=== PATIENT | male | born 1940 | race Caucasian/White ===

== ENCOUNTER → 2017-09-16 09:44 | Outpatient (CLI) | payer MEDICARE, OTHER, SELFPAY ==
[2017-09-16 12:00] LABS: Absolute Lymphocyte Count 1.73 X10^3/ul (0.83-4.51); Absolute Neutrophil Count 5.6 X10^3/uL (2.0-7.7); Basophil# 0.02 X10^3/uL; Basophil% 0.2 % (0-1); Eosinophil# 0.08 X10^3/uL; Hemoglobin 12.8 g/dl (13.0-16.5); Lymphocyte # 1.73 X10^3/ul (4.0); Lymphocyte % 21.1 % (19-41); Mean Corpuscular Hgb 27.1 pg (27.0-32.0); Mean Corpuscular Volume 84.7 fL (80-94); Mean Platelet Vol. 10.1 fl (6.2-12.0); Monocyte# 0.72 X10^3/uL; Monocyte% 8.8 % (0-10); Neutrophil # 5.62 X10^3/uL (2.7-7.7); Neutrophil % 68.7 % (47-70); Platelet Count 338 K/mm3 (150-450); RBC Distribution Width CV 14.8 % (11.6-14.6); RBC Distribution Width SD 44.9 fl (35.1-43.9); Red Blood Count 4.72 M/mm3 (4.6-6.2); White Blood Count 8.2 K/mm3 (4.4-11.0)
[2017-09-16 12:07] LABS: POSITIVE COUNT NO; POSITIVE DIFFERENTIAL NO; POSITIVE MORPHOLOGY NO
[2017-09-16 12:20] LABS: Anion Gap 8 (5-15); BUN 16 mg/dL (7-18); Calcium,Total 8.7 mg/dL (8.5-10.1); Chloride 104 mmol/L (98-107); Creatinine, Serum 1.07 mg/dL (0.70-1.30); EST Glomerular Filtration Rate 71 mL/min (>60); Est Glom Filt Rate - Afr Amer 86 mL/min (>60); Glucose 92 mg/dL (74-106); Potassium 3.7 mmol/L (3.5-5.1); Sodium Level 142 mmol/L (136-145); T4 Free Direct 1.07 ng/dL (0.76-1.46); Thyroid Stim Hormone (TSH) 2.09 uIU/mL (0.358-3.74)
== END ==
PROVIDERS: Family Provider Family Medicine; PCP Family Medicine; Visit Provider Family Medicine
DX: E03.9 Hypothyroidism, unspecified (principal); I10 Essential (primary) hypertension
CPT/HCPCS: 36415; 80048; 84439; 84443; 85025

== ENCOUNTER → 2018-04-02 11:02 | Outpatient (CLI) | payer MEDICARE, OTHER, SELFPAY ==
[2016-05-17 07:23] VITALS: BMI 31.8
[2018-04-02 12:09] LABS: Absolute Lymphocyte Count 1.62 X10^3/ul (0.83-4.51); Absolute Neutrophil Count 3.5 X10^3/uL (2.0-7.7); Basophil# 0.04 X10^3/uL; Basophil% 0.7 % (0-1); Eosinophil# 0.22 X10^3/uL; Eosinophils% 3.7 % (0-5); Hemoglobin 12.5 g/dl (13.0-16.5); Lymphocyte # 1.62 X10^3/ul (4.0); Lymphocyte % 27.6 % (19-41); Mean Corp Hgb Conc 30.6 g/gl (32-36); Mean Corpuscular Hgb 25.8 pg (27.0-32.0); Mean Corpuscular Volume 84.3 fL (80-94); Mean Platelet Vol. 9.8 fl (6.2-12.0); Monocyte# 0.51 X10^3/uL; Monocyte% 8.7 % (0-10); Neutrophil # 3.47 X10^3/uL (2.7-7.7); Neutrophil % 59.1 % (47-70); POSITIVE COUNT NO; POSITIVE DIFFERENTIAL NO; POSITIVE MORPHOLOGY NO; Platelet Count 322 K/mm3 (150-450); RBC Distribution Width CV 14.7 % (11.6-14.6); RBC Distribution Width SD 45.2 fl (35.1-43.9); Red Blood Count 4.85 M/mm3 (4.6-6.2); White Blood Count 5.9 K/mm3 (4.4-11.0)
[2018-04-02 14:59] LABS: Hematocrit 40.9 % (40-54)
[2018-04-02 16:14] LABS: Anion Gap 7 (5-15); BUN 13 mg/dL (7-18); BUN/Creat Ratio 12.7 RATIO (10-20); Calcium,Total 8.4 mg/dL (8.5-10.1); Chloride 106 mmol/L (98-107); Creatinine, Serum 1.02 mg/dL (0.70-1.30); EST Glomerular Filtration Rate 75 mL/min (>60); Est Glom Filt Rate - Afr Amer 90 mL/min (>60); Glucose 96 mg/dL (74-106); Potassium 3.8 mmol/L (3.5-5.1); Sodium Level 139 mmol/L (136-145); T4 Free Direct 1.06 ng/dL (0.76-1.46); Thyroid Stim Hormone (TSH) 1.74 uIU/mL (0.358-3.74)
== END ==
PROVIDERS: Family Provider Family Medicine; PCP Family Medicine; Visit Provider Family Medicine
DX: E03.9 Hypothyroidism, unspecified (principal); I10 Essential (primary) hypertension; I49.9 Cardiac arrhythmia, unspecified
CPT/HCPCS: 36415; 80048; 83735; 84439; 84443; 85025

== ENCOUNTER → 2018-09-30 | Outpatient (CLI) | payer MEDICARE, OTHER, SELFPAY ==
[2016-05-17 07:23] VITALS: BMI 31.8
[2018-09-30 12:29] LABS: Absolute Lymphocyte Count 2.14 X10^3/uL (0.83-4.51); Absolute Neutrophil Count 3.5 X10^3/uL (2.0-7.7); Basophil# 0.05 X10^3/uL; Basophil% 0.8 % (0-1); Eosinophil# 0.18 X10^3/uL; Eosinophils% 2.8 % (0-5); Hematocrit 42.8 % (40-54); Hemoglobin 13.8 g/dL (13.0-16.5); Lymphocyte # 2.14 X10^3/ul (4.0); Lymphocyte % 33.2 % (19-41); Mean Corp Hgb Conc 32.2 g/dL (32-36); Mean Corpuscular Hgb 28.8 pg (27.0-32.0); Mean Corpuscular Volume 89.2 fL (80-94); Mean Platelet Vol. 9.8 fl (6.2-12.0); Monocyte# 0.53 X10^3/uL; Monocyte% 8.2 % (0-10); NRBC Flagged by Analyzer 0 % (0-5); Neutrophil % 54.2 % (47-70); Platelet Count 285 K/mm3 (150-450); RBC Distribution Width CV 13.6 % (11.6-14.6); RBC Distribution Width SD 44.2 fl (35.1-43.9); White Blood Count 6.5 K/mm3 (4.4-11.0)
[2018-09-30 12:54] LABS: ALB/GLOB Ratio 1.1 RATIO (0.9-2.4); AST(SGOT) 19 U/L (15-37); Alanine Aminotransfer ALT/SGPT 32 U/L (16-61); Albumin, Serum 3.9 g/dL (3.2-5.0); Alkaline Phosphatase 59 U/L (45-117); Anion Gap 7 (5-15); BUN 17 mg/dL (7-18); Calcium,Total 8.9 mg/dL (8.5-10.1); Chloride 108 mmol/L (98-107); Creatinine, Serum 1.06 mg/dL (0.70-1.30); EST Glomerular Filtration Rate 71 mL/min (>60); Est Glom Filt Rate - Afr Amer 86 mL/min (>60); Globulin 3.4 g/dL (2.2-4.2); Glucose 99 mg/dL (74-106); Potassium 3.6 mmol/L (3.5-5.1); Protein, Total 7.3 g/dL (6.4-8.2); Sodium Level 142 mmol/L (136-145); T4 Free Direct 1.05 ng/dL (0.76-1.46); Thyroid Stim Hormone (TSH) 1.07 uIU/mL (0.358-3.74)
== END | disposition home or self-care (01) ==
LOC: BFHLAB 10:38
PROVIDERS: Family Provider Family Medicine; PCP Family Medicine; Visit Provider Family Medicine
DX: E03.9 Hypothyroidism, unspecified (principal); I10 Essential (primary) hypertension
CPT/HCPCS: 36415; 80053; 84439; 84443; 85025

== ENCOUNTER → 2019-04-02 08:59 | Outpatient (CLI) | payer MEDICARE, OTHER, SELFPAY ==
[2019-04-02 12:26] LABS: Absolute Lymphocyte Count 1.74 X10^3/uL (0.83-4.51); Absolute Neutrophil Count 3.3 X10^3/uL (2.0-7.7); Basophil# 0.04 X10^3/uL; Basophil% 0.7 % (0-1); Eosinophil# 0.17 X10^3/uL; Eosinophils% 2.9 % (0-5); Hematocrit 45.8 % (40-54); Hemoglobin 14.1 g/dL (13.0-16.5); Lymphocyte # 1.74 X10^3/ul (4.0); Lymphocyte % 30.2 % (19-41); Mean Corp Hgb Conc 30.8 g/dL (32-36); Mean Corpuscular Hgb 26.6 pg (27.0-32.0); Mean Corpuscular Volume 86.4 fL (80-94); Mean Platelet Vol. 9.9 fl (6.2-12.0); Monocyte# 0.47 X10^3/uL; Monocyte% 8.1 % (0-10); NRBC Flagged by Analyzer 0 % (0-5); Neutrophil # 3.33 X10^3/uL (2.7-7.7); Neutrophil % 57.8 % (47-70); Platelet Count 313 K/mm3 (150-450); RBC Distribution Width CV 13.8 % (11.6-14.6); RBC Distribution Width SD 43.7 fl (35.1-43.9); White Blood Count 5.8 K/mm3 (4.4-11.0)
[2019-04-02 12:49] LABS: Anion Gap 6 (5-15); BUN 13 mg/dL (7-18); BUN/Creat Ratio 11.4 RATIO (10-20); Calcium,Total 9.2 mg/dL (8.5-10.1); Chloride 105 mmol/L (98-107); Creatinine, Serum 1.14 mg/dL (0.70-1.30); EST Glomerular Filtration Rate 66 mL/min (>60); Est Glom Filt Rate - Afr Amer 79 mL/min (>60); Glucose 109 mg/dL (74-106); Magnesium 2.1 mg/dL (1.6-2.6); Potassium 3.5 mmol/L (3.5-5.1); Sodium Level 141 mmol/L (136-145); T4 Free Direct 1.01 ng/dL (0.76-1.46); Thyroid Stim Hormone (TSH) 2.59 uIU/mL (0.358-3.74)
== END ==
PROVIDERS: PCP Family Medicine; Visit Provider Family Medicine
DX: I10 Essential (primary) hypertension (principal); E03.9 Hypothyroidism, unspecified; R60.0 Localized edema; E61.2 Magnesium deficiency
CPT/HCPCS: 36415; 80048; 83735; 84439; 84443; 85025

== ENCOUNTER → 2020-04-11 11:21 | Outpatient (CLI) | payer MEDICARE, OTHER, SELFPAY ==
[2020-04-11 15:47] LABS: Anion Gap 5 (5-15); BUN 16 mg/dL (7-18); BUN/Creat Ratio 16.2 RATIO (10-20); Calcium,Total 8.8 mg/dL (8.5-10.1); Chloride 105 mmol/L (98-107); Creatinine, Serum 0.99 mg/dL (0.70-1.30); EST Glomerular Filtration Rate 77 mL/min (>60); Est Glom Filt Rate - Afr Amer 94 mL/min (>60); Glucose 86 mg/dL (74-106); Potassium 3.6 mmol/L (3.5-5.1); Sodium Level 141 mmol/L (136-145); T4 Free Direct 1.07 ng/dL (0.76-1.46); Thyroid Stim Hormone (TSH) 2.34 uIU/mL (0.358-3.74)
== END ==
PROVIDERS: PCP Family Medicine; Visit Provider Family Medicine
DX: E03.9 Hypothyroidism, unspecified (principal); I10 Essential (primary) hypertension; R60.0 Localized edema
CPT/HCPCS: 36415; 80048; 84439; 84443

== ENCOUNTER → 2020-04-29 11:12 | Outpatient (CLI) | payer MEDICARE, OTHER, SELFPAY ==
[2016-05-17 07:23] VITALS: BMI 31.8
--- NOTE | 2020-04-29 11:17 | RAD_ITS ---
STUDY: X-RAY CHEST REASON FOR EXAM: Male, 79 years old. EDEMA, HEART FAILURE TECHNIQUE: PA and lateral views of the chest. COMPARISON: None. FINDINGS: The lungs are clear and expanded. There is no demonstrated pleural abnormality. There is mild cardiac enlargement. Normal mediastinum and [place]. Normal visualized pulmonary arteries. Normal visualized aortic arch and descending thoracic aorta. There are diffuse degenerative changes of the visualized thoracic spine. Normal visualized ribs, clavicles, and shoulders. There is no demonstrated abnormality of the visualized soft tissue structures of the upper abdomen. RAD/Chest PA and Lateral IMPRESSION: No demonstrated acute cardiopulmonary process. Electronically Signed: Obdulia Tavera MD at 9:43 EST Tel , Service support ,
[2020-04-29 14:52] LABS: Absolute Neutrophil Count 3.4 X10^3/uL (2.0-7.7); Basophil# 0.05 X10^3/uL; Basophil% 0.8 % (0-1); Eosinophil# 0.14 X10^3/uL; Eosinophils% 2.4 % (0-5); Hematocrit 40.5 % (40-54); Lymphocyte % 28.7 % (19-41); Mean Corp Hgb Conc 29.6 g/dL (32-36); Mean Corpuscular Hgb 24.4 pg (27.0-32.0); Mean Corpuscular Volume 82.5 fL (80-94); Monocyte# 0.56 X10^3/uL; Monocyte% 9.5 % (0-10); NRBC Flagged by Analyzer 0 % (0-5); Neutrophil # 3.44 X10^3/uL (2.7-7.7); Neutrophil % 58.1 % (47-70); Platelet Count 311 K/mm3 (150-450); RBC Distribution Width CV 14.7 % (11.6-14.6); RBC Distribution Width SD 44.3 fl (35.1-43.9); Red Blood Count 4.91 M/mm3 (4.6-6.2); White Blood Count 5.9 K/mm3 (4.4-11.0)
[2020-04-29 15:33] LABS: ALB/GLOB Ratio 1.1 RATIO (0.9-2.4); AST(SGOT) 20 U/L (15-37); Alanine Aminotransfer ALT/SGPT 30 U/L (16-61); Albumin, Serum 3.8 g/dL (3.2-5.0); Alkaline Phosphatase 61 U/L (45-117); Anion Gap 7 (5-15); BUN 11 mg/dL (7-18); BUN/Creat Ratio 11.9 RATIO (10-20); Chloride 104 mmol/L (98-107); Creatinine, Serum 0.93 mg/dL (0.70-1.30); EST Glomerular Filtration Rate 83 mL/min (>60); Est Glom Filt Rate - Afr Amer 101 mL/min (>60); Globulin 3.6 g/dL (2.2-4.2); Glucose 69 mg/dL (74-106); Potassium 3.6 mmol/L (3.5-5.1); Protein, Total 7.4 g/dL (6.4-8.2); Sodium Level 140 mmol/L (136-145); Thyroid Stim Hormone (TSH) 2.95 uIU/mL (0.358-3.74)
== END ==
PROVIDERS: PCP Family Medicine; Referring Provider Family Medicine; Visit Provider Family Medicine
DX: I11.0 Hypertensive heart disease with heart failure (principal); I50.9 Heart failure, unspecified; E03.9 Hypothyroidism, unspecified
CPT/HCPCS: 36415; 71046; 80053; 83880; 84443; 85025

== ENCOUNTER → 2020-05-02 | Outpatient (CLI) | payer MEDICARE, OTHER, SELFPAY | END | disposition home or self-care (01) | LOC: LABSPEC 11:04 | PROVIDERS: PCP Family Medicine; Visit Provider Family Medicine | DX: Z20.828 Contact with and (suspected) exposure to other viral communicable diseases (principal) | CPT/HCPCS: 87635; U0005; U0003 ==

== ENCOUNTER → 2020-05-13 12:46 | Outpatient (CLI) | payer MEDICARE, OTHER, SELFPAY ==
--- NOTE | 2020-05-13 12:48 | ECHOD_ITS ---
Reason For Study: CHF, NEW ONSET SUSPECT RIGHT SIDED FAILURE Procedure This was a 2D Doppler, Color Flow transthoracic echocardiogram. Exam performed in department. Left Ventricle Normal LV size. Left ventricular systolic function is normal. The estimated ejection fraction is 60 %. Stage 1 diastolic dysfunction. No regional wall motion abnormalities noted. Right Ventricle Normal RV size. Normal systolic function. Atria Normal left atrium. Normal right atrium. Mitral Valve Normal mitral valve. Tricuspid Valve Normal tricuspid valve. Aortic Valve Normal aortic valve. Trisinus/trileaflet aortic valve. Pulmonic Valve Normal pulmonic valve. Great Vessels Normal aortic root. The pulmonary artery is normal size. Normal inferior vena cava. Pericardium/Pleural No pericardial effusion. MMode/2D Measurements & Calculations LVIDd: 3.9 cm IVSd: 0.93 cm Ao root diam: 3.3 cm LVIDs: 2.7 cm LVPWd: 0.89 cm RVDd: 3.7 cm FS: 31.6 % LAV(MOD-bp): 46.4 ml LVAd ap4: 25.1 cm2 SV(MOD-sp4): 42.5 ml LAV(MOD-bp) Indexed: 24.0 ml/m2 EDV(MOD-sp4): 70.4 ml LAV(MOD-sp2): 48.5 ml EDV(sp4-el): 73.0 ml LAV(MOD-sp4): 39.2 ml LVAs ap4: 14.6 cm2 ESV(MOD-sp4): 27.9 ml ESV(sp4-el): 29.2 ml EF(MOD-sp4): 60.4 % EF(sp4-el): 60.0 % SV(sp4-el): 43.8 ml LA A4 area: 17.0 cm2 LA dimension(2D): 3.7 cm RA A4 area: 15.5 cm2 Time Measurements MV dec time: 0.24 sec Doppler Measurements & Calculations MV E max chris: 82.7 cm/sec Lat Peak E' Chris: 9.1 cm/sec Med Peak E' Chris: 8.4 cm/sec MV A max chris: 85.4 cm/sec E/E' lat: 9.1 E/E' med: 9.8 MV E/A: 0.97 Ao V2 max: 159.0 cm/sec LV V1 max: 98.7 cm/sec PA V2 max: 103.1 cm/sec Ao max P.1 mmHg LV V1 max P.9 mmHg Interpretation Summary Normal LV size. Left ventricular systolic function is normal. The estimated ejection fraction is 60 %. Stage 1 diastolic dysfunction. Structurally normal valves. Ordering Physician: Davis Recio Referring Physician: Davis Recio Performed By: Linda Johnston, RDCS
== END ==
PROVIDERS: PCP Family Medicine; Referring Provider Family Medicine; Visit Provider Family Medicine
DX: I50.9 Heart failure, unspecified (principal); R60.0 Localized edema; J44.9 Chronic obstructive pulmonary disease, unspecified
CPT/HCPCS: 93306

== ENCOUNTER → 2020-05-23 12:07 | Outpatient (CLI) | payer MEDICARE, OTHER, SELFPAY ==
[2016-05-17 07:23] VITALS: BMI 31.8
[2020-05-23 15:39] LABS: Anion Gap 8 (5-15); BUN 25 mg/dL (7-18); BUN/Creat Ratio 17.4 RATIO (10-20); Calcium,Total 9.3 mg/dL (8.5-10.1); Chloride 96 mmol/L (98-107); Creatinine, Serum 1.44 mg/dL (0.70-1.30); EST Glomerular Filtration Rate 50 mL/min (>60); Est Glom Filt Rate - Afr Amer 60 mL/min (>60); Glucose 109 mg/dL (74-106); Potassium 2.5 mmol/L (3.5-5.1); Sodium Level 136 mmol/L (136-145)
== END ==
PROVIDERS: PCP Family Medicine; Referring Provider Family Medicine; Visit Provider Family Medicine
DX: R60.0 Localized edema (principal)
CPT/HCPCS: 36415; 80048

== ENCOUNTER → 2020-05-30 14:53 | Outpatient (CLI) | payer MEDICARE, OTHER, SELFPAY ==
[2016-05-17 07:23] VITALS: BMI 31.8
[2020-05-30 18:09] LABS: Anion Gap 4 (5-15); BUN 22 mg/dL (7-18); BUN/Creat Ratio 17.1 RATIO (10-20); Calcium,Total 9.5 mg/dL (8.5-10.1); Chloride 98 mmol/L (98-107); Creatinine, Serum 1.29 mg/dL (0.70-1.30); EST Glomerular Filtration Rate 57 mL/min (>60); Est Glom Filt Rate - Afr Amer 69 mL/min (>60); Glucose 94 mg/dL (74-106); Potassium 2.6 mmol/L (3.5-5.1); Sodium Level 138 mmol/L (136-145)
== END ==
PROVIDERS: PCP Family Medicine; Referring Provider Family Medicine; Visit Provider Family Medicine
DX: I10 Essential (primary) hypertension (principal)
CPT/HCPCS: 36415; 80048

== ENCOUNTER 2020-06-02 12:19 | Emergency (ER) | payer MEDICARE, OTHER, SELFPAY ==
[2020-06-02 12:20] VITALS: BP 141/92; PULSE 105; RESP 18; TEMP 36.1; O2SAT 98; BMI 29.9
--- NOTE | 2020-06-02 12:39 | ED.VIS.GEN ---
History of Present Illness Chief Complaint: Constipation Informant: Patient Onset: Weeks - 1 Timing: Continuous Quality: see below Current Severity: Moderate Maximum Severity: Moderate Worsened by: nothing Relieved by: nothing - tried Dulcolax, miralax, fleet enema Associated Symptoms: LLQ pain once yest, otherwise none Narrative: Patient states that he usually has daily bowel movement, but as of 1 week ago he stopped having them. He did not get the urge to go, nor any abdominal pain, nausea, vomiting. He saw his PCP, he was put on a regimen that included Dulcolax, MiraLAX and he even did fleets enemas at home, he held the fluid in for 10 minutes or so, it came out without any other fluid/stool or affect. He has had some stool-colored fluid come out but very small amounts. He has not felt the need to go. He had one episode of left lower quadrant pain yesterday but otherwise is having no abdominal pain or discomfort/nausea/vomiting. - Past Medical History (1) Hypothyroid Status: Chronic (2) Hypertension Status: Chronic (3) Peripheral vertigo Status: Chronic (4) GERD (gastroesophageal reflux disease) Status: Chronic Past Medical History - Allergies and Home Meds Allergies/Adverse Reactions: Allergies No Known Allergies Allergy (Verified 06/02/20 12:19) Primary Care Physician: Davis Recio MD [Primary Care Provider] - Smoking Status: Former smoker Review of Systems General: Denies: Chills, Fever, Sweats Eyes: Denies: Visual changes - bilaterally, Diplopia ENT: Denies: Rhinorrhea, Sore throat Cardiovascular: Denies: Chest pain, Palpitations Respiratory: Denies: Dyspnea, Cough, Dyspnea on exertion Gastrointestinal: Reports: Constipation. Denies: Abdominal pain, Nausea, Vomiting, Diarrhea, Melena, Hematochezia Genitourinary: Denies: Dysuria, Hematuria, Frequency Musculoskeletal: Denies: Back pain, Extremity Pain Skin: Denies: Rash, Wounds Neurological: Denies: Headache, Weakness, Numbness Physical Exam Vital Signs/Narrative: Vital Signs Temp Pulse Resp BP Pulse Ox 06/02/20 12:20 97.0 F L 105 H 18 141/92 H 98 Inital Vital Signs reviewed: Yes General: Well nourished, Well developed, No Acute Distress Head: Normocephalic, Atraumatic Eyes: Perrl, EOMI ENT: Moist mucous membranes, No rhinorrhea Neck: Supple, Nontender Cardiovascular: Regular rate, Regular rhythm, No murmurs Respiratory: No distress, CTA bilaterally, Chest nontender Abdomen: Soft, Nontender, Nondistended, Normal bowel sounds, No masses. Negative for: Pulsatile mass Back: Nontender, Normal Inspection. Negative for: CVA tenderness Extremities: Nontender, No edema Skin: Normal color, No rash, No Trauma Neurological: Alert, Oriented x3, Cranial nerves II-XII grossly intact, Normal Strength, Normal Sensation, Normal Gait Psychological: Normal affect, Normal Mood Diagnostic/Tx/Re-eval - Medical Decision Making Patient was given soapsuds enema, and as a result had a very large bowel movement and he feels well. Given this, and his benign exam and symptomatology, I do not think further testing is indicated emergently at this time. Patient was advised to discontinue Dulcolax, he was prescribed Colace, and advised also continue MiraLAX a capful once daily along with plenty of fluids. He asked if he could go off of his diet, I advised that I think at this time he can if tolerated. ED Disposition - Plan for ED Patient: Disposition: Home or Assisted Living Diagnosis: Constipation Instructions: ED Constipation (Adult) Prescriptions: Docusate Sodium [Colace] 100 mg PO DAILY #30 capsule Transmission Status: Pending to [facility]/pharmacy #[id number] Referrals: Davis Recio MD [Primary Care Provider] - As Needed Additional Instructions: Discontinue Dulcolax. Continue MiraLAX, 1 capful daily along with plenty of water or other fluid.
== END 2020-06-02 14:22 | disposition home or self-care (01) ==
PROVIDERS: Emergency Provider Emergency Medicine; PCP Family Medicine
DX: K59.00 Constipation, unspecified (principal); I10 Essential (primary) hypertension; E03.9 Hypothyroidism, unspecified; K21.9 Gastro-esophageal reflux disease without esophagitis; Z79.899 Other long term (current) drug therapy; Z87.891 Personal history of nicotine dependence
CPT/HCPCS: 99284

== ENCOUNTER → 2020-10-11 14:43 | Outpatient (CLI) | payer MEDICARE, OTHER, SELFPAY ==
--- NOTE | 2020-10-11 14:44 | CT_ITS ---
INDICATION: PRIMARY OSTEOARTHRITIS EXAMINATION: CT BONE - CT Upper Extremity W/O Contrast Injection TECHNIQUE: Helically acquired images were obtained of the right shoulder. 2-D reformats were performed by the technologist. A radiation dose optimization technique was used for this scan. IV Contrast dosage and agent: None. COMPARISON: None. FINDINGS: SOFT TISSUES: No soft tissue swelling or gas. No radiopaque foreign body. The partially visualized lungs are clear. There is fatty replacement of the supraspinatus and infraspinatus muscles. No large shoulder joint effusion. BONES/JOINTS: No acute fracture or subluxation. Normal alignment. There is glenohumeral joint space narrowing with osteophytes and mild subchondral sclerosis. Acromiohumeral interval narrowing to 6 mm with osteophytes and mild subchondral sclerosis. Acromioclavicular osteophytes and subchondral sclerosis. No destructive changes. Mild degenerative changes in the partially visualized cervical and upper thoracic spine. 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 Acromiohumeral narrowing and fatty replacement of the supraspinatus muscles concerning for rotator cuff tear. There is also fatty degeneration of the infraspinatus muscle. Electronically Signed: Esteban Ferraro MD at 8:57 EDT Tel , Service support ,
== END ==
PROVIDERS: PCP Family Medicine; Referring Provider Specialist; Visit Provider Specialist
DX: M19.011 Primary osteoarthritis, right shoulder (principal)
CPT/HCPCS: 73200

== ENCOUNTER 2021-02-04 14:40 | Emergency (ER) | payer MEDICARE, OTHER, SELFPAY ==
[2021-02-04 14:40] VITALS: BP 144/72; PULSE 110; RESP 16; TEMP 35.8; O2SAT 99; BMI 27.4
--- NOTE | 2021-02-04 15:47 | RAD_ITS ---
STUDY: X-RAY - ACUTE ABDOMINAL SERIES REASON FOR EXAM: Male, 80 years old. Constipation TECHNIQUE: Single view of the chest. Supine, and erect view(s) of the abdomen were obtained. COMPARISON: None. FINDINGS: The lungs are clear and expanded. Normal size heart. Normal mediastinum and [place]. Normal visualized pulmonary arteries. There is atherosclerotic calcification of the aortic arch with tortuosity. There is a non-specific bowel gas pattern. The soft tissue structures of the abdomen and pelvis are unremarkable. There are diffuse degenerative changes of the visualized lumbar spine. RAD/Acute Abdomen Inc Chest IMPRESSION: Nonacute x-ray examination of the chest, abdomen, and pelvis. Electronically Signed: Joey Hdz MD ([place]) at 17:14 EST , Service support ,
--- NOTE | 2021-02-04 16:00 | EDS_ITS ---
HPI HPI - GI History of Present Illness Chief Complaint: Constipation Informant: patient Abdominal Pain/Flank Pain Onset: Weeks (1) Context: Gradual Onset Timing: Continuous Quality: Dull Location: RLQ and LLQ Worsened by: Nothing Relieved by: Nothing Nausea/Vomiting/Emesis GI Symptom: Negative for Nausea and Vomiting Diarrhea/Melena/Hematochezia GI Symptom: Negative for Diarrhea, Melena and Hematochezia Associated Symptoms Associated Symptoms: Negative for Dysuria, Frequency and Hematuria Narrative Narrative: Patient presents with constipation that has been constant for the past week. Patient states he has tried Colace and MiraLAX with no results. Patient states he has some dull pain in his lower abdomen. Patient states nothing makes it worse nothing makes it better. Patient states he has some pain in his low back as well. Patient denies any nausea or vomiting. Patient denies any fevers or chills. Patient denies any urinary complaints. [facility] Medical History Constipation Home Medications levothyroxine 50 mcg PO DAILY 12/11/15 [History Last Taken 05/17/16 06:00] docusate sodium 100 mg PO DAILY #30 capsule 06/02/20 [Rx Last Taken Unknown] furosemide 20 mg PO DAILY 06/02/20 [History Last Taken Unknown] pantoprazole 40 mg PO DAILY 06/02/20 [History Last Taken Unknown] potassium chloride 8 meq PO DAILY 06/02/20 [History Last Taken Unknown] cyanocobalamin-liver extract [Vitamin U30-Phzic] 1 tab PO DAILY 02/04/21 [Hi story Last Taken Unknown] glucos sul [id number] [Glucosamine Chondroitin] 1 cap PO DAILY 02/04/21 [History Last Taken Unknown] hydrochlorothiazide 25 mg PO DAILY 02/04/21 [History Last Taken Unknown] Allergy/AdvReac Type Severity Reaction Status Date / Time No Known Allergies Allergy Verified 06/02/20 12:19 Surgical History no surgical history no surgical history Social History Smoking Status: Never smoker ROS ROS ED Constitutional Constitutional ED: Denies chills or fever(s) Eyes Eyes: Denies blurry vision or change in vision ENT ENT ED: Denies rhinorrhea or sore throat Cardiovascular Cardiovascular: Denies chest pain or palpitations Respiratory/Chest Respiratory/Chest: Denies cough or dyspnea Gastrointestinal Gastrointestinal: Reports abdominal pain and constipation; Denies diarrhea, nausea or vomiting Genitourinary Genitourinary ED: Denies dysuria or hematuria Musculoskeletal Musculoskeletal: Reports back pain; Denies neck pain Integumentary Denies abscess or rash Neurologic Neurologic: Denies headache(s) or weakness Allergic/Immunologic Allergic/Immunologic ED: Denies mouth swelling or urticaria EXAM Physical Exam Const Vital Signs: 02/04/21 14:40 Temperature 96.5 F L Temperature Source Temporal Pulse Rate 110 H Respiratory Rate 16 Blood Pressure 144/72 H Blood Pressure Mean 96 Pulse Ox 99 Oxygen Delivery Method Room Air Positive well nourished and well developed General Appearance ED: well developed HEENT Reports moist mucous membranes Neck supple and no JVD Resp normal respiratory effort and clear to auscultation bilaterally Cardio regular rate, regular rhythm and no murmurs GI normal to inspection, nondistended, normoactive bowel sounds and non-distended Auscultation: normoactive bowel sounds Palpation: soft and tender LLQ, RLQ and suprapubic; Negative for guarding or rebound tenderness present Extremity normal to inspection General Extremety ED: Negative for edema or tenderness General Extremity: Negative for edema Neuro oriented x3, CN's II-XII intact bilaterally and no sensory deficits noted Sensorium / Orientation: alert Motor Exam: strength 5/5 throughout Psych mental status grossly normal Skin no rashes or lesions noted MDM MDM MDM Narrative Medical decision making narrative: Acute abdominal x-rays were obtained. There are 7 views. On my interpretation, there is no evidence of bowel obstruction. There is some mild stool noted in the rectum. There is no free air. There is no other acute process noted. Radiologist also interpreted the x-rays and agrees. CBC shows a mild anemia with a hemoglobin of 11.3 hematocrit 37.3. Comprehensive metabolic profile was essentially within normal limits. Urinalysis shows leukocyte esterase of 100. There were positive nitrites and 3+ bacteria. There were 0-5 white blood cells. Urine culture was ordered. I do not feel patient has any symptoms of urinary tract infection at this time. Patient does not need to be treated for urinary tract infection at this time. Patient was given a soapsuds enema here. Patient had some stool out with his enema. Patient feels better on reevaluation. Patient was instructed to follow- up with his primary care physician in 5 to 7 days. Patient understood and was agreeable with the plan. All questions were answered. Lab Data Attestation: I reviewed the patient's lab results. Labs: Laboratory Results - last 24 hr 02/04/21 02/04/21 02/04/21 16:20 16:20 19:39 WBC 6.9 RBC 4.76 Hgb 11.3 L Hct 37.3 L MCV 78.4 L MCH 23.7 L MCHC 30.3 L RDW Std Deviation 45.2 H RDW Coeff of Elieser 15.9 H Plt Count 390 MPV 8.5 Immature Gran % (Auto) 0.400 Neut % (Auto) 69.5 Lymph % (Auto) 19.3 [place] % (Auto) 8.4 Eos % (Auto) 2.0 Baso % (Auto) 0.4 Absolute Neuts (auto) 4.8 Absolute Lymphs (auto) 1.34 Nucleated RBC % 0 Sodium 140 Potassium 3.0 L Chloride 102 Carbon Dioxide 31.0 Anion Gap 7 BUN 19 H Creatinine 1.21 Estim Creat Clear Calc 42.47 Est GFR (MDRD) Af Amer 74 Est GFR (MDRD) Non-Af 61 BUN/Creatinine Ratio 15.7 Glucose 93 Calcium 9.1 Total Bilirubin 0.50 AST 14 L ALT 21 Alkaline Phosphatase 75 Total Protein 7.6 Albumin 3.4 Globulin 4.2 Albumin/Globulin Ratio 0.8 L Urine Color Yellow Urine Clarity Sl. Cloudy Urine pH 5.0 Ur Specific [place] 1.025 Urine Protein 30 H Urine Glucose (UA) Normal Urine Ketones 5 H Urine Occult Blood 10 H Urine Nitrite Positive H Urine Bilirubin Negative Urine Urobilinogen Normal Ur Leukocyte Esterase 100 H Urine RBC 0 SEEN Urine WBC 0-5 SEEN Ur Squamous Epith Cells 0-5 SEEN Urine Bacteria 3+ Urine Mucus 0 SEEN Radiography Diagnostic Testing: Clinical Impression(s) from Imaging Studies Acute Abdomen Series 02/04/21 15:47 IMPRESSION: Nonacute x-ray examination of the chest, abdomen, and pelvis. Electronically Signed: Joey Hdz MD ([place]) at 17:14 EST , Service support , Discharge Plan Triage Chief Complaint: Constipation ED Provider: Flaco Stout Dx/Rx/DC Orders Clinical Impression: Constipation Instructions: ED Constipation (Adult) Prescriptions: No Action levothyroxine 50 MCG tablet 50 mcg PO DAILY RF: 0 pantoprazole 40 MG tablet 40 mg PO DAILY RF: 0 furosemide 20 MG tablet 20 mg PO DAILY RF: 0 potassium chloride 10 MEQ tablet 8 meq PO DAILY RF: 0 docusate sodium 100 MG capsule 100 mg PO DAILY Qty: 30 RF: 0 hydrochlorothiazide 25 mg Tablet 25 mg PO DAILY RF: 0 Vitamin [id number] Tablet 1 tab PO DAILY RF: 0 Glucosamine Chondroitin 550-30-1 mg Capsule 1 cap PO DAILY RF: 0 Primary Care Provider: Davis Recio Referrals: Davis Recio MD [Primary Care Provider] - 3-5 Days Disposition Disposition: Home, Self Care
[2021-02-04 16:35] LABS: Absolute Lymphocyte Count 1.34 X10^3/uL (0.83-4.51); Absolute Neutrophil Count 4.8 X10^3/uL (2.0-7.7); Basophil# 0.03 X10^3/uL; Basophil% 0.4 % (0-1); Eosinophil# 0.14 X10^3/uL; Hematocrit 37.3 % (40-54); Hemoglobin 11.3 g/dL (13.0-16.5); Lymphocyte # 1.34 X10^3/ul (0.83-4.51); Lymphocyte % 19.3 % (19-41); Mean Corp Hgb Conc 30.3 g/dL (32-36); Mean Corpuscular Hgb 23.7 pg (27.0-32.0); Mean Corpuscular Volume 78.4 fL (80-94); Mean Platelet Vol. 8.5 fl (6.2-12.0); Monocyte# 0.58 X10^3/uL; Monocyte% 8.4 % (0-10); NRBC Flagged by Analyzer 0 % (0-5); Neutrophil # 4.81 X10^3/uL (2.7-7.7); Neutrophil % 69.5 % (47-70); Platelet Count 390 K/mm3 (150-450); RBC Distribution Width CV 15.9 % (11.6-14.6); RBC Distribution Width SD 45.2 fl (35.1-43.9); Red Blood Count 4.76 M/mm3 (4.6-6.2); White Blood Count 6.9 K/mm3 (4.4-11.0)
[2021-02-04 16:58] LABS: ALB/GLOB Ratio 0.8 RATIO (0.9-2.4); AST(SGOT) 14 U/L (15-37); Alanine Aminotransfer ALT/SGPT 21 U/L (16-61); Albumin, Serum 3.4 g/dL (3.2-5.0); Alkaline Phosphatase 75 U/L (45-117); Anion Gap 7 (5-15); BUN 19 mg/dL (7-18); BUN/Creat Ratio 15.7 RATIO (10-20); Calcium,Total 9.1 mg/dL (8.5-10.1); Chloride 102 mmol/L (98-107); Creatinine, Serum 1.21 mg/dL (0.70-1.30); EST Glomerular Filtration Rate 61 mL/min (>60); Est Glom Filt Rate - Afr Amer 74 mL/min (>60); Estimated Creatinine Clearance 42.47 ml/min; Globulin 4.2 g/dL (2.2-4.2); Glucose 93 mg/dL (74-106); Protein, Total 7.6 g/dL (6.4-8.2); Sodium Level 140 mmol/L (136-145)
[2021-02-04] MEDS: Potassium Chloride Oral Tablet 20 MEQ 40 MEQ PO (18:03)
[2021-02-04 19:46] LABS: Mucous, Urine 0 SEEN /hpf (<or=2+); Red Blood Cells-Urine 0 SEEN /hpf (0-5)
[2021-02-04 19:49] LABS: Color, Urine Yellow (Yellow); Glucose, Dipstick Normal (Normal); Ketone-Dipstick 5 mg/dl (Negative); Leukocyte Esterase-Dipstick 100 /ul (Negative); Nitrite-Dipstick Positive (Negative); Occult Blood-Urine 10 /ul (Negative); Protein-Dipstick 30 mg/dl (Negative); Specific Gravity, Urine 1.025 (1.002-1.030); Urine Bilirubin Dipstick Negative (Negative); Urine Clarity Sl. Cloudy (Clear); Urine Urobilinogen Normal (Normal)
[2021-02-04 19:58] LABS: Bacteria 3+ /hpf (None Seen); Squamous Epithelial Cells - UA 0-5 SEEN /hpf (0-5); White Blood Cells 0-5 SEEN /hpf (0-5)
== END 2021-02-04 20:19 | disposition home or self-care (01) ==
PROVIDERS: Emergency Provider Emergency Medicine; PCP Family Medicine
DX: K59.00 Constipation, unspecified (principal); R10.30 Lower abdominal pain, unspecified; M54.50 Low back pain, unspecified
CPT/HCPCS: 36415; 74022; 80053; 81001; 85025; 87077; 87086; 87088; 87186; 99285; A4216

== ENCOUNTER → 2021-06-21 | Outpatient (CLI) | payer MEDICARE, OTHER, SELFPAY ==
[2021-06-21 12:11] LABS: Absolute Lymphocyte Count 1.55 X10^3/uL (0.83-4.51); Basophil# 0.04 X10^3/uL; Basophil% 0.5 % (0-1); Eosinophil# 0.25 X10^3/uL; Eosinophils% 3.3 % (0-5); Hematocrit 38.7 % (40-54); Hemoglobin 11.7 g/dL (13.0-16.5); Lymphocyte # 1.55 X10^3/ul (0.83-4.51); Lymphocyte % 20.5 % (19-41); Mean Corp Hgb Conc 30.2 g/dL (32-36); Mean Corpuscular Hgb 23.6 pg (27.0-32.0); Mean Corpuscular Volume 78.2 fL (80-94); Mean Platelet Vol. 9.3 fl (6.2-12.0); Monocyte# 0.66 X10^3/uL; Monocyte% 8.7 % (0-10); NRBC Flagged by Analyzer 0 % (0-5); Neutrophil # 4.99 X10^3/uL (2.7-7.7); Neutrophil % 66.1 % (47-70); Platelet Count 430 K/mm3 (150-450); RBC Distribution Width CV 16.5 % (11.6-14.6); RBC Distribution Width SD 46.7 fl (35.1-43.9); Red Blood Count 4.95 M/mm3 (4.6-6.2); White Blood Count 7.6 K/mm3 (4.4-11.0)
[2021-06-21 12:42] LABS: Vitamin B12 832 pg/mL (211-911)
[2021-06-21 13:09] LABS: Ferritin 14 ng/mL (26-388); Iron 27 ug/dL (65-175); Thyroid Stim Hormone (TSH) 2.49 uIU/mL (0.358-3.74)
== END | disposition home or self-care (01) ==
LOC: MTLAB 10:31
PROVIDERS: PCP Family Medicine; Referring Provider Family Medicine; Visit Provider Family Medicine
DX: D64.9 Anemia, unspecified (principal); E03.9 Hypothyroidism, unspecified; G62.9 Polyneuropathy, unspecified
CPT/HCPCS: 36415; 82607; 82728; 82746; 83540; 84443; 85025

== ENCOUNTER 2021-09-03 10:03 | Inpatient (IN) | payer MEDICARE, OTHER, SELFPAY ==
[2021-09-03] VITALS (12 sets, daily range): BP systolic 131–189; BP diastolic 54–104; PULSE 59–98; RESP 14–20; TEMP 36.1–36.8; O2SAT 95–98; BMI 29.8; BMI 30.9
--- NOTE | 2021-09-03 10:29 | CT_ITS ---
STUDY: CTA HEAD AND NECK WITH CONTRAST REASON FOR EXAM: Male, 81 years old. Neuro deficit, acute, stroke suspected RADIATION DOSAGE (If Supplied By Facility): CTDIvol = ( 17.55 ) mGy, DLP = ( 684.73 ) mGycm TECHNIQUE: CT angiography was performed with a multi-detector CT scanner. Data acquisition was obtained from the skull base through the vertex following intravenous administration of 100mL Isovue-370. MIP images were reconstructed from the axial data set. Post-processing of the angiographic images was performed, with multiplanar reformation and 3D reconstruction. Individualized dose optimization techniques were used for this CT. COMPARISON: No relevant priors. FINDINGS: Normal bilateral petrous carotid arteries. Normal right cavernous carotid artery with a normal supraclinoid bifurcation. Normal left cavernous carotid artery with a normal supraclinoid bifurcation. Normal right A1 segments of the anterior cerebral artery. There is hypoplastic development of the left A1 segment of the anterior cerebral arteries with an atretic but intact artery. Normal intact anterior communicating artery (ACOM). Normal bilateral A2 segments of the anterior cerebral arteries. Normal right M1 and M2 segments of the middle cerebral arteries, with a normal M1 bifurcation. Normal left M1 and M2 segments of the middle cerebral arteries, with a normal M1 bifurcation. There is non-visualization of the right posterior communicating artery (PCOM). There is non-visualization of the left posterior communicating artery (PCOM). There is a small atretic left vertebral artery with a dominant right vertebral artery. Normal basilar artery with a normal basilar bifurcation. The visualized bilateral superior cerebellar (SCA) arteries are normal. Normal bilateral P1, P2 and visualized P3 segments of the posterior cerebral arteries. There is no demonstrated aneurysm of the [place]. There is no acute abnormality of the visualized brain. AORTIC ARCH: There is atherosclerotic calcific plaque formation of the aortic arch and great vessels arising from the aortic arch, without a hemodynamically significant stenosis. There is a normal origin of the brachiocephalic, left common carotid, and left subclavian arteries. RIGHT CAROTID ARTERIES: Normal right common carotid artery (CCA). Normal right common carotid bulb. Normal origin of the right internal carotid (ICA) artery without a hemodynamically significant stenosis. There is atherosclerotic tortuous elongation of the cervical portion of the right internal carotid artery. Normal origin of the right external carotid artery (ECA). LEFT CAROTID ARTERIES: Normal left common carotid artery (CCA). There is mild atherosclerotic plaque formation with minimal narrowing of the left carotid bulb. Normal origin of the left internal carotid (ICA) artery without a hemodynamically significant stenosis. There is atherosclerotic tortuous elongation of the cervical portion of the left internal carotid artery. Normal origin of the left external carotid artery (ECA). VERTEBRAL ARTERIES: There is enhancement within the bilateral vertebral arteries with a small left vertebral artery, and a dominant right vertebral artery. CT/STROKE CTA Head AND Neck W/Con IMPRESSION: There is plaque with mild, less than 50%, narrowing of the left proximal internal carotid arteries. There is no intracranial aneurysm or large vessel occlusion. N.B. : The above Results were Read Back by Yayo Dumont MD to , AA, and understanding confirmed on 09/03/2021 11:10:59 (ET). Electronically Signed: Yayo Dumont MD at 11:12 EDT ,
--- NOTE | 2021-09-03 10:29 | CT_ITS ---
STUDY: CT HEAD STROKE PROTOCOL W/O CONTRAST INJECTION REASON FOR EXAM: Male, 81 years old. Neuro deficit, acute, stroke suspected RADIATION DOSAGE (If Supplied By Facility): CTDIvol = ( 44 ) mGy, DLP = ( 829 ) mGycm TECHNIQUE: Transaxial CT imaging of the brain was performed without administration of intravenous contrast material. Individualized dose optimization techniques were used for this CT. COMPARISON: No relevant priors. FINDINGS: Normal soft tissue structures. Normal calvarium. There is mild cerebral atrophy with widening of the extra-axial spaces and ventricular dilatation. There are areas of decreased attenuation within the white matter tracts of the supratentorial brain, consistent with microvascular disease changes. Normal basal ganglia and thalami. Normal brainstem. Normal cerebellum. There is no intracranial hemorrhage. There are no findings of an acute ischemic infarction. Normal visualized paranasal sinuses. ASPECT score: 10 CT/STROKE Brain/Head without Cont IMPRESSION: Chronic involutional changes of the brain. N.B. : The above Results were Read Back by Yayo Dumont MD to Elgin Rubio MD, and understanding confirmed on 09/03/2021 10:52:15 (ET). Electronically Signed: Yayo Dumont MD at 10:53 EDT Reading Location ID and State: [facility] / [place] , Service support ,
--- NOTE | 2021-09-03 10:29 | EKG12_ITS ---
Test Reason : Blood Pressure : / mmHG Vent. Rate : 094 BPM Atrial Rate : 094 BPM P-R Int : 274 ms QRS Dur : 096 ms QT Int : 364 ms P-R-T Axes : 063 -03 029 degrees QTc Int : 455 ms Sinus rhythm with 1st degree A-V block Otherwise normal ECG Confirmed by BERNADETTE CUEVAS, HARSHA ([id number]), editorial cartoonist CASSIE SMITH ([id number]) on 09/05/2021 8:49:09 AM Referred By: Confirmed By:HARSHA FLEMING MD
--- NOTE | 2021-09-03 10:29 | RAD_ITS ---
EXAM: XR CHEST, 1 VIEW CLINICAL INDICATION: Neuro deficit, acute, stroke suspected TECHNIQUE: Frontal view of the chest. This report was created using [place] [employer] report generation technology. COMPARISON: 02/04/2021 FINDINGS: LUNGS AND PLEURAL SPACES: Unremarkable. No consolidation or edema. No pneumothorax. No effusion. HEART: Unremarkable. Cardiac silhouette not enlarged. MEDIASTINUM: Central airways and mediastinal contour are unremarkable. BONES/JOINTS: Degenerative changes of the spine and acromioclavicular joints. SOFT TISSUES: Unremarkable. RAD/Chest 1 View IMPRESSION: No acute findings in the chest. Electronically Signed: Bijan Schwartz MD at 12:19 EDT ,
--- NOTE | 2021-09-03 10:30 | NURSING ---
STROKE ALERT CALLED
--- NOTE | 2021-09-03 10:32 | EDS_ITS ---
HPI History of Present Illness Chief Complaint: Dizziness Informant: patient and family Narrative Narrative: Patient states he has vertigo. He has had vertigo before but its been 10 to 15 years ago. He states he was fine last night. He woke up this morning and he feels like he has double vision and he tends to walk to the right. He denies any weakness. He denies any discoordination. He has no headache. No nausea or vomiting. He has had no trauma or injury. He felt fine until this happened. Nothing makes it better or worse. He is not on any blood thinners. He has no history of heart disease or stroke. I note that he is on hydrochlorothiazide La six and potassium. But he does not know why. He does not know if this is for heart congestive heart failure edema blood pressure. [facility] Medical History (Updated 09/03/21 @ 13:[address] Elgin Hoffmann MD) Constipation GERD (gastroesophageal reflux disease) Hypertension Hypothyroid Home Medications levothyroxine 50 mcg tablet 50 mcg PO DAILY 12/11/15 [History Last Taken 05/17/16 06:00] furosemide 20 mg tablet 20 mg PO DAILY 06/02/20 [History Last Taken Unknown] pantoprazole 40 mg tablet,delayed release 40 mg PO DAILY 06/02/20 [History Last Taken Unknown] potassium chloride 10 mEq tablet,extended release(part/cryst) 8 meq PO DAILY 06/02/20 [History Last Taken Unknown] glucosamine sulf dipot chlr,msm,chond 550 mg-C 30 mg-carmela 1 mg capsule (Glucosamine Chondroitin) 1 cap PO DAILY 02/04/21 [History Last Taken Unknown] hydrochlorothiazide 25 mg tablet 25 mg PO DAILY 02/04/21 [History Last Taken Unknown] ferrous gluconate 324 mg (37.5 mg iron) tablet 1 tab PO DAILY 09/03/21 [History Last Taken Unknown] polyethylene glycol 3350 17 gram/dose oral powder (Miralax) 17 g PO DAILY 09/03/21 [History Last Taken Unknown] Allergy/AdvReac Type Severity Reaction Status Date / Time No Known Allergies Allergy Verified 09/03/21 10:05 Social History (Updated 09/03/21 @ 12:[address] Flaco Correia DO) Smoking Status: Former smoker alcohol intake: never ROS ROS ED Constitutional Constitutional ED: Denies chills, fever(s), sweats or weakness Eyes Eyes: Reports change in vision and diplopia ENT ENT ED: Denies rhinorrhea or sore throat Cardiovascular Cardiovascular: Denies chest pain or palpitations Respiratory/Chest Respiratory/Chest: Denies cough Gastrointestinal Gastrointestinal: Denies nausea or vomiting Genitourinary Genitourinary ED: Denies dysuria Musculoskeletal Musculoskeletal: Denies arthralgias or myalgias Integumentary Denies rash Neurologic Neurologic: Reports other Details: See history of present illness. ; Denies headache(s), paresthesias or weakness Endocrine Endocrinology: Denies polydipsia or polyuria Hematologic/Lymphatic Hematologic/Lymphatic: Denies easy bleeding or easy bruising Allergic/Immunologic Allergic/Immunologic ED: Denies urticaria EXAM Physical Exam Const Vital Signs: 09/03/21 10:03 09/03/21 10:29 09/03/21 10:29 Temperature 98 F Temperature Source Temporal Pulse Rate 95 93 Respiratory Rate 18 18 Blood Pressure 189/85 H 187/104 H Blood Pressure Mean 119 131 Pulse Ox 98 95 Oxygen Delivery Method Room Air Room Air Room Air 09/03/21 10:59 09/03/21 11:29 09/03/21 11:41 Temperature 98.2 F Temperature Source Temporal Pulse Rate 93 73 Respiratory Rate 20 H 18 14 Blood Pressure 139/73 H 161/73 H Blood Pressure Mean 95 102 Pulse Ox 95 95 96 Oxygen Delivery Method Room Air Room Air Room Air 09/03/21 10:30 Temperature 98 F Temperature Source Temporal Pulse Rate 93 Respiratory Rate 20 H Blood Pressure 187/104 H Blood Pressure Mean 131 Pulse Ox 95 Oxygen Delivery Method Room Air Positive well nourished and well developed Constitutional Narrative: Patient looks comfortable in bed. He is not holding onto rails. He does not look ill or nauseated. He speaks quite normally to me. General Appearance ED: well developed and NAD HEENT Reports moist mucous membranes Eyes Eyes Narrative: Patient has a clear right sided exophoria. When I cover his left eye I can get his right eye to go through full range of motion including looking past midline medially. His left eye has good range of motion. Yet his left eye does not look as far medially as I would normally expect it to. But it does cross midline. Neck supple General: Negative for tenderness Chest Wall inspection of chest normal Resp normal respiratory effort and clear to auscultation bilaterally Auscultation: Negative for rales, rhonchi or wheezes Cardio no murmurs Rate: regular rate; Negative for bradycardia or tachycardic GI normal to inspection, nondistended, normoactive bowel sounds, soft to palpation and non-tender Back/Spine no CVA tenderness Neuro oriented x3 Neuro Narrative: See above. Motor Exam: strength 5/5 throughout Psych mental status grossly normal Skin no wounds STROKE Vital Signs/Narrative: Vital Signs Temp Pulse Resp BP Pulse Ox O2 Del Method 09/03/21 10:30 98 F 93 20 H 187/104 H 95 Room Air 09/03/21 11:41 98.2 F 73 14 161/73 H 96 Room Air 09/03/21 11:29 18 95 Room Air 09/03/21 10:59 93 20 H 139/73 H 95 Room Air 09/03/21 10:29 93 18 187/104 H 95 Room Air 09/03/21 10:29 Room Air 09/03/21 10:03 98 F 95 18 189/85 H 98 Room Air NIHSS Initial: 1a Level of Consciousness: 0 1b LOC Questions (Score 2 if aphasic/stupor): 0 1c LOC Commands (Only score 1st attempt): 0 2 Best Gaze (If aphasic, use reflexive mvmts.): 1 3 Visual: 0 4 Facial Palsy: 0 5 Motor Arm Right (UN = amputation/fusion): 0 5 Motor Arm Left: 0 6 Motor Leg Right: 0 6 Motor Leg Left: 0 7 Limb ataxia (Only + if out of proportion): 0 8 Sensory (Aphasia/stupor=0 or 1, coma=2): 0 9 Best Language: 0 10 Dysarthria (mute, coma=2, intubated=UN): 0 11 Extinction and Inattention (only scored if +): 0 Total Score: 1 MDM MDM MDM Narrative Medical decision making narrative: Patient's blood work shows minimal anemia which is not the source of his problems. Coags are normal. Electrolytes are overall unremarkable other than a glucose of 151. Troponin is negative. CT of his head and CTA are not showing any acute process. I discussed this with the radiologist. I also discussed the case with Dr. Hernandez neurologist. She stated patient could stay here for further MRI and work-up as long as his CT angiogram did not show a large vessel occlusion. I discussed the case with the hospitalist. Lab Data Attestation: I reviewed the patient's lab results. Labs: Laboratory Results - last 24 hr 09/03/21 09/03/21 09/03/21 10:10 10:10 10:10 WBC 7.4 RBC 4.89 Hgb 12.7 L Hct 40.5 MCV 82.8 MCH 26.0 L MCHC 31.4 L RDW Std Deviation 48.8 H RDW Coeff of Elieser 16.2 H Plt Count 401 MPV 9.1 Immature Gran % (Auto) 0.700 Neut % (Auto) 68.7 Lymph % (Auto) 21.4 [place] % (Auto) 6.4 Eos % (Auto) 2.0 Baso % (Auto) 0.8 Absolute Neuts (auto) 5.1 Absolute Lymphs (auto) 1.58 Nucleated RBC % 0 PT 12.9 INR 1.0 APTT 30.8 Sodium 139 Potassium 3.5 Chloride 102 Carbon Dioxide 30.0 Anion Gap 7 BUN 14 Creatinine 1.12 Estim Creat Clear Calc 45.10 Est GFR (MDRD) Af Amer 81 Est GFR (MDRD) Non-Af 67 BUN/Creatinine Ratio 12.5 Glucose 151 H Calcium 9.1 Troponin I High Sens 5 POC Glucose 09/03/21 10:44 WBC RBC Hgb Hct MCV MCH MCHC RDW Std Deviation RDW Coeff of Elieser Plt Count MPV Immature Gran % (Auto) Neut % (Auto) Lymph % (Auto) [place] % (Auto) Eos % (Auto) Baso % (Auto) Absolute Neuts (auto) Absolute Lymphs (auto) Nucleated RBC % PT INR APTT Sodium Potassium Chloride Carbon Dioxide Anion Gap BUN Creatinine Estim Creat Clear Calc Est GFR (MDRD) Af Amer Est GFR (MDRD) Non-Af BUN/Creatinine Ratio Glucose Calcium Troponin I High Sens POC Glucose 130 H Radiography Diagnostic Testing: Clinical Impression(s) from Imaging Studies Brain CT 09/03/21 10:29 IMPRESSION: Chronic involutional changes of the brain. N.B. : The above Results were Read Back by Yayo Dumont MD to Elgin Rubio MD, and understanding confirmed on 09/03/2021 10:52:15 (ET). Electronically Signed: Yayo Dumont MD at 10:53 EDT , ADDENDUM: 09/03/21 1100 IMPRESSION: Chronic involutional changes of the brain. N.B. : The above Results were Read Back by Yayo Dumont MD to Elgin Rubio MD, and understanding confirmed on 09/03/2021 10:52:15 (ET). Electronically Signed: Yayo Dumont MD at 10:53 EDT Reading Location ID and State: [facility] / [place] , Service support , Chest X-Ray 09/03/21 10:29 IMPRESSION: No acute findings in the chest. Electronically Signed: Bijan Schwartz MD at 12:19 EDT , Head/Neck CTA 09/03/21 10:29 IMPRESSION: There is plaque with mild, less than 50%, narrowing of the left proximal internal carotid arteries. There is no intracranial aneurysm or large vessel occlusion. N.B. : The above Results were Read Back by Yayo Dumont MD to , AA, and understanding confirmed on 09/03/2021 11:10:59 (ET). Electronically Signed: Yayo Dumont MD at 11:12 EDT Reading Location ID and State: [address] [place] [address] , Service support , ADDENDUM: 09/03/21 1119 IMPRESSION: There is plaque with mild, less than 50%, narrowing of the left proximal internal carotid arteries. There is no intracranial aneurysm or large vessel occlusion. N.B. : The above Results were Read Back by Yayo Dumont MD to , AA, and understanding confirmed on 09/03/2021 11:10:59 (ET). Electronically Signed: Yayo Dumont MD at 11:12 EDT Reading Location ID and State: [facility] / [place] , Service support , EKG Initial EKG: Comments: CutisEKG done as part of stroke work-up read by me shows normal sinus rhythm with first-degree AV block. No sign of atrial fibrillation or flutter. Overall rate of 94. Evaluation of depression. He has a long VA interval at 274 ms. QRS and QTc are normal. Discharge Plan Dx/Rx/DC Orders Clinical Impression: Cranial nerve III palsy, Acute CVA (cerebrovascular accident), Dizziness Disposition Disposition: Acute Care Hospital [facility] Discharge Date/Time: 09/03/21 12:14
[2021-09-03 10:36] LABS: Absolute Lymphocyte Count 1.58 X10^3/uL (0.83-4.51); Absolute Neutrophil Count 5.1 X10^3/uL (2.0-7.7); Basophil# 0.06 X10^3/uL; Basophil% 0.8 % (0-1); Eosinophil# 0.15 X10^3/uL; Hematocrit 40.5 % (40-54); Hemoglobin 12.7 g/dL (13.0-16.5); Lymphocyte # 1.58 X10^3/ul (0.83-4.51); Lymphocyte % 21.4 % (19-41); Mean Corp Hgb Conc 31.4 g/dL (32-36); Mean Corpuscular Volume 82.8 fL (80-94); Mean Platelet Vol. 9.1 fl (6.2-12.0); Monocyte# 0.47 X10^3/uL; Monocyte% 6.4 % (0-10); NRBC Flagged by Analyzer 0 % (0-5); Neutrophil # 5.06 X10^3/uL (2.7-7.7); Neutrophil % 68.7 % (47-70); Platelet Count 401 K/mm3 (150-450); RBC Distribution Width CV 16.2 % (11.6-14.6); RBC Distribution Width SD 48.8 fl (35.1-43.9); Red Blood Count 4.89 M/mm3 (4.6-6.2); White Blood Count 7.4 K/mm3 (4.4-11.0)
[2021-09-03 10:44] LABS: Prothrombin Time (Protime)PT. 12.9 SECONDS (11.7-14.9)
[2021-09-03 10:45] LABS: Partial Thromboplast Time 30.8 Seconds (24.1-36.2)
[2021-09-03] MEDS: Ondansetron 4 MG/2 ML Vial IV (10:48)
[2021-09-03 10:54] LABS: Anion Gap 7 (5-15); BUN 14 mg/dL (7-18); BUN/Creat Ratio 12.5 RATIO (10-20); Calcium,Total 9.1 mg/dL (8.5-10.1); Chloride 102 mmol/L (98-107); Creatinine, Serum 1.12 mg/dL (0.70-1.30); EST Glomerular Filtration Rate 67 mL/min (>60); Est Glom Filt Rate - Afr Amer 81 mL/min (>60); Glucose 151 mg/dL (74-106); Potassium 3.5 mmol/L (3.5-5.1); Sodium Level 139 mmol/L (136-145); Troponin-I HS 5 pg/mL (3.0-78.0)
[2021-09-03 11:06] LABS: Bedside Glucose 130 mg/dL (74-106)
--- NOTE | 2021-09-03 11:33 | ED.RN ---
PT PERSISTENT ON AMBULATING TO THE RESTROOM, REFUSED BSC AND URINAL. PT AMBULATED WITH ASSIST X2 TO RESTROOM. PT HAS HARD LEAN TO THE RIGHT SIDE. DR. GONZALEZ MADE AWARE. PT ENCOURAGED TO USE A BSC NEXT TIME.
--- NOTE | 2021-09-03 11:54 | NURSING ---
BOWEN CIFUENTES CVA, DIPLOPIA
--- NOTE | 2021-09-03 11:59 | PCM.HP.STD ---
[facility] - General General Date of Service: 09/03/21 Chief Complaint: diplopia. HPI Narrative FRANCISCA KNOWLES, is a 81 M who presents with diplopia. Patient was leaning towards right side when he got up and walked today. Was fine last night. Patient was found to have disconjugate gaze in the emergency room. Patient underwent a CTA of the head and neck and head CT that showed no acute process. The hospital service was contacted for further admission. Patient has had vertigo in the past but this was different he did not have diplopia at that time. [facility] Medical History (Updated 09/03/21 @ 12:[address] Flaco Correia DO) Constipation GERD (gastroesophageal reflux disease) Hypertension Hypothyroid Home Medications levothyroxine 50 mcg tablet 50 mcg PO DAILY 12/11/15 [History Last Taken 05/17/16 06:00] furosemide 20 mg tablet 20 mg PO DAILY 06/02/20 [History Last Taken Unknown] pantoprazole 40 mg tablet,delayed release 40 mg PO DAILY 06/02/20 [History Last Taken Unknown] potassium chloride 10 mEq tablet,extended release(part/cryst) 8 meq PO DAILY 06/02/20 [History Last Taken Unknown] glucosamine sulf dipot chlr,msm,chond 550 mg-C 30 mg-carmela 1 mg capsule (Glucosamine Chondroitin) 1 cap PO DAILY 02/04/21 [History Last Taken Unknown] hydrochlorothiazide 25 mg tablet 25 mg PO DAILY 02/04/21 [History Last Taken Unknown] ferrous gluconate 324 mg (37.5 mg iron) tablet 1 tab PO DAILY 09/03/21 [History Last Taken Unknown] polyethylene glycol 3350 17 gram/dose oral powder (Miralax) 17 g PO DAILY 09/03/21 [History Last Taken Unknown] Allergy/AdvReac Type Severity Reaction Status Date / Time No Known Allergies Allergy Verified 09/03/21 10:05 Social History (Updated 09/03/21 @ 12:[address] Flaco Correia DO) Smoking Status: Never smoker alcohol intake: never ROS ROS Narrative Denies any paresthesias nor any unilateral weakness. No expressive nor receptive aphasia. States that his left eye is his good eye. All review of systems were negative except as mentioned above in the history of present illness and the other review of systems. Vital Signs Vital Signs Vital Signs: 09/03/21 10:03 09/03/21 10:29 09/03/21 10:29 Temperature 36.6 C Temperature Source Temporal Pulse Rate 95 93 Respiratory Rate 18 18 Blood Pressure 189/85 H 187/104 H Blood Pressure Mean 119 131 Pulse Ox 98 95 Oxygen Delivery Method Room Air Room Air Room Air 09/03/21 10:59 09/03/21 11:29 Temperature Temperature Source Pulse Rate 93 Respiratory Rate 20 H 18 Blood Pressure 139/73 H Blood Pressure Mean 95 Pulse Ox 95 95 Oxygen Delivery Method Room Air Room Air Weight Weight: 83.915 kg Body Mass Index (BMI) 29.8 Physical Exam Const alert and no apparent distress Constitutional Narrative: Hard of hearing HEENT normocephalic, head/scalp atraumatic, hearing grossly normal bilaterally and moist oral mucous membranes Eyes Eyes Narrative: Full range of motion of his right eye. Left eye cannot look medially Neck no lymphadenopathy and no carotid bruits Resp normal respiratory effort, no retractions, no use of accessory muscles and clear to auscultation bilaterally Cardio regular rate, regular rhythm, S1 normal heart sound and S2 normal heart sound GI normal to inspection, nondistended, normoactive bowel sounds, soft to palpation, non-tender and non-distended Extremity Extremity Narrative: Trace lower extremity edema. Neuro oriented x3 Neuro Narrative: Cranial nerve III palsy on the left otherwise cranial nerves are intact Sensorium / Orientation: awake and alert Psych affect normal Results Lab / Micro Data Attestation: I reviewed the patient's lab results. Result Diagrams: 09/03/21 10:10 09/03/21 10:10 Labs: Laboratory Results - last 24 hr 09/03/21 10:10: WBC 7.4, RBC 4.89, Hgb 12.7 L, Hct 40.5, MCV 82.8, MCH 26.0 L, MCHC 31.4 L, RDW Std Deviation 48.8 H, RDW Coeff of Elieser 16.2 H, Plt Count 401, MPV 9.1, Immature Gran % (Auto) 0.700, Neut % (Auto) 68.7, Lymph % (Auto) 21.4, [place] % (Auto) 6.4, Eos % (Auto) 2.0, Baso % (Auto) 0.8, Absolute Neuts (auto) 5.1, Absolute Lymphs (auto) 1.58, Nucleated RBC % 0 09/03/21 10:10: PT 12.9, INR 1.0, APTT 30.8 09/03/21 10:10: Sodium 139, Potassium 3.5, Chloride 102, Carbon Dioxide 30.0, Anion Gap 7, BUN 14, Creatinine 1.12, Estim Creat Clear Calc 45.10, Est GFR (MDRD) Af Amer 81, Est GFR (MDRD) Non-Af 67, BUN/Creatinine Ratio 12.5, Glucose 151 H, Calcium 9.1, Troponin I High Sens 5 09/03/21 10:44: POC Glucose 130 H EKG Initial EKG: Attestation: I personally reviewed and interpreted this EKG as follows: Prior EKG tracings: available for review EKG Rhythm Intrepretation: Sinus Rhythm (Low voltage) Radiology Impression Brain CT 09/03/21 10:29 IMPRESSION: Chronic involutional changes of the brain. N.B. : The above Results were Read Back by Yayo Dumont MD to Elgin Rubio MD, and understanding confirmed on 09/03/2021 10:52:15 (ET). Electronically Signed: Yayo Dumont MD at 10:53 EDT Reading Location ID and State: [facility] / [place] , Service support , ADDENDUM: 09/03/21 1100 IMPRESSION: Chronic involutional changes of the brain. N.B. : The above Results were Read Back by Yayo Dumont MD to Elgin Rubio MD, and understanding confirmed on 09/03/2021 10:52:15 (ET). Electronically Signed: Yayo Dumont MD at 10:53 EDT , Head/Neck CTA 09/03/21 10:29 IMPRESSION: There is plaque with mild, less than 50%, narrowing of the left proximal internal carotid arteries. There is no intracranial aneurysm or large vessel occlusion. N.B. : The above Results were Read Back by Yayo Dumont MD to , AA, and understanding confirmed on 09/03/2021 11:10:59 (ET). Electronically Signed: Yayo Dumont MD at 11:12 EDT Reading Location ID and State: [facility] / [place] , Service support , ADDENDUM: 09/03/21 1119 IMPRESSION: There is plaque with mild, less than 50%, narrowing of the left proximal internal carotid arteries. There is no intracranial aneurysm or large vessel occlusion. N.B. : The above Results were Read Back by Yayo Dumont MD to , AA, and understanding confirmed on 09/03/2021 11:10:59 (ET). Electronically Signed: Yayo Dumont MD at 11:12 EDT Reading Location ID and State: [facility] / [place] , Service support , Assessment & Plan Assessment/Plan (1) Cranial nerve III palsy: QUALIFIERS: Laterality: left Qualified Code(s): H49.02 - Third [oculomotor] nerve palsy, left eye PLAN: Concern is for stroke Plan treat the patient accordingly for stroke with aspirin, statin MRI of the brain 2D echocardiogram Recommend consult SOC teleneurology once the work-up has been completed. Other considerations may be an event monitor upon discharge as there is no clear evidence of atrial fibrillation at this time. (2) Hypertension: QUALIFIERS: Hypertension type: primary hypertension Qualified Code(s): I10 - Essential (primary) hypertension PLAN: Fair control at this time. Can allow for permissive hypertension in light of a possible acute stroke. But given the concern for an acute stroke, will hold off on his HCTZ and furosemide at this time. Patient also takes potassium along with that and I will hold that while he is off his diuretics. Unclear why he is actually on both diuretics rather than just 1. PLAN: Plan Stable chronic problems Hypothyroidism: Continue levothyroxine GERD: Continue with pantoprazole VTE prophylaxis with enoxaparin CODE STATUS: Addressed with the patient. Patient is states he is never been asked this before. Patient will be full code at this time. Patient made aware that he can change his mind at any point during his hospitalization but to inform us if he does. Case discussed with the patient's son at bedside. Charges/Coding Visit Charges Inpatient E&M: 78728 Init Hosp L3
--- NOTE | 2021-09-03 12:29 | ECHOD_ITS ---
Reason For Study: TIA/CVA Procedure This was a 2D Doppler, Color Flow transthoracic echocardiogram. Exam performed portable in patient room. Left Ventricle Normal LV size. Left ventricular systolic function is normal. The estimated ejection fraction is 60 %. Stage 1 diastolic dysfunction. No regional wall motion abnormalities noted. Right Ventricle Normal RV size. Normal systolic function. Atria Normal left atrium. Normal right atrium. Bubble contrast study negative for right to left interatrial shunt. Mitral Valve Normal mitral valve. Tricuspid Valve Normal tricuspid valve. Mild (1+) tricuspid valve insufficiency. Pulmonary artery systolic pressure is 29 mmHg. Aortic Valve Normal aortic valve. Trisinus/trileaflet aortic valve. Pulmonic Valve Normal pulmonic valve. Great Vessels Normal aortic root. The pulmonary artery is normal size. Normal inferior vena cava. Pericardium/Pleural No pericardial effusion. Medication Performed a rapid injection of agitated mix of 9 cc saline and 1cc air to assess for atrial septal defect. MMode/2D Measurements & Calculations LVIDd: 5.2 cm IVSd: 1.1 cm Ao root diam: 2.9 cm LVIDs: 3.4 cm LVPWd: 0.94 cm RVDd: 3.0 cm FS: 35.0 % LAV(MOD-bp): 42.1 ml LVAd ap4: 19.4 cm2 SV(MOD-sp4): 28.1 ml LAV(MOD-bp) Indexed: 21.8 ml/m2 LVLd ap4: 7.1 cm LAV(MOD-sp2): 42.5 ml EDV(MOD-sp4): 42.8 ml LAV(MOD-sp4): 40.1 ml EDV(sp4-el): 45.2 ml LVAs ap4: 10.2 cm2 LVLs ap4: 5.9 cm ESV(MOD-sp4): 14.7 ml ESV(sp4-el): 14.8 ml EF(MOD-sp4): 65.7 % EF(sp4-el): 67.1 % SV(sp4-el): 30.3 ml LA A4 area: 15.3 cm2 LA dimension(2D): 3.7 cm RA A4 area: 9.9 cm2 Doppler Measurements & Calculations MV E max chris: 63.8 cm/sec Lat Peak E' Chris: 8.1 cm/sec Med Peak E' Chris: 7.7 cm/sec MV A max chris: 103.6 cm/sec E/E' lat: 7.8 E/E' med: 8.2 MV E/A: 0.62 Ao V2 max: 141.2 cm/sec LV V1 max: 82.8 cm/sec PA V2 max: 91.3 cm/sec Ao max P.0 mmHg LV V1 max P.7 mmHg Ao V2 mean: 99.1 cm/sec Ao mean P.3 mmHg Ao V2 VTI: 30.3 cm TR max chris: 255.0 cm/sec TR max P.0 mmHg ECHO/Echo Complete Interpretation Summary Normal LV size. Left ventricular systolic function is normal. The estimated ejection fraction is 60 %. Bubble contrast study negative for right to left interatrial shunt. Pulmonary artery systolic pressure is 29 mmHg. Stage 1 diastolic dysfunction. Ordering Physician: Flaco Correia Referring Physician: Davis Recio Performed By: Chika Garcia, JOSE ALBERTO, RVT
[2021-09-03 12:31] LABS: Troponin-I HS 4 pg/mL (3.0-78.0)
[2021-09-03] MEDS: Aspirin 325 MG Tablet PO (13:32)
[2021-09-04] VITALS (9 sets, daily range): BP systolic 113–150; BP diastolic 44–76; PULSE 52–92; RESP 12–18; TEMP 36.4–36.7; O2SAT 96–98; BMI 30.9
[2021-09-04] MEDS: Levothyroxine 50 MCG Tablet PO (06:37)
[2021-09-04 06:44] LABS: Cholesterol 166 mg/dL (200); High Density Lipoprotein 39 mg/dL; Triglycerides 139 mg/dL; Very Low Density Lipoprotein 28 mg/dL (5-40)
--- NOTE | 2021-09-04 09:00 | MRI_ITS ---
EXAM: MR HEAD WITHOUT INTRAVENOUS CONTRAST CLINICAL INDICATION: CVA TECHNIQUE: Multiplanar and multisequence MR images of the brain were obtained without intravenous contrast. This report was created using [employer] report generation technology. COMPARISON: CT head and CTA head 09/03/2021. FINDINGS: BRAIN AND EXTRA-AXIAL SPACES: No diffusion restriction to suspect acute or subacute ischemic infarct. T2 FLAIR hyperintensity foci in the frontal lobes and periventricular white matter are chronic white matter ischemic changes. No intra- or extra-axial hemorrhage. No intracranial mass or mass effect. Posterior fossa structures are unremarkable. No hydrocephalus. Basal cisterns are patent. SELLA: Unremarkable. Normal sella turcica, pituitary gland, infundibular stalk, optic chiasm and hypothalamus. AUDITORY SYSTEM: Unremarkable. The internal auditory canals are patent. BONES/JOINTS: Unremarkable. No discrete lytic or blastic abnormalities. SINUSES: Unremarkable as visualized. Clear. MASTOID AIR CELLS: Unremarkable as visualized. Clear. ORBITS: Unremarkable as visualized. Both globes, extraocular muscles, optic nerves and retrobulbar fat appear unremarkable. VASCULATURE: Unremarkable as visualized. Normal flow voids in the major intracranial circulation. MRI/Brain without Contrast IMPRESSION: 1. No MRI evidence of acute or subacute ischemic infarct or remote cortical based ischemic infarct. 2. Chronic white matter ischemic changes in both cerebral hemispheres. Electronically Signed: Charles Walsh MD at 11:20 EDT ,
--- NOTE | 2021-09-04 09:43 | NURSING ---
NIHSS late due to pt being down in MRI.
[2021-09-04] MEDS: Enoxaparin 40 MG/0.4 ML Syringe SC (10:43)
[2021-09-04] MEDS: Pantoprazole Sodium 40 MG Tablet PO (10:43)
[2021-09-04] MEDS: Aspirin 81 MG TAB.CHEW PO (10:43)
[2021-09-04] MEDS: Ferrous Gluconate 324 MG Tablet PO (10:43)
--- NOTE | 2021-09-04 11:09 | CASEMGMT ---
SW completed a PHQ 9 with patient as he may have had a Stroke. Patient scored a 0 which indicates no depression. Patient denied any need for counseling as he feels fine. Sherron COMBS
--- NOTE | 2021-09-04 11:55 | CASEMGMT ---
MOON GUERRIER assessment: Face to Face with patient for initial transition planning/care coordination assessment. MOON GUERRIER introduced self and role at [facility], pt voices understanding and consents to assessment. Pt is sitting up in chair in no distress on room air. Pt is A/Ox4 and answers all questions appropriately.? Care providers, pharmacy,?and demographics verified. ? Presentation: Pt c/o vertigo this am and stumbling into wall, also double vision Admitting dx: CVA PCP: [facility] Specialists: jose Corrigan Pharmacy: [facility] Insurance: MCR A/B, AARP Prescription Benefit:? [employer] Living Will/HPOA: Pt has LW/HPOA and is aware that they are on file at [facility]. Pt's son, Mike Bragg, is HPOA. LNOK: Mike Bragg, son Living Arrangements: Pt lives alone in 1 story condo with no steps and states no concerns at home. Pt is independent with ADL's. Transportation: Pt drives self and states no transportation concerns. DME/HHC: Pt has a rollator and grab bar in shower. Pt declines need for any further DME. Pt states no hx of HHC or SNF. Pt states no concerns with going home at time of discharge. Pt is retired. Pt states does not smoke cigarettes or drink ETOH. Pt states no further concerns/needs. CM to follow for any further discharge planning/needs. Advised pt to ask for CM if any further questions/concerns/needs arise, vocies understanding. Pt Goal: Home ? Plan[place] MOON GUERRIER
--- NOTE | 2021-09-04 14:50 | CASEMGMT ---
SW reviewed therapy notes and patient was not very steady. SW met with patient and asked if he feels he will be safe going home or if he needs to go somewhere short term for rehab. Patient told SW he is going home. Sherron COMBS
--- NOTE | 2021-09-04 17:09 | DCINST_ITS ---
Discharge Instructions Diet Discharge Diet: No restrictions Activity Discharge Activity: Return to Normal Activity Additional Activity Instructions:: Recommend patching right eye if having double vision Follow Up Care Test Results: Test results from this visit will be discussed in further detail at your follow- up appointment, if applicable. Discharge Plan Admission Admit Date/Time: 09/03/21 11:52 Primary Reason for Your Visit: double vision, dizziness Attending Provider: Jose Alejandro Nj Primary Care Provider: Davis Recio Consulting Providers: Flaco Correia Instructions Additional Instructions / Restrictions: please see your eye doctor this week regarding your double vision resume your home meds except do not take hydrochlorothiazide Discharge Orders/Prescriptions Prescriptions: New lisinopril 10 mg tablet 10 mg PO DAILY Qty: 30 0RF Continued levothyroxine 50 MCG tablet 50 mcg PO DAILY pantoprazole 40 MG tablet 40 mg PO DAILY furosemide 20 MG tablet 20 mg PO DAILY potassium chloride 10 MEQ tablet 8 meq PO DAILY Glucosamine Chondroitin 550-30-1 mg Capsule 1 cap PO DAILY polyethylene glycol 3350 [Miralax] 17 gram/dose Powder 17 g PO DAILY ferrous gluconate 324 mg (37.5 mg iron) tablet 1 tab PO DAILY Label Comments: TAKE 1 TABLET BY MOUTH EVERY DAY Discontinued hydrochlorothiazide 25 mg Tablet 25 mg PO DAILY Referrals / Follow Up: Davis Recio MD [Primary Care Provider] - Within 1 Week Disposition Disposition (needs filled in before D/C Order can be placed): Home, Self Care
[2021-09-04] MEDS: Lisinopril 10 MG Tablet PO (17:26)
--- NOTE | 2021-09-04 21:04 | DS.PCM_ITS ---
Providers Date of Admission: 09/03/21 Date of Discharge: 09/04/21 Primary Care Physician: Dr. 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 #2 essential hypertension #3 hypothyroidism Acute stroke was ruled out Medications at Discharge Home Medications levothyroxine 50 mcg tablet 50 mcg PO DAILY 12/11/15 furosemide 20 mg tablet 20 mg PO DAILY 06/02/20 pantoprazole 40 mg tablet,delayed release 40 mg PO DAILY 06/02/20 potassium chloride 10 mEq tablet,extended release(part/cryst) 8 meq PO DAILY 06/02/20 glucosamine sulf dipot chlr,msm,chond 550 mg-C 30 mg-carmela 1 mg capsule (Glucosamine Chondroitin) 1 cap PO DAILY 02/04/21 ferrous gluconate 324 mg (37.5 mg iron) tablet 1 tab PO DAILY 09/03/21 polyethylene glycol 3350 17 gram/dose oral powder (Miralax) 17 g PO DAILY 09/03/21 lisinopril 10 mg tablet 10 mg PO DAILY #30 tabs 09/04/21 Hospital Course Operations None Procedures 2-D Echocardiogram Summary of Care Provided Minutes Spent on Discharge: 31 Hospital Course: 81-year-old white male was seen in the emergency room at [facility] with a chief complaint of vertigo and double vision. Patient denied any focal weakness. Work-up in the emergency room included a CT of the brain which showed no acute process, on examination, patient's right eye was deviated laterally, patient had double binocular vision, when he covered his right eye, he had normal vision. CTA of the head neck was performed which showed no evidence of occlusive disease. Patient was admitted to PCU, an MRI was performed which showed no evidence of acute stroke, he had an echocardiogram which was unremarkable. It was felt that he had a 3rd nerve palsy of his right eye. On 09/04/2021, patient was seen and examined: On examination he appeared in good health and spirits. Vital signs as documented. Skin warm and dry and without overt rashes. Patient had lateral deviation of the right eye present when gazing forward. Neck without JVD, neck was supple, trachea midline, thyroid was normal. Lungs clear bilaterally, normal air movement was noted. Heart exam notable for regular rhythm, normal sounds and absence of murmurs, rubs or gallops. Abdomen unremarkable and without evidence of organomegaly, masses, or abdominal aortic enlargement. Bowel sounds are present, abdomen is not distended. Extremities nonedematous, no cyanosis was noted, no clubbing was noted. Neuro: Cranial nerves II through XII are grossly intact, no focal motor deficits were noted, sensation to light touch and pinprick intact, motor exam 5/5 throughout. Psych: Patient is alert and oriented x3, he does not appear anxious or depressed, he does not appear agitated. Patient was not felt to have had a stroke, he was discharged in stable condition on 09/04/2021 and instructed to follow-up with his luggage liner. Weight / BMI Weight Weight: 86.8 kg Body Mass Index (BMI) 30.9 ABG / Lab / Microbiology Data Result Diagrams: 09/03/21 10:10 09/03/21 10:10 Laboratory: Laboratory Results - last 24 hr 09/04/21 05:25: Triglycerides 139, Cholesterol 166, LDL Cholesterol 99, VLDL Cholesterol 28, HDL Cholesterol 39 L Radiography Diagnostic Testing: Radiology Impression Echocardiogram 09/03/21 12:29 Interpretation Summary Normal LV size. Left ventricular systolic function is normal. The estimated ejection fraction is 60 %. Bubble contrast study negative for right to left interatrial shunt. Pulmonary artery systolic pressure is 29 mmHg. Stage 1 diastolic dysfunction. Ordering Physician: Flaco Correia Referring Physician: Davis Recio Performed By: Chika Garcia, JOSE ALBERTO, RVT Brain MRI 09/04/21 09:00 IMPRESSION: 1. No MRI evidence of acute or subacute ischemic infarct or remote cortical based ischemic infarct. 2. Chronic white matter ischemic changes in both cerebral hemispheres. Electronically Signed: Charles Walsh MD at 11:20 EDT Reading Location ID and State: [address] [place] [address] , Service support , D/C Instructions Discharge Diet: No restrictions Additional Activity Instructions: Recommend patching right eye if having double vision Meaningful Use Info Meaningful Use Diagnoses (Choose all that apply): None applicable Discharge Plan Admission Admit Date/Time: 09/03/21 11:52 Primary Reason for Your Visit: double vision, dizziness Attending Provider: Jose Alejandro Nj Primary Care Provider: Davis Recio Consulting Providers: Flaco Correia Instructions Additional Instructions / Restrictions: please see your eye doctor this week regarding your double vision resume your home meds except do not take hydrochlorothiazide Discharge Orders/Prescriptions Prescriptions: New lisinopril 10 mg tablet 10 mg PO DAILY Qty: 30 0RF Continued levothyroxine 50 MCG tablet 50 mcg PO DAILY pantoprazole 40 MG tablet 40 mg PO DAILY furosemide 20 MG tablet 20 mg PO DAILY potassium chloride 10 MEQ tablet 8 meq PO DAILY Glucosamine Chondroitin 550-30-1 mg Capsule 1 cap PO DAILY polyethylene glycol 3350 [Miralax] 17 gram/dose Powder 17 g PO DAILY ferrous gluconate 324 mg (37.5 mg iron) tablet 1 tab PO DAILY Label Comments: TAKE 1 TABLET BY MOUTH EVERY DAY Discontinued hydrochlorothiazide 25 mg Tablet 25 mg PO DAILY Referrals / Follow Up: Davis Recio MD [Primary Care Provider] - Within 1 Week Disposition Disposition (needs filled in before D/C Order can be placed): Home, Self Care Charges/Coding Visit Charges Inpatient E&M: 94572 Disch Hosp
== END 2021-09-04 17:46 | disposition home or self-care (01) | DRG 123 ==
LOC: ED 11:57 → PCU 12:14
PROVIDERS: Emergency Provider Emergency Medicine; PCP Family Medicine; Visit Provider Internal Medicine
DX: H49.02 Third [oculomotor] nerve palsy, left eye (principal); D64.9 Anemia, unspecified; K21.9 Gastro-esophageal reflux disease without esophagitis; E03.9 Hypothyroidism, unspecified; I10 Essential (primary) hypertension; I44.0 Atrioventricular block, first degree; Z87.891 Personal history of nicotine dependence; Z79.899 Other long term (current) drug therapy
CPT/HCPCS: 36415; 70450; 70496; 70498; 70551; 71045; 80048; 80061; 82962; 84484; 85025; 85610; 85730; 92523; 93005; 93306; 97162; 97166; 99285; Q9967; A4216; J2405

== ENCOUNTER 2021-12-11 12:56 | Emergency (ER) | payer MEDICARE, OTHER, SELFPAY ==
[2021-12-11 12:57] VITALS: BP 171/130; PULSE 99; RESP 16; TEMP 36.2; O2SAT 99; BMI 30.7
--- NOTE | 2021-12-11 13:45 | RAD_ITS ---
STUDY: X-RAY - ABDOMEN/PELVIS REASON FOR EXAM: Male, 81 years old. Constipation TECHNIQUE: AP supine and upright views of the abdomen and pelvis. COMPARISON: None. FINDINGS: Normal visualized lung bases. There is a moderate amount of colonic fecal material. There is no demonstrated free abdominal air. The visualized liver, spleen and kidneys are grossly normal in size and morphology. Normal soft tissue structures. There are diffuse degenerative changes of the visualized lumbar spine. RAD/Abd Inc Decub and/or Erect IMPRESSION: Nonspecific bowel gas pattern. Electronically Signed: Kp Weber MD at 14:23 EDT ,
--- NOTE | 2021-12-11 15:24 | EX.ED.DYSGE1 ---
HPI History of Present Illness Chief Complaint: Constipation Informant: patient Onset/Context/Timing Onset: Weeks (1) Context: Gradual Onset Timing: Continuous Quality: constipated Current Severity: Moderate Maximum Severity: Moderate Worsened by: nothing in particular Relieved by: nothing; tried miralax, docusate Narrative Narrative: Patient states he presenting for constipation, has not had a bowel movement in the last week, but repeatedly feels like he needs to and is unable to push anything out. He feels some lower abdominal discomfort when he really feels like he needs to go but he denies any severe pains. No nausea or vomiting. No fevers or chills or other symptoms. He states he has had this happen before and enemas have helped. He has had no bleeding or melena. Otherwise feeling well. [facility] Medical History Constipation GERD (gastroesophageal reflux disease) Hypertension Hypothyroid Home Medications levothyroxine 50 mcg tablet 50 mcg PO DAILY 12/11/15 [History Last Taken 05/17/16 06:00] furosemide 20 mg tablet 20 mg PO DAILY 06/02/20 [History Last Taken Unknown] pantoprazole 40 mg tablet,delayed release 40 mg PO DAILY 06/02/20 [History Last Taken Unknown] potassium chloride 10 mEq tablet,extended release(part/cryst) 8 meq PO DAILY 06/02/20 [History Last Taken Unknown] glucosamine sulf dipot chlr,msm,chond 550 mg-C 30 mg-carmela 1 mg capsule (Glucosamine Chondroitin) 1 cap PO DAILY 02/04/21 [History Last Taken Unknown] ferrous gluconate 324 mg (37.5 mg iron) tablet 1 tab PO DAILY 09/03/21 [History Last Taken Unknown] polyethylene glycol 3350 17 gram/dose oral powder (Miralax) 17 g PO DAILY 09/03/21 [History Last Taken Unknown] lisinopril 10 mg tablet 10 mg PO DAILY #30 tabs 09/04/21 [Rx Last Taken Unknown] Allergy/AdvReac Type Severity Reaction Status Date / Time No Known Allergies Allergy Verified 12/11/21 12:56 Social History Smoking Status: Former smoker alcohol intake: never ROS ROS ED Constitutional Constitutional ED: Denies chills or fever(s) Eyes Eyes: Denies change in vision or diplopia ENT ENT ED: Denies rhinorrhea or sore throat Cardiovascular Cardiovascular: Denies chest pain or palpitations Respiratory/Chest Respiratory/Chest: Denies cough or dyspnea Gastrointestinal Gastrointestinal: Reports abdominal pain and constipation; Denies diarrhea, nausea or vomiting Genitourinary Genitourinary ED: Denies dysuria or hematuria Musculoskeletal Musculoskeletal: Denies back pain or neck pain Integumentary Denies abscess or rash Neurologic Neurologic: Denies headache(s), paresthesias or weakness Psychiatric Psychiatric: Denies anxiety or suicidal thoughts EXAM Physical Exam Const Vital Signs: 12/11/21 12:57 12/11/21 15:34 Temperature 97.2 F L Temperature Source Temporal Pulse Rate 99 63 Respiratory Rate 16 16 Blood Pressure 171/130 H 137/67 H Blood Pressure Mean 143 90 Pulse Ox 99 99 Oxygen Delivery Method Room Air Positive well nourished and well developed General Appearance ED: well developed and NAD HEENT Reports moist mucous membranes normocephalic and atraumatic Eyes PERRL and EOMs intact bilaterally Neck full ROM and supple Resp normal respiratory effort and clear to auscultation bilaterally Cardio regular rate, regular rhythm and no murmurs GI non-tender and non-distended Auscultation: normoactive bowel sounds Palpation: soft Rectal Exam: other Other Details: Nontender, no blood. No palpable stool. Back/Spine no CVA tenderness General Back: other FROM Extremity normal to inspection General Extremety ED: Negative for edema, pulses abnormal or tenderness General Extremity: Negative for edema or pulses abnormal Neuro oriented x3, CN's II-XII intact bilaterally and no sensory deficits noted Sensorium / Orientation: awake and alert Motor Exam: strength 5/5 throughout Skin no rashes or lesions noted and no wounds MDM MDM MDM Narrative Medical decision making narrative: Nursing triage protocols included an acute abdominal series. 5 views of my interpretation is negative for anything acute, consistent with his complaints and his exam of constipation. He was given a soapsuds enema. Afterwards he had a moderate bowel movement and felt much better, stable for discharge given appropriate discharge instructions follow-up as needed. Radiography Diagnostic Testing: Clinical Impression(s) from Imaging Studies Abdomen X-Ray 12/11/21 13:45 IMPRESSION: Nonspecific bowel gas pattern. Electronically Signed: Kp Weber MD at 14:23 EDT , Discharge Plan Triage Chief Complaint: Constipation ED Provider: Yayo Hodges Dx/Rx/DC Orders Clinical Impression: Acute constipation Instructions: ED Constipation (Adult) Prescriptions: No Action levothyroxine 50 MCG tablet 50 mcg PO DAILY pantoprazole 40 MG tablet 40 mg PO DAILY furosemide 20 MG tablet 20 mg PO DAILY potassium chloride 10 MEQ tablet 8 meq PO DAILY Glucosamine Chondroitin 550-30-1 mg Capsule 1 cap PO DAILY polyethylene glycol 3350 [Miralax] 17 gram/dose Powder 17 g PO DAILY ferrous gluconate 324 mg (37.5 mg iron) tablet 1 tab PO DAILY Label Comments: TAKE 1 TABLET BY MOUTH EVERY DAY lisinopril 10 mg tablet 10 mg PO DAILY Qty: 30 0RF Primary Care Provider: Davis Recio Referrals: Davis Recio MD [Primary Care Provider] - As Needed Disposition Disposition: Home, Self Care
[2021-12-11 15:34] VITALS: BP 137/67; PULSE 63; RESP 16; O2SAT 99
== END 2021-12-11 16:47 | disposition home or self-care (01) ==
PROVIDERS: Emergency Provider Emergency Medicine; PCP Family Medicine; Visit Provider Emergency Medicine
DX: K59.00 Constipation, unspecified (principal); I10 Essential (primary) hypertension; Z87.891 Personal history of nicotine dependence
CPT/HCPCS: 74019; 99284

== ENCOUNTER → 2022-05-31 | Outpatient (CLI) | payer MEDICARE, OTHER, SELFPAY ==
[2022-05-31 12:28] LABS: Absolute Lymphocyte Count 1.64 X10^3/uL (0.83-4.51); Absolute Neutrophil Count 8.9 X10^3/uL (2.0-7.7); Basophil# 0.02 X10^3/uL; Basophil% 0.2 % (0-1); Hemoglobin 13.8 g/dL (13.0-16.5); Lymphocyte # 1.64 X10^3/ul (0.83-4.51); Lymphocyte % 14.5 % (19-41); Mean Corp Hgb Conc 32.1 g/dL (32-36); Mean Corpuscular Hgb 29.4 pg (27.0-32.0); Mean Corpuscular Volume 91.7 fL (80-94); Mean Platelet Vol. 10.1 fl (6.2-12.0); Monocyte# 0.66 X10^3/uL; Monocyte% 5.8 % (0-10); NRBC Flagged by Analyzer 0 % (0-5); Neutrophil % 78.7 % (47-70); Platelet Count 410 K/mm3 (150-450); RBC Distribution Width CV 14.2 % (11.6-14.6); RBC Distribution Width SD 47.3 fl (35.1-43.9); Red Blood Count 4.69 M/mm3 (4.6-6.2); White Blood Count 11.3 K/mm3 (4.4-11.0)
[2022-05-31 12:41] LABS: Vitamin B12 609 pg/mL (211-911)
[2022-05-31 13:01] LABS: ALB/GLOB Ratio 1.1 RATIO (0.9-2.4); AST(SGOT) 14 U/L (15-37); Alanine Aminotransfer ALT/SGPT 22 U/L (16-61); Alkaline Phosphatase 59 U/L (45-117); Anion Gap 5 (5-15); BUN 34 mg/dL (7-18); BUN/Creat Ratio 25.4 RATIO (10-20); Calcium,Total 8.9 mg/dL (8.5-10.1); Chloride 107 mmol/L (98-107); Cholesterol 209 mg/dL (200); Creatinine, Serum 1.34 mg/dL (0.70-1.30); EST Glomerular Filtration Rate 54 mL/min (>60); Est Glom Filt Rate - Afr Amer 65 mL/min (>60); Ferritin 41 ng/mL (26-388); Globulin 3.6 g/dL (2.2-4.2); Glucose 107 mg/dL (74-106); High Density Lipoprotein 57 mg/dL; Iron 87 ug/dL (65-175); Potassium 3.7 mmol/L (3.5-5.1); Protein, Total 7.6 g/dL (6.4-8.2); Sodium Level 141 mmol/L (136-145); Thyroid Stim Hormone (TSH) 1.26 uIU/mL (0.358-3.74); Triglycerides 71 mg/dL; Very Low Density Lipoprotein 14 mg/dL (5-40)
== END | disposition home or self-care (01) ==
LOC: BFHLAB 08:49
DX: I10 Essential (primary) hypertension (principal); E03.9 Hypothyroidism, unspecified; D50.9 Iron deficiency anemia, unspecified; E53.8 Deficiency of other specified B group vitamins
CPT/HCPCS: 36415; 80053; 80061; 82607; 82728; 82746; 83540; 84443; 85025

== ENCOUNTER → 2022-07-19 | Outpatient (CLI) | payer MEDICARE, OTHER, SELFPAY ==
[2022-07-19 18:17] LABS: Anion Gap 5 (5-15); BUN 24 mg/dL (7-18); BUN/Creat Ratio 16.6 RATIO (10-20); Calcium,Total 9.2 mg/dL (8.5-10.1); Chloride 103 mmol/L (98-107); Creatinine, Serum 1.45 mg/dL (0.70-1.30); EST Glomerular Filtration Rate 49 mL/min (>60); Est Glom Filt Rate - Afr Amer 60 mL/min (>60); Glucose 90 mg/dL (74-106); Potassium 3.7 mmol/L (3.5-5.1); Sodium Level 139 mmol/L (136-145)
== END | disposition home or self-care (01) ==
LOC: BFHLAB 13:55
PROVIDERS: PCP Family Medicine; Referring Provider Family Medicine; Visit Provider Family Medicine
DX: R60.0 Localized edema (principal); I10 Essential (primary) hypertension; E53.8 Deficiency of other specified B group vitamins
CPT/HCPCS: 36415; 80048

== ENCOUNTER → 2022-07-27 | Outpatient (CLI) | payer MEDICARE, OTHER, SELFPAY ==
[2022-07-27 15:51] LABS: Anion Gap 7 (5-15); BUN 34 mg/dL (7-18); Calcium,Total 9.1 mg/dL (8.5-10.1); Chloride 105 mmol/L (98-107); Creatinine, Serum 1.48 mg/dL (0.70-1.30); EST Glomerular Filtration Rate 48 mL/min (>60); Est Glom Filt Rate - Afr Amer 58 mL/min (>60); Glucose 101 mg/dL (74-106); Potassium 4.1 mmol/L (3.5-5.1); Sodium Level 141 mmol/L (136-145)
[2022-08-01 16:09] LABS: Lyme IgG P18 Ab Absent (.); Lyme IgG P23 Ab Absent (.); Lyme IgG P28 Ab Absent (.); Lyme IgG P30 Ab Absent (.); Lyme IgG P39 Ab Absent (.); Lyme IgG P41 Ab Present (.); Lyme IgG P45 Ab Absent (.); Lyme IgG P58 Ab Absent (.); Lyme IgG P66 Ab Absent (.); Lyme IgG P93 Ab Absent (.); Lyme IgG WB Interpretation Negative (.); Lyme IgM P23 Ab Absent (.); Lyme IgM P39 Ab Absent (.); Lyme IgM P41 Ab Present (.); Lyme IgM WB Interpretation Negative (.)
== END | disposition home or self-care (01) ==
LOC: BFHLAB 11:19
PROVIDERS: PCP Family Medicine; Referring Provider Family Medicine; Visit Provider Family Medicine
DX: L98.9 Disorder of the skin and subcutaneous tissue, unspecified (principal); R60.0 Localized edema
CPT/HCPCS: 36415; 80048; 86617

== ENCOUNTER → 2022-08-16 | Outpatient (CLI) | payer MEDICARE, OTHER, SELFPAY ==
--- NOTE | 2022-08-16 13:04 | VDLE_ITS ---
Reason For Study: swelling RIGHT LEFT CFV is compressible, spontaneous, phasic, CFV is compressible, spontaneous, phasic, competent and demonstrates normal competent, and demonstrates normal augmentation. augmentation. FV is compressible, spontaneous, phasic, FV is compressible, spontaneous, phasic, competent and demonstrates normal competent and demonstrates normal augmentation. augmentation. POP V is compressible, spontaneous, phasic, POP V is compressible, spontaneous, phasic, competent and demonstrates normal competent and demonstrates normal augmentation. augmentation. T/P Trunk is compressible. T/P Trunk is compressible. PTV is compressible. PTV is compressible. RT PerV is compressible. LT PerV is compressible. SFJ is competent and measures .72 cm. SFJ is competent and measures .56 cm. GSV proximal thigh measures .28 x .3 cm. GSV proximal thigh measures .22 x .23 cm. GSV at knee measures .2 x .21 cm. GSV at knee measures .18 x .16 cm. GSV INCOMPETENT throughout for greater than GSV INCOMPETENT throughout for greater than 0.5 seconds. 0.5 seconds. SSV proximal calf is competent and SSV proximal calf is INCOMPETENT for greater measures .15 x .18 cm. than 0.5 seconds and measures .16 x .2 cm. Procedure This is a venous duplex using B-mode, color flow and spectral Doppler. Exam performed in department. The exam was diagnostic. VL/Venous Duplex US - Willam Extrem Interpretation Summary Deep veins of the bilateral lower extremities are patent and compressible segme ntally. There is no evidence of bilateral lower extremity deep vein thrombosis. The bilateral great saphenous veins appear patent and compressible segmentally. Positive for reflux in the right great saphenous vein Positive for reflux in the left great saphenous vein, accessory saphenous vein Ordering Physician: Sabine Guerra Performed By: Gonsalo De Luna RVT
--- NOTE | 2022-08-16 13:04 | ART_ITS ---
Reason For Study: decreased pedal pulses Procedure A bilateral lower extremity continuous wave Doppler with analog waveform analysis,segmental pressures,and ankle brachial indexes without exercise. Raynauds protocol performed. Left Segmental Pressures Left brachial= 105mmHg. Left thigh = 94mmHg. Left calf = 85mmHg. Left posterior tibial artery = 84mmHg. Left dorsalis pedis artery = 97mmHg. Left digit = 72 mmHg. The left dorsalis pedis waveforms are biphasic. The left posterior tibial artery waveforms are biphasic. Right Segmental Pressures Right brachial= 116mmHg. Right thigh = 124mmHg. Right calf = 107mmHg. Right posterior tibial artery = 95mmHg. Right dorsalis pedis artery = 81mmHg. Right digit = 59 mmHg. The right dorsalis pedis waveforms are biphasic. The right posterior tibial artery waveforms are triphasic. Indices The right ankle brachial index by the dorsalis pedis is .7. The right ankle brachial index by the posterior tibial artery is .82. The right digital-brachial index is .51. The left ankle brachial index by the posterior tibial artery is .72. The left ankle brachial index by the dorsalis pedis is .84. The left digital-brachial index is .62. VL/Lower Ext Art Exam w/ Exercise Interpretation Summary Right CHASE 0.82, moderate arterial insufficieny. Doppler/PVR waveforms and segme ntal pressures reveal no focal disease. Right lower extremity digits with abnormal response to cold immersion Left CHASE 0.84, moderately diminished. Doppler/PVR waveforms and segmental press ures reveal aorto- iliac-proximal femoral disease. Left lower extremity digits with abnormal response to cold immersion Ordering Physician: Sabine Guerra Performed By: Gonsalo De Luna RVT
== END | disposition home or self-care (01) ==
LOC: CVS 13:02
PROVIDERS: PCP Family Medicine; Referring Provider Physician Assistant; Visit Provider Physician Assistant
DX: I73.9 Peripheral vascular disease, unspecified (principal); R60.0 Localized edema
CPT/HCPCS: 93924; 93970

== ENCOUNTER 2022-09-11 11:34 | Emergency (ER) | payer MEDICARE, OTHER, SELFPAY ==
[2022-09-11 11:35] VITALS: BP 128/66; PULSE 97; RESP 14; TEMP 36.6; O2SAT 98; BMI 29.9
--- NOTE | 2022-09-11 11:53 | EDS_ITS ---
HPI History of Present Illness Chief Complaint: Rash Narrative Narrative: 79-year-old male past medical history of hypertension, presents with worsening rash on the back of his left calf. He states has been there for a month. It started out as a small area with clearing in the middle. He states he went to his primary care provider, and wanted to be tested for Lyme disease. They tested him and it was negative. He was given 2 small tubes of cream to put on the area but does not recall what they were. He presents because of worsening rash on the back of his calf. He states it is grown much larger in size and is sometimes itchy. It is rarely flaky. He denies any fevers or chills. No other symptoms. No drainage from the rash. [facility] Medical History Constipation GERD (gastroesophageal reflux disease) Hypertension Hypothyroid Home Medications levothyroxine 50 mcg tablet 50 mcg PO DAILY 12/11/15 [History Last Taken 05/17/16 06:00] furosemide 20 mg tablet 20 mg PO DAILY 06/02/20 [History Last Taken Unknown] pantoprazole 40 mg tablet,delayed release 40 mg PO DAILY 06/02/20 [History Last Taken Unknown] potassium chloride 10 mEq tablet,extended release(part/cryst) 8 meq PO DAILY 06/02/20 [History Last Taken Unknown] ferrous gluconate 324 mg (37.5 mg iron) tablet 1 tab PO DAILY 09/03/21 [History Last Taken Unknown] polyethylene glycol 3350 17 gram/dose oral powder (Miralax) 17 g PO DAILY 09/03/21 [History Last Taken Unknown] lisinopril 10 mg tablet 10 mg PO DAILY #30 tabs 09/04/21 [Rx Last Taken Unknown] cyanocobalamin (vitamin B-12) 500 mcg tablet (B-12 DOTS) 1,000 mcg PO DAILY 08/14/22 [History Last Taken Unknown] glucosamine sulf dipot chlr,msm,chond 550 mg-C 30 mg-carmela 1 mg capsule (Glucosamine Chondroitin) See Rx Instructions PO BID 08/14/22 [History Last Taken Unknown] atorvastatin 80 mg tablet 80 mg PO QHS #30 tabs 08/30/22 [Rx Last Taken Unknown] ketoconazole 2 % topical cream 1 applic topical BID #60 grams 09/11/22 [Rx Last Taken Unknown] Allergy/AdvReac Type Severity Reaction Status Date / Time No Known Allergies Allergy Verified 08/30/22 11:04 Social History Smoking Status: Former smoker alcohol intake: never ROS ROS ED ROS Narrative Constitutional: No fever, no chills. HEENT: No sore throat. No neck pain. No loss of vision. No rhinorrhea. Cardiovascular: No chest pain. No palpitations. No pedal edema. Respiratory: No cough, no shortness of breath. Abdominal: No abdominal pain. No nausea. No vomiting. Genitourinary: No dysuria. No hematuria. Musculoskeletal: No myalgias. No arthralgias. Neurologic: No headaches. No dizziness. No lightheadedness. Skin: Worsening posterior left calf rash. Occasionally itchy. No change in color. Psychiatric: No depression. No anxiety. EXAM Physical Exam Narrative Exam Narrative: Afebrile. Vital signs noted. Nontoxic-appearing. HEENT: Normocephalic. Atraumatic. PERRL, EOMI. Neck soft and supple. No point tenderness or step off. Cardiovascular: Regular rate and rhythm. No murmurs, rubs, or gallops appreciated. Respiratory: No tachypnea. Lungs clear to auscultation bilaterally. Gastrointestinal: Abdomen soft, nontender, with normoactive bowel sounds. No rebound or guarding. Neurological: Awake. Alert. Nonfocal, nonlateralizing. Skin: Positive area on back of left calf consistent with large patch of tinea corporis. Positive mild central clearing. Normal color. No pallor. Musculoskeletal: No pedal edema. Full range of motion extremities. Const Vital Signs: 09/11/22 11:35 Temperature 97.8 F Temperature Source Temporal Pulse Rate 97 Respiratory Rate 14 Blood Pressure 128/66 H Blood Pressure Mean 86 Pulse Ox 98 Oxygen Delivery Method Room Air MDM MDM MDM Narrative Medical decision making narrative: Patient could have more of an eczema versus tinea corporis. Regardless, he was told that he should apply the antifungal cream that I will write for him twice a day and that it can take weeks for this to improve if not longer. Board of oral antifungal given his age and possible side effects/comorbidities that he has. Hence, he was referred to a adult care provider. I do not feel that any laboratory work or imaging is indicated. I have low suspicion for DVT based on his clinical examination. I feel he can be discharged safely home with follow-up. He can also follow-up with his primary care provider. Return instructions to the emergency department were reviewed. Disposition is discharged home in stable condition. History & Record Review Discussion w/independent historian: Patient Additional record(s) reviewed:: Prior ED visit Discharge Plan Triage Chief Complaint: Rash ED Provider: Charles Thomas Dx/Rx/DC Orders Clinical Impression: Tinea corporis, Hypertension Instructions: ED Fungal Skin Infection (Tinea), ED Ringworm, Skin Prescriptions: New ketoconazole 2 % cream 1 applic topical BID Qty: 60 0RF No Action cyanocobalamin (vitamin B-12) [B-12 DOTS] 500 mcg tablet 1,000 mcg PO DAILY atorvastatin 80 mg tablet 80 mg PO QHS Qty: 30 11RF levothyroxine 50 MCG tablet 50 mcg PO DAILY pantoprazole 40 MG tablet 40 mg PO DAILY furosemide 20 MG tablet 20 mg PO DAILY potassium chloride 10 MEQ tablet 8 meq PO DAILY Glucosamine Chondroitin 550-30-1 mg capsule See Rx Instructions PO BID Rx Instructions: orally twice a day; polyethylene glycol 3350 [Miralax] 17 gram/dose Powder 17 g PO DAILY ferrous gluconate 324 mg (37.5 mg iron) tablet 1 tab PO DAILY Patient Comments: TAKE 1 TABLET BY MOUTH EVERY DAY lisinopril 10 mg tablet 10 mg PO DAILY Qty: 30 0RF Primary Care Provider: Ailyn Hernandez Referrals: Ailyn Hernandez MD [Primary Care Provider] - 1 Week if not improving Vero Jaramillo MD [Non-Staff] - As soon as possible Disposition Disposition: Home, Self Care
== END 2022-09-11 12:03 | disposition home or self-care (01) ==
PROVIDERS: Emergency Provider Emergency Medicine; PCP Family Medicine; Visit Provider Emergency Medicine
DX: B35.4 Tinea corporis (principal); I10 Essential (primary) hypertension; Z87.891 Personal history of nicotine dependence; E03.9 Hypothyroidism, unspecified; K21.9 Gastro-esophageal reflux disease without esophagitis; Z79.899 Other long term (current) drug therapy
CPT/HCPCS: 99282

== ENCOUNTER → 2023-06-25 | Outpatient (CLI) | payer MEDICARE, OTHER, SELFPAY ==
--- NOTE | 2023-06-25 14:53 | CT_ITS ---
CT LEFT LOWER EXTREMITY WITH 3-D IMAGING CLINICAL INDICATION: OA - preop David protocol left knee. TECHNIQUE: Axial CT images of the left lower extremity (including left hip, left knee, and left ankle) was performed without IV contrast material. Coronal and sagittal reformats were provided. RADIATION DOSAGE (If Supplied By Facility): CTDIvol = ( 18.52 ) mGy, DLP = ( 1416.16 ) mGycm COMPARISON: Left knee radiographs dated 04/02/2011. FINDINGS: Bones: There is mild degenerative arthrosis of the left hip joint with mild joint space narrowing and small marginal osteophyte formation. There is severe degenerative arthrosis of the medial femorotibial compartment of the left knee with severe joint space narrowing, marginal osteophyte formation, and subchondral edema/cyst formation. There is mild degenerative arthrosis of the patellofemoral and lateral femorotibial compartments of the left knee. Unremarkable left ankle. Osseous structures are intact without evidence of fracture or dislocation. No lytic or blastic osseous masses. Soft Tissues: There is a small left knee joint effusion. There is a small popliteal cyst in the left knee, containing a 5 mm calcified loose body (axial series 2 images [id number]). The deep soft tissue structures are unremarkable. The superficial soft tissues are unremarkable without evidence of edema, hematoma, or foreign body. CT/Extremity Lower without Contra IMPRESSION: Tricompartment degenerative arthrosis of the left knee, most severe in the medial femorotibial compartment. Small left knee joint effusion. Small popliteal cyst in the left knee, containing a 5 mm calcified loose body. Electronically Signed: Rashid Hernandez MD at 15:43 EDT ,
== END | disposition home or self-care (01) ==
LOC: CT 14:52
PROVIDERS: PCP Family Medicine; Referring Provider Orthopaedic Surgery; Visit Provider Orthopaedic Surgery
DX: M17.32 Unilateral post-traumatic osteoarthritis, left knee (principal)
CPT/HCPCS: 73700

== ENCOUNTER → 2023-07-23 | Outpatient (CLI) | payer MEDICARE, OTHER, SELFPAY ==
[2023-07-23 17:52] LABS: Absolute Lymphocyte Count 1.92 X10^3/uL (0.83-4.51); Absolute Neutrophil Count 4.8 X10^3/uL (2.0-7.7); Basophil# 0.05 X10^3/uL; Basophil% 0.7 % (0-1); Eosinophil# 0.19 X10^3/uL; Eosinophils% 2.5 % (0-5); Hematocrit 44.2 % (40-54); Hemoglobin 13.8 g/dL (13.0-16.5); Lymphocyte # 1.92 X10^3/ul (0.83-4.51); Lymphocyte % 25.4 % (19-41); Mean Corp Hgb Conc 31.2 g/dL (32-36); Mean Corpuscular Hgb 29.3 pg (27.0-32.0); Mean Corpuscular Volume 93.8 fL (80-94); Mean Platelet Vol. 9.9 fl (6.2-12.0); Monocyte# 0.54 X10^3/uL; Monocyte% 7.1 % (0-10); NRBC Flagged by Analyzer 0 % (0-5); Neutrophil # 4.81 X10^3/uL (2.7-7.7); Neutrophil % 63.6 % (47-70); Platelet Count 353 K/mm3 (150-450); RBC Distribution Width CV 13.3 % (11.6-14.6); RBC Distribution Width SD 45.8 fl (35.1-43.9); Red Blood Count 4.71 M/mm3 (4.6-6.2); White Blood Count 7.6 K/mm3 (4.4-11.0)
[2023-07-23 18:47] LABS: ALB/GLOB Ratio 1.1 RATIO (0.9-2.4); AST(SGOT) 20 U/L (15-37); Alanine Aminotransfer ALT/SGPT 26 U/L (16-61); Alkaline Phosphatase 57 U/L (45-117); Anion Gap 11 (5-15); BUN 27 mg/dL (7-18); BUN/Creat Ratio 16.8 RATIO (10-20); Calcium,Total 9.1 mg/dL (8.5-10.1); Chloride 102 mmol/L (98-107); Creatinine, Serum 1.61 mg/dL (0.70-1.30); EST Glomerular Filtration Rate 44 mL/min (>60); Est Glom Filt Rate - Afr Amer 53 mL/min (>60); Globulin 3.6 g/dL (2.2-4.2); Glucose 85 mg/dL (74-106); Potassium 3.4 mmol/L (3.5-5.1); Protein, Total 7.6 g/dL (6.4-8.2); Sodium Level 139 mmol/L (136-145); Thyroid Stim Hormone (TSH) 2.06 uIU/mL (0.358-3.74)
== END | disposition home or self-care (01) ==
LOC: BFHLAB 14:40
PROVIDERS: PCP Family Medicine; Referring Provider Family Medicine; Visit Provider Family Medicine
DX: Z01.818 Encounter for other preprocedural examination (principal); E03.9 Hypothyroidism, unspecified
CPT/HCPCS: 36415; 80053; 84443; 85025

== ENCOUNTER 2023-08-19 08:59 | Observation (INO) | payer MEDICARE, OTHER, SELFPAY ==
--- NOTE | 2023-08-13 10:55 | RAD_ITS ---
STUDY: X-RAY CHEST REASON FOR EXAM: Male, 83 years old. PREOP TECHNIQUE: Single AP portable view of the chest. COMPARISON: None. FINDINGS: The lungs are clear and expanded. There is no demonstrated pleural abnormality. Normal size heart. Normal mediastinum and [place]. Normal visualized pulmonary arteries. There is atherosclerotic calcification of the aortic arch with tortuosity. There are diffuse degenerative changes of the visualized thoracic spine. There is degenerative osteoarthritis of the bilateral shoulders. There is no demonstrated abnormality of the visualized soft tissue structures of the upper abdomen. RAD/Chest PA and Lateral IMPRESSION: Degenerative changes, as described above. No demonstrated acute cardiopulmonary process. Electronically Signed: Matthew Mondragon MD at 13:05 EDT ,
[2023-08-13 11:58] LABS: Magnesium 2.5 mg/dL (1.6-2.6)
--- NOTE | 2023-08-14 16:24 | CASEMGMT ---
MOON GUERRIER Discharge Planning: Pt presented to this MOON GUERRIER's office on August 12 at to discuss post-op discharge care following his left total knee replacement on August 18. Pt alert, oriented x4, and answering questions appropriately. Living situation: Pt states he lives alone in a single story condo without steps to enter. Pt is independent with ADLS and ambulates using a cane. Family: pt states he has two children, one lives in [place] and is handicapped and the other is currently out of town and will not return until next August 20. Transportation: Pt drives himself but will not have transportation available when he is unable to drive. Pt states he is concerned with returning home alone postoperatively. Pt states he has [place] [facility] insurance. Reviewed options for care including: return home with outpt therapy services (pt states he would prefer [facility] [employer] and use the [facility] van transportation if this were his DC plan); return home with hired private home health aide services and home health skilled PT/OT services; SNF if qualifies under his insurance plan; or acute rehab if qualifies under his insurance plan. Explained process of pt being evaluated after surgery by PT/OT to determine the LOC need post discharge and coordination with care management staff for setting up this LOC. Pt expressed understanding. Pt unclear if the plan was for him to stay the night after his surgery or if he is to discharge same day. Pt agreeable to this tech writer contacting Dr. Carson's office to determine this plan. After pt departed this MOON GUERRIER's office, upon reviewi of pt's insurance in [employer], noted pt with M[employer] A/B and [place] as a secondary. Attempted to call pt to discuss these implications and voicemail received. Voicemail left requesting a return call. On this date, call placed to Dr. Carson's office and confirmed with Radha that plan is for pt to be admitted postoperatively and discharge plan to be facilitated at that time. Return call placed to pt. Reviewed [facility] requirements for SNF and acute rehab levels of care with explanation that pt may not meet 3 midnight rule for SNF LOC. Pt states he would prefer acute rehab. Pt declines a list of acute rehab facilities including resource and quality data stating he would prefer [facility] acute rehab as that is just a mile from my house. Call placed to Angela, clinical education academic coordinator for [facility] acute rehab with referral. Angela reviewed with Dr. Wallace who has accepted pt pending postoperative course. Pt notified of this acceptance and pleased with plan. DC Plan pending postoperative course: [facility] acute rehab. Stew Sanchez RN ACM
[2023-08-19] VITALS (16 sets, daily range): BP systolic 103–138; BP diastolic 47–98; PULSE 61–94; RESP 16–20; TEMP 35.9–37.3; O2SAT 96–100; BMI 31.3
[2023-08-19] MEDS: Acetaminophen 500 MG Tablet 1000 MG PO ×3 (06:20→21:20)
[2023-08-19] MEDS: Lactated Ringers 1,000 ML 999 ML IV ×2 (06:20→09:25)
[2023-08-19] MEDS: Gabapentin 600 MG Tablet PO (06:21)
[2023-08-19] MEDS: Magnesium 1 GM over 15 mins IV (06:21)
[2023-08-19 06:25] LABS: Bedside Glucose 111 mg/dL (74-106)
--- NOTE | 2023-08-19 06:54 | PRE.ANES_ITS ---
ASA Classification* ASA Classification ASA Classification: 2 Assessment & Plan Anesthesia* Anesthesia Assessment Anesthesia Assessment: Discussed sedation and/or anesthesia options, risks, benefits, and alternatives with patient/parents/legal guardian/POA. Questions invited. The patient/parents/legal guardian/POA seems to understand and agrees to proceed with anesthesia plan. Reviewed the physical assessment, medical history, allergy history and patient home medications list prior to surgery/procedure/anesthetic and documented any changes. Performed airway and anesthesia risk assessments. Anesthesia Type Anesthesia Type: Spinal (GA bkup) Pre-Assessment Diagnosis/Proposed Procedure Planned Operative Procedure(s): LEFT TOTAL KNEE ARTHROPLASTY Anesthesia History Anesthesia History - marketing coordinator: Anesthesia History - marketing coordinator Hx Hospitalization No 07/29/23 10:30 Any Problems With Anesthesia Yes: 1994 WITH KNEE SCOPE 07/29/23 10:30 HEART STOPPED Cholinesterase deficiency No 07/29/23 10:30 You/Your Family Experience No 07/29/23 10:30 fever (hyperthermia) with Relationship Recent Exposure to Contagious No 08/19/23 06:01 Disease Does patient have nerve No 07/29/23 10:30 stimulator Patient instructed to have device shut off --Does patient have Pacemaker or ICD? When Was Last Pacemaker Check QUESTION #4 FULL TEXT: You/Your Family Experience fever (hyperthermia) with Anesthesia Last Oral Intake Last Oral intake: Last Oral Intake NPO since Meds taken in AM with sips of Yes 08/19/23 06:01 water? Meds patient instructed to LISINOPRIL 08/19/23 06:01 take am of surgery PONV PONV - marketing coordinator: PONV - marketing coordinator Female No 07/29/23 10:30 HX of Motion Sickness No 07/29/23 10:30 HX of N/V After Surgery No 07/29/23 10:30 Non-Smoker Yes 07/29/23 10:30 Duration of Surgery greater Yes 07/29/23 10:30 than 60 minutes Number of Risk Factors 2 07/29/23 10:30 PONV Score Moderate Risk 07/29/23 10:30 Height & Weight Height & Weight: Anesthesia: Height & Weight Height 5 ft 6 in 08/19/23 06:01 Weight: 88.1 kg 08/19/23 06:01 Body Mass Index (BMI) 31.3 08/19/23 06:01 Respiratory Assessment Respiratory Assessment - marketing coordinator: Respiratory Tract Infection Hx - marketing coordinator Hx Respiratory Tract Infection No 07/29/23 10:30 STOP Sleep Apnea STOP Sleep Apnea - marketing coordinator: STOP Sleep Apnea - marketing coordinator Hx Hypertension Yes: CONTROLLED WITH MED 07/29/23 10:30 Hx Sleep Apnea No 07/29/23 10:30 CPAP No 05/17/16 08:59 BIPAP Do you snore loudly (louder No 07/29/23 10:30 than talking or can be heard Do you often feel tired/ No 07/29/23 10:30 fatigued/ sleepy during daytime? Has anyone observed you stop No 07/29/23 10:30 breathing during sleep? STOP Results Negative 07/29/23 10:30 QUESTION #5 FULL TEXT : Do you snore loudly (louder than talking or can be heard through closed doors)? 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 Specify any problems Hx of Preganancy in last 3 N/A 07/29/23 10:30 Months Nurse Filling Out Transfusion DSCHRIBER 07/29/23 10:30 & Questions: Date: 07/29/23 07/29/23 10:30 Time: 10:32 07/29/23 10:30 Patient unable to answer at this time (ie. confused, unrespo /Reproduction History /Reproductive History - marketing coordinator: /Reproductive Hx- marketing coordinator Hx Now No 07/29/23 10:30 Gestational Age (in weeks): EDC: Hx Hx Para Hx Section SAB No 07/29/23 10:30 Active Medications Active Medications: Current Medications Generic Name Dose Route Start Last Admin Trade Name Freq PRN Reason Stop Dose Admin Acetaminophen 1,000 mg 08/19/23 07:30 08/19/23 06:20 Acetaminophen 500 Mg Tablet PO 08/19/23 07:31 1,000 mg X1 ONE Administration Sodium Chloride 77.9 ml/ 0 ml 08/19/23 07:30 Ropivacaine 200 mg/ OPERA.SITE 08/19/23 07:31 Epinephrine HCl 0.6 mg/ X1 ONE Ketorolac Tromethamine 30 mg/ Morphine Sulfate 5 mg Gabapentin 600 mg 08/19/23 07:30 08/19/23 06:21 Gabapentin 600 Mg Tablet PO 08/19/23 07:31 600 mg X1 ONE Administration Cefazolin Sodium 2 gm/ Sodium 110 mls @ 150 mls/hr 08/19/23 07:30 Chloride IV 08/19/23 08:13 PREOP ONE Tranexamic Acid 1,000 mg/ 110 mls @ 660 mls/hr 08/19/23 07:30 Sodium Chloride IV 08/19/23 07:39 X1 ONE Tranexamic Acid 1,000 mg/ 110 mls @ 660 mls/hr 08/19/23 07:30 Sodium Chloride IV 08/19/23 07:39 X1 ONE Lactated Ringer's 1,000 mls @ 999 mls/hr 08/19/23 07:30 IV 08/19/23 08:30 .Q1H1M DAQUAN Lactated Ringer's 1,000 mls @ 125 mls/hr 08/19/23 07:30 IV 08/19/23 15:29 .Q8H DAQUAN Lactated Ringer's 1,000 mls @ 75 mls/hr 08/19/23 07:30 IV 08/19/23 20:49 .[id number] DAQUAN Magnesium Sulfate 1 gm/ 102 mls @ 408 mls/hr 08/19/23 07:30 08/19/23 06:21 Dextrose IV 08/19/23 07:44 408 mls/hr X1 ONE Administration Insulin Human Lispro 1 - 6 unit 08/19/23 07:30 Insulin Lispro 100 Unit/Ml Insuln.Pen SC 08/19/23 18:00 Q4H PRN PRN BG>/= 180, SEE PROTOCOL Protocol Sodium Chloride 5 - 15 ml 08/19/23 07:30 0.9% Nacl Peripheral Flush Adult/Peds IV UD PRN SALINE FLUSH Anesthesia Focused Assessment* Temperature: 98.7 F Pulse Rate: 90 Blood Pressure: 114/58 Respiratory Rate: 18 Pulse Ox: 96 Airway Assessment Mouth opens: >3 cm Mallampati Score: II Focused Labs Anesthesia Preop lab: CBC WBC 7.6 K/mm3 (4.4-11.0) 07/23/23 14:41 RBC 4.71 M/mm3 (4.6-6.2) 07/23/23 14:41 Hgb 13.8 g/dL (13.0-16.5) 07/23/23 14:41 Hct 44.2 % (40-54) 07/23/23 14:41 Plt Count 353 K/mm3 (150-450) 07/23/23 14:41 CHEMISTRY Potassium 3.4 mmol/L (3.5-5.1) L 07/23/23 14:41 Sodium 139 mmol/L (136-145) 07/23/23 14:41 Magnesium 2.5 mg/dL (1.6-2.6) 08/13/23 10:43 BUN 27 mg/dL (7-18) H 07/23/23 14:41 Creatinine 1.61 mg/dL (0.70-1.30) H 07/23/23 14:41 Glucose 85 mg/dL (74-106) 07/23/23 14:41 POC Glucose 111 mg/dL (74-106) H 08/19/23 06:05 TSH 2.06 uIU/mL (0.358-3.74) 07/23/23 14:41 COAG PT 12.9 SECONDS (11.7-14.9) 09/03/21 10:10 Review of Systems (Anesthesia) ROS Narrative System reviewed and no additional complaints, except as documented. [facility] Medical History (Updated 07/29/23 @ 10:57 by Ofelia Ambrocio) History of echocardiogram Wears hearing aid Wears glasses Wears dentures Rash Ambulates with cane Arthritis Low iron History of ulceration Former smoker Leg cramps History of pain when walking History of edema Constipation GERD (gastroesophageal reflux disease) Hypertension Hypothyroid Home Medications ?Medication ?Instructions ?Recorded ?Last Taken ?Type levothyroxine 50 mcg tablet 50 mcg PO QHS 12/11/15 08/18/23 History furosemide 20 mg tablet 40 mg PO DAILY 06/02/20 08/18/23 History pantoprazole 40 mg tablet,delayed 40 mg PO QHS 06/02/20 08/18/23 History release potassium chloride 10 mEq 8 meq PO BID 06/02/20 08/18/23 History tablet,extended release(part/cryst) ferrous gluconate 324 mg (37.5 mg 1 tab PO DAILY 09/03/21 08/12/23 History iron) tablet polyethylene glycol 3350 17 17 g PO DAILY 09/03/21 08/17/23 History gram/dose oral powder (Miralax) cyanocobalamin (vitamin B-12) 500 1,000 mcg PO QHS 08/14/22 08/12/23 History mcg tablet (B-12 DOTS) glucosamine sulf dipot 1 cap PO DAILY 08/14/22 08/12/23 History chlr,msm,chond 550 mg-C 30 mg-carmela 1 mg capsule (Glucosamine Chondroitin) compress.stocking,knee,reg,med #2 ea 09/18/22 Unknown Rx ferrous sulfate 325 mg (65 mg 325 mg PO DAILY 07/29/23 08/12/23 History iron) tablet (iron) furosemide 40 mg tablet 20 mg PO QHS 07/29/23 08/18/23 History lisinopril 40 mg tablet 40 mg PO DAILY 07/29/23 08/19/23 History psyllium husk 3.4 gram/5.4 gram 1 tbsp PO DAILY 07/29/23 08/18/23 History oral powder (Metamucil) Allergy/AdvReac Type Severity Reaction Status Date / Time No Known Allergies Allergy Verified 07/29/23 10:09 Surgical History (Updated 07/29/23 @ 10:42 by Ofelia Ambrocio) History of esophagogastroduodenoscopy (EGD) Hx of left cataract extraction Hx of right cataract extraction Hx of colonoscopy Hx of left knee surgery Social History Smoking Status: Former smoker alcohol intake: never
[2023-08-19] MEDS: Cefazolin 2 GM in 0.9% Normal Saline (100mL Bag) 100 ML IV (07:27)
--- NOTE | 2023-08-19 07:30 | KNEE_PTH ---
PATIENT: FRANCISCA KNOWLES LOC: [facility]3 U#:[id number] AGE/SX: 83/M [place] [facility] [place]: Dr. Lloyd Carson MD : 1940 BED: 1 DIS: 08/20/2023 SPEC #: [id number] RECD: 08/19/23 10:50 STATUS: JAVIER REChloé #: [id number] SCOUT: 08/19/23 07:[address]: Lloyd Carson DEPT: SURGICAL PATHOLOGY RECD BY: Gabrielle Hurley ENTERED: 08/19/23 11:15 SP TYPE: TOTAL KNEE OTHR DR: Dr. Jose Alejandro Villalpando, DO Tissues: Knee, NOS Procedures: Decalcification bone/plaque Surgery Specimen Level IV HEADER OPERATION: ERAS, total knee replacement PRE-OP DIAGNOSIS: Post-traumatic arthritis of left knee TISSUE SUBMITTED: Bone and soft tissue- left knee MICROSCOPIC DIAGNOSIS Bone and soft tissue, left knee, total knee replacement/resection: Pieces of bone with degenerative osteoarthritic changes. Fibroadipose tissue, fibroconnective tissue and reactive synovial tissue. Focal changes consistent with pseudogout. MARLENE: 08/22/2023 MICROSCOPIC DESCRIPTION Slides are reviewed. GROSS DESCRIPTION Received is one container designated bone and soft tissue left knee. The specimen consists of multiple fragments of garcia-yellow bone measuring in aggregate 11.0 x 10.0 x 4.0 cm. Also in the specimen container are multiple fragments of yellow-white soft tissue measuring in aggregate 4.0 x 4.5 x 1.0 cm. A number of bony fragments contain articular surfaces consistent with tibial plateau and femoral condyle and displaying prominent osteophyte formation, eburnation and bone erosion. Network Liaison sections are submitted in two cassettes as follows: 1 - soft tissue, 2 - bone after decalcification. / MARLENE/ 08/19/2023 TC:5 CPT: 60918, 00084
[2023-08-19] MEDS: TXA 1000mg in NS100 100ml (IVPB at Incision) 660 MG IV (07:33)
[2023-08-19] MEDS: TXA 1000mg in NS100 100ml (IVPB at Closure) 660 MG IV (08:35)
[2023-08-19] MEDS: JPS (Morphine 10mg/ml) OPERA.SITE (08:46)
--- NOTE | 2023-08-19 09:03 | OP.PCM_ITS ---
Problems Associated Problem List Diagnoses (1) Arthritis of left knee: Operative Report Preoperative diagnosis: Left knee severe post traumatic arthritis Post op diagnosis: Same Title of procedure : Left total knee replacement, press fit Surgeon: Lloyd Carson MD Department Clinician: Erika Car PA-C Anesthesia: Spinal, adductor canal nerve block Anesthesiologist:Dr. Díaz / MARIO EBL: 50 Fluid in: 1100 Special medications: Ancef 2 g IV, tranexamic acid 1 g IV x 2, joint pain injection cocktail, ropivacaine, epinephrine, Duramorph, Toradol Indications for surgery: Patient is a [83]-year-old [male] with a history of knee posttraumatic arthritis appropriately treated and failed conservative measures and wished to proceed with total knee replacement. Patient was cleared for surgery by the medical doctor and has been evaluated by the anesthesia staff Findings: Intraoperative findings showed severe arthritis of the knee. Patient underwent knee replacement using Tinychat triathlon press-fit total knee components. 1 custom cutting guide system utilized. Size [4] femur, size [5] tibia, [29 x 9] asymmetric X3 patella, size [5-10 mm CS] X3 tibial polyethylene insert, knee was nicely balanced. Patella tracked well. Patient underwent standard wound closure in layers. Vicryl and strata fix sutures utilized, followed by karen. diet assistant, physician assistant manager/embalmer, was utilized throughout the entire procedure. They were vital in helping with patient positioning, holding of retractors, exposing the tissues adequately for safe completion of the procedure including cutting of the bone, helping furniture maker appropriate alignment and sizing of the components, implantation of the components, as well as wound closure, bandage application, and safe patient transfer. Without surgical product sales consultant, physician assistant manager/embalmer, surgical time would have been significantly increased, and surgical outcome could have been less optimal. Description of procedure: The patient was taken to the OR, transferred to the OR table. They were given a spinal anesthetic. Ancef was given IV preoperatively. Tranexamic acid was given IV preoperatively. Well-padded tourniquet was applied to the upper thigh of the operative leg. Nonoperative leg had a HAZEL hose and SCD on throughout. Operative limb was prepped padded and draped in usual orthopedic sterile fashion for the procedure. We began by injecting the pain relieving solution in the anterior superior aspect of the knee region. The limb was exsanguinated, and the tourniquet was applied to 250 mmHg. Made a midline incision through skin, subcutaneous tissue, bringing down us on the extensor mechanism. Medial parapatellar arthrotomy was carried out. Straw-colored joint fluid was evacuated. We raised a sleeve of tissue off the upper medial tibia. Resected some of the infrapatellar fat pad. We remove degenerative medial and lateral meniscus. Removed bone spurs from about the joint. We removed tissue off the anterior aspect of the distal femur. Patella was translated laterally and/or everted as needed throughout the procedure. ACL was resected. PCL was preserved. Collateral ligaments were preserved. Physician placed the retractors and assistant manager/embalmer held retractors protecting above ligaments throughout the procedure. Cartilage removed from the distal femur and upper tibia at appropriate location for system. Custom cutting guide placed on distal femur for distal resection. Cut carried out. Next cutting block was applied to the front of the femur. 3? of external rotation . We sized off that block and decided on the appropriate size femur. 4-in-1 cutting block was applied to the distal femur and held in place with 2 pins. Department Clinician again held retractors to protect the soft tissues while surgeon performed anterior, posterior, and chamfer cuts. Bony fragments were removed. PCL retractor was placed and collateral ligament protectors placed by the surgeon, held by the assistance. Tibial premade custom alignment guide was utilized under standard technique going down the shaft of the tibia, to the base of the second metatarsal. Appropriate posterior slope was built in. Department Clinician help furniture maker alignment. Cutting block was held in place with 3 pins. Again checked the external alignment. Tibial cut carried out with a saw while the assistant manager/embalmer held retractors protecting the soft tissues about the anterior, medial, lateral, and posterior knee. Bone fragment removed. We then sized off the upper tibia with the help of the assistant manager/embalmer. We then checked flexion extension gaps finding them to be adequate and equal. Next the distal femoral trial was applied. Tibial tray was allowed to freefloat with a 10 mm insert. Knee was flexed and extended an external alignment guide is utilized. Tibial trial was pinned in place. Drill holes were placed into the distal femoral trial and it was removed. Punch was used on the upper tibial component and that was removed. The sclerotic bone was softened with a sharp pin. Bone spurs removed from the posterior medial and posterior lateral aspect of the femur while the assistant manager/embalmer lifted up on the distal femur and exposed each compartment. Patella was everted and measured and appropriate resection was carried out while the assistant manager/embalmer held the guide and patella in good position. Patellar remnant measured to be at or just greater than 14 mm. Patella was sized. Clamp was utilized. 3 drill holes were placed through the clamp held by the assistant manager/embalmer. Trial patella was placed and removed. Bleeding was controlled at the back of the knee with the bovey. Posterior knee soft tissues were carefully injected with pain relieving solution . Tourniquet deflated at 49 minutes. Components were checked and open. Knee was thoroughly irrigated. The bony surfaces cleaned and dried. Tibia, femur, patella press-fit into position. Department Clinician held retractors exposing the bony surfaces of the tibia and femur which were hammered in position. Patella clamped into position. A trial insert applied to the tibia. The final insert was placed on the tibial tray seated down fully. We thoroughly irrigated and debrided the knee. Bleeding controlled with the Bovie. Knee was again thoroughly irrigated. Patella noted to track nicely. We repaired the arthrotomy with a combination of #1 Vicryl and #2 strata fix. We did a mid layer of 1 Vicryl and #1 strata fix running. We then did inverted 2-0 vicryl . We then karen. Mepilex dressing applied. HAZEL hose and SCDs applied. Patient was awoken from their anesthetic, transferred back to their own bed and recovery room in satisfactory condition. Second dose of IV Tranexamic acid was given while closing wound. Patient was admitted, appropriate IV antibiotic to be utilized as well as medication for DVT prevention. Hopeful discharge to rehab tomorrow . Hospitalist service and Physical therapy will be consulted. This note was generated with [employer] dictation software. It may contain incorrect words, spelling, and punctuation that were not noted in checking the note before signing. Postoperative diagnosis:
--- NOTE | 2023-08-19 09:45 | RAD_ITS ---
STUDY: X-RAY - LEFT KNEE REASON FOR EXAM: Male, 83 years old. Post op -- AP and Lateral xray of operative knee in PACU TECHNIQUE: 2 view(s) of the knee. COMPARISON: None. FINDINGS: Normal visualized distal femur. Normal visualized proximal tibia and fibula. Normal proximal tibiofibular articulation. The patient is status post total knee replacement. There is good alignment. Postoperative soft tissue changes. RAD/Knee 1 or 2 Views IMPRESSION: Status post total knee replacement. There is good alignment. Postoperative soft tissue changes. Electronically Signed: Kp Weber MD at 10:15 EDT ,
--- NOTE | 2023-08-19 09:48 | PCM.POST.ANE ---
Anesthesia: Postop Eval I Current Vital Signs Temperature: 97.7 F Pulse Rate: 90 Blood Pressure: 122/76 Respiratory Rate: 18 Pulse Ox: 99 Oxygen Delivery Method: Nasal Cannula (with ETCO2) Oxygen Flow Rate (L/min): 4 CO2 Monitorin Assessment Airway patent: Yes Spontaneous unlabored respirations: Yes Mental status: Awake and Calm nausea: No Vomiting: No Anesthesia Complication: No Fluid Hydration Crystalloid volume administer (ml): 1,100 Total IV fluid infused: 1,100 Progress Note Anesthesia document: Postop Eval 1 completed: Yes
[2023-08-19] MEDS: Furosemide 40 MG Tablet PO (11:26)
[2023-08-19] MEDS: Potassium Chloride Oral Tablet 10 MEQ PO ×2 (11:26→21:20)
[2023-08-19] MEDS: Ferrous Gluconate 324 MG Tablet PO (11:26)
[2023-08-19] MEDS: Aspirin 81 MG TAB.CHEW PO ×2 (11:27→17:04)
[2023-08-19] MEDS: Senna/Docusate Sodium 1 Tablet 2 TABLET PO (11:27)
[2023-08-19] MEDS: Lactated Ringers 1,000 ML 125 ML IV ×2 (11:27→17:04)
--- NOTE | 2023-08-19 12:38 | CON.PCM.HO_ITS ---
Assessment & Plan Assessment/Plan (1) Arthritis of left knee: (2) Status post total left knee replacement: PLAN: Plan Patient is an 83-year-old male who presented to [facility] on 08/19/2023 for planned left knee replacement procedure. Medicine consulted postoperatively for medical management. 1. Left knee arthritis, acute on chronic debility ? Orthopedic surgery primary. S/p left total knee replacement with Dr. Carson on 08/18. Patient tolerated procedure well, no intraoperative complications. Left knee brace with ice pack in place postoperatively and patient with very minimal pain. PT/OT/case management consulted. Likely plan is for patient to go to either IPR or TCU on discharge. Pain control with scheduled Tylenol, Mobic twice daily, and oxycodone as needed. Senna and MiraLAX ordered for bowel regimen. Aspirin twice daily for DVT prophylaxis. Further management per orthopedics. 2. Hypertension ? Home regimen of lisinopril 40 mg daily and Lasix 40 mg in the morning and 20 mg at night. Mildly hypotensive to normotensive postoperatively. Okay to restart home Lasix but will hold home lisinopril for now, will restart when able. 3. Mild acute postoperative anemia in setting of history of iron deficiency anemia ? Hemoglobin 11.4 postoperatively, baseline hemoglobin appears to be around 13. Follow-up a.m. CBC. Continue home iron supplement. 4. Suspected CKD stage III ? Creatinine 1.26 postoperatively, appears to be at baseline. Follow-up a.m. BMP. Chronic medical conditions: ? Obesity: BMI 31 on admit. Complicates hospital course, care and prognosis. ? Hypothyroidism: Last TSH normal on 07/22. Continue home Synthroid. ? GERD: Continue home PPI. Total clinical time spent by myself addressing the patient's medical issues, reviewing all the data, and collaborating with patient's care team: 35 minutes. HPI Consult Data Date of Consult: 08/19/23 HPI Narrative Reason for Consultation: Medical management HPI Narrative: FRANCISCA KNOWLES, is a 83 M who presented to [facility] on 08/19/2023 for planned left knee replacement. Medicine was consulted postoperatively for medical management. I saw patient at the bedside on the floor a few hours after he arrived back from his procedure. Per orthopedics, had left total knee replacement and there were no intraoperative complications. Patient was sitting up comfortably in bed, conversing normally, in no acute distress. He was on supplemental oxygen for short time after the procedure but had been weaned off by the time I saw him. Patient's son was also sitting at bedside. Patient had left knee brace in place with ice pack over the knee. He reported very minimal left knee pain at that time. He otherwise felt well, denied any other acute concerns. Patient lives at home alone, and patient's son noted that there plan is to have the patient do either inpatient rehab or the TCU in our hospital on discharge prior to going home. Patient had not worked with physical therapy yet when I saw him. No other concerns at this time. [facility] Medical History (Updated 08/19/23 @ 09:[address] Lloyd Carson MD) History of echocardiogram Wears hearing aid Wears glasses Wears dentures Rash Ambulates with cane Arthritis Low iron History of ulceration Former smoker Leg cramps History of pain when walking History of edema Constipation GERD (gastroesophageal reflux disease) Hypertension Hypothyroid Home Medications ?Medication ?Instructions ?Recorded ?Last Taken ?Type levothyroxine 50 mcg tablet 50 mcg PO QHS 12/11/15 08/18/23 History furosemide 20 mg tablet 40 mg PO DAILY 06/02/20 08/18/23 History pantoprazole 40 mg tablet,delayed 40 mg PO QHS 06/02/20 08/18/23 History release potassium chloride 10 mEq 8 meq PO BID 06/02/20 08/18/23 History tablet,extended release(part/cryst) ferrous gluconate 324 mg (37.5 mg 1 tab PO DAILY 09/03/21 08/12/23 History iron) tablet polyethylene glycol 3350 17 17 g PO DAILY 09/03/21 08/17/23 History gram/dose oral powder (Miralax) cyanocobalamin (vitamin B-12) 500 1,000 mcg PO QHS 08/14/22 08/12/23 History mcg tablet (B-12 DOTS) glucosamine sulf dipot 1 cap PO DAILY 08/14/22 08/12/23 History chlr,msm,chond 550 mg-C 30 mg-carmela 1 mg capsule (Glucosamine Chondroitin) compress.stocking,knee,reg,med #2 ea 09/18/22 Unknown Rx ferrous sulfate 325 mg (65 mg 325 mg PO DAILY 07/29/23 08/12/23 History iron) tablet (iron) furosemide 40 mg tablet 20 mg PO QHS 07/29/23 08/18/23 History lisinopril 40 mg tablet 40 mg PO DAILY 07/29/23 08/19/23 History psyllium husk 3.4 gram/5.4 gram 1 tbsp PO DAILY 07/29/23 08/18/23 History oral powder (Metamucil) Allergy/AdvReac Type Severity Reaction Status Date / Time No Known Allergies Allergy Verified 07/29/23 10:09 Surgical History (Updated 08/19/23 @ 23:[address] Giancarlo Tavarez, DO) History of esophagogastroduodenoscopy (EGD) Hx of left cataract extraction Hx of right cataract extraction Hx of colonoscopy Hx of left knee surgery Social History Smoking Status: Former smoker alcohol intake: never ROS Constitutional Constitutional: Denies chills, fatigue or fever(s) Eyes Eyes: Denies change in vision Cardiovascular Cardiovascular: Denies chest pain Respiratory/Chest Respiratory/Chest: Denies shortness of breath at rest Gastrointestinal Gastrointestinal: Denies abdominal pain Musculoskeletal Musculoskeletal: Reports joint swelling; Denies arthralgias, joint pain, joint stiffness or myalgias Neurologic Neurologic: Denies dizziness or headache(s) Physical Exam Const alert, oriented x3 and no apparent distress Constitutional Narrative: Pleasant elderly male, obese, sitting up comfortably in bed, conversing normally, in no acute distress. General Appearance: cooperative and comfortable HEENT normocephalic, head/scalp atraumatic, hearing grossly normal bilaterally, nasal mucous membranes and turbinates normal and moist oral mucous membranes Eyes PERRL, EOMs intact bilaterally and conjunctivae normal Neck full ROM Chest inspection of chest normal Resp normal respiratory effort, normal air movement, no use of accessory muscles and clear to auscultation bilaterally Cardio regular rate, regular rhythm, no murmurs and peripheral pulses 2+ throughout GI normal to inspection, nondistended, normoactive bowel sounds, soft to palpation, non-tender and non-distended Back/Spine normal ROM Extremity Extremity Narrative: Left knee with brace and ice pack in place. Stable. Skin no rashes or lesions noted Neuro no focal motor deficits and no sensory deficits noted Speech: speech normal Psych mental status grossly normal Lab / Micro Data 08/19/23 14:03 08/19/23 14:03 Labs: Laboratory Results - last 24 hr 08/19/23 06:05: POC Glucose 111 H Imaging Radiology Impression Knee X-Ray 08/19/23 09:45 IMPRESSION: Status post total knee replacement. There is good alignment. Postoperative soft tissue changes. Electronically Signed: Kp Weber MD at 10:15 EDT , Charges/Coding Visit Charges Inpatient E&M: 51232 Subs Hosp L2
--- NOTE | 2023-08-19 13:19 | POSTOPAN2_ITS ---
Anesthesia Postop Eval I Sum Postop Eval Completion status Anesthesia document: Postop Eval 1 completed: Yes Anesthesia Postop Eval I Summary Anesthesia Postop Eval I Summary: Anesthesia Postop Eval I: Assessment Summary Airway patent Yes 08/19/23 09:50 [email or web address].CSIR Spontaneous unlabored Yes 08/19/23 09:50 [employer].CSIR respirations Mental status Awake,Calm 08/19/23 09:50 [employer].CSIR nausea No 08/19/23 09:50 [employer].CSIR Vomiting No 08/19/23 09:50 [email or web address].CSIR Anesthesia Postop Eval I: Fluid Summary Crystalloid volume administer 1,100 08/19/23 09:50 [employer].CSIR (ml) Colloids volume administered ( ml) Blood Product volume administered (ml) Total IV fluid infused 1,100 08/19/23 09:50 [email or web address].CSIR Anesthesia Postop Eval I: Summary Notes Anesthesia Complication No 08/19/23 09:50 [employer].CSIR Anesthesia Complication Comment: Post-operative progress note Anesthesia: Postop Eval II Evaluation Mental status: Awake and Calm Pain Level: 1 nausea: No Vomiting: No
--- NOTE | 2023-08-19 13:19 | PCM.POSTANE2 ---
Anesthesia Postop Eval I Sum Postop Eval Completion status Anesthesia document: Postop Eval 1 completed: Yes Anesthesia Postop Eval I Summary Anesthesia Postop Eval I Summary: Anesthesia Postop Eval I: Assessment Summary Airway patent Yes 08/19/23 09:50 [email or web address] Spontaneous unlabored Yes 08/19/23 09:50 SKI [email or web address] respirations Mental status Awake,Calm 08/19/23 09:50 [email or web address] [email or web address] nausea No 08/19/23 09:50 SKI [email or web address] Vomiting No 08/19/23 09:50 SKI [email or web address] Anesthesia Postop Eval I: Fluid Summary Crystalloid volume administer 1,100 08/19/23 09:50 SKI [email or web address] (ml) Colloids volume administered ( ml) Blood Product volume administered (ml) Total IV fluid infused 1,100 08/19/23 09:50 SKI [email or web address] Anesthesia Postop Eval I: Summary Notes Anesthesia Complication No 08/19/23 09:50 [email or web address] [email or web address] Anesthesia Complication Comment: Post-operative progress note Anesthesia: Postop Eval II Evaluation Mental status: Awake and Calm Pain Level: 1 nausea: No Vomiting: No
[2023-08-19 14:12] LABS: Hematocrit 35.6 % (40-54); Hemoglobin 11.4 g/dL (13.0-16.5); Mean Corpuscular Hgb 30.2 pg (27.0-32.0); Mean Corpuscular Volume 94.4 fL (80-94); Mean Platelet Vol. 9.3 fl (6.2-12.0); Platelet Count 249 K/mm3 (150-450); RBC Distribution Width CV 13.5 % (11.6-14.6); RBC Distribution Width SD 46.2 fl (35.1-43.9); Red Blood Count 3.77 M/mm3 (4.6-6.2); White Blood Count 9.7 K/mm3 (4.4-11.0)
[2023-08-19 14:33] LABS: Anion Gap 6 (5-15); BUN 15 mg/dL (7-18); BUN/Creat Ratio 11.9 RATIO (10-20); Calcium,Total 8.3 mg/dL (8.5-10.1); Chloride 106 mmol/L (98-107); Creatinine, Serum 1.26 mg/dL (0.70-1.30); EST Glomerular Filtration Rate 58 mL/min (>60); Est Glom Filt Rate - Afr Amer 70 mL/min (>60); Estimated Creatinine Clearance 44.57 ml/min; Glucose 150 mg/dL (74-106); Potassium 4.1 mmol/L (3.5-5.1); Sodium Level 139 mmol/L (136-145)
[2023-08-19] MEDS: Cefazolin 1 GM/50 ML BAG IV ×2 (15:15→23:36)
[2023-08-19] MEDS: Pantoprazole Sodium 40 MG Tablet PO (21:21)
[2023-08-19] MEDS: Cyanocobalamin 500 MCG Tablet 1000 MCG PO (21:21)
[2023-08-19] MEDS: Furosemide 20 MG Tablet PO (21:21)
[2023-08-20 03:15] VITALS: BP 131/50; PULSE 114; RESP 18; TEMP 37.1; O2SAT 94
[2023-08-20] MEDS: Acetaminophen 500 MG Tablet 1000 MG PO (05:00)
--- NOTE | 2023-08-20 07:17 | DCINST_ITS ---
Discharge Instructions Diet Discharge Diet: 1800 Calorie Control Diet Activity Discharge Activity: May Not Drive (while taking narcotic pain medications.) and Use Walker May shower in (days): 2 (only if incision is dry and without drainage. Do NOT soak/submerge in tub/pool/gill/stream/hot tub.) Ice area for (Minutes): 20 (Every hour as needed for pain and swelling) Weight Bearing Status: Weight bearing as tolerated Keep extremity elevated above heart level: Operative Extremity Additional Activity Instructions:: Wear elastic stockings for 2 weeks after your surgery. Dressing / Incision Call your doctor if your incision/area has: Continuous Slow Oozing, Sudden Increased Bleeding, Increased Pain/ Swelling, Increased Redness and Foul Smelling Discharge Call your doctor if you observe: Fever of 101 or Higher, Shortness of breath, Chest pain and Calf discomfort Remove Dressing in: 5 days Cleanse incision/area with: Soap & Water Additional Dressing/Incision Instructions:: See postoperative orthopedic pink sheet Follow Up Care Please Follow Up With: Erika Car PA When: July 13, 2020 2:15 PM [facility] ([place]) Test Results: Test results from this visit will be discussed in further detail at your follow- up appointment, if applicable. Discharge Plan Admission Admit Date/Time: 08/19/23 08:59 Attending Provider: Lloyd Carson Primary Care Provider: Jose Alejandro Villalpando Consulting Providers: Giancarlo Tavarez Discharge Orders/Prescriptions Prescriptions: New acetaminophen 500 mg Tablet 1,000 mg PO Q8 Qty: 0 0RF meloxicam 7.5 mg Tablet 7.5 mg PO BID Qty: 0 0RF aspirin 81 mg Tablet,Chewable 81 mg PO BIDCM Qty: 0 0RF oxycodone 5 mg Tablet 5 - 10 mg PO Q4H PRN PRN (Reason: Pain Score 4-10) Qty: 0 0RF Continued cyanocobalamin (vitamin B-12) [B-12 DOTS] 500 mcg tablet 1,000 mcg PO QHS levothyroxine 50 MCG tablet 50 mcg PO QHS pantoprazole 40 MG tablet 40 mg PO QHS furosemide 20 MG tablet 40 mg PO DAILY potassium chloride 10 MEQ tablet 8 meq PO BID polyethylene glycol 3350 [Miralax] 17 gram/dose Powder 17 g PO DAILY ferrous gluconate 324 mg (37.5 mg iron) tablet 1 tab PO DAILY Patient Comments: TAKE 1 TABLET BY MOUTH EVERY DAY lisinopril 40 mg tablet 40 mg PO DAILY Patient Comments: TAKE 1 TABLET BY MOUTH EVERY DAY furosemide 40 mg tablet 20 mg PO QHS ferrous sulfate [iron] 325 mg (65 mg iron) tablet 325 mg PO DAILY Metamucil 3.4 gram/5.4 gram powder 1 tbsp PO DAILY Rx Instructions: mix into at least 8 oz of water or juice before administering (DME) compress.stocking,knee,reg,med Misc See Rx Instructions .Route Qty: 2 0RF Rx Instructions: As directed Held Glucosamine Chondroitin 550-30-1 mg capsule 1 cap PO DAILY Hold Instructions: Resume on 09/17/23. Hold for 1month post-op Rx Instructions: orally twice a day; Referrals / Follow Up: Jose Alejandro Villalpando DO [Primary Care Provider] - Disposition Disposition (needs filled in before D/C Order can be placed): Inpatient Rehab Unit/Facility
[2023-08-20 08:04] LABS: Anion Gap 5 (5-15); BUN 19 mg/dL (7-18); BUN/Creat Ratio 12.8 RATIO (10-20); Calcium,Total 8.3 mg/dL (8.5-10.1); Chloride 104 mmol/L (98-107); Creatinine, Serum 1.49 mg/dL (0.70-1.30); EST Glomerular Filtration Rate 48 mL/min (>60); Est Glom Filt Rate - Afr Amer 58 mL/min (>60); Estimated Creatinine Clearance 37.69 ml/min; Glucose 98 mg/dL (74-106); Potassium 4.5 mmol/L (3.5-5.1); Sodium Level 136 mmol/L (136-145)
[2023-08-20 08:47] VITALS: BP 109/44; PULSE 94; RESP 18; TEMP 36.8; O2SAT 96
[2023-08-20] MEDS: Potassium Chloride Oral Tablet 10 MEQ PO (08:58)
[2023-08-20] MEDS: Aspirin 81 MG TAB.CHEW PO (08:58)
[2023-08-20] MEDS: Furosemide 40 MG Tablet PO (08:58)
[2023-08-20] MEDS: Ferrous Gluconate 324 MG Tablet PO (08:58)
[2023-08-20] MEDS: Senna/Docusate Sodium 1 Tablet 2 TABLET PO (08:58)
[2023-08-20] MEDS: Polyethylene Glycol 3350 17 GM PACKET PO (08:59)
[2023-08-20] MEDS: oxyCODONE 5 MG Tablet PO (09:00)
--- NOTE | 2023-08-20 09:25 | CASEMGMT ---
Social Work SW met w/pt, reviewed prior level of function and anticipated discharge plan. PCP: Dr. Villalpando Specialists: Dr. Carson, orthopedics Insurance: Medicare/AARP Prescription coverage: yes, does not remember which company however Preferred Pharmacy: [facility] in [place] Living arrangements/Prior level of function: Pt lives in a one story apartment, no steps to enter. Pt is normally independent with ADLS LNOK: CADEN Taylor([phone]) LW/POA: Pt states has completed, rustam Mckeon is POA, both LW and POA on file in [email or web address] DME: Pt has a walker and cane, uses a cane at baseline SNF/HHC: Pt has no history of either, he did have outpt therapy in 1993 after a knee scope Plan: Pt plans to go to [facility] inpt rehab, list not needed as pt has already been accepted to rehab today. SW did speak w/Angela in rehab to confirm pt is accepted and can come today. No further needs are anticipated, pt to inpt rehab today. SW inquired if pt would like SW to call son, he states to call his daughter in law Colleen to let her know as his son at doctor appts this morning. SW did call CADEN Macias to let her know that pt will be going to inpt rehab sometime today. No further needs, pt to rehab later today. KACIE Molina
--- NOTE | 2023-08-20 09:28 | PHA.DC.MR.R ---
Pharmacy [place] Med Reconciliation Pharmacy Service has performed discharge medication reconciliation for this patient. The patient's discharge medication list was reviewed for discrepancies and discrepancies were resolved. Medications at Discharge Home Medications levothyroxine 50 mcg tablet 50 mcg PO QHS 12/11/15 furosemide 20 mg tablet 40 mg PO DAILY 06/02/20 pantoprazole 40 mg tablet,delayed release 40 mg PO QHS 06/02/20 potassium chloride 10 mEq tablet,extended release(part/cryst) 8 meq PO BID 06/02/20 ferrous gluconate 324 mg (37.5 mg iron) tablet 1 tab PO DAILY 09/03/21 polyethylene glycol 3350 17 gram/dose oral powder (Miralax) 17 g PO DAILY 09/03/21 cyanocobalamin (vitamin B-12) 500 mcg tablet (B-12 DOTS) 1,000 mcg PO QHS 08/14/22 glucosamine sulf dipot chlr,msm,chond 550 mg-C 30 mg-carmela 1 mg capsule (Glucosamine Chondroitin) 1 cap PO DAILY 08/14/22 compress.stocking,knee,reg,med #2 ea 09/18/22 ferrous sulfate 325 mg (65 mg iron) tablet (iron) 325 mg PO DAILY 07/29/23 furosemide 40 mg tablet 20 mg PO QHS 07/29/23 lisinopril 40 mg tablet 40 mg PO DAILY 07/29/23 psyllium husk 3.4 gram/5.4 gram oral powder (Metamucil) 1 tbsp PO DAILY 07/29/23 acetaminophen 500 mg tablet 1,000 mg (2 x 500 mg) PO Q8 #0 tabs 08/20/23 aspirin 81 mg chewable tablet 81 mg PO BIDCM #0 tabs 08/20/23 meloxicam 7.5 mg tablet 7.5 mg PO BID #0 tabs 08/20/23 oxycodone 5 mg tablet 5 - 10 mg (1 - 2 x 5 mg) PO Q4H PRN PRN Pain Score 4-10 #0 tabs 08/20/23
[2023-08-20 09:55] LABS: Hematocrit 33.1 % (40-54); Hemoglobin 10.7 g/dL (13.0-16.5); Mean Corp Hgb Conc 32.3 g/dL (32-36); Mean Corpuscular Hgb 30.4 pg (27.0-32.0); Mean Platelet Vol. 9.9 fl (6.2-12.0); Platelet Count 249 K/mm3 (150-450); RBC Distribution Width CV 13.7 % (11.6-14.6); RBC Distribution Width SD 46.8 fl (35.1-43.9); Red Blood Count 3.52 M/mm3 (4.6-6.2); White Blood Count 7.5 K/mm3 (4.4-11.0)
--- NOTE | 2023-08-20 10:41 | NURSING ---
Report called to Maura in IRU. Pt will be in room 406.
== END 2023-08-20 10:50 ==
LOC: SDC 10:00 → MS3 10:00
PROVIDERS: Anesthesiology; Hospitalist; Admitting Provider Orthopaedic Surgery; PCP Family Medicine; Referring Provider Orthopaedic Surgery; Visit Provider Orthopaedic Surgery
PROC: (CPT 27447; principal; 2023-08-19 07:05)
DX: M17.12 Unilateral primary osteoarthritis, left knee (principal); J44.9 Chronic obstructive pulmonary disease, unspecified; N18.30 Chronic kidney disease, stage 3 unspecified; Z87.891 Personal history of nicotine dependence; I12.9 Hypertensive chronic kidney disease with stage 1 through stage 4 chronic kidney disease, or unspecified chronic kidney disease; E03.9 Hypothyroidism, unspecified; Z79.899 Other long term (current) drug therapy; Z79.890 Hormone replacement therapy; I73.00 Raynaud's syndrome without gangrene; I73.9 Peripheral vascular disease, unspecified; D50.9 Iron deficiency anemia, unspecified; E66.9 Obesity, unspecified; Z68.31 Body mass index [BMI] 31.0-31.9, adult; K21.9 Gastro-esophageal reflux disease without esophagitis
CPT/HCPCS: 27447; 01402; 64447; 36415; 71046; 73560; 80048; 82962; 83735; 85027; 87081; 88305; 88311; 94668; 97162; 97166; 97530; C1776; J7120; J2405; J3475

== ENCOUNTER 2023-08-20 11:00 | Inpatient (IN) | payer MEDICARE, OTHER, SELFPAY ==
[2023-08-20 11:33] VITALS: BP 113/50; PULSE 96; RESP 18; TEMP 37.2; O2SAT 91
--- NOTE | 2023-08-20 12:08 | PCM.HP.STD ---
HPI - General General Date of Admission: 08/20/23 Date of Service: 08/20/23 Chief Complaint: Debility due to R TKA HPI Narrative FRANCISCA KNOWLES, is a 83 M with a PMH of diastolic dysfunction stage I, hypertension, hypothyroidism, GERD, chronic constipation, peripheral vascular disease, tobacco dependence in remission, mild COPD (has been told this is the past and was on inhalers for a while but, he no longer is on inhalers and he denies ever having PFT's), chronic renal failure, obesity, umbilical hernia and osteoarthritis who presented to [facility] on 08/19/2023 for a planned left knee replacement by Dr. Lloyd Carson. Postoperatively he had hypoxemia but this resolved. He lives alone. He was seen by PT/OT post op and they recommended acute rehab at [place]. Francisca was transferred to the acute inpt rehab unit at [facility] on 08/20/23 for 3 hours of therapy daily to restore function/independence at or near his level prior to the surgery. Francisca had a very hoarse voice at presentation to rehab and he tells me this is new. He is c/o a productive cough and has been wheezing. He denies CP. He has some CARTER which is new. He started using tobacco at less than 8 years of age and smoked up until 2001. He denies any hx of CAD or CHF. He also denies any hx of VTE. All lab drawn this morning was personally reviewed. The white blood cell count is normal at 7.5. Hemoglobin is 10.7 with normochromic normocytic indices. This is down from 13.8 on 07/23/2019. Platelets are within normal limits. Sodium is normal at 136 and the potassium is 4.5. The BUN is 19 and the creatinine is 1.49 with a GFR of 48 which is consistent with stage IIIa chronic renal failure. TSH in June 2023 was normal. Echocardiogram in August 2021 showed a normal EF with stage I diastolic dysfunction and no wall motion abnormalities. There is no significant valvular heart disease. Bubble contrast study was negative for right to left interatrial shunt. The PA systolic was estimated at 29. [facility] Medical History (Updated 08/20/23 @ 13:[address] Carol Wallace, ) Arthritis of left knee Cranial nerve III palsy Peripheral vertigo Diastolic dysfunction Chronic renal failure, stage 3a Peripheral vascular disease History of echocardiogram Wears hearing aid Wears glasses Wears dentures Rash Ambulates with cane Arthritis Low iron History of ulceration Former smoker Leg cramps History of pain when walking History of edema Constipation GERD (gastroesophageal reflux disease) Hypertension Hypothyroid Home Medications ?Medication ?Instructions ?Recorded ?Last Taken ?Type levothyroxine 50 mcg tablet 50 mcg PO QHS thyroid 12/11/15 08/18/23 History furosemide 20 mg tablet 40 mg PO DAILY diuretic 06/02/20 08/20/23 History pantoprazole 40 mg tablet,delayed 40 mg PO QHS reflux 06/02/20 08/19/23 History release potassium chloride 10 mEq 8 meq PO BID supplement 06/02/20 08/20/23 History tablet,extended release(part/cryst) polyethylene glycol 3350 17 17 g PO DAILY bowel mobility 09/03/21 08/20/23 History gram/dose oral powder (Miralax) cyanocobalamin (vitamin B-12) 500 1,000 mcg PO QHS supplement 08/14/22 08/19/23 History mcg tablet (B-12 DOTS) glucosamine sulf dipot 1 cap PO DAILY ? 08/14/22 08/12/23 History chlr,msm,chond 550 mg-C 30 mg-carmela 1 mg capsule (Glucosamine Chondroitin) ferrous sulfate 325 mg (65 mg 325 mg PO DAILY supplement 07/29/23 08/12/23 History iron) tablet (iron) furosemide 40 mg tablet 20 mg PO QHS diuretic 07/29/23 08/19/23 History lisinopril 40 mg tablet 40 mg PO DAILY BP 07/29/23 08/19/23 History acetaminophen 500 mg tablet 1,000 mg (2 x 500 mg) PO Q8 pain 08/20/23 08/20/23 Rx #0 tabs aspirin 81 mg chewable tablet 81 mg PO BIDCM heart health #0 tabs 08/20/23 08/20/23 Rx meloxicam 7.5 mg tablet 7.5 mg PO BID anti-inflammatory 08/20/23 Unknown Rx #0 tabs oxycodone 5 mg tablet 5 - 10 mg (1 - 2 x 5 mg) PO Q4H 08/20/23 08/20/23 Rx PRN PRN Pain Score 4-10 #0 tabs Allergy/AdvReac Type Severity Reaction Status Date / Time No Known Allergies Allergy Verified 07/29/23 10:09 Family History unable to obtain Surgical History (Updated 08/20/23 @ 13:[address] Carol Wallace DO) History of total left knee replacement History of esophagogastroduodenoscopy (EGD) Hx of left cataract extraction Hx of right cataract extraction Hx of colonoscopy Hx of left knee surgery Social History (Updated 08/20/23 @ 13:[address] Carol Wallace DO) household members: none housing: house number of children: 22 Smoking Status: Former smoker Tobacco: How many years used: 55 how long ago did patient quit smokin alcohol intake: never substance use type: does not use ROS Constitutional Constitutional: Denies anorexia, change in weight, chills, fatigue, fever(s), headache(s), night sweats, poor appetite or weakness Eyes Eyes: Denies blurry vision, change in vision, eye pain or loss of vision ENT HEENT: Reports abnormal hearing and change in voice; Denies dysphagia, headache(s), hearing loss, nasal congestion, nasal discharge or sore throat Cardiovascular Cardiovascular: Reports dyspnea on exertion and edema; Denies chest pain, lightheadedness, orthopnea, palpitations, paroxysmal nocturnal dyspnea or syncope Respiratory/Chest Respiratory/Chest: Reports cough, dyspnea, shortness of breath with exertion and wheezing; Denies shortness of breath at rest Gastrointestinal Gastrointestinal: Reports constipation; Denies abdominal pain, diarrhea, dyspepsia, hematemesis, hematochezia, nausea or vomiting Genitourinary Genitourinary: Reports urinary incontinence, urinary urgency and other Details: Urge urinary incontinence. Normally he does not have nocturia but, for the week prior to the surgery he was getting up 3-4 times a night to urinate. He tells me that he has been having a hard time sleeping for the past week. ; Denies dysuria, hematuria, nocturia, urinary frequency or urinary hesitancy Musculoskeletal Musculoskeletal: Reports difficulty walking and joint pain; Denies back pain, joint swelling, neck pain or tremors Integumentary Integumentary: Reports rash; Denies jaundice or non-healing lesions Neurologic Neurologic: Denies confusion, disequilibrium, dizziness, focal weakness, headache(s), paresthesias, radicular pain, seizures or tremor(s) Psychiatric Psychiatric: Denies anxiety, depression, homicidal ideation or suicidal ideation Endocrine Endocrinology: Denies change in body appearance, polydipsia or polyuria Hematologic/Lymphatic Hematologic/Lymphatic: Denies easy bleeding, easy bruising or lymphadenopathy Allergic/Immunologic Allergic/Immunologic: Reports wheezing; Denies rhinitis, eczemia or asthma Vital Signs Vital Signs Vital Signs: 08/20/23 11:33 Temperature 99 F Temperature Source Temporal Pulse Rate 96 Respiratory Rate 18 Blood Pressure 113/50 L Blood Pressure Mean 71 Blood Pressure Source Monitor Blood Pressure Position Semi-Fowlers Blood Pressure Location Left Arm Pulse Ox 91 Oxygen Delivery Method Room Air Physical Exam Const alert, oriented x3 and no apparent distress Constitutional Narrative: Sitting in the recliner at the bedside. General Appearance: cooperative, well kempt and well developed HEENT head/scalp atraumatic HEENT Narrative: Has hearing aids. Dry mucous membranes. No evidence of thrush. NO pharyngeal injection and no exudate in the posterior pharynx. Eyes PERRL, EOMs intact bilaterally, conjunctivae normal and no scleral icterus Eyes Narrative: No discharge from the eyes or mattering of the eyelashes. Neck no lymphadenopathy, supple and no carotid bruits Chest Chest: symmetrical chest wall rise Resp Resp Narrative: Diffuse expiratory wheezing. Using abd muscles to breath. Mild conversational dyspnea. No crackles. Not tachypneic at rest. His abd is distended and firm. I suspect this is limiting the respiratory excursion of the diaphragm. Cardio regular rate and regular rhythm Cardio Narrative: Distant heart sounds. No MM appreciated and no gallops. No ectopy. GI GI Narrative: The abd is firm, distended and tympanic. He denies pain with palpation. BS's are not hyperactive. He has an umbilical hernia. Back/Spine Back/Spine Narrative: No pain with percussion over the vertebrae. General Back: Negative for CVA tenderness Extremity Extremity Narrative: Diminished pedal pulses. Thigh high TEDS in place. He has pitting edema of both ankles. Radial pulses are good. Skin no jaundice Skin Narrative: He tells me that he has a rash on both legs - will examine in the AM prior to him donning the thigh high TEDS. Will also examine the incision when he has the TEDS off next. Neuro oriented x3, CN's II-XII intact bilaterally and moves all extremities Psych mental status grossly normal, thought process normal, cooperative, affect normal and speech normal Appearance: grossly normal, appropriate and well kempt Attitude: calm Assessment & Plan Assessment/Plan (1) Debility: (2) History of total left knee replacement: (3) Cough in adult patient: (4) COPD exacerbation: (5) Acute blood loss anemia: (6) Peripheral vascular disease: (7) Abdominal distention: PLAN: Plan PLAN PT for gait stability OT for ADL's Analgesics as needed Bowel protocol Fall precautions Assess for Anxiety/Depression GI prophylaxis -Protonix DVT prophylaxis with aspirin 81 mg p.o. twice daily per orthopedics. Pt is also taking Meloxicam 7.5 mg BID.......will check a hemoccult stool. Follow up with Dr. Villalpando and Dr. Carson following DC from [facility] AM lab including CMP, CBC, Mag and Phos Rapid COVID test, respiratory panel, sputum for Gram stain BLUE LEATHER SORTER, PA and lateral chest x-ray Check a EKG and a BNP. KUB Albuterol aerosols every 4 hours while awake and every 2 hours as needed severe shortness of breath/wheezing. Consider steroids unless he has a great result with Albuterol. Charges/Coding Visit Charges Inpatient E&M: 57391 Init Hosp L3
--- NOTE | 2023-08-20 12:34 | EKG12_ITS ---
Test Reason : sob Blood Pressure : / mmHG Vent. Rate : 103 BPM Atrial Rate : 103 BPM P-R Int : 312 ms QRS Dur : 082 ms QT Int : 302 ms P-R-T Axes : 000 -02 025 degrees QTc Int : 395 ms Sinus tachycardia with 1st degree A-V block Otherwise normal ECG No previous ECGs available Confirmed by Jay Jay Zimmerman ([id number]), web content editor CASSIE SMITH ([id number]) on 08/22/2023 11:20:48 AM Referred By: Confirmed By:Jay Jay Zimmerman
[2023-08-20 13:11] LABS: BNP,B-Type NATRIURETIC PEPTIDE 252.6 pg/mL (0-100)
--- NOTE | 2023-08-20 13:25 | RAD_ITS ---
STUDY: X-RAY - ABDOMEN/PELVIS REASON FOR EXAM: Male, 83 years old. Abdominal distention. TECHNIQUE: Single AP view of the abdomen / pelvis on 3 images. COMPARISON: None. FINDINGS: Atelectasis at both bases. Normal bowel gas pattern with air seen to the rectum. Moderate to marked amount of feces in the colon. The visualized liver, spleen and kidneys are grossly normal in size and morphology. Normal soft tissue structures. Normal visualized osseous structures. RAD/Abdomen Single View IMPRESSION: No acute abnormality. Electronically Signed: Dakota Licea MD at 14:31 EDT ,
--- NOTE | 2023-08-20 13:25 | RAD_ITS ---
STUDY: X-RAY CHEST REASON FOR EXAM: Male, 83 years old. Productive cough. Wheezing. TECHNIQUE: Frontal and lateral views of the chest on 4 images. COMPARISON: August 13, 2023 FINDINGS: Low volume inspiration with bibasilar atelectasis. There is no demonstrated pleural abnormality. Cardiomegaly unchanged. Normal mediastinum and [place]. Normal visualized pulmonary arteries. Stable aortic tortuosity. Diffuse moderate thoracic spondylosis unchanged. Normal visualized ribs, clavicles, and shoulders. No abnormality of the visualized soft tissue structures of the upper abdomen. RAD/Chest PA and Lateral IMPRESSION: Stable chest with no acute or active cardiopulmonary disease. Electronically Signed: Dakota Licea MD at 14:33 EDT ,
[2023-08-20 14:11] VITALS: PULSE 104; RESP 20; O2SAT 94
[2023-08-20] MEDS: Albuterol 2.5 MG/3 ML VIAL.NEB. INHALATION ×2 (14:11→19:31)
[2023-08-20] MEDS: Acetaminophen 500 MG Tablet 1000 MG PO ×2 (14:29→21:02)
[2023-08-20] MEDS: oxyCODONE 5 MG Tablet PO ×2 (14:30→20:36)
[2023-08-20] MEDS: Potassium Chloride Oral Tablet 10 MEQ PO (16:52)
[2023-08-20] MEDS: Aspirin 81 MG TAB.CHEW PO (16:53)
[2023-08-20] MEDS: Furosemide 40 MG Tablet PO (16:53)
[2023-08-20] MEDS: SimETHICONE 80 MG Chewable Tablet PO ×2 (16:54→20:36)
[2023-08-20 19:31] VITALS: PULSE 96; RESP 18
[2023-08-20 20:00] VITALS: BP 132/56; PULSE 94; RESP 19; TEMP 36.5; O2SAT 96
[2023-08-20 20:32] VITALS: BMI 31.0
[2023-08-20] MEDS: Meloxicam 7.5 MG Tablet PO (20:37)
[2023-08-20] MEDS: Pantoprazole Sodium 40 MG Tablet PO (20:37)
[2023-08-20] MEDS: Senna/Docusate Sodium 1 Tablet 2 TABLET PO (20:38)
[2023-08-20] MEDS: Levothyroxine 50 MCG Tablet PO (20:39)
[2023-08-20] MEDS: Cyanocobalamin 500 MCG Tablet 1000 MCG PO (20:39)
[2023-08-21] VITALS (7 sets, daily range): BP systolic 128–133; BP diastolic 50–56; PULSE 88–95; RESP 17–22; TEMP 36.4–36.6; O2SAT 93–96; BMI 30.9
[2023-08-21] MEDS: Acetaminophen 500 MG Tablet 1000 MG PO ×3 (05:05→21:43)
[2023-08-21 05:18] LABS: Absolute Lymphocyte Count 0.87 X10^3/uL (0.83-4.51); Absolute Neutrophil Count 6.3 X10^3/uL (2.0-7.7); Basophil# 0.02 X10^3/uL; Basophil% 0.3 % (0-1); Eosinophil# 0.07 X10^3/uL; Eosinophils% 0.9 % (0-5); Hematocrit 31.4 % (40-54); Hemoglobin 10.2 g/dL (13.0-16.5); Lymphocyte # 0.87 X10^3/ul (0.83-4.51); Lymphocyte % 10.9 % (19-41); Mean Corp Hgb Conc 32.5 g/dL (32-36); Mean Corpuscular Hgb 30.2 pg (27.0-32.0); Mean Corpuscular Volume 92.9 fL (80-94); Mean Platelet Vol. 9.1 fl (6.2-12.0); Monocyte# 0.69 X10^3/uL; Monocyte% 8.6 % (0-10); NRBC Flagged by Analyzer 0 % (0-5); Neutrophil # 6.31 X10^3/uL (2.7-7.7); Neutrophil % 78.8 % (47-70); Platelet Count 225 K/mm3 (150-450); RBC Distribution Width CV 13.8 % (11.6-14.6); Red Blood Count 3.38 M/mm3 (4.6-6.2)
[2023-08-21 05:36] LABS: ALB/GLOB Ratio 0.8 RATIO (0.9-2.4); AST(SGOT) 24 U/L (15-37); Alanine Aminotransfer ALT/SGPT 11 U/L (16-61); Albumin, Serum 2.8 g/dL (3.2-5.0); Alkaline Phosphatase 43 U/L (45-117); Anion Gap 5 (5-15); BUN 24 mg/dL (7-18); BUN/Creat Ratio 16.7 RATIO (10-20); Calcium,Total 8.4 mg/dL (8.5-10.1); Chloride 101 mmol/L (98-107); Creatinine, Serum 1.44 mg/dL (0.70-1.30); EST Glomerular Filtration Rate 50 mL/min (>60); Est Glom Filt Rate - Afr Amer 60 mL/min (>60); Estimated Creatinine Clearance 38.83 ml/min; Globulin 3.4 g/dL (2.2-4.2); Glucose 102 mg/dL (74-106); Magnesium 2.2 mg/dL (1.6-2.6); Phosphorus 2.6 mg/dL (2.5-4.9); Potassium 4.2 mmol/L (3.5-5.1); Protein, Total 6.2 g/dL (6.4-8.2); Sodium Level 135 mmol/L (136-145)
[2023-08-21] MEDS: oxyCODONE 5 MG Tablet PO ×3 (06:17→20:32)
[2023-08-21] MEDS: 0.9% Saline Lock 10 ML Syringe IV ×2 (06:19→20:34)
[2023-08-21] MEDS: Albuterol 2.5 MG/3 ML VIAL.NEB. INHALATION ×3 (06:35→19:03)
[2023-08-21] MEDS: Furosemide 40 MG Tablet PO ×2 (08:09→17:13)
[2023-08-21] MEDS: Meloxicam 7.5 MG Tablet PO ×2 (08:09→20:32)
[2023-08-21] MEDS: SimETHICONE 80 MG Chewable Tablet PO ×4 (08:09→20:32)
[2023-08-21] MEDS: Aspirin 81 MG TAB.CHEW PO ×2 (08:09→17:13)
[2023-08-21] MEDS: Polyethylene Glycol 3350 17 GM PACKET PO (08:09)
[2023-08-21] MEDS: Senna/Docusate Sodium 1 Tablet 2 TABLET PO ×2 (08:09→20:32)
[2023-08-21] MEDS: Lisinopril 40 MG Tablet PO (08:09)
[2023-08-21] MEDS: Potassium Chloride Oral Tablet 10 MEQ PO ×2 (08:09→17:13)
[2023-08-21] MEDS: predniSONE 20 MG Tablet 40 MG PO (12:18)
[2023-08-21] MEDS: Ferrous Sulfate 325 MG Tablet PO (12:18)
--- NOTE | 2023-08-21 14:55 | CASEMGMT ---
Social Work- RU Admit SW met with patient at bedside to complete initial intake assessment. SW introduced self and role. Patient confirmed demographics and contact information. Prior to admission, patient was residing in home alone. Patient informed SW that he was able to complete ADLS independently. Patient has a cleaning lady come to home every 3 weeks to assist with cleaning. Patient confirmed code status as Full Code stating he only want CPR; no intubation. Patient informed SW that his son, Mike Bragg is his POA; Advanced Directive is located in medical records. SW educated patient on Medicare coverage. Patient approval dates are currently pending, SW to follow up with patient. Patient's goal is to return home with outpatient therapy via [facility] with [employer] services for transportation to/from home. Patient informed SW that he only eats prepared meals. Patient informed SW that he will be arranging meals on wheels post discharge. SW inquired about medical alert device; patient is agreeable to information. SW provided information for medical alert device. SW will continue to follow to support discharge planning. GARRET Etienne
[2023-08-21] MEDS: Levothyroxine 50 MCG Tablet PO (20:31)
[2023-08-21] MEDS: Cyanocobalamin 500 MCG Tablet 1000 MCG PO (20:32)
[2023-08-21] MEDS: Pantoprazole Sodium 40 MG Tablet PO (20:32)
[2023-08-22] MEDS: Acetaminophen 500 MG Tablet 1000 MG PO ×3 (05:40→20:50)
[2023-08-22 06:00] VITALS: BMI 31.3
[2023-08-22 07:11] VITALS: PULSE 91; RESP 20; O2SAT 97
[2023-08-22 07:40] VITALS: BP 118/56; PULSE 83; RESP 16; TEMP 36.2; O2SAT 92
[2023-08-22] MEDS: Lisinopril 40 MG Tablet PO (07:55)
[2023-08-22] MEDS: predniSONE 20 MG Tablet 40 MG PO (07:55)
[2023-08-22] MEDS: SimETHICONE 80 MG Chewable Tablet PO ×4 (07:55→20:51)
[2023-08-22] MEDS: oxyCODONE 5 MG Tablet PO ×2 (07:55→20:49)
[2023-08-22] MEDS: Polyethylene Glycol 3350 17 GM PACKET PO (07:55)
[2023-08-22] MEDS: Aspirin 81 MG TAB.CHEW PO ×2 (07:56→17:25)
[2023-08-22] MEDS: Meloxicam 7.5 MG Tablet PO ×2 (07:56→20:51)
[2023-08-22] MEDS: Furosemide 40 MG Tablet PO (07:56)
[2023-08-22] MEDS: Senna/Docusate Sodium 1 Tablet 2 TABLET PO (07:56)
[2023-08-22] MEDS: Potassium Chloride Oral Tablet 10 MEQ PO ×2 (07:56→17:26)
--- NOTE | 2023-08-22 09:56 | PCM.PROGNOTE ---
Subjective Subjective Afebrile VSS - Maintaining appropriate oxygen saturation on RA-92 to 97%. Oral intake - FOOD good FLUIDS fair. He is currently getting Lasix 40 mg BID and the fluid balance for the past 2 days has been mildly negative, -195 on 08/19 and -180 yesterday. Has not had any bowel movements since being admitted to rehab. He had 1 postvoid residual of 246 but the most recent postvoid residual was 0. Discussed with nursing - no problems that need addressed Reviewed the THERAPY notes Medication list reviewed. All recent lab was personally reviewed. Hemoglobin is 10.2, down from 11.4 on 08/19/2023. The white blood cell count is normal. Platelets are within normal limits. Sodium is 135, down from 139 on 08/19/2023. BUN is 24 with a creatinine of 1.44 which is within his baseline. BUN/creatinine ratio is 16.7. Phosphorus is normal and the magnesium is 2.2. LFTs are unremarkable. The respiratory panel was positive for human metapneumovirus. Sputum culture appears to be normal cassy. Hemoccult stool has not been done because he has not had a bowel movement. He is currently taking MiraLAX daily and senna/docusate to twice daily. Has not received a laxative. Radiology reports he has moderate to marked stool retention on the KUB. [place] tells me that he is terrible but, he tells me he always says this when someone asks. The cough is less and is non-productive. He denies CP. He denies SOB today and also denies nausea/vomiting/abdominal pain, dysuria and calf tenderness. He commented that his legs are much more swollen than normal. He has knee-high HAZEL hose in place. Objective Data Objective Data Vital Signs: Vital Signs Temp Pulse Resp BP Pulse Ox O2 Del Method 97.2 F L 83 16 118/56 L 92 Room Air 08/22/23 07:40 08/22/23 07:40 08/22/23 07:40 08/22/23 07:40 08/22/23 07:40 08/22/23 07:40 Oxygen Delivery Method Room Air Weight: 194 lb 0.108 oz Body Mass Index (BMI) 31.3 Intake & Output: Intake and Output for Last 24 Hours 08/20/23 08/21/23 08/22/23 23:59 23:59 23:59 Intake Total 910 / 910 1380 / 1380 220 / 220 Output Total 800 / 800 1575 / 1575 400 / 400 Balance 110 / 110 -195 / -195 -180 / -180 Lab / Micro Data 08/21/23 05:03 08/21/23 05:03 Micro: Microbiology 08/21/23 06:21 Sputum, Expectorated/Coughed Gram Stain - Final 08/21/23 06:21 Sputum, Expectorated/Coughed Respiratory Culture - Preliminary Appears to be normal respiratory cassy. Further studies to follow. 08/20/23 14:11 Mucosa - Nasopharyngeal Respiratory Panel (PCR) - Final Human [place] 08/20/23 16:55 Mucosa - Throat Streptococcus pyogenes (PCR) - Final 08/20/23 12:35 Nasal Secretion SARS-CoV-2 Antigen (Rapid) - Final Physical Exam Const alert, oriented x3 and no apparent distress Constitutional Narrative: He was sitting in a chair doing OT when I saw him. General Appearance: cooperative HEENT head/scalp atraumatic Eyes PERRL, EOMs intact bilaterally, conjunctivae normal and no scleral icterus Eyes Narrative: No discharge from the eyes or mattering of the eyelashes. Neck no lymphadenopathy, supple and no carotid bruits Chest Chest: symmetrical chest wall rise Resp Resp Narrative: Diffuse coarse wheezing. No conversational dyspnea. Not tachypneic. No crackles. No cough with deep breathing. Cardio regular rate and regular rhythm Cardio Narrative: distant heart sounds. No MM appreciated. No ectopy GI GI Narrative: Distended and firm. NT to palpation. BS's present. The abd distention is limiting diaphragmatic excursion. NO BM since admission to rehab. Back/Spine Back/Spine Narrative: No pain with percussion over the vertebrae. General Back: Negative for CVA tenderness Extremity Extremity Narrative: 3-4+ pitting edema of both LE's. No pitting edema in the R posterior thigh but, has pitting edema of the Left posterior thigh. there is a small fluid filled blister in the L distal medial thigh just above the knee. The dressing is dry. No erythema extending beyond the dressing. General Extremity: edema; Negative for cyanosis Skin no jaundice Skin Narrative: The skin over the distal LE's is very shiny and there are patchy areas of dry skin that appear to be due to stasis dermatitis. Small amount of seepage os serous fluid from the distal LLE. Neuro oriented x3, CN's II-XII intact bilaterally and moves all extremities Psych cooperative and affect normal Appearance: grossly normal, appropriate and well kempt Attitude: calm Assessment & Plan Assessment/Plan (1) Debility: (2) History of total left knee replacement: (3) COPD exacerbation: (4) Acute blood loss anemia: (5) Peripheral vascular disease: (6) Abdominal distention: (7) Bronchitis due to human metapneumovirus (hMPV): (8) Diastolic dysfunction: (9) Chronic renal failure, stage 3a: (10) Chronic constipation: PLAN: Plan 1. Continue therapy 2. Continue prednisone 40 mg daily for a total of 3 days then taper 3. Lasix 40 mg IV twice daily 4. Elevate the legs anytime he is sitting in the recliner 5. Recheck a BMP in the a.m. 6. Magnesium citrate 300 cc now 7. Marked edema of both lower extremities with no significant change in weight -only on aspirin 81 mg twice daily for DVT prophylaxis. Will check bilateral venous ultrasounds of the lower extremities. Charges/Coding Visit Charges Inpatient E&M: 86139 Subs Hosp L2
--- NOTE | 2023-08-22 10:05 | PCM.RU.PYE ---
Admission Information Primary Diagnosis:: Debility secondary to left total knee replacement Status Changes from Prescreening?: Medical (On the day he came to us he was having an exacerbation of COPD secondary to human metapneumovirus taht was not recognized at the time of Dc from the acute hospital stay) Actual Problem List:: Skin Intergrity, Pain, ALteration in Cmfrt, Bladder Incontinence, Bowel, Constipation, Alteration in Sleep, Mobility Impaired, Self Care Deficit, Fluid Overload r/t CHF and Alteration-Leisure Activ. Potential Problem List:: DVT, Bleeding, Infection, UTI, Aspiration, Falls, Skin Integrity and Depression Risk of Complications DVT: HAZEL [place] and - (ASA 81 mg p.o. twice daily) Bleeding: Monitor Lab Values, Nursing to Teach Precautions for anti-coagulation therapy., Wound, if applicable, to be assessed every shift. and Stroke patients assessed for lethargy or change in status. Infection: Clinical Staff to Monitor for S/S of infection: and S/S of infection include fever, redness, warmth, etc. Urinary Tract Infection: Monitor for frequency, burning, discomfort, or incontinence. and Nursing will obtain urine sample for urinalysis and C&S when ordered. Aspiration: Clinical staff will monitor for coughing, drooling, congestion., Speech will evaluate swallowing and dsyphasia. and Nursing will monitor patient swallowing during meals. Falls: Patient will be evaluated for Fall Precautions and Patient will be placed on Fall Precautions as indicated per protocol. Skin Breakdown: Nursing will assess skin daily using assessment tool. and Nursing will place on Skin Breakdown Precautions as indicated. Pain: Clinical staff will assess patient's pain level per protocol., Medications will be given, if needed, and the pain level reassessed. and Other methods: Massage, distraction, decrease stimulus, etc. used PRN. Plan of Care Patient requires physician specializing in physical medicine and rehab oversight to provide close medical supervision of rehab issues including: Pain Management, Sleep Problems, Bowel and Bladder, Medical and co-morbidity Management, DVT prophylaxis, Rehabilitation Leadership and Coordination of treatment team Patient needs Physical Therapy: For a minimum of 1 hour and At least 5 out of 7 days Patient needs Physical Therapy to improve:: Mobility, Strengthening, Transfers, Stretching, ROM, Endurance, Stairs, Gait and Balance Patient needs Occupational Therapy: For a minimum of 1 hour and At least 5 out of 7 days Patient needs Occupational Therapy to improve ADL's incl.: Eating, Grooming, Bathing, Dressing, Toileting, Toilet transfers, Community Reintegration, Higher functioning activities, Household tasks, Adaptive Equipment, Splinting and Other activities as determined Patient requires 24/7 Rehabilitation Nursing for: Pain Issues, Identifying and preventing risk factors, Monitoring and reporting current medical conditions, Assisting with ambulation, transfer, and all ADL's, Teaching patients about disease process and medications, Family teaching, Providing safe environment, Bowel and Bladder Issues, Skin integrity and Medication Management Patient needs Radiologic Electronic Specialist/ Case Management for: Discharge Planning, Arranging Home Equipment or Services and Family Interventions Patient needs Dietary and Nutrition Services for: Adequate Nutrition, Nutritional Supplements and Nutritional Education Goals Goals Patient will remain: free from falls Patient will perform eating at: MOD I level of assist. Patient will perform bed mobility at: MOD I level of assist. Patient will complete transfers from bed to chair at: MOD I level of assist. Patient will ambulate: - (250 feet with the least restrictive device at moderate) Patient will complete upper body dressing at: MOD I level of assist. Patient will complete lower body dressing at: MOD I level of assist. Patient will complete toilet transfer at: MOD I level of assist. Patient will complete toileting at: MOD I level of assist. Patient will perform bathing at: MOD I level of assist. (Will complete upper body bathing independently and lower body bathing at mod I with adaptive equipment as needed.) Patient will perform Tub/Shower transfer at: - (Supervision) Patient will complete grooming at: MOD I level of assist. Patient will complete home management skills at: MOD I level of assist. Patient will achieve: - (2 steps with 1 handrail and the least restrictive device to allow access to his son's home at standby assist.) Patient will have pain level of: of 3 or less Patient's skin will: remain intact Patient will receive: adequate nutrition. Discharge Planning Pt Prognosis for Sig. Practical Improv. w/in Reasonable Time: Good Estimated Length of stay (days): 21 Anticipated D/C Destination: Home w/ family or friends Was Preadmission Assessment Accurate?: No
--- NOTE | 2023-08-22 11:54 | VDLE_ITS ---
Reason For Study: swelling RIGHT LEFT GSV is normal. GSV is normal. CFV is compressible, spontaneous, phasic, CFV is compressible, spontaneous, phasic, competent and demonstrates normal competent, and demonstrates normal augmentation. augmentation. FV is compressible, spontaneous, phasic, FV is compressible, spontaneous, phasic, competent and demonstrates normal competent and demonstrates normal augmentation. augmentation. POP V is compressible, spontaneous, phasic, POP V is compressible, spontaneous, phasic, competent and demonstrates normal competent and demonstrates normal augmentation. augmentation. T/P Trunk is compressible. T/P Trunk is compressible. PTV is compressible. PTV is compressible. RT PerV is compressible. LT PerV is compressible. Procedure This is a venous duplex using B-mode, color flow and spectral Doppler. Exam performed portable in patient room. The exam was diagnostic. A preliminary report was called and/or faxed to the pt's RN. VL/Venous Duplex US - Willam Extrem Interpretation Summary Deep veins of the lower extremities are bilaterally patent and compressible seg mentally. There is no evidence of deep vein thrombosis on either side. Valvular competence appears in tact within the proximal deep venous systems bilaterally. The great saphenous veins appear bila terally patent and compressible segmentally. Ordering Physician: Carol Wallace Performed By: Gonsalo De Luna RVT
[2023-08-22] MEDS: Furosemide 40 MG/4 ML Vial IV ×2 (13:09→17:25)
[2023-08-22] MEDS: Magnesium Citrate 300 ML PO (13:09)
[2023-08-22] MEDS: Ferrous Sulfate 325 MG Tablet PO (13:09)
[2023-08-22] MEDS: Cefadroxil 500 MG CAPSULE PO ×2 (15:27→20:51)
--- NOTE | 2023-08-22 15:45 | CHAPLAIN ---
Type of Pastoral Visit _x__ Initial Visit ___ Follow-up Visit ___ On-call Visit ___ General Patient Visit ___ Spiritual Assessment ___ Family Conference ___ Bereavement ___ Rapid Response ___ Code Blue ___ Other (describe below) Pastoral Care Referral From _x__ Patient ___ Family ___ Nurse ___ Physician ___ Rental Agent ___ Sales Executive Insurance ___ Other (describe below) Sacrament/Intervention _x__ Active listening ___ Anointing ___ Sikh ___ Bereavement ___ Communion ___ Keren exploration ___ _x__ Life review _x__ Prayer ___ Reconciliation ___ Sacrament of Sick ___ Supportive presence ___ Wedding ___ Other (describe below) Pastoral Comments patient is able to articulate his health decisions and progress on therapy after surgery; pt gives some life review and family involvement; pt has two grandchildren of whom he is highly invested; pt is not connected to a local roman catholic at this time but welcomes a prayer and visits as desired in the future; pt has no other needs at this time
[2023-08-22 19:30] VITALS: PULSE 98; RESP 18; O2SAT 97
[2023-08-22] MEDS: Albuterol 2.5 MG/3 ML VIAL.NEB. INHALATION (19:30)
[2023-08-22 20:47] VITALS: BP 111/50; PULSE 84; RESP 16; TEMP 36.8; O2SAT 94
[2023-08-22] MEDS: Pantoprazole Sodium 40 MG Tablet PO (20:50)
[2023-08-22] MEDS: Levothyroxine 50 MCG Tablet PO (20:51)
[2023-08-22] MEDS: Cyanocobalamin 500 MCG Tablet 1000 MCG PO (20:52)
[2023-08-23 06:00] VITALS: BMI 30.9
[2023-08-23 06:28] LABS: Anion Gap 8 (5-15); BUN 46 mg/dL (7-18); BUN/Creat Ratio 29.1 RATIO (10-20); Calcium,Total 8.6 mg/dL (8.5-10.1); Chloride 103 mmol/L (98-107); Creatinine, Serum 1.58 mg/dL (0.70-1.30); EST Glomerular Filtration Rate 45 mL/min (>60); Est Glom Filt Rate - Afr Amer 54 mL/min (>60); Estimated Creatinine Clearance 35.53 ml/min; Glucose 90 mg/dL (74-106); Potassium 3.9 mmol/L (3.5-5.1); Sodium Level 139 mmol/L (136-145)
[2023-08-23] MEDS: Acetaminophen 500 MG Tablet 1000 MG PO ×3 (06:28→22:02)
[2023-08-23] MEDS: oxyCODONE 5 MG Tablet PO ×3 (06:28→21:54)
[2023-08-23 07:07] VITALS: PULSE 61; RESP 16; O2SAT 99
[2023-08-23] MEDS: Albuterol 2.5 MG/3 ML VIAL.NEB. INHALATION ×3 (07:07→15:56)
[2023-08-23] MEDS: SimETHICONE 80 MG Chewable Tablet PO ×4 (07:42→22:02)
[2023-08-23] MEDS: Cefadroxil 500 MG CAPSULE PO ×2 (07:42→22:01)
[2023-08-23] MEDS: Aspirin 81 MG TAB.CHEW PO ×2 (07:42→16:58)
[2023-08-23] MEDS: Potassium Chloride Oral Tablet 10 MEQ PO ×2 (07:42→16:58)
[2023-08-23] MEDS: predniSONE 20 MG Tablet 40 MG PO (07:42)
[2023-08-23] MEDS: Meloxicam 7.5 MG Tablet PO ×2 (07:42→22:01)
[2023-08-23] MEDS: Lisinopril 40 MG Tablet PO (07:42)
[2023-08-23] MEDS: Furosemide 40 MG/4 ML Vial IV ×2 (07:48→16:58)
[2023-08-23 08:00] VITALS: BP 139/61; PULSE 79; RESP 16; TEMP 36.6; O2SAT 96
[2023-08-23 11:47] VITALS: PULSE 59; RESP 16
[2023-08-23] MEDS: Ferrous Sulfate 325 MG Tablet PO (13:13)
--- NOTE | 2023-08-23 14:06 | PCM.PROGNOTE ---
Subjective Subjective Cefadroxil 3/14 doses given Afebrile VSS - Maintaining appropriate oxygen saturation on RA Oral intake - FOOD good FLUIDS poor yesterday. fluid balance yesterday was -540 and overnight he was -200 Discussed with nursing - no problems that need addressed Reviewed the THERAPY notes Medication list reviewed. [place] denies lightheadedness, cephalgia, palpitations, chest pain, shortness of breath at rest, nausea/vomiting/epigastric pain/abdominal pain, dysuria and calf tenderness. Objective Data Objective Data Vital Signs: Vital Signs Temp Pulse Resp BP Pulse Ox O2 Del Method 97.9 F 59 L 16 139/61 H 96 Room Air 08/23/23 08:00 08/23/23 11:47 08/23/23 11:47 08/23/23 08:00 08/23/23 08:00 08/23/23 09:46 Oxygen Delivery Method Room Air Weight: 192 lb Body Mass Index (BMI) 30.9 Intake & Output: Intake and Output for Last 24 Hours 08/21/23 08/22/23 08/23/23 23:59 23:59 23:59 Intake Total 1380 / 1380 860 / 860 600 / 600 Output Total 1575 / 1575 1400 / 1800 800 / 800 Balance -195 / -195 -540 / -940 -200 / -200 Lab / Micro Data 08/21/23 05:03 08/23/23 05:38 Labs: Laboratory Results - last 24 hr 08/23/23 05:38: Sodium 139, Potassium 3.9, Chloride 103, Carbon Dioxide 28.0, Anion Gap 8, BUN 46 H, Creatinine 1.58 H, Estim Creat Clear Calc 35.53, Est GFR (MDRD) Af Amer 54 L, Est GFR (MDRD) Non-Af 45 L, BUN/Creatinine Ratio 29.1 H, Glucose 90, Calcium 8.6 Micro: Microbiology 08/21/23 06:21 Sputum, Expectorated/Coughed Gram Stain - Final 08/21/23 06:21 Sputum, Expectorated/Coughed Respiratory Culture - Final 08/22/23 14:05 Stool Stool Occult Blood (MICHAEL) - Final Occult Blood Positive 08/20/23 14:11 Mucosa - Nasopharyngeal Respiratory Panel (PCR) - Final Human [place] 08/20/23 16:55 Mucosa - Throat Streptococcus pyogenes (PCR) - Final 08/20/23 12:35 Nasal Secretion SARS-CoV-2 Antigen (Rapid) - Final Radiography Diagnostic Testing: Radiology Impression Venous Doppler Study 08/22/23 11:54 Interpretation Summary Deep veins of the lower extremities are bilaterally patent and compressible segmentally. There is no evidence of deep vein thrombosis on either side. Valvular competence appears intact within the proximal deep venous systems bilaterally. The great saphenous veins appear bilaterally patent and compressible segmentally. Ordering Physician: Carol Wallace Performed By: Gonsalo De Luna, RVT Physical Exam Const alert and no apparent distress General Appearance: cooperative Resp Resp Narrative: Scattered coarse rhonchi, much improved over admission. No conversational dyspnea. Not tachypneic. No coughing with deep breaths. No crackles. Cardio regular rate, regular rhythm and no gallops Cardio Narrative: Heart sounds are distant. GI GI Narrative: Softer today and less distended. Bowel sounds present. No guarding with palpation. Extremity no calf tenderness Extremity Narrative: Edema in the lower extremities is improving. Skin Wound Narrative: Erythema of the left lower extremity is fading and there is less increased warmth to touch today. There is a small opening in the skin over the tibia approximately midshaft. No purulent discharge. The skin is not as shiny today. Psych cooperative and affect normal Assessment & Plan Assessment/Plan (1) Debility: (2) History of total left knee replacement: (3) COPD exacerbation: (4) Acute blood loss anemia: (5) Peripheral vascular disease: (6) Abdominal distention: (7) Bronchitis due to human metapneumovirus (hMPV): (8) Diastolic dysfunction: (9) Chronic renal failure, stage 3a: (10) Chronic constipation: (11) Heme positive stool: (12) Cellulitis: QUALIFIERS: Site of cellulitis: extremity Site of cellulitis of extremity: lower extremity Laterality: left Qualified Code(s): L03.116 - Cellulitis of left lower limb PLAN: Plan 1. Continue therapy 2. BMP and HH in a.m. 3. Hold meloxicam. Continue ASA 81 mg twice daily for DVT prophylaxis and continue pantoprazole 40 mg daily. 4. Continue prednisone 40 mg daily-last dose will be tomorrow and then start prednisone 20 mg daily for 3 days. 5. Continue 4 times daily aerosols 6. Continue Duricef Charges/Coding Visit Charges Inpatient E&M: 53766 [facility] Hosp L1
[2023-08-23 15:56] VITALS: PULSE 61; RESP 16; O2SAT 97
[2023-08-23] MEDS: 0.9% Saline Lock 10 ML Syringe IV ×2 (16:58→22:06)
[2023-08-23 22:00] VITALS: BP 156/46; PULSE 78; RESP 18; TEMP 36.3; O2SAT 97
[2023-08-23] MEDS: Cyanocobalamin 500 MCG Tablet 1000 MCG PO (22:01)
[2023-08-23] MEDS: Levothyroxine 50 MCG Tablet PO (22:02)
[2023-08-23] MEDS: Pantoprazole Sodium 40 MG Tablet PO (22:02)
[2023-08-24] MEDS: oxyCODONE 5 MG Tablet PO ×3 (04:23→21:53)
[2023-08-24 06:00] VITALS: BMI 31.4
[2023-08-24] MEDS: Acetaminophen 500 MG Tablet 1000 MG PO ×3 (06:45→21:52)
[2023-08-24] MEDS: Lisinopril 40 MG Tablet PO (08:08)
[2023-08-24] MEDS: Potassium Chloride Oral Tablet 10 MEQ PO ×2 (08:08→17:08)
[2023-08-24] MEDS: Cefadroxil 500 MG CAPSULE PO ×2 (08:08→21:52)
[2023-08-24] MEDS: predniSONE 20 MG Tablet 40 MG PO (08:08)
[2023-08-24] MEDS: SimETHICONE 80 MG Chewable Tablet PO ×4 (08:08→21:53)
[2023-08-24] MEDS: Meloxicam 7.5 MG Tablet PO ×2 (08:08→21:52)
[2023-08-24] MEDS: Aspirin 81 MG TAB.CHEW PO ×2 (08:08→17:08)
[2023-08-24] MEDS: Furosemide 40 MG/4 ML Vial IV ×2 (08:11→17:08)
[2023-08-24] MEDS: 0.9% Saline Lock 10 ML Syringe IV ×2 (08:15→21:57)
[2023-08-24 09:15] LABS: Hematocrit 32.5 % (40-54); Hemoglobin 10.3 g/dL (13.0-16.5)
[2023-08-24 10:00] VITALS: BP 166/62; PULSE 89; RESP 16; TEMP 36.8; O2SAT 98
[2023-08-24 10:24] LABS: Anion Gap 10 (5-15); BUN 53 mg/dL (7-18); BUN/Creat Ratio 31.9 RATIO (10-20); Calcium,Total 8.5 mg/dL (8.5-10.1); Chloride 103 mmol/L (98-107); Creatinine, Serum 1.66 mg/dL (0.70-1.30); EST Glomerular Filtration Rate 42 mL/min (>60); Est Glom Filt Rate - Afr Amer 51 mL/min (>60); Estimated Creatinine Clearance 33.91 ml/min; Glucose 100 mg/dL (74-106); Potassium 3.9 mmol/L (3.5-5.1); Sodium Level 138 mmol/L (136-145)
[2023-08-24 10:57] VITALS: PULSE 55; RESP 16
[2023-08-24] MEDS: Albuterol 2.5 MG/3 ML VIAL.NEB. INHALATION ×3 (10:57→20:05)
[2023-08-24] MEDS: Ferrous Sulfate 325 MG Tablet PO (12:44)
[2023-08-24 15:38] VITALS: PULSE 71; RESP 18
[2023-08-24 17:16] VITALS: BP 169/58; PULSE 87
[2023-08-24 20:05] VITALS: PULSE 63; RESP 18; O2SAT 98
[2023-08-24] MEDS: Cyanocobalamin 500 MCG Tablet 1000 MCG PO (21:52)
[2023-08-24] MEDS: Guaifenesin/Codeine 5 ML WCH UDC 10 ML PO (21:53)
[2023-08-24] MEDS: Pantoprazole Sodium 40 MG Tablet PO (21:53)
[2023-08-24] MEDS: Levothyroxine 50 MCG Tablet PO (21:53)
[2023-08-24 22:00] VITALS: BP 120/68; PULSE 82; RESP 18; TEMP 36.8; O2SAT 98
[2023-08-25] VITALS (7 sets, daily range): BP systolic 127–155; BP diastolic 45–68; PULSE 55–95; RESP 16–18; TEMP 36.4–36.7; O2SAT 94–96; BMI 31.4
[2023-08-25] MEDS: oxyCODONE 5 MG Tablet PO ×3 (06:40→21:47)
[2023-08-25] MEDS: Acetaminophen 500 MG Tablet 1000 MG PO ×3 (06:41→21:48)
--- NOTE | 2023-08-25 06:58 | NURSING ---
Pt complained of itching this am of his back. Red raised rash noted. Pt had codeine with his cough syrup last pm. Claudia MUSTAFA and this nurse assessed back. No other symptoms noted.
[2023-08-25] MEDS: Albuterol 2.5 MG/3 ML VIAL.NEB. INHALATION ×4 (07:26→20:10)
[2023-08-25] MEDS: Potassium Chloride Oral Tablet 10 MEQ PO ×2 (07:56→17:12)
[2023-08-25] MEDS: Aspirin 81 MG TAB.CHEW PO ×2 (07:56→17:12)
[2023-08-25] MEDS: Cefadroxil 500 MG CAPSULE PO ×2 (07:56→21:48)
[2023-08-25] MEDS: Lisinopril 40 MG Tablet PO (07:56)
[2023-08-25] MEDS: predniSONE 20 MG Tablet PO (07:56)
[2023-08-25] MEDS: Meloxicam 7.5 MG Tablet PO ×2 (07:56→21:48)
[2023-08-25] MEDS: SimETHICONE 80 MG Chewable Tablet PO ×4 (07:57→21:48)
[2023-08-25] MEDS: Senna/Docusate Sodium 1 Tablet 2 TABLET PO ×2 (07:58→21:48)
[2023-08-25] MEDS: Polyethylene Glycol 3350 17 GM PACKET PO (07:58)
[2023-08-25] MEDS: Furosemide 40 MG/4 ML Vial IV ×2 (07:58→17:12)
[2023-08-25] MEDS: 0.9% Saline Lock 10 ML Syringe IV ×2 (07:59→21:53)
[2023-08-25] MEDS: Ferrous Sulfate 325 MG Tablet PO (12:34)
[2023-08-25] MEDS: Guaifenesin/Codeine 5 ML WCH UDC 10 ML PO (21:47)
[2023-08-25] MEDS: Levothyroxine 50 MCG Tablet PO (21:48)
[2023-08-25] MEDS: Pantoprazole Sodium 40 MG Tablet PO (21:48)
[2023-08-25] MEDS: Cyanocobalamin 500 MCG Tablet 1000 MCG PO (21:48)
[2023-08-26 06:02] VITALS: BP 145/69; PULSE 59; RESP 18; TEMP 36.5; O2SAT 94; BMI 31.0
[2023-08-26] MEDS: oxyCODONE 5 MG Tablet PO ×2 (06:16→21:40)
[2023-08-26] MEDS: Acetaminophen 500 MG Tablet 1000 MG PO ×3 (06:16→21:39)
[2023-08-26 07:15] VITALS: PULSE 58; RESP 16
[2023-08-26] MEDS: Albuterol 2.5 MG/3 ML VIAL.NEB. INHALATION ×3 (07:15→19:51)
[2023-08-26] MEDS: Polyethylene Glycol 3350 17 GM PACKET PO (09:05)
[2023-08-26] MEDS: SimETHICONE 80 MG Chewable Tablet PO ×4 (09:07→21:40)
[2023-08-26] MEDS: Furosemide 40 MG/4 ML Vial IV ×2 (09:07→17:00)
[2023-08-26] MEDS: Cefadroxil 500 MG CAPSULE PO ×2 (09:07→21:40)
[2023-08-26] MEDS: Potassium Chloride Oral Tablet 10 MEQ PO ×2 (09:07→16:58)
[2023-08-26] MEDS: Meloxicam 7.5 MG Tablet PO (09:07)
[2023-08-26] MEDS: Lisinopril 40 MG Tablet PO (09:07)
[2023-08-26] MEDS: predniSONE 20 MG Tablet PO (09:07)
[2023-08-26] MEDS: Senna/Docusate Sodium 1 Tablet 2 TABLET PO (09:07)
[2023-08-26] MEDS: Aspirin 81 MG TAB.CHEW PO ×2 (09:07→16:58)
[2023-08-26] MEDS: 0.9% Saline Lock 10 ML Syringe IV ×3 (09:08→21:40)
--- NOTE | 2023-08-26 10:02 | PN_ITS ---
Subjective Subjective Angelica was seen on team rounds today. Cefadroxil 500 mg twice daily, 9 of 14 doses given for cellulitis of the left lower extremity. Afebrile VSS -heart rate has ranged from 55-71 over the weekend. The blood pressure has ranged from 120/68 to 169/58. More often than not the systolic is above goal. Diastolics have all been within goal. Maintaining appropriate oxygen saturation on RA Oral intake - FOOD good FLUIDS good fluid balance yesterday was -1440. On 08/24/2023 the fluid balance was -180. Weight is stable. Discussed with nursing - Nursing reports a rash on his back. Was started on Codeine cough syrup at HS over the weekend for cough that was keeping him awake at night. Reviewed the THERAPY notes Medication list reviewed. Today is day 2/3 of Prednisone 20 mg. Hemoglobin on Saturday was stable at 10.3. Sodium was up to 138 and the potassium is stable at 3.9. BUN was 53 with a creatinine of 1.66. Angelica is c/o a pruritic rash on his back for the past 2 days. It has not spread to involve any other areas of the body. He tells me that the cough is getting better and he is breathing easier. The Codeine at HS is helping and is able to sleep somewhat better at night although he chronically has a hard time sleeping. He denies napping during the day. He denies chest pain. He denies nausea/vomiting/abdominal pain/dysuria/calf tenderness. Objective Data Objective Data Vital Signs: Vital Signs Temp Pulse Resp BP Pulse Ox O2 Del Method 97.7 F L 58 L 16 145/69 H 94 Room Air 08/26/23 06:02 08/26/23 07:15 08/26/23 07:15 08/26/23 06:02 08/26/23 06:02 08/26/23 06:02 Oxygen Delivery Method Room Air Weight: 192 lb 3.889 oz Body Mass Index (BMI) 31.0 Intake & Output: Intake and Output for Last 24 Hours 08/24/23 08/25/23 08/26/23 23:59 23:59 23:59 Intake Total 1720 / 1720 1410 / 1410 350 / 350 Output Total 1900 / 1900 2850 / 2850 650 / 650 Balance -180 / -180 -1440 / -1440 -300 / -300 Lab / Micro Data 08/24/23 08:53 08/24/23 08:53 Micro: Microbiology 08/21/23 06:21 Sputum, Expectorated/Coughed Gram Stain - Final 08/21/23 06:21 Sputum, Expectorated/Coughed Respiratory Culture - Final 08/22/23 14:05 Stool Stool Occult Blood (MICHAEL) - Final Occult Blood Positive 08/20/23 14:11 Mucosa - Nasopharyngeal Respiratory Panel (PCR) - Final Human [place] 08/20/23 16:55 Mucosa - Throat Streptococcus pyogenes (PCR) - Final 08/20/23 12:35 Nasal Secretion SARS-CoV-2 Antigen (Rapid) - Final Physical Exam Const alert and no apparent distress Constitutional Narrative: Always pleasant and willing to do anything the therapists ask of him. General Appearance: cooperative Orientation / Consciousness: Negative for confused HEENT HEENT Narrative: MM are only a little dry. Resp Resp Narrative: No conversational dyspnea. Scattered mild expiratory wheezing and occasional opening squeak but, much improved air exchange. No crackles. Effort and Inspection: Negative for tachypneic or respiratory distress Cardio regular rate, regular rhythm, no murmurs, no rub and no gallops Cardio Narrative: No ectopy. Hear sounds are somewhat distant. GI normal to inspection, nondistended, normoactive bowel sounds, soft to palpation and non-tender GI Narrative: No guarding with palpation. No BM since 08/22. Extremity no calf tenderness Extremity Narrative: Still with pitting edema of the LLE and the skin is still very shiny. The opening in the skin at the mid anterior vicente is now scabbed over. Edema of the RLE is much improved and the skin is no [id number] shiny. There is some pink discoloration of the skin over the tibia anteriorly and some dry skin. The ecchymosis of the LLE is fading. Cellulitis is much imnproved and there is no erythema of the LLE distal to the knee and no increased warmth to touch when compared to the R leg. Skin General Skin Exam: no breakdown Rashes: rashes noted He has a pink macular rash limited to his back. It is pruritic. Wound Narrative: The incision is intact with no dehiscence, no purulent discharge and no bre- incisional erythema. Swelling has decreased somewhat and the ecchymosis is fading. Psych cooperative and affect normal Appearance: appropriate Attitude: No agitated Assessment & Plan Assessment/Plan (1) Debility: (2) History of total left knee replacement: (3) COPD exacerbation: (4) Acute blood loss anemia: (5) Peripheral vascular disease: (6) Abdominal distention: (7) Bronchitis due to human metapneumovirus (hMPV): (8) Diastolic dysfunction: (9) Chronic renal failure, stage 3a: (10) Chronic constipation: (11) Heme positive stool: (12) Cellulitis: QUALIFIERS: Laterality: left Site of cellulitis: extremity Site of cellulitis of extremity: lower extremity Qualified Code(s): L03.116 - Cellulitis of left lower limb (13) Allergic dermatitis: PLAN: could be due to codeine or to cephalosporin. PLAN: Plan 1. Continue therapy 2. Recheck a BMP, magnesium and H&H in the a.m. 3. Stop the Meloxicam because of the heme + stool and also because of the renal failure. 4. change the Levothyroxine to AM rather than at HS to see if this helps with the insomnia. 5. DC codeine and start guaifenesin with DM 6. Check 3 more post void residuals - he is still retaining at times. 7. Give laxative today. No BM since Saturday. 8. Start Prednisone 10 mg daily on Saturday X 3 doses. 9. Continue 4 times daily aerosols for another 24 to 48 hours since he is still wheezing and then transition to inhalers 10. if he is not retaining urine will add Trazodone at HS for insomnia Charges/Coding Visit Charges Inpatient E&M: 84740 [facility] Hosp L1
[2023-08-26] MEDS: Ferrous Sulfate 325 MG Tablet PO (11:59)
[2023-08-26 12:35] VITALS: PULSE 65; RESP 16
--- NOTE | 2023-08-26 13:02 | CASEMGMT ---
Social Work IDT met with patient for Team meeting. Son is out of the country and cannot receive calls. Pt denied to contact another support person. Discussed patient's progress in PT/OT/SN. Educated to Medicare approval of 15 days with [facility]C 09/03. IDT agreeable to DC plan of home alone. Will make further recommendations closer to DC. Will ReTeam next week. SW will continue to follow for DC planning. Ana Sims, [employer] STAFF ELECTRONIC W[employer]FARE OFFICER
--- NOTE | 2023-08-26 14:26 | NURSING ---
left message at Dr Dunn office for karen removal date.
--- NOTE | 2023-08-26 15:57 | NURSING ---
[facility] returned call. Hugo can be removed on 09.02.2023, 14 days post-op.
[2023-08-26 17:11] VITALS: BP 123/47; PULSE 60; RESP 16; TEMP 36.4; O2SAT 97
[2023-08-26 19:51] VITALS: PULSE 64; RESP 18
[2023-08-26] MEDS: guaiFENesin Dm 10 ML UDC PO (21:39)
[2023-08-26] MEDS: Pantoprazole Sodium 40 MG Tablet PO (21:40)
[2023-08-26] MEDS: Cyanocobalamin 500 MCG Tablet 1000 MCG PO (21:40)
[2023-08-27 05:14] LABS: Hematocrit 32.2 % (40-54); Hemoglobin 10.2 g/dL (13.0-16.5)
[2023-08-27 05:39] VITALS: BMI 30.4
[2023-08-27 06:00] VITALS: BP 123/48; PULSE 53; RESP 15; TEMP 36.3; O2SAT 95
[2023-08-27 06:14] LABS: Anion Gap 7 (5-15); BUN 43 mg/dL (7-18); BUN/Creat Ratio 30.5 RATIO (10-20); Calcium,Total 8.8 mg/dL (8.5-10.1); Chloride 103 mmol/L (98-107); Creatinine, Serum 1.41 mg/dL (0.70-1.30); EST Glomerular Filtration Rate 51 mL/min (>60); Est Glom Filt Rate - Afr Amer 61 mL/min (>60); Estimated Creatinine Clearance 40.55 ml/min; Glucose 89 mg/dL (74-106); Magnesium 2.6 mg/dL (1.6-2.6); Potassium 4.1 mmol/L (3.5-5.1); Sodium Level 138 mmol/L (136-145)
[2023-08-27] MEDS: Levothyroxine 50 MCG Tablet PO (06:34)
[2023-08-27] MEDS: oxyCODONE 5 MG Tablet PO ×2 (06:34→20:52)
[2023-08-27] MEDS: Acetaminophen 500 MG Tablet 1000 MG PO ×3 (06:35→22:36)
[2023-08-27 07:07] VITALS: PULSE 52; RESP 18; O2SAT 97
[2023-08-27] MEDS: Albuterol 2.5 MG/3 ML VIAL.NEB. INHALATION ×4 (07:07→19:25)
[2023-08-27] MEDS: Furosemide 40 MG/4 ML Vial IV (08:02)
[2023-08-27] MEDS: Cefadroxil 500 MG CAPSULE PO ×2 (08:02→20:52)
[2023-08-27] MEDS: SimETHICONE 80 MG Chewable Tablet PO ×4 (08:02→20:52)
[2023-08-27] MEDS: Lisinopril 40 MG Tablet PO (08:03)
[2023-08-27] MEDS: Potassium Chloride Oral Tablet 10 MEQ PO ×2 (08:03→15:44)
[2023-08-27] MEDS: predniSONE 20 MG Tablet PO (08:03)
[2023-08-27] MEDS: Aspirin 81 MG TAB.CHEW PO ×2 (08:03→15:44)
--- NOTE | 2023-08-27 09:19 | PCM.PROGNOTE ---
Subjective Subjective Duricef-11 of 14 doses given Afebrile VSS - Maintaining appropriate oxygen saturation on RA Oral intake - FOOD good FLUIDS good The last 2 PVR's have been > 200. Weight today is 188 pounds and 15 ounces which is down from 195 pounds and 2 ounces on 08/24/2023. Discussed with nursing - Nursing reports that the rash on the back is worse. Codeine was discontinued yesterday. Reviewed the THERAPY notes Medication list reviewed. All AM labs were personally reviewed. Hemoglobin is stable at 10.2. Sodium is stable at 138 and the potassium is 4.1 today. BUN is stable at 43 and his creatinine is 1.41 today. Mag is normal at 2.6. [place] tells me that he does not feel the rash on his back is worse. He slept about 5 and 1/2 hours last night......he thinks this is adequate for him. He does tell me that he gets up at night to urinate. He denies lightheadedness, shortness of breath, chest pain, nausea/vomiting/abdominal pain, dysuria and calf pain. The pain in his left knee is adequately controlled. He has pruritus on his back. Has been scratching. No diarrhea, no difficulty swallowing. Objective Data Objective Data Vital Signs: Vital Signs Temp Pulse Resp BP Pulse Ox O2 Del Method 97.4 F L 52 L 18 123/48 H 97 Room Air 08/27/23 06:00 08/27/23 07:07 08/27/23 07:07 08/27/23 06:00 08/27/23 07:07 08/27/23 07:07 Oxygen Delivery Method Room Air Weight: 188 lb 14.978 oz Body Mass Index (BMI) 30.4 Intake & Output: Intake and Output for Last 24 Hours 08/25/23 08/26/23 08/27/23 23:59 23:59 23:59 Intake Total 1410 / 1410 1570 / 1570 590 / 590 Output Total 2850 / 2850 2300 / 2300 Balance -1440 / -1440 -730 / -730 590 / 590 Lab / Micro Data 08/27/23 05:08 08/27/23 05:08 Labs: Laboratory Results - last 24 hr 08/27/23 05:08: Hgb 10.2 L, Hct 32.2 L, Sodium 138, Potassium 4.1, Chloride 103, Carbon Dioxide 28.0, Anion Gap 7, BUN 43 H, Creatinine 1.41 H, Estim Creat Clear Calc 40.55, Est GFR (MDRD) Af Amer 61, Est GFR (MDRD) Non-Af 51 L, BUN/Creatinine Ratio 30.5 H, Glucose 89, Calcium 8.8, Magnesium 2.6 Micro: Microbiology 08/21/23 06:21 Sputum, Expectorated/Coughed Gram Stain - Final 08/21/23 06:21 Sputum, Expectorated/Coughed Respiratory Culture - Final 08/22/23 14:05 Stool Stool Occult Blood (MICHAEL) - Final Occult Blood Positive 08/20/23 14:11 Mucosa - Nasopharyngeal Respiratory Panel (PCR) - Final Human [place] 08/20/23 16:55 Mucosa - Throat Streptococcus pyogenes (PCR) - Final 08/20/23 12:35 Nasal Secretion SARS-CoV-2 Antigen (Rapid) - Final Physical Exam Const alert, oriented x3 and no apparent distress General Appearance: cooperative Orientation / Consciousness: Negative for confused Resp clear to auscultation bilaterally Resp Narrative: No wheezing today. Not tachypneic and no conversational dyspnea. Cardio regular rate, regular rhythm and no gallops GI normal to inspection, nondistended, normoactive bowel sounds, soft to palpation and non-tender GI Narrative: no guarding with palaption Extremity no calf tenderness Extremity Narrative: Still with 4+ pitting edema of both distal LE's, L>R. No edema in the flanks. He has some edema in the posterior thigh on the left. Skin General Skin Exam: no breakdown Rashes: rashes noted rash on the back is macular mostly. He has some excoriation due to scratching. Wound Narrative: the knee incision is intact with no dehiscence. There is no DC form the incision and there is no bre-incisional erythema. The erythema of the distal LLE has resolved and the leg is no longer hot to touch. Neuro CN's II-XII intact bilaterally and no focal motor deficits Psych thought process normal, cooperative and affect normal Appearance: appropriate Assessment & Plan Assessment/Plan (1) Debility: (2) History of total left knee replacement: (3) COPD exacerbation: (4) Acute blood loss anemia: (5) Peripheral vascular disease: (6) Abdominal distention: (7) Bronchitis due to human metapneumovirus (hMPV): (8) Diastolic dysfunction: (9) Chronic renal failure, stage 3a: (10) Chronic constipation: (11) Heme positive stool: (12) Cellulitis: QUALIFIERS: Site of cellulitis: extremity Site of cellulitis of extremity: lower extremity Laterality: left Qualified Code(s): L03.116 - Cellulitis of left lower limb (13) Allergic dermatitis: (14) Urine retention: (15) BPH (benign prostatic hyperplasia): QUALIFIERS: Lower urinary tract symptom presence: symptoms present Lower urinary tract symptom detail: incomplete bladder emptying Qualified Code(s): N40.1 - Benign prostatic hyperplasia with lower urinary tract symptoms; R39.14 - Feeling of incomplete bladder emptying PLAN: Plan 1. Continue therapy 2. Start Flomax 0.4 mg daily 3. Continue to taper steroids. 4. Continue QID aerosols today and transition to inhalers in the AM. 5. We discussed the CRF. He was unaware he had any problem with his kidneys. 6. Increase the Lasix to 60 mg BID at 0600 and 1500 daily - Continue to monitor daily weights. 7. Continue compression stockings and elevation of the legs when he is seated in the recliner. 8. I suspect it is the duricef that is causing the allergic dermatitis.......he only has 3 doses to go to complete the course. Will start Claritin 5 mg daily to help with the pruritus. 9. Recheck postvoid residuals after he has been on Flomax for 4 to 5 days. Charges/Coding Visit Charges Inpatient E&M: 09841 [facility] Hosp L1
[2023-08-27 11:09] VITALS: PULSE 68; RESP 18
[2023-08-27] MEDS: Ferrous Sulfate 325 MG Tablet PO (11:29)
[2023-08-27 14:57] VITALS: PULSE 66; RESP 18
[2023-08-27] MEDS: Loratadine 10 MG Tablet 5 MG PO (15:35)
[2023-08-27] MEDS: Furosemide 40 MG/4 ML Vial 60 MG IV (15:36)
[2023-08-27] MEDS: Tamsulosin HCl 0.4 MG Capsule PO (15:44)
[2023-08-27 18:00] VITALS: BP 135/71; PULSE 101; RESP 18; TEMP 36.5; O2SAT 97
[2023-08-27 19:23] VITALS: PULSE 68; RESP 18
[2023-08-27] MEDS: Senna/Docusate Sodium 1 Tablet 2 TABLET PO (20:51)
[2023-08-27] MEDS: Cyanocobalamin 500 MCG Tablet 1000 MCG PO (20:52)
[2023-08-27] MEDS: Pantoprazole Sodium 40 MG Tablet PO (20:52)
[2023-08-27] MEDS: 0.9% Saline Lock 10 ML Syringe IV (20:54)
[2023-08-28 06:00] VITALS: BP 119/60; PULSE 77; RESP 16; TEMP 36.5; O2SAT 99; BMI 29.9
[2023-08-28] MEDS: Acetaminophen 500 MG Tablet 1000 MG PO ×3 (06:20→21:32)
[2023-08-28] MEDS: Levothyroxine 50 MCG Tablet PO (06:20)
[2023-08-28] MEDS: 0.9% Saline Lock 10 ML Syringe IV ×2 (06:20→13:57)
[2023-08-28] MEDS: Furosemide 40 MG/4 ML Vial 60 MG IV ×2 (06:20→13:57)
[2023-08-28 07:07] VITALS: PULSE 55; RESP 18; O2SAT 95
[2023-08-28] MEDS: Albuterol 2.5 MG/3 ML VIAL.NEB. INHALATION ×3 (07:07→20:12)
[2023-08-28] MEDS: oxyCODONE 5 MG Tablet PO ×2 (07:51→20:46)
[2023-08-28] MEDS: Cefadroxil 500 MG CAPSULE PO ×2 (08:19→20:46)
[2023-08-28] MEDS: SimETHICONE 80 MG Chewable Tablet PO ×4 (08:20→20:47)
[2023-08-28] MEDS: Loratadine 10 MG Tablet 5 MG PO (08:20)
[2023-08-28] MEDS: Lisinopril 40 MG Tablet PO (08:20)
[2023-08-28] MEDS: Potassium Chloride Oral Tablet 10 MEQ PO ×2 (08:20→17:20)
[2023-08-28] MEDS: Aspirin 81 MG TAB.CHEW PO ×2 (08:20→17:20)
[2023-08-28] MEDS: predniSONE 10 MG Tablet PO (08:20)
[2023-08-28 10:57] VITALS: PULSE 79; RESP 18
[2023-08-28] MEDS: Ferrous Sulfate 325 MG Tablet PO (11:41)
[2023-08-28] MEDS: Tamsulosin HCl 0.4 MG Capsule PO (17:20)
[2023-08-28 17:42] VITALS: BP 114/50; PULSE 86; RESP 16; TEMP 36.6; O2SAT 96
[2023-08-28 20:12] VITALS: PULSE 74; RESP 18
[2023-08-28] MEDS: Cyanocobalamin 500 MCG Tablet 1000 MCG PO (20:46)
[2023-08-28] MEDS: Pantoprazole Sodium 40 MG Tablet PO (20:47)
[2023-08-29 06:00] VITALS: BP 113/54; PULSE 82; RESP 17; TEMP 36.7; O2SAT 96; BMI 29.4
[2023-08-29] MEDS: Furosemide 40 MG/4 ML Vial 60 MG IV ×2 (06:09→13:50)
[2023-08-29] MEDS: oxyCODONE 5 MG Tablet PO ×2 (06:09→20:23)
[2023-08-29] MEDS: Levothyroxine 50 MCG Tablet PO (06:09)
[2023-08-29] MEDS: Acetaminophen 500 MG Tablet 1000 MG PO ×3 (06:09→21:41)
[2023-08-29] MEDS: 0.9% Saline Lock 10 ML Syringe IV ×2 (06:10→13:50)
[2023-08-29] MEDS: Albuterol 2.5 MG/3 ML VIAL.NEB. INHALATION ×4 (06:52→19:31)
[2023-08-29 06:53] VITALS: RESP 16
[2023-08-29] MEDS: Aspirin 81 MG TAB.CHEW PO ×2 (08:06→17:01)
[2023-08-29] MEDS: SimETHICONE 80 MG Chewable Tablet PO ×4 (08:06→21:41)
[2023-08-29] MEDS: Lisinopril 40 MG Tablet PO (08:06)
[2023-08-29] MEDS: predniSONE 10 MG Tablet PO (08:06)
[2023-08-29] MEDS: Potassium Chloride Oral Tablet 10 MEQ PO ×2 (08:06→17:02)
[2023-08-29] MEDS: Loratadine 10 MG Tablet 5 MG PO (08:06)
[2023-08-29 11:42] VITALS: PULSE 86; RESP 16
[2023-08-29] MEDS: Ferrous Sulfate 325 MG Tablet PO (12:09)
[2023-08-29 15:29] VITALS: PULSE 81; RESP 16
[2023-08-29 16:48] VITALS: BP 111/45; PULSE 82; RESP 17; TEMP 36.5; O2SAT 99
[2023-08-29] MEDS: Tamsulosin HCl 0.4 MG Capsule PO (17:02)
[2023-08-29 19:31] VITALS: PULSE 77; RESP 18
[2023-08-29] MEDS: Pantoprazole Sodium 40 MG Tablet PO (21:41)
[2023-08-29] MEDS: Cyanocobalamin 500 MCG Tablet 1000 MCG PO (21:42)
[2023-08-30] MEDS: Furosemide 40 MG/4 ML Vial 60 MG IV (05:57)
[2023-08-30] MEDS: Acetaminophen 500 MG Tablet 1000 MG PO ×3 (05:57→22:05)
[2023-08-30] MEDS: Levothyroxine 50 MCG Tablet PO (05:57)
[2023-08-30 06:00] VITALS: BP 117/42; PULSE 77; RESP 16; TEMP 36.4; O2SAT 98; BMI 29.6
[2023-08-30] MEDS: oxyCODONE 5 MG Tablet PO ×2 (06:08→20:10)
[2023-08-30] MEDS: Lisinopril 40 MG Tablet PO (08:11)
[2023-08-30] MEDS: Loratadine 10 MG Tablet 5 MG PO (08:11)
[2023-08-30] MEDS: Aspirin 81 MG TAB.CHEW PO ×2 (08:13→17:15)
[2023-08-30] MEDS: Potassium Chloride Oral Tablet 10 MEQ PO ×2 (08:13→17:15)
[2023-08-30] MEDS: SimETHICONE 80 MG Chewable Tablet PO (08:13)
[2023-08-30] MEDS: predniSONE 10 MG Tablet PO (08:13)
[2023-08-30] MEDS: Senna/Docusate Sodium 1 Tablet 2 TABLET PO (08:14)
--- NOTE | 2023-08-30 11:08 | PCM.PROGNOTE ---
Subjective Subjective Afebrile VSS -blood pressure is well-controlled and the heart rate is within normal limits. Maintaining appropriate oxygen saturation on RA-96 to 99% on room air Oral intake - FOOD good FLUIDS good fluid intake. Fluid balance yesterday was -1365 and he has been negative every day for the past 5 days. Fluid has been mobilized and the edema in the lower extremities is much improved. His weight today is 183 pounds and 10 ounces which is down from 195 pounds and 2 ounces on 08/24/2023. Has not taken any as needed oxycodone since 08/25/2023. Pain is well-controlled with 5 mg twice daily at breakfast and bedtime. Discussed with nursing - no problems that need addressed Reviewed the THERAPY notes Medication list reviewed. Denies lightheadedness. He tells me the cough is much better and it is no longer keeping him up at night. He denies chest pain and shortness of breath. He tells me he is still not sleeping more than 5 to 5-1/2 hours at night. He generally wakes up about 3 or 330. He denies calf tenderness, dysuria, nausea/vomiting and constipation. Objective Data Objective Data Vital Signs: Vital Signs Temp Pulse Resp BP Pulse Ox O2 Del Method 97.5 F L 77 16 117/42 L 98 Room Air 08/30/23 06:00 08/30/23 06:00 08/30/23 06:00 08/30/23 06:00 08/30/23 06:00 08/30/23 06:00 Oxygen Delivery Method Room Air Weight: 183 lb 10.321 oz Body Mass Index (BMI) 29.6 Intake & Output: Intake and Output for Last 24 Hours 08/28/23 08/29/23 08/30/23 23:59 23:59 23:59 Intake Total 1999 / 1999 1260 / 1260 200 / 200 Output Total 2850 / 2850 2625 / 2625 500 / 500 Balance -850 / -850 -1365 / -1365 -300 / -300 Lab / Micro Data 08/31/23 05:53 08/31/23 05:53 Micro: Microbiology 08/21/23 06:21 Sputum, Expectorated/Coughed Gram Stain - Final 08/21/23 06:21 Sputum, Expectorated/Coughed Respiratory Culture - Final 08/22/23 14:05 Stool Stool Occult Blood (MICHAEL) - Final Occult Blood Positive 08/20/23 14:11 Mucosa - Nasopharyngeal Respiratory Panel (PCR) - Final Human [place] 08/20/23 16:55 Mucosa - Throat Streptococcus pyogenes (PCR) - Final 08/20/23 12:35 Nasal Secretion SARS-CoV-2 Antigen (Rapid) - Final Physical Exam Const alert, oriented x3 and no apparent distress Constitutional Narrative: Sitting in the recliner at the bedside and looks comfortable. General Appearance: cooperative Orientation / Consciousness: Negative for confused HEENT HEENT Narrative: Mucous membranes are little dry. Resp normal respiratory effort, normal air movement and clear to auscultation bilaterally Resp Narrative: No conversational dyspnea. Effort and Inspection: Negative for tachypneic Cardio regular rate, regular rhythm and no gallops Cardio Narrative: No ectopy GI normal to inspection, nondistended, normoactive bowel sounds, soft to palpation and non-tender GI Narrative: No guarding with palpation Extremity no calf tenderness Extremity Narrative: He has 1+ pitting edema of the R ankle today. the edema around the L knee is much better. Still with pitting edema of the distal LLE/ankle. Overall much improved from admission. Skin Wound Narrative: The incision is intact. Sutures are in place. There is no bre-incisional erythema and no purulent discharge. The redness of the distal left lower extremity has completely resolved and there is no increased warmth to touch. Assessment & Plan Assessment/Plan (1) Debility: (2) History of total left knee replacement: (3) COPD exacerbation: PLAN: Much improved. Prednisone will conclude tomorrow. Will DC the scheduled aerosols and start fluticasone/salmeterol 1 puff every 12 hours in the AM. (4) Acute blood loss anemia: (5) Chronic renal failure, stage 3a: (6) Heme positive stool: (7) Cellulitis: QUALIFIERS: Laterality: left Site of cellulitis: extremity Site of cellulitis of extremity: lower extremity Qualified Code(s): L03.116 - Cellulitis of left lower limb PLAN: Resolved (8) Urine retention: (9) BPH (benign prostatic hyperplasia): QUALIFIERS: Lower urinary tract symptom detail: incomplete bladder emptying Lower urinary tract symptom presence: symptoms present Qualified Code(s): N40.1 - Benign prostatic hyperplasia with lower urinary tract symptoms; R39.14 - Feeling of incomplete bladder emptying PLAN: Started on Flomax. (10) Insomnia: QUALIFIERS: Insomnia type: unspecified Qualified Code(s): G47.00 - Insomnia, unspecified PLAN: Plan 1. Continue therapy 2. DC scheduled aerosol treatments. Start fluticasone/salmeterol 1 puff every 12 hours starting at at bedtime tonight. Continue as needed albuterol aerosols for wheezing or shortness of breath. Prednisone taper will conclude tomorrow. 3. Cellulitis of the left lower extremity has resolved and he has completed a course of Duricef. 4. Transition from 60 mg of Lasix IV twice daily to 60 mg p.o. twice daily. 5. CBC without differential, magnesium and BMP in the a.m. 6. Check 3 postvoid residuals to see if he is still retaining after being started on Flomax 7. Orthostatic vital signs today 8. Start trazodone 50 mg p.o. nightly for insomnia. Charges/Coding Visit Charges Inpatient E&M: [id number] [facility] Hosp L1
[2023-08-30 12:00] VITALS: BP 106/51; BP 108/49; BP 109/50; PULSE 100; PULSE 94; PULSE 98
[2023-08-30] MEDS: Ferrous Sulfate 325 MG Tablet PO (13:03)
[2023-08-30] MEDS: Polyethylene Glycol 3350 17 GM PACKET PO (13:06)
[2023-08-30] MEDS: Furosemide 20 MG Tablet 60 MG PO (17:15)
[2023-08-30] MEDS: Tamsulosin HCl 0.4 MG Capsule PO (17:15)
[2023-08-30 17:31] VITALS: BP 110/62; PULSE 78; RESP 16; TEMP 37.1; O2SAT 97
[2023-08-30] MEDS: 0.9% Saline Lock 10 ML Syringe IV (20:10)
[2023-08-30 20:50] VITALS: RESP 15; O2SAT 95
[2023-08-30] MEDS: Fluticasone/Salmeterol 232-14 Inhaler 1 PUFF INHALATION (21:54)
[2023-08-30] MEDS: Cyanocobalamin 500 MCG Tablet 1000 MCG PO (22:05)
[2023-08-30] MEDS: Pantoprazole Sodium 40 MG Tablet PO (22:06)
[2023-08-30] MEDS: traZODone 50 MG Tablet PO (22:52)
[2023-08-31 06:00] VITALS: BP 124/46; PULSE 57; RESP 16; TEMP 36.3; O2SAT 96; BMI 29.8
[2023-08-31 06:04] LABS: Hematocrit 35.1 % (40-54); Mean Corp Hgb Conc 31.3 g/dL (32-36); Mean Corpuscular Volume 95.6 fL (80-94); Mean Platelet Vol. 8.8 fl (6.2-12.0); Platelet Count 460 K/mm3 (150-450); RBC Distribution Width CV 13.9 % (11.6-14.6); RBC Distribution Width SD 49.1 fl (35.1-43.9); Red Blood Count 3.67 M/mm3 (4.6-6.2); White Blood Count 8.3 K/mm3 (4.4-11.0)
[2023-08-31] MEDS: Acetaminophen 500 MG Tablet 1000 MG PO ×3 (06:15→21:29)
[2023-08-31] MEDS: Levothyroxine 50 MCG Tablet PO (06:16)
[2023-08-31] MEDS: oxyCODONE 5 MG Tablet PO ×2 (06:16→21:28)
[2023-08-31 06:18] LABS: Anion Gap 6 (5-15); BUN 41 mg/dL (7-18); Calcium,Total 8.7 mg/dL (8.5-10.1); Chloride 106 mmol/L (98-107); Creatinine, Serum 1.52 mg/dL (0.70-1.30); EST Glomerular Filtration Rate 47 mL/min (>60); Est Glom Filt Rate - Afr Amer 56 mL/min (>60); Estimated Creatinine Clearance 35.98 ml/min; Glucose 96 mg/dL (74-106); Magnesium 2.7 mg/dL (1.6-2.6); Potassium 4.2 mmol/L (3.5-5.1); Sodium Level 140 mmol/L (136-145)
[2023-08-31] MEDS: Potassium Chloride Oral Tablet 10 MEQ PO ×2 (07:58→17:09)
[2023-08-31] MEDS: Aspirin 81 MG TAB.CHEW PO ×2 (07:58→17:09)
[2023-08-31] MEDS: predniSONE 10 MG Tablet PO (07:58)
[2023-08-31] MEDS: Lisinopril 40 MG Tablet PO (07:58)
[2023-08-31 08:00] VITALS: BP 120/60
[2023-08-31] MEDS: Loratadine 10 MG Tablet 5 MG PO (08:02)
[2023-08-31] MEDS: Furosemide 20 MG Tablet 60 MG PO ×2 (09:03→17:09)
[2023-08-31] MEDS: Fluticasone/Salmeterol 232-14 Inhaler 1 PUFF INHALATION ×2 (09:03→21:28)
[2023-08-31] MEDS: Ferrous Sulfate 325 MG Tablet PO (13:07)
[2023-08-31] MEDS: Tamsulosin HCl 0.4 MG Capsule PO (17:09)
[2023-08-31 17:12] VITALS: BP 142/90; PULSE 85; RESP 17; TEMP 36.6; O2SAT 96
[2023-08-31] MEDS: Pantoprazole Sodium 40 MG Tablet PO (21:28)
[2023-08-31] MEDS: traZODone 50 MG Tablet PO (21:28)
[2023-08-31] MEDS: Cyanocobalamin 500 MCG Tablet 1000 MCG PO (21:29)
[2023-08-31] MEDS: 0.9% Saline Lock 10 ML Syringe IV (21:30)
[2023-09-01 06:00] VITALS: BP 105/51; PULSE 100; RESP 18; TEMP 36.5; O2SAT 98
[2023-09-01] MEDS: Acetaminophen 500 MG Tablet 1000 MG PO ×3 (06:25→21:12)
[2023-09-01] MEDS: Levothyroxine 50 MCG Tablet PO (06:26)
[2023-09-01] MEDS: oxyCODONE 5 MG Tablet PO ×2 (06:30→21:12)
[2023-09-01 06:51] VITALS: BMI 29.3
[2023-09-01] MEDS: Furosemide 20 MG Tablet 60 MG PO (09:06)
[2023-09-01] MEDS: Loratadine 10 MG Tablet 5 MG PO (09:06)
[2023-09-01] MEDS: Potassium Chloride Oral Tablet 10 MEQ PO ×2 (09:06→17:53)
[2023-09-01] MEDS: Lisinopril 40 MG Tablet PO (09:06)
[2023-09-01] MEDS: Aspirin 81 MG TAB.CHEW PO ×2 (09:07→17:53)
[2023-09-01] MEDS: Fluticasone/Salmeterol 232-14 Inhaler 1 PUFF INHALATION ×2 (09:08→21:12)
[2023-09-01] MEDS: Polyethylene Glycol 3350 17 GM PACKET PO (09:10)
[2023-09-01] MEDS: Saliva Substitute 237 ML BOTTLE 15 ML MUCOUS MEM (09:13)
[2023-09-01 09:17] VITALS: BP 106/68
[2023-09-01] MEDS: Ferrous Sulfate 325 MG Tablet PO (13:04)
[2023-09-01 17:42] VITALS: BP 99/56; PULSE 94; RESP 16; TEMP 36.7; O2SAT 97
[2023-09-01] MEDS: Tamsulosin HCl 0.4 MG Capsule PO (17:53)
--- NOTE | 2023-09-01 18:33 | NURSING ---
Updated Dr. Wallace of patient's decreased BP this evening. Per Dr. Wallace, hold 1800 dose of Lasix 60mg BID.
[2023-09-01 21:09] VITALS: BP 101/54; PULSE 63
[2023-09-01] MEDS: Pantoprazole Sodium 40 MG Tablet PO (21:12)
[2023-09-01] MEDS: traZODone 50 MG Tablet PO (21:12)
[2023-09-01] MEDS: Cyanocobalamin 500 MCG Tablet 1000 MCG PO (21:13)
[2023-09-01] MEDS: 0.9% Saline Lock 10 ML Syringe IV (21:13)
[2023-09-02 05:21] VITALS: BMI 29.7
[2023-09-02 05:23] VITALS: BP 89/46; PULSE 104; RESP 18; TEMP 36.6; O2SAT 96
[2023-09-02 05:33] VITALS: BP 93/50; PULSE 105
[2023-09-02] MEDS: Levothyroxine 50 MCG Tablet PO (05:34)
[2023-09-02] MEDS: Acetaminophen 500 MG Tablet 1000 MG PO ×3 (05:34→21:55)
[2023-09-02] MEDS: oxyCODONE 5 MG Tablet PO ×2 (06:40→20:35)
[2023-09-02] MEDS: Fluticasone/Salmeterol 232-14 Inhaler 1 PUFF INHALATION ×2 (08:17→21:56)
[2023-09-02] MEDS: Potassium Chloride Oral Tablet 10 MEQ PO ×2 (08:18→17:17)
[2023-09-02] MEDS: Aspirin 81 MG TAB.CHEW PO ×2 (08:18→17:17)
[2023-09-02] MEDS: Loratadine 10 MG Tablet 5 MG PO (08:18)
[2023-09-02] MEDS: Polyethylene Glycol 3350 17 GM PACKET PO (08:18)
[2023-09-02 08:28] VITALS: BP 99/55; PULSE 93
--- NOTE | 2023-09-02 11:54 | PN_ITS ---
Subjective Subjective Hematoma was seen on team rounds today. We attempted to reach his son by phone for participation but he was not available. Afebrile VSS -blood pressure over the past 24 hours has ranged from 89/46 to 105/51. Blood pressure this a.m. is 99/55. Heart rate has been mildly elevated and has ranged from 63-105 over the past 24 hours. I suspect this is due to intravascular volume depletion. Maintaining appropriate oxygen saturation on RA Oral intake - FOOD good FLUIDS good fluid intake but has persistently had negative fluid balance secondary to diuretics. Last night's dose of furosemide was held. Discussed with nursing - BP has been on the low side Reviewed the THERAPY notes Medication list reviewed. Denies lightheadedness, cephalgia, shortness of breath, chest pain, palpitations, nausea/vomiting/abdominal pain, dysuria and calf tenderness. He tells me he is sleeping well with trazodone 50 mg at bedtime and would like to continue this at discharge. Objective Data Objective Data Vital Signs: Vital Signs Temp Pulse Resp BP Pulse Ox O2 Del Method 97.9 F 93 18 99/55 L 96 Room Air 09/02/23 05:23 09/02/23 08:28 09/02/23 05:23 09/02/23 08:28 09/02/23 05:23 09/02/23 05:23 Oxygen Delivery Method Room Air Weight: 184 lb 1.376 oz Body Mass Index (BMI) 29.7 Intake & Output: Intake and Output for Last 24 Hours 08/31/23 09/01/23 09/02/23 23:59 23:59 23:59 Intake Total 1830 / 1830 1240 / 1240 340 / 340 Output Total 3460 / 3460 2200 / 2200 575 / 575 Balance -1630 / -1630 -960 / -960 -235 / -235 Lab / Micro Data 08/31/23 05:53 08/31/23 05:53 Micro: Microbiology 08/21/23 06:21 Sputum, Expectorated/Coughed Gram Stain - Final 08/21/23 06:21 Sputum, Expectorated/Coughed Respiratory Culture - Final 08/22/23 14:05 Stool Stool Occult Blood (MICHAEL) - Final Occult Blood Positive 08/20/23 14:11 Mucosa - Nasopharyngeal Respiratory Panel (PCR) - Final Human [place] 08/20/23 16:55 Mucosa - Throat Streptococcus pyogenes (PCR) - Final 08/20/23 12:35 Nasal Secretion SARS-CoV-2 Antigen (Rapid) - Final Physical Exam Const alert, oriented x3 and no apparent distress General Appearance: cooperative Resp normal respiratory effort, normal air movement and clear to auscultation bilaterally Resp Narrative: No conversational dyspnea. Effort and Inspection: Negative for tachypneic Cardio regular rate, regular rhythm and no gallops Cardio Narrative: No ectopy GI normal to inspection, nondistended, normoactive bowel sounds, soft to palpation and non-tender GI Narrative: No guarding with palpation Extremity no calf tenderness Extremity Narrative: there is mild swelling/pitting of the L ankle but, he has no swelling of the R ankle today. General Extremity: edema Skin Skin Narrative: The rash on the back has resolved. I suspect the rash was due to Duricef and not to codeine bu, can not be certain. General Skin Exam: no breakdown Wound Narrative: The incision is intact. Sutures are in place. There is no bre-incisional erythema and no purulent discharge. The redness of the distal left lower extremity has completely resolved and there is no increased warmth to touch. Assessment & Plan Assessment/Plan (1) Debility: (2) History of total left knee replacement: (3) COPD exacerbation: (4) Acute blood loss anemia: (5) Chronic renal failure, stage 3a: (6) Heme positive stool: (7) Cellulitis: QUALIFIERS: Site of cellulitis: extremity Site of cellulitis of extremity: lower extremity Laterality: left Qualified Code(s): L03.116 - Cellulitis of left lower limb (8) Urine retention: (9) BPH (benign prostatic hyperplasia): QUALIFIERS: Lower urinary tract symptom presence: symptoms present Lower urinary tract symptom detail: incomplete bladder emptying Qualified Code(s): N40.1 - Benign prostatic hyperplasia with lower urinary tract symptoms; R39.14 - Feeling of incomplete bladder emptying (10) Insomnia: QUALIFIERS: Insomnia type: unspecified Qualified Code(s): G47.00 - Insomnia, unspecified PLAN: Plan 1. Continue therapy 2. Hold Lasix today and restart tomorrow at 60 mg once daily. 3. Hold lisinopril for systolic less than 110. Change the dosing to 20 mg twice daily 4. BMP in the a.m. We discussed following up with pulmonary to have PFT's. I suspect he has COPD and he has been told in the past he has COPD but, has never had PFT's. He is agreeable to continuing the fluticasone/salmeterol inhaler at discharge. He is happy with trazodone and is sleeping well at night now. He asked for prescription at discharge which I will provide. Plan DC home on Saturday. The SW left a message for his son to purchase a hip kit at [facility]. He is not able to reach his feet and needs a long handled sponge and a dressing stick and sock aid to help him be independent with bathing, LB dressing and donning his socks and shoes. Charges/Coding Visit Charges Inpatient E&M: 03883 Subs Hosp L2
[2023-09-02] MEDS: Ferrous Sulfate 325 MG Tablet PO (12:02)
--- NOTE | 2023-09-02 12:59 | CASEMGMT ---
Social Work IDT met with patient for Team meeting. Left VM for son to update on DC date and recommendations to purchase hip kit for pt at [place]. Confirmed Medicare DC date is 09/03 home alone. Pt requested [facility] and to use the [facility] Van. No other DME needs. Son to transport at [place]. SW faxed referral to [facility] for PT. Plan: [place] home alone 09/03, [facility] RAÚL ChauhanW
[2023-09-02] MEDS: 0.9% Saline Lock 10 ML Syringe IV (14:18)
[2023-09-02] MEDS: Tamsulosin HCl 0.4 MG Capsule PO (17:17)
[2023-09-02 17:37] VITALS: BP 114/42; PULSE 99; RESP 18; TEMP 37.1; O2SAT 98
[2023-09-02] MEDS: Cyanocobalamin 500 MCG Tablet 1000 MCG PO (21:55)
[2023-09-02] MEDS: Pantoprazole Sodium 40 MG Tablet PO (21:55)
[2023-09-02] MEDS: Lisinopril 20 MG Tablet PO (21:55)
[2023-09-02] MEDS: traZODone 50 MG Tablet PO (21:56)
[2023-09-02 22:00] VITALS: PULSE 99; RESP 15; O2SAT 98
--- NOTE | 2023-09-02 22:15 | NURSING ---
23 EVANS REMOVED FROM LEFT KNEE. SITE CLEANSED WITH SOAP AND WATER, PATTED DRY AND LEFT ANSHU. NO ISSUES AND PT TOLERATED WELL.
[2023-09-03 06:00] VITALS: BP 130/53; PULSE 749; RESP 16; TEMP 36.4; O2SAT 94; BMI 28.7
[2023-09-03 06:26] LABS: Anion Gap 5 (5-15); BUN 35 mg/dL (7-18); BUN/Creat Ratio 29.9 RATIO (10-20); Calcium,Total 8.8 mg/dL (8.5-10.1); Chloride 109 mmol/L (98-107); Creatinine, Serum 1.17 mg/dL (0.70-1.30); EST Glomerular Filtration Rate 63 mL/min (>60); Est Glom Filt Rate - Afr Amer 76 mL/min (>60); Glucose 105 mg/dL (74-106); Potassium 4.2 mmol/L (3.5-5.1); Sodium Level 139 mmol/L (136-145)
[2023-09-03] MEDS: Levothyroxine 50 MCG Tablet PO (06:50)
[2023-09-03] MEDS: Acetaminophen 500 MG Tablet 1000 MG PO ×3 (06:50→21:23)
[2023-09-03] MEDS: oxyCODONE 5 MG Tablet PO ×2 (06:50→21:40)
[2023-09-03] MEDS: 0.9% Saline Lock 10 ML Syringe IV (06:51)
[2023-09-03] MEDS: Fluticasone/Salmeterol 232-14 Inhaler 1 PUFF INHALATION ×2 (09:08→21:23)
[2023-09-03] MEDS: Potassium Chloride Oral Tablet 10 MEQ PO ×2 (09:09→17:18)
[2023-09-03] MEDS: Aspirin 81 MG TAB.CHEW PO ×2 (09:09→17:18)
[2023-09-03] MEDS: Furosemide 20 MG Tablet 60 MG PO (09:09)
[2023-09-03] MEDS: Polyethylene Glycol 3350 17 GM PACKET PO (09:09)
[2023-09-03] MEDS: Loratadine 10 MG Tablet 5 MG PO (09:09)
[2023-09-03] MEDS: Lisinopril 20 MG Tablet PO (09:09)
--- NOTE | 2023-09-03 10:33 | PCM.PROGNOTE ---
Subjective Subjective Afebrile VSS -blood pressure is better today at 130/53 and the heart rate is down to 74. Lasix was held yesterday and he will restart Lasix 60 mg once daily today. Maintaining appropriate oxygen saturation on RA Oral intake - FOOD good FLUIDS good Discussed with nursing - no problems that need addressed. Fabio have been removed. Reviewed the THERAPY notes Medication list reviewed. All lab drawn this morning was personally reviewed. Sodium is stable at 139 and the potassium is stable at 4.2. It is 35 and the creatinine is 1.17 which is down from 1.66 on 08/24/2023. The GFR is 63 which is better than his baseline. At baseline he has stage 3a CRF. Calcium is normal. Denies SOB at rest and with exertion. Denies lightheadedness. No CP and the cough is minimal now. Eating well with no N/V/abd pain. Good bowel function. Objective Data Objective Data Vital Signs: Vital Signs Temp Pulse Resp BP Pulse Ox O2 Del Method 97.5 F L 749 H 16 130/53 H 94 Room Air 09/03/23 06:00 09/03/23 06:00 09/03/23 06:00 09/03/23 06:00 09/03/23 06:00 09/03/23 06:00 Oxygen Delivery Method Room Air Weight: 186 lb 6.4 oz Body Mass Index (BMI) 30.0 Intake & Output: Intake and Output for Last 24 Hours 09/01/23 09/02/23 09/03/23 23:59 23:59 23:59 Intake Total 1240 / 1240 2500 / 2500 610 / 610 Output Total 2200 / 2200 2705 / 2705 400 / 400 Balance -960 / -960 -205 / -205 210 / 210 Lab / Micro Data 08/31/23 05:53 09/03/23 05:05 Labs: Laboratory Results - last 24 hr 09/03/23 05:05: Sodium 139, Potassium 4.2, Chloride 109 H, Carbon Dioxide 25.0, Anion Gap 5, BUN 35 H, Creatinine 1.17, Estim Creat Clear Calc 46.80, Est GFR (MDRD) Af Amer 76, Est GFR (MDRD) Non-Af 63, BUN/Creatinine Ratio 29.9 H, Glucose 105, Calcium 8.8 Micro: Microbiology 08/21/23 06:21 Sputum, Expectorated/Coughed Gram Stain - Final 08/21/23 06:21 Sputum, Expectorated/Coughed Respiratory Culture - Final 08/22/23 14:05 Stool Stool Occult Blood (MICHAEL) - Final Occult Blood Positive 08/20/23 14:11 Mucosa - Nasopharyngeal Respiratory Panel (PCR) - Final Human [place] 08/20/23 16:55 Mucosa - Throat Streptococcus pyogenes (PCR) - Final 08/20/23 12:35 Nasal Secretion SARS-CoV-2 Antigen (Rapid) - Final Physical Exam Const alert and no apparent distress General Appearance: cooperative Resp normal respiratory effort, normal air movement and clear to auscultation bilaterally Cardio regular rate, regular rhythm and no gallops GI normal to inspection, nondistended, normoactive bowel sounds, soft to palpation and non-tender Extremity Extremity Narrative: pitting edema of both ankles L>R. General Extremity: Negative for cyanosis Skin Wound Narrative: Fabio have been removed. The incision is intact with no dehiscence, no DC and no bre-incisional erythema. the L knee is warmer to touch than the left but, this is due to inflammation and no infection. HAZEL hose are in place. Assessment & Plan Assessment/Plan (1) Debility: (2) History of total left knee replacement: (3) Acute blood loss anemia: (4) Chronic renal failure, stage 3a: (5) Heme positive stool: (6) Urine retention: (7) BPH (benign prostatic hyperplasia): QUALIFIERS: Lower urinary tract symptom detail: incomplete bladder emptying Lower urinary tract symptom presence: symptoms present Qualified Code(s): N40.1 - Benign prostatic hyperplasia with lower urinary tract symptoms; R39.14 - Feeling of incomplete bladder emptying PLAN: Plan 1. DC tomorrow 2. OP PT at [facility] 3. Follow up with Pulmonary medicine to be evaluated for COPD and have PFT's 4. Follow up with Dr. Lloyd Carson 5. Follow up with Dr. Jose Alejandro Villalpando. 6. Will DC on Lasix 60 mg daily. 7. Advised him to transition to decaf coffee. He drinks coffee all day long and then complains he doesn't sleep well at night. Has been getting Trazodone 50 mg at HS and sleeping well for the past few nights. He is also drinking decaf coffee and can't tell the difference. Charges/Coding Visit Charges Inpatient E&M: 17016 Subs Hosp L1
[2023-09-03 11:39] VITALS: BP 100/51; BP 111/41; BP 113/50; PULSE 58; PULSE 60; PULSE 83
[2023-09-03] MEDS: Ferrous Sulfate 325 MG Tablet PO (12:04)
--- NOTE | 2023-09-03 13:29 | DCINST_ITS ---
Discharge Instructions Diet Discharge Diet: - (Low salt, caffeine free. ) Activity Discharge Activity: May Not Drive, May Shower and Use Walker Weight Bearing Status: Full weight bearing Keep extremity elevated above heart level: Legs Dressing / Incision Call your doctor if your incision/area has: Continuous Slow Oozing, Sudden Increased Bleeding, Increased Pain/ Swelling, Increased Redness, Foul Smelling Discharge and Swelling at the incision site Call your doctor if you observe: Fever of 101 or Higher, Inability to urinate, Shortness of breath, Dizziness, Fainting spells, Swelling in the ankles, Chest pain, Calf discomfort and Uncontrolled pain Suture Line Care: Avoid Pulling/Pushing and Avoid Pinching/Bending Cleanse incision/area with: Soap & Water and - (No tub baths. Do not soak the incision. May shower. ) Follow Up Care Please Follow Up With: Lloyd Carson MD When: you will also need to follow up with Dr. Villalpando and with the pulmonary doctor. Appts listed later in this document. Test Results: Test results from this visit will be discussed in further detail at your follow- up appointment, if applicable. Pending Tests Upon Discharge: none Discharge Plan Admission Admit Date/Time: 08/20/23 11:00 Primary Reason for Your Visit: Debility due to L TKA Attending Provider: Carol Wallace Primary Care Provider: Jose Alejandro Villalpando Instructions Patient Instructions: Caring for Your Incision Additional Instructions / Restrictions: 1. When you came to rehab you had a viral upper respiratory infection called human metapneumovirus. With this virus you developed cough, shortness of breath and diffuse wheezing in your lungs. I think you have COPD. I am referring you to a lung doctor to be evaluated to see if you have COPD. I am sending you home with an inhaler that you will use twice a day to optimize lung function. 2. You retain fluid and you have some chronic kidney disease. We have increased the Lasix form 40 mg to 60 mg daily. The amount of swelling in your legs will vary from day to day depending on how much fluid you take in, how much slat you eat (salt makes your body retain water), how much Lasix you take, how hot it is outside, how much you elevate your legs etc. The best way to keep the swelling under good control is to weigh yourself every morning AFTER you have urinated. When you go home weigh yourself morning and this will be your baseline. This is roughly the weight we want you to stay at. I know that you want to lose weight but, with good luck this will be about a lb a week. If your weight goes up by 1-2 lbs a couple days in a row this means you are probably retaining fluid and you will need to cut back opn salt, elevate your legs and take a second Lasix pill in the afternoon until your weight is back down to baseline. If your weight does not come down or it continues to increase you need to call Dr. Villalpando for advice. If your weight goes down by more than 3 lbs in a few days you may be dehydrated and you would need to drink more OR skip the Lasix for a day or 2. This is the easiest weight to keep swelling under control. A digital scale works best. 3. Do not soak your incision in a tub. You may shower. Soaking the incision may lead to the incision breaking open. Look at the incision every day. If there is increasing redness around the incision or there is any separation of the incision or drainage you will need to call Dr. Lloyd Carson's office and ask them what to do. The Left knee will be warmer to touch than the right......this is due to inflammation related to the surgery and is normal. If the warmth to touch gets worse you should also call Dr. Carson's office for advice on what to do. 4. Your bladder was not completely emptying when you urinated and you had urine retention. The most common reason for urine retention in men your age if an enlarged prostate. We started you on a medication for the prostate called Flomax. You are no longer retaining significant amounts of urine after urinating AND your kidney function has improved. I am sending you home on this medication. 5. I think you should switch to decaffeinated coffee.......even decaffeinated coffee has some caffeine in it. Caffeine can race your heart, increase your BP and keep you awake at night. 6. You have done very well on Rehab and I think you will continue to do well at home. No driving until Dr. Carson tells you that it is OK for you to start driving again. If you or your family have any questions after you leave rehab please do not hesitate to call me. OFFICE: [phone] CELL: [phone] Discharge Orders/Prescriptions Prescriptions: New lisinopril 20 mg Tablet 20 mg PO BID Qty: 60 0RF Rx Instructions: Take this in the AM and at bedtime levothyroxine 50 mcg Tablet 50 mcg PO DAILY@0600 Qty: 30 0RF Rx Instructions: Take this medication in the MORNING on an empty stomach and wait 30 minutes to eat. furosemide 20 mg Tablet 60 mg PO DAILY Qty: 90 0RF Rx Instructions: take 3 tabs once a day in the morning to prevent swelling fluticasone propion-salmeterol 232-14 mcg/actuation Aerosol Powdr Breath Activated 1 inh inhalation Q12 Qty: 1 0RF Rx Instructions: Take 1 puff every 12 hours to keep your lungs functioning well tamsulosin 0.4 mg Capsule 0.4 mg PO DAILY@1730 Qty: 30 0RF oxycodone 5 mg Tablet 5 mg PO Q6H PRN PRN (Reason: Pain Score 4-10) 7 Days Qty: 28 0RF Rx Instructions: Take 1 tab every 6 hours as needed for pain not controlled with Tylenol Continued cyanocobalamin (vitamin B-12) [B-12 DOTS] 500 mcg tablet 1,000 mcg PO QHS pantoprazole 40 MG tablet 40 mg PO QHS potassium chloride 10 MEQ tablet 8 meq PO BID polyethylene glycol 3350 [Miralax] 17 gram/dose Powder 17 g PO DAILY ferrous sulfate [iron] 325 mg (65 mg iron) tablet 325 mg PO DAILY acetaminophen 500 mg Tablet 1,000 mg PO Q8 Qty: 0 0RF aspirin 81 mg Tablet,Chewable 81 mg PO BIDCM Qty: 0 0RF Held Glucosamine Chondroitin 550-30-1 mg capsule 1 cap PO DAILY Hold Instructions: Resume on 09/17/23. May resume on 09/17/23 Rx Instructions: orally twice a day; meloxicam 7.5 mg Tablet 7.5 mg PO BID Qty: 0 0RF Hold Instructions: Do NOT take this medication until you see Dr. Villalpando. this medication causes ulcers in the stomach and you have blood in your stool which can be a sign of bleeding in the gastrointestinal tract. Discontinued levothyroxine 50 MCG tablet 50 mcg PO QHS furosemide 20 MG tablet 40 mg PO DAILY lisinopril 40 mg tablet 40 mg PO DAILY Patient Comments: TAKE 1 TABLET BY MOUTH EVERY DAY furosemide 40 mg tablet 20 mg PO QHS oxycodone 5 mg Tablet 5 - 10 mg PO Q4H PRN PRN (Reason: Pain Score 4-10) Qty: 0 0RF Referrals / Follow Up: Chest, Xray [Other] - 11/11/23 11:00 am (have done prior to appointment with bacteriologist medical Dr. Emily Case ) Emily Case MD [Non-Staff] - 11/26/23 8:00 am (you will have breathing test done prior to seeing the doctor) Jose Alejandro Villalpando DO [Primary Care Provider] - 09/11/23 9:00 am Lloyd Carson MD [Med Staff - Active Staff] - 09/05/23 2:45 pm Disposition Disposition (needs filled in before D/C Order can be placed): Home, Self Care
--- NOTE | 2023-09-03 14:35 | DS.PCM_ITS ---
Providers Date of Admission: 08/20/23 Date of Discharge: 09/04/23 Primary Care Physician: Dr. Jose Alejandro Villalpando, DO Reason For Visit: LEFT TOTAL KNEE REPLACEMENT Diagnosis Discharge Diagnosis (1) Debility: Status: Acute Code(s): R53.81 - Other malaise (2) History of total left knee replacement: Status: Acute Code(s): Z96.652 - Presence of left artificial knee joint Plan: Dr. Lloyd Carson for follow up. [facility] OP PT. Will use the hospital van for transportation. (3) Acute blood loss anemia: Status: Acute Code(s): D62 - Acute posthemorrhagic anemia Plan: Hemoglobin is 11 at discharge and he is going home with an iron supplement to take once daily. (4) Chronic renal failure, stage 3a: Status: Chronic Code(s): N18.31 - Chronic kidney disease, stage 3a Plan: Creatinine was 1.66 on 08/24/2023. With treating urinary retention/BPH with Flomax and adjustment in the diuretic regimen to achieve better diuresis his creatinine at discharge is 1.17. Will continue Flomax 0.4 mg daily at discharge and also continue Lasix 60 mg once daily. (5) Heme positive stool: Status: Acute Code(s): R19.5 - Other fecal abnormalities Plan: Meloxicam was placed on hold for heme positive stool. He will follow-up with Dr. Jose Alejandro Villalpando for additional W/U if needed. (6) Urine retention: Status: Resolved Code(s): R33.9 - Retention of urine, unspecified Plan: Continue Flomax 0.4 mg daily with supper. (7) BPH (benign prostatic hyperplasia): Status: Suspected Code(s): N40.0 - Benign prostatic hyperplasia without lower urinary tract symptoms Qualifiers: Lower urinary tract symptom detail: incomplete bladder emptying Lower urinary tract symptom presence: symptoms present Qualified Code(s): N40.1 - Benign prostatic hyperplasia with lower urinary tract symptoms; R39.14 - Feeling of incomplete bladder emptying (8) Allergic dermatitis: Status: Resolved Code(s): L23.9 - Allergic contact dermatitis, unspecified cause Plan: Suspect due to either Codeine or Duricef.......both meds were new at the time the rash started. (9) Cellulitis: Status: Resolved Code(s): L03.90 - Cellulitis, unspecified Qualifiers: Laterality: left Site of cellulitis: extremity Site of cellulitis of extremity: lower extremity Qualified Code(s): L03.116 - Cellulitis of left lower limb Plan: Cellulitis of the left leg - resolved with Duricef. Was present at admission to rehab. (10) Bronchitis due to human metapneumovirus (hMPV): Status: Resolved Code(s): J40 - Bronchitis, not specified as acute or chronic; B97.81 - Human metapneumovirus as the cause of diseases classified elsewhere Plan: Present at admission to rehab. He came to us with cough and diffuse wheezing. Diagnosed and treated on rehab. (11) COPD exacerbation: Status: Resolved Code(s): J44.1 - Chronic obstructive pulmonary disease with (acute) exacerbation Plan: Insurance does not cover Serevent, Beclomethasone, Advair or fluticasone/salmeterol inhalers. Lungs are CTA at [facility]. Was a smoker in the past and has been told he has COPD but, he has never seen a small products i assembler or had PFT's. He was prescribed a ALB MDI at [facility] to be used PRN for wheezing/SOB. (12) COPD (chronic obstructive pulmonary disease): Status: Chronic Code(s): J44.9 - Chronic obstructive pulmonary disease, unspecified Plan: Has never had PFT's and although he has used an inhaler in the past he was not on an inhaler at admission. He will follow up with Dr. Emily Case, small products i assembler, post DC Plan 1. DC 09/04/23 2. OP PT at [facility] 3. Follow up with Pulmonary medicine to be evaluated for COPD and have PFT's 4. Follow up with Dr. Lloyd Carson 5. Follow up with Dr. Jose Alejandro Villalpando. 6. Will DC on Lasix 60 mg daily. 7. Advised him to transition to decaf coffee. He drinks coffee all day long and then complains he doesn't sleep well at night. Has been getting Trazodone 50 mg at HS and sleeping well for the past few nights. He is also drinking decaf coffee and can't tell the difference. 8. BP is controlled on Lisinopril 20 mg daily (down from 40 mg at admission to rehab). Medications at Discharge Home Medications pantoprazole 40 mg tablet,delayed release 40 mg PO QHS reflux 06/02/20 potassium chloride 10 mEq tablet,extended release(part/cryst) 8 meq PO BID supplement 06/02/20 polyethylene glycol 3350 17 gram/dose oral powder (Miralax) 17 g PO DAILY bowel mobility 09/03/21 cyanocobalamin (vitamin B-12) 500 mcg tablet (B-12 DOTS) 1,000 mcg PO QHS supplement 08/14/22 glucosamine sulf dipot chlr,msm,chond 550 mg-C 30 mg-carmela 1 mg capsule (Glucosamine Chondroitin) 1 cap PO DAILY ? 08/14/22 ferrous sulfate 325 mg (65 mg iron) tablet (iron) 325 mg PO DAILY supplement 07/29/23 acetaminophen 500 mg tablet 1,000 mg (2 x 500 mg) PO Q8 pain #0 tabs 08/20/23 aspirin 81 mg chewable tablet 81 mg PO BID heart health #0 tabs 08/20/23 meloxicam 7.5 mg tablet 7.5 mg PO BID anti-inflammatory #0 tabs 08/20/23 furosemide 20 mg tablet 60 mg (3 x 20 mg) PO DAILY #90 tabs 09/03/23 levothyroxine 50 mcg tablet 50 mcg PO DAILY@0600 #30 tabs 09/03/23 oxycodone 5 mg tablet 5 mg PO Q6H PRN PRN Pain Score 4-10 7 days #28 tabs 09/03/23 salmeterol 50 mcg/dose blister powder for inhalation (Serevent Diskus) 1 inh inhalation Q12H #60 ea 09/03/23 tamsulosin 0.4 mg capsule 0.4 mg PO DAILY@1730 #30 caps 09/03/23 albuterol sulfate 90 mcg/actuation aerosol inhaler 2 puff inhalation Q6H PRN shortness of breath or wheezing #8.5 grams 09/04/23 lisinopril 20 mg tablet 20 mg PO DAILY #30 tabs 09/04/23 Hospital Course Operations - (Left total knee replacement by Dr. Lloyd Carson on 08/19/2023.) Procedures None Summary of Care Provided Minutes Spent on Discharge: 40 Hospital Course: FRANCISCA KNOWLES, is a 83 M with a PMH of diastolic dysfunction stage I, hypertension, hypothyroidism, GERD, chronic constipation, peripheral vascular disease, tobacco dependence in remission, mild COPD (has been told this is the past and was on inhalers for a while but, he no longer is on inhalers and he denies ever having PFT's), chronic renal failure, obesity, umbilical hernia and osteoarthritis who presented to [facility] on 08/19/2023 for a planned left knee replacement by Dr. Lloyd Carson. Postoperatively he had hypoxemia but this resolved. He lives alone. He was seen by PT/OT post op and they recommended acute rehab at [facility]. Francisca was transferred to the acute inpt rehab unit at [facility] on 08/20/23 for 3 hours of therapy daily to restore function/independence at or near his level prior to the surgery. At presentation to rehab he was complaining of a productive cough, wheezing and hoarse voice. Auscultation of the lungs revealed diffuse expiratory wheezing and he was using his abdominal muscles to breathe. He had mild conversational dyspnea. Viral panel was positive for human metapneumovirus. COVID testing was negative. Sputum culture had normal respiratory cassy. He was started on aerosolized bronchodilators and prednisone (had a 10 day taper). He responded well to treatment and at the time of AL his lungs are CTA and he has no SOB, even with exertion. His insurance does not cover any combination inhalers and he was sent home with an Albuterol rescue inhaler. An appt was made for him to follow up with Dr. Emily Case, small products i assembler. Also at the time of admission he had 4+ edema of both LE's and cellulitis of the LLE distal to the knee. He was treated with Duricef and the cellulitis resolved. He was started on IV Lasix BID and diuresed well over several days. His weight decreased from 194 pounds and 4 ounces at the time of admission to rehab to 185 pounds and 11 ounces at discharge. Creatinine peaked at 1.66 during his admission to rehab and at the time of discharge with diuresis the creatinine was down to 1.17 with a BUN of 35. Potassium has been stable at 4.2. He was transition to Lasix 60 mg p.o. daily. He has mild pitting edema of the ankles only at [place]. He has been wearing HAZEL hose for compression. He was instructed to weigh himself daily in the AM post discharge and was given instruction on what he should do if the weight increases or decreases. At the time of DC his WBC is 8.3 and the HGB is up to 11 from 10.2 at admission to rehab. With diuresis and a caffeine free diet the BP decreased. Lisinopril was decreased to 20 mg daily and at DC the BP ranged from 105/56 to 127/51. HR ranged from 60-76. Pulse ox is 94-98% on RA. Francisca did well in therapy. At the time of DC he was supervision/set up for eating, grooming, bathing and upper body dressing. He is standby assist for lower body dressing, toileting and toilet transfer. He is supervision/set up for tub/shower transfer. He is able to do 6 sit to stands using his upper extremities to push off in 30 seconds. He has ambulated 220 feet on various surfaces at supervision with a front wheel walker and he has ambulated 165 feet with a front wheeled walker at mod I. He is able to ascend/descend 2 curb steps of various heights at contact-guard assist/standby assist with a wheeled walker. He was referred to [facility] for OP therapy and will utilize the hospital van for transportation to the gym until he is released to drive by Dr. Carson. Appts were made for [place] to follow up with Dr. Villalpando, Dr. Lloyd Carson and Dr. Emily Case from pulmonary medicine. He will have a chest x-ray done on 11/11/2023 at 11 AM in preparation for his appointment with pulmonary medicine. Physical Exam Const alert and no apparent distress General Appearance: cooperative Resp normal respiratory effort, normal air movement and clear to auscultation bilaterally Cardio regular rate, regular rhythm and no gallops GI normal to inspection, nondistended, normoactive bowel sounds, soft to palpation and non-tender Extremity Extremity Narrative: Mild pitting edema of both ankles L>R. General Extremity: Negative for cyanosis Skin Wound Narrative: [place]ang[place] have been removed. The incision is intact with no dehiscence, no DC and no bre-incisional erythema. the L knee is warmer to touch than the left but, this is due to inflammation and no infection. HAZEL hose are in place. Neuro CN's II-XII intact bilaterally and no focal motor deficits Psych affect normal Appearance: appropriate Weight / BMI Weight Weight: 186 lb 6.4 oz Body Mass Index (BMI) 30.0 ABG / Lab / Microbiology Data 08/31/23 05:53 09/03/23 05:05 Laboratory: Laboratory Results - last 24 hr 09/03/23 05:05: Sodium 139, Potassium 4.2, Chloride 109 H, Carbon Dioxide 25.0, Anion Gap 5, BUN 35 H, Creatinine 1.17, Estim Creat Clear Calc 46.80, Est GFR (MDRD) Af Amer 76, Est GFR (MDRD) Non-Af 63, BUN/Creatinine Ratio 29.9 H, Glucose 105, Calcium 8.8 Microbiology: Microbiology 08/21/23 06:21 Sputum, Expectorated/Coughed Gram Stain - Final 08/21/23 06:21 Sputum, Expectorated/Coughed Respiratory Culture - Final 08/22/23 14:05 Stool Stool Occult Blood (MICHAEL) - Final Occult Blood Positive 08/20/23 14:11 Mucosa - Nasopharyngeal Respiratory Panel (PCR) - Final [place] 08/20/23 16:55 Mucosa - Throat Streptococcus pyogenes (PCR) - Final 08/20/23 12:35 Nasal Secretion SARS-CoV-2 Antigen (Rapid) - Final D/C Instructions Discharge Diet: - (Low salt, caffeine free. ) Weight Bearing Status: Full weight bearing Keep extremity elevated above heart level: Legs Call your doctor if your incision/area has: Continuous Slow Oozing, Sudden Increased Bleeding, Increased Pain/ Swelling, Increased Redness, Foul Smelling Discharge and Swelling at the incision site Call your doctor if you observe: Fever of 101 or Higher, Inability to urinate, Shortness of breath, Dizziness, Fainting spells, Swelling in the ankles, Chest pain, Calf discomfort and Uncontrolled pain Suture Line Care: Avoid Pulling/Pushing and Avoid Pinching/Bending Cleanse incision/area with: Soap & Water and - (No tub baths. Do not soak the incision. May shower. ) Pending Tests Upon Discharge: none Please Follow Up With: Lloyd Carson MD When: you will also need to follow up with Dr. Villalpando and with the pulmonary doctor. Appts listed later in this document. Meaningful Use Info Meaningful Use Meaningful Use Diagnoses (Choose all that apply): None applicable Ischemic Stroke Statin Dosing Therapy Reference: STATIN DOSE THERAPY REFERENCE: * Patients > 75 years receive moderate or high dose statin therapy. * Patients 75 years or YOUNGER should receive HIGH intensity statin dose unless contraindicated. You will be required to document reason for non-treatment if statin daily dose does not meet guidelines. HIGH DOSE STATIN THERAPY DAILY Atorvastatin > than or = to 40 mg Rosuvastatin > than or = to 20 mg Amlodipine + Atorvastatin > than or = to 2.5/40 mg Ezetimibe + Simvastatin 10/80 mg Simvastatin 80mg Discharge Plan Admission Admit Date/Time: 08/20/23 11:00 Primary Reason for Your Visit: Debility due to L TKA Attending Provider: Carol Wallace Primary Care Provider: Jose Alejandro Villalpando Instructions Patient Instructions: Caring for Your Incision Additional Instructions / Restrictions: 1. When you came to rehab you had a viral upper respiratory infection called human metapneumovirus. With this virus you developed cough, shortness of breath and diffuse wheezing in your lungs. I think you have COPD. I am referring you to a lung doctor to be evaluated to see if you have COPD. I am sending you home with an inhaler that you will use twice a day to optimize lung function. 2. You retain fluid and you have some chronic kidney disease. We have increased the Lasix form 40 mg to 60 mg daily. The amount of swelling in your legs will vary from day to day depending on how much fluid you take in, how much slat you eat (salt makes your body retain water), how much Lasix you take, how hot it is outside, how much you elevate your legs etc. The best way to keep the swelling under good control is to weigh yourself every morning AFTER you have urinated. When you go home weigh yourself morning and this will be your baseline. This is roughly the weight we want you to stay at. I know that you want to lose weight but, with good luck this will be about a lb a week. If your weight goes up by 1-2 lbs a couple days in a row this means you are probably retaining fluid and you will need to cut back opn salt, elevate your legs and take a second Lasix pill in the afternoon until your weight is back down to baseline. If your weight does not come down or it continues to increase you need to call Dr. Villalpando for advice. If your weight goes down by more than 3 lbs in a few days you may be dehydrated and you would need to drink more OR skip the Lasix for a day or 2. This is the easiest weight to keep swelling under control. A digital scale works best. 3. Do not soak your incision in a tub. You may shower. Soaking the incision may lead to the incision breaking open. Look at the incision every day. If there is increasing redness around the incision or there is any separation of the incision or drainage you will need to call Dr. Lloyd Carson's office and ask them what to do. The Left knee will be warmer to touch than the right......this is due to inflammation related to the surgery and is normal. If the warmth to touch gets worse you should also call Dr. Carson's office for advice on what to do. 4. Your bladder was not completely emptying when you urinated and you had urine retention. The most common reason for urine retention in men your age if an enlarged prostate. We started you on a medication for the prostate called Flomax. You are no longer retaining significant amounts of urine after urinating AND your kidney function has improved. I am sending you home on this medication. 5. I think you should switch to decaffeinated coffee.......even decaffeinated coffee has some caffeine in it. Caffeine can race your heart, increase your BP and keep you awake at night. 6. You have done very well on Rehab and I think you will continue to do well at home. No driving until Dr. Carson tells you that it is OK for you to start driving again. If you or your family have any questions after you leave rehab please do not hesitate to call me. OFFICE: [phone] CELL: [phone] PS: Since we got rid of a lot of excess fluid causing the swelling in your legs your BP has improved and you will only need to take the Lisinopril 20 mg once a day. Discharge Orders/Prescriptions Prescriptions: New levothyroxine 50 mcg Tablet 50 mcg PO DAILY@0600 Qty: 30 0RF Rx Instructions: Take this medication in the MORNING on an empty stomach and wait 30 minutes to eat. furosemide 20 mg Tablet 60 mg PO DAILY Qty: 90 0RF Rx Instructions: take 3 tabs once a day in the morning to prevent swelling tamsulosin 0.4 mg Capsule 0.4 mg PO DAILY@1730 Qty: 30 0RF oxycodone 5 mg Tablet 5 mg PO Q6H PRN PRN (Reason: Pain Score 4-10) 7 Days Qty: 28 0RF Rx Instructions: Take 1 tab every 6 hours as needed for pain not controlled with Tylenol Serevent Diskus 50 mcg/dose blister with device 1 inh inhalation Q12H Qty: 60 0RF Rx Instructions: 1 inhalation every 12 hours. lisinopril 20 mg tablet 20 mg PO DAILY Qty: 30 0RF albuterol sulfate 90 mcg/actuation HFA aerosol inhaler 2 puff inhalation Q6H PRN (Reason: shortness of breath or wheezing) Qty: 8.5 0RF Rx Instructions: Take this if you are wheezing or short of breath Continued cyanocobalamin (vitamin B-12) [B-12 DOTS] 500 mcg tablet 1,000 mcg PO QHS pantoprazole 40 MG tablet 40 mg PO QHS potassium chloride 10 MEQ tablet 8 meq PO BID polyethylene glycol 3350 [Miralax] 17 gram/dose Powder 17 g PO DAILY ferrous sulfate [iron] 325 mg (65 mg iron) tablet 325 mg PO DAILY acetaminophen 500 mg Tablet 1,000 mg PO Q8 Qty: 0 0RF aspirin 81 mg Tablet,Chewable 81 mg PO BIDCM Qty: 0 0RF Held Glucosamine Chondroitin 550-30-1 mg capsule 1 cap PO DAILY Hold Instructions: Resume on 09/17/23. May resume on 09/17/23 Rx Instructions: orally twice a day; meloxicam 7.5 mg Tablet 7.5 mg PO BID Qty: 0 0RF Hold Instructions: Do NOT take this medication until you see Dr. Villalpando. this medication causes ulcers in the stomach and you have blood in your stool which can be a sign of bleeding in the gastrointestinal tract. Discontinued levothyroxine 50 MCG tablet 50 mcg PO QHS furosemide 20 MG tablet 40 mg PO DAILY lisinopril 40 mg tablet 40 mg PO DAILY Patient Comments: TAKE 1 TABLET BY MOUTH EVERY DAY furosemide 40 mg tablet 20 mg PO QHS oxycodone 5 mg Tablet 5 - 10 mg PO Q4H PRN PRN (Reason: Pain Score 4-10) Qty: 0 0RF Referrals / Follow Up: Chest, Xray [Other] - 11/11/23 11:00 am (have done prior to appointment with small products i assembler Dr. Emily Case ) Emily Case MD [Non-Staff] - 11/26/23 8:00 am (you will have breathing test done prior to seeing the doctor) Jose Alejandro Villalpando DO [Primary Care Provider] - 09/11/23 9:00 am Lloyd Carson MD [Med Staff - Active Staff] - 09/05/23 2:45 pm Disposition Disposition (needs filled in before D/C Order can be placed): Home, Self Care Charges/Coding Visit Charges Inpatient E&M: 86558 Disch Hosp >30min
[2023-09-03 16:01] VITALS: BP 106/56; PULSE 75; RESP 16; TEMP 36.2; O2SAT 96
[2023-09-03] MEDS: Tamsulosin HCl 0.4 MG Capsule PO (17:18)
[2023-09-03 21:22] VITALS: BP 102/53; PULSE 73
[2023-09-03] MEDS: Cyanocobalamin 500 MCG Tablet 1000 MCG PO (21:23)
[2023-09-03] MEDS: traZODone 50 MG Tablet PO (21:23)
[2023-09-03] MEDS: Pantoprazole Sodium 40 MG Tablet PO (21:23)
[2023-09-03 22:00] VITALS: PULSE 73; RESP 16; O2SAT 96
[2023-09-04 06:00] VITALS: BP 127/51; PULSE 76; RESP 15; TEMP 36.3; O2SAT 96; BMI 29.9
[2023-09-04] MEDS: oxyCODONE 5 MG Tablet PO (06:25)
[2023-09-04] MEDS: Acetaminophen 500 MG Tablet 1000 MG PO (06:25)
[2023-09-04] MEDS: Levothyroxine 50 MCG Tablet PO (06:27)
[2023-09-04] MEDS: 0.9% Saline Lock 10 ML Syringe IV (06:27)
[2023-09-04] MEDS: Fluticasone/Salmeterol 232-14 Inhaler 1 PUFF INHALATION (08:09)
[2023-09-04] MEDS: Potassium Chloride Oral Tablet 10 MEQ PO (08:10)
[2023-09-04] MEDS: Loratadine 10 MG Tablet 5 MG PO (08:10)
[2023-09-04] MEDS: Aspirin 81 MG TAB.CHEW PO (08:11)
[2023-09-04] MEDS: Lisinopril 20 MG Tablet PO (08:11)
[2023-09-04] MEDS: Furosemide 20 MG Tablet 60 MG PO (08:11)
[2023-09-04] MEDS: Ferrous Sulfate 325 MG Tablet PO (11:28)
--- NOTE | 2023-09-04 13:33 | NURSING ---
Faxed discharge information to Dr Villalpando.
== END 2023-09-04 13:25 | disposition home or self-care (01) | DRG 470 ==
PROVIDERS: Admitting Provider Internal Medicine; PCP Family Medicine; Visit Provider Internal Medicine
DX: Z47.1 Aftercare following joint replacement surgery (principal); D62 Acute posthemorrhagic anemia; J44.1 Chronic obstructive pulmonary disease with (acute) exacerbation; J44.0 Chronic obstructive pulmonary disease with (acute) lower respiratory infection; L03.116 Cellulitis of left lower limb; N18.31 Chronic kidney disease, stage 3a; I73.9 Peripheral vascular disease, unspecified; I12.9 Hypertensive chronic kidney disease with stage 1 through stage 4 chronic kidney disease, or unspecified chronic kidney disease; E03.9 Hypothyroidism, unspecified; K59.09 Other constipation; L27.0 Generalized skin eruption due to drugs and medicaments taken internally; K21.9 Gastro-esophageal reflux disease without esophagitis; I73.00 Raynaud's syndrome without gangrene; J20.8 Acute bronchitis due to other specified organisms; R19.5 Other fecal abnormalities; E66.9 Obesity, unspecified; Z87.891 Personal history of nicotine dependence; N40.1 Benign prostatic hyperplasia with lower urinary tract symptoms; Z96.652 Presence of left artificial knee joint; Z79.890 Hormone replacement therapy; Z11.52 Encounter for screening for COVID-19; I49.3 Ventricular premature depolarization; R33.8 Other retention of urine; G47.00 Insomnia, unspecified; Z79.82 Long term (current) use of aspirin; Z79.899 Other long term (current) drug therapy; Z68.31 Body mass index [BMI] 31.0-31.9, adult; R39.14 Feeling of incomplete bladder emptying; T40.2X5A Adverse effect of other opioids, initial encounter; T50.995A Adverse effect of other drugs, medicaments and biological substances, initial encounter
CPT/HCPCS: 36415; 71046; 73560; 74018; 80048; 80053; 82274; 82962; 83735; 83880; 84100; 85014; 85018; 85025; 85027; 87070; 87081; 87205; 87633; 87651; 87811; 88305; 88311; 93005; 93970; 94640; 94668; 96361; 96365; 96366; 97110; 97116; 97161; 97162; 97166; 97530; 97535; 97802; 99221; C1776; J7120; A4216; G0378; J1940; J2405; J3475

== ENCOUNTER → 2023-10-14 | Outpatient (CLI) | payer MEDICARE, OTHER, SELFPAY ==
[2023-10-14 12:59] LABS: Absolute Lymphocyte Count 1.96 X10^3/uL (0.83-4.51); Basophil# 0.06 X10^3/uL; Basophil% 0.8 % (0-1); Eosinophils% 2.5 % (0-5); Hematocrit 36.5 % (40-54); Hemoglobin 11.5 g/dL (13.0-16.5); Lymphocyte # 1.96 X10^3/ul (0.83-4.51); Lymphocyte % 24.6 % (19-41); Mean Corp Hgb Conc 31.5 g/dL (32-36); Mean Corpuscular Hgb 29.6 pg (27.0-32.0); Mean Corpuscular Volume 94.1 fL (80-94); Mean Platelet Vol. 9.4 fl (6.2-12.0); Monocyte# 0.64 X10^3/uL; NRBC Flagged by Analyzer 0 % (0-5); Neutrophil # 5.03 X10^3/uL (2.7-7.7); Platelet Count 302 K/mm3 (150-450); RBC Distribution Width CV 13.6 % (11.6-14.6); RBC Distribution Width SD 46.3 fl (35.1-43.9); Red Blood Count 3.88 M/mm3 (4.6-6.2)
[2023-10-14 13:55] LABS: Ferritin 175 ng/mL (26-388); Iron 48 ug/dL (65-175)
== END | disposition home or self-care (01) ==
LOC: LAB 12:08
PROVIDERS: PCP Family Medicine; Referring Provider Family Medicine; Visit Provider Family Medicine
DX: D64.9 Anemia, unspecified (principal)
CPT/HCPCS: 36415; 82728; 83540; 85025

== ENCOUNTER 2023-11-22 09:30 | Outpatient (RCR) | payer MEDICARE, OTHER, SELFPAY ==
--- NOTE | 2023-09-16 09:48 | HP.PTEVAL ---
Patient's Visit Information Visit Information Visit Information: IOWA Sidney KNOWLES is a 83 year old M referred to Physical Therapy by Dr. Carol Wallace DO with a diagnosis of L TKA, DOS: 08/19/23. Date of Evaluation: 09/16/23 Physical Therapist: Alexander Farias DPT Visit Plan Frequency: 3x /Week Duration: 6 Weeks Plan: Start with restoring knee extension and progressing knee flexion. Keep an eye on his incision, looks ok, but still more red than I would like. Add in LE functional strengthening and progress HEP. May use Ice and vaso for pain/edema control. Subjective Subjective: Pt is here today for his initial evaluation with diagnosis of L TKA. DOS: 08/19/23. Pt. was in inpatient rehab for 2 weeks following surgery. Pt. does live by him self. He is not driving yet. Pt. arrives using a FWW. He reports still having some pain ~3/10 this morning. he reports the pain doesn't really go away. With ice he can get the pain down to ~1/10. Pt. reports still having some difficulty sleeping. Pt. reports moving a little this morning with his legs and had an intense pain in his knee. It has improved, but still more sore today than it had been. Pt. reports being HEP compliant with ROM exercises at home x2 daily. Pt. is hopeful to reduce symptoms and get back to walking without AD. Pt. does go out in community and would like to get back to driving. Pain L knee: Pain Intensity (Out of 10): 3 Pain Intensity Range: 1 and 6 Objective Objective: POSTURE: Pt. has general flexed posture. He uses FWW for balance and uses in home. PALPATION: Pt. has a healing incision. He still has some scabbing along incision. Redness around the incision. Physician marked around the redness and the redness has not expanded. Overall minimal edema at this point in time. NEURO: normal sensation throughout BLEs. Pt. is able to rise on heels and toes without issues. ROM: L knee: 0-5-94 deg. Pt. reports having more soreness today after moving MMT: LLE: ext 12.2#, flexion 14.3#; hip: flexion 6.2# RLE: knee ext 30.4#, flexion 23.3#, hip flexion 12.9# GAIT: Pt. ambulates with FWW, but has fwrd flexion. He has good knee flexion during swing phase and good reciprocal pattern. Pt. still applies more wt. through his AD. Pt. was able to ambulate 300' with FWW FREDY STAIRS: Pt. is able to complete with step to pattern with use of 2 HR. Fearful to attempt reciprocal pattern yet. Balance/Special Test Scores TUG Test Time Seconds: 24.1 30 Second Chair Rise Test Seconds: 11 WOMAC Total Score: 62 WOMAC Percentatge: 35.4200 Goals Goal 1:: LTG: Pt. to be I with HEP. Goal Time Frame: 4-6 Weeks Goal 2:: LTG: PT. to have increased L knee ROM to 0-0-120deg without increase in symptoms allowing from improved functional mobility. Goal Time Frame: 4-6 Weeks Goal 3:: LTG: Pt. to have symmetrical strength between BLEs allowing for increased stability and functional mobilty. Goal Time Frame: 4-6 Weeks Goal 4:: LTG: Pt. to complete TUG without AD less than 10sec indicating safe functional mobility. Goal Time Frame: 4-6 Weeks Goal 5:: LTG: pt. to negotiate stairs with reciprocal pattern with use of 1 HR. Goal Time Frame: 4-6 Weeks Goal 6:: LTG: Pt. to complete 30sec sit to stand rep test with 12 or greater reps. Goal Time Frame: 4-6 Weeks Rehabilitation Potential Physical Therapy Diagnosis: Pt. has signs and symptoms consistent with L TKA DOS 08/19/23. Pt. has marked hypomobility, weakness and difficulty with functional mobility. He would benefit from outpatient PT to restore the above limitations progressing back to all household and community acitivites. Rehabilitation Potential: Excellent Anticipated Interventions Patient/Client Instruction: Educate patient on: Condition, Plan of Care, Risk Factors and Benefits of Fitness Program For the Purpose of:: To improve decision making, To facilitate caregiver knowledge, To improve self management, To prevent re-injury and To improve ability to perform tasks related to life management Therapeutic Exercise to Include: Strength training, Power training, Endurance training, Balance training, Coordination, Postural training, Flexibilty training, Gait and locomotor training, Passive ROM and Active ROM For the Purpose of:: To decrease pain, To increase ROM, To improve nutrient delivery to tissue, To increase oxygenation perfusion, To improve muscle performance and motor function, To improve ability to perform ADL's, To increase tolerance to activity/condition/position, To improve performance and independence with ADL's, To improve ability of physical actions for home/community/work/leisure, To improve gait and locomotor functions, To improve health of tissue, To decrease soft tissue restriction and To increase flexibility/ROM Cryotherapy (ice pack, ice massage): Yes Vasopneumatic device: Yes For the Purpose of:: To decrease pain, To decrease swelling/inflammation and To increase ROM Text: Thank you for the opportunity to evaluate your patient. For Medicare and Medicare HMO plans, please review the plan of care and approve it. It will need to be FAXED BACK to us at [phone] for Medicare purposes. For Medicare only, by signing this I certify the plan of care. Please let me know if there are questions or concerns regarding this plan of care. Physician Signature: Date:
--- NOTE | 2023-10-21 10:26 | HP.PTREVAL ---
Re-Evaluation Intro: Dr. Carol Wallace, DO, It has been my pleasure to treat FRANCISCA KNOWLES over the last 10 visits for L TKA, DOS: 08/19/23. Please see the progress note below for an update on the physical therapy plan of care! Subjective Subjective: Pt. reports being 60% better overall. He is sleeping okay, but still prefers the reclining chair. Pt. reports having 2/10 pain pre treatment today. He is walking with SPC without issues. Objective Objective/Function: AROM: 0-2-105deg. PROM 0-0-110deg. Pain as limiting factor. leathery end feel felt in both directions. MMT: RLE: knee: ext 40.8#, flexion 30.2# LLE: knee: ext 29.1#, flexion 26.4# GAIT: Pt. ambulates with and without SPC. He does better with cane TU.9sec without AD. 30sec sit to stand: 11 reps without use of UEs. stairs: with 2 HR with reciprocal pattern with issues with ascending, mild increase in L knee pain during loaded phase of descending. Plan Plan Plan: I am extending his POC x2 per week for 3 weeks. He does not have access to silver sneakers, so focus on home exercises for his HEP. Progress end range of motion and quad strengthening. Progress gait cane vs no AD. Balance/Gait/Functional tests Balance/Special Test Scores Lower Extremity Functional Score: 46 TUG Test Time Seconds: 15.9 Tug Test: <20 sec.=mostly independent 30 Second Chair Rise Test Seconds: 12 WOMAC Total Score: 62 WOMAC Percentage: 35.4200 Goals Goals Goal 1:: LTG: Pt. to be I with HEP. Goal Time Frame: 4-6 Weeks Goal Progress: Goal Met Goal 2:: LTG: PT. to have increased L knee ROM to 0-0-120deg without increase in symptoms allowing from improved functional mobility. Goal Time Frame: 4-6 Weeks Goal Progress: Progressing Goal 3:: LTG: Pt. to have symmetrical strength between BLEs allowing for increased stability and functional mobilty. Goal Time Frame: 4-6 Weeks Goal Progress: Progressing Goal 4:: LTG: Pt. to complete TUG without AD less than 10sec indicating safe functional mobility. Goal Time Frame: 4-6 Weeks Goal Progress: Progressing Goal 5:: LTG: pt. to negotiate stairs with reciprocal pattern with use of 1 HR. Goal Time Frame: 4-6 Weeks Goal 6:: LTG: Pt. to complete 30sec sit to stand rep test with 12 or greater reps. Goal Time Frame: 4-6 Weeks Goal Progress: Progressing Anticipated Interventions Anticipated Interventions Patient/Client Instruction: Educate patient on: Condition, Plan of Care, Risk Factors and Benefits of Fitness Program For the Purpose of:: To improve decision making, To facilitate caregiver knowledge, To improve self management, To prevent re-injury and To improve ability to perform tasks related to life management Therapeutic Exercise to Include: Strength training, Power training, Endurance training, Balance training, Coordination, Postural training, Flexibilty training, Gait and locomotor training, Passive ROM and Active ROM For the Purpose of:: To decrease pain, To increase ROM, To improve nutrient delivery to tissue, To increase oxygenation perfusion, To improve muscle performance and motor function, To improve ability to perform ADL's, To increase tolerance to activity/condition/position, To improve performance and independence with ADL's, To improve ability of physical actions for home/community/work/leisure, To improve gait and locomotor functions, To improve health of tissue, To decrease soft tissue restriction and To increase flexibility/ROM Cryotherapy (ice pack, ice massage): Yes Vasopneumatic device: Yes For the Purpose of:: To decrease pain, To decrease swelling/inflammation and To increase ROM Re-Evaluation Ending Re-evaluation ending: Please do not hesitate to contact me at [phone] by phone or if you have questions or concerns regarding this new plan of care! Sincerely, Alexander Farias DPT
--- NOTE | 2023-11-22 10:13 | HP.PTDCSUM ---
Discharge Summary D/C summary: It has been my pleasure to treat FRANCISCA KNOWLES referred by Dr. Carol Wallace DO, with the diagnosis of L TKA, DOS: 08/19/23 for a total of 16 visit(s). Discharge Date: Please see the following information for a summary of their discharge status. Subjective Subjective: Pt. reports being a little bit more sore today, but not too bad. Pt. reports no major issues. He has been walking a little bit more outside at home. Pt. reports being 50% better overall. HEP compliant. Pain L knee: Pain Intensity (Out of 10): 1 Overall Improvement % Improvement: 50 Objective Objective/Function: PROM: 0-0-111deg. AROM: 0-1-108deg. 30sec sit to stand rep test: 14 TU.1sec with cane STAIRS: Pt. is able to complete with 1 HR without LOB and with reciprocal pattern. GAIT: has steady and decent gait. MMT: Pt. has symmetrical strength between BLEs. Pt. reports that he is ready to be done with PT. I urged him to continue to be active. Pt. is a little tight with flexion, but does not seem to bother his functional mobility. He does have B distal LE edema at calves. Pt. reports this is being monitored by his physicians. pt. is overall doing well he will be DC from PT at this point in time. Goals Goal 1:: LTG: Pt. to be I with HEP. Goal Progress: Goal Met Goal 2:: LTG: PT. to have increased L knee ROM to 0-0-120deg without increase in symptoms allowing from improved functional mobility. Goal Progress: Progressing Goal 3:: LTG: Pt. to have symmetrical strength between BLEs allowing for increased stability and functional mobilty. Goal Progress: Goal Met Goal 4:: LTG: Pt. to complete TUG without AD less than 10sec indicating safe functional mobility. Goal Progress: Progressing Goal 5:: LTG: pt. to negotiate stairs with reciprocal pattern with use of 1 HR. Goal Progress: Goal Met Goal 6:: LTG: Pt. to complete 30sec sit to stand rep test with 12 or greater reps. Goal Progress: Goal Met Plan Plan: Pt. to be DC from PT at this point in time. D/C Information d/c sentence: If there are questions or concerns regarding this patient's physical therapy, please feel free to call me at [phone]. Thank you for the referral of this patient. Sincerely, Alexander Farias, DPT Balance/Gait/Functional tests Balance/Special Test Scores Lower Extremity Functional Score: 53 TUG Test Time Seconds: 13.1 Tug Test: <20 sec.=mostly independent 30 Second Chair Rise Test Seconds: 14 WOMAC Total Score: 62 WOMAC Percentage: 35.4200 Improvement % Improvement: 50
== END 2023-11-22 13:21 | disposition home or self-care (01) ==
LOC: PT 09:30
PROVIDERS: PCP Family Medicine; Referring Provider Internal Medicine; Visit Provider Internal Medicine
DX: Z96.652 Presence of left artificial knee joint (principal)
CPT/HCPCS: 97016; 97110; 97161; 97530

== ENCOUNTER 2023-12-23 11:40 | Emergency (ER) | payer MEDICARE, OTHER, SELFPAY ==
[2023-12-23 11:42] VITALS: BP 150/58; PULSE 88; RESP 18; TEMP 37.1; O2SAT 99; BMI 29.0
--- NOTE | 2023-12-23 12:55 | RAD_ITS ---
HISTORY: constipation, pain. TECHNIQUE: XR Abdomen 1 View. COMPARISON: 08/20/2023. FINDINGS: BOWEL GAS PATTERN: No dilated bowel loops identified. Scattered stool in the colon. FREE AIR: Not assessed on supine view. CALCIFICATIONS: Possible punctate left renal calculus. BONES: Degenerative change. RAD/Abdomen Single View IMPRESSION: Non-obstructive bowel gas pattern. Electronically Signed: Ava Valderrama MD at 13:24 EDT ,
--- NOTE | 2023-12-23 17:54 | ED.RN ---
pt states i'm leaving, stephanie been here for 7 hours. this rn asks if there is anything that I can do to help. pt states not unless you're a doctor. i was put back in room 9 and still haven't been seen. this rn apologizes and pt goes to talk to charge nurse. Pt then returns to his room after charge nurse explains he is next in line to be seen by a doctor.
--- NOTE | 2023-12-23 19:40 | EX.ED.DYSGE1 ---
HPI History of Present Illness Chief Complaint: Constipation Informant: patient Narrative Narrative: Patient is an 83-year-old male presenting with constipation. Patient states he has had worsening constipation for the past month but is been significantly worse over the past few days. Over the past month he has been having small caliber stools. He states has been for about 3 weeks. He has been taking a mixture of MiraLAX and Metamucil. Over the past few days he started taking Dulcolax initially that was helping but then nothing today. He has not been passing gas today. Denies any associate nausea or vomiting. Notes he did not have a bowel movement yesterday either. Denies a history of any abdominal surgeries. Today did develop with her abdominal pain but this seems to be improving. Denies any rectal pain or pressure. Had a knee replacement 4 months ago and only had oxycodone the first 2 weeks. Otherwise he just been taking Tylenol for pain. Denies any fever or chills. No report of black or blood in the stool. No other complaints or concerns at this time. 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 Peripheral vertigo Diastolic dysfunction Chronic renal failure, stage 3a Peripheral vascular disease History of echocardiogram Wears hearing aid Wears glasses Wears dentures Rash Ambulates with cane Arthritis Low iron History of ulceration Former smoker Leg cramps History of pain when walking History of edema Constipation GERD (gastroesophageal reflux disease) Hypertension Hypothyroid Home Medications ?Medication ?Instructions ?Recorded ?Last Taken ?Type pantoprazole 40 mg tablet,delayed 40 mg PO QHS reflux 06/02/20 08/19/23 History release potassium chloride 10 mEq 8 meq PO BID supplement 06/02/20 08/20/23 History tablet,extended release(part/cryst) polyethylene glycol 3350 17 17 g PO DAILY bowel mobility 09/03/21 08/20/23 History gram/dose oral powder (Miralax) cyanocobalamin (vitamin B-12) 500 1,000 mcg PO QHS supplement 08/14/22 08/19/23 History mcg tablet (B-12 DOTS) glucosamine sulf dipot 1 cap PO DAILY ? 08/14/22 08/12/23 History chlr,msm,chond 550 mg-C 30 mg-carmela 1 mg capsule (Glucosamine Chondroitin) ferrous sulfate 325 mg (65 mg 325 mg PO DAILY supplement 07/29/23 08/12/23 History iron) tablet (iron) acetaminophen 500 mg tablet 1,000 mg (2 x 500 mg) PO Q8 pain 08/20/23 08/20/23 Rx #0 tabs aspirin 81 mg chewable tablet 81 mg PO BIDCM heart health #0 tabs 08/20/23 08/20/23 Rx meloxicam 7.5 mg tablet 7.5 mg PO BID anti-inflammatory 08/20/23 Unknown Rx #0 tabs furosemide 20 mg tablet 60 mg (3 x 20 mg) PO DAILY #90 tabs 09/03/23 Unknown Rx levothyroxine 50 mcg tablet 50 mcg PO DAILY@0600 #30 tabs 09/03/23 Unknown Rx oxycodone 5 mg tablet 5 mg PO Q6H PRN PRN Pain Score 09/03/23 Unknown Rx 4-10 7 days #28 tabs salmeterol 50 mcg/dose blister 1 inh inhalation Q12H #60 ea 09/03/23 Unknown Rx powder for inhalation (Serevent Diskus) tamsulosin 0.4 mg capsule 0.4 mg PO DAILY@1730 #30 caps 09/03/23 Unknown Rx albuterol sulfate 90 mcg/actuation 2 puff inhalation Q6H PRN 09/04/23 Unknown Rx aerosol inhaler shortness of breath or wheezing #8.5 grams lisinopril 20 mg tablet 20 mg PO DAILY #30 tabs 09/04/23 Unknown Rx lactulose 10 gram/15 mL oral 15 ml PO QHS PRN constipation #237 12/23/23 Unknown Rx solution mL Allergy/AdvReac Type Severity Reaction Status Date / Time No Known Allergies Allergy Verified 12/23/23 11:44 Surgical History History of total left knee replacement History of esophagogastroduodenoscopy (EGD) Hx of left cataract extraction Hx of right cataract extraction Hx of colonoscopy Hx of left knee surgery Social History household members: none housing: house number of children: 22 Smoking Status: Former smoker Tobacco: How many years used: 55 how long ago did patient quit smokin alcohol intake: never substance use type: does not use ROS ROS ED Constitutional Constitutional ED: Denies chills or fever(s) Cardiovascular Cardiovascular: Denies chest pain Respiratory/Chest Respiratory/Chest: Denies cough Gastrointestinal Gastrointestinal: Reports abdominal pain and constipation; Denies nausea or vomiting Genitourinary Genitourinary ED: Denies dysuria or hematuria Musculoskeletal Musculoskeletal: Denies myalgias Integumentary Denies rash Hematologic/Lymphatic Hematologic/Lymphatic: Denies easy bleeding or easy bruising EXAM Physical Exam Const Vital Signs: 12/23/23 11:42 12/23/23 20:48 12/23/23 21:58 Temperature 98.7 F 98.1 F Temperature Source Temporal Pulse Rate 88 112 H 94 Respiratory Rate 18 18 16 Blood Pressure 150/58 H 134/55 H 126/77 H Blood Pressure Mean 88 81 93 Pulse Ox 99 98 99 Oxygen Delivery Method Room Air Room Air Positive well nourished and well developed General Appearance ED: well developed Eyes PERRL and EOMs intact bilaterally Neck supple Chest Wall inspection of chest normal Resp normal respiratory effort and clear to auscultation bilaterally Cardio regular rate and regular rhythm GI GI Narrative: No stool in the rectal vault appreciated. External hemorrhoids present. No active bleeding or thrombosed hemorrhoids. Inspection: abdominal distention Auscultation: hypoactive bowel sounds Palpation: soft; Negative for tender or guarding Rectal Exam: normal sphincter tone Extremity normal to inspection Neuro oriented x3 Sensorium / Orientation: alert Motor Exam: Negative for general weakness Psych mental status grossly normal MDM MDM MDM Narrative Medical decision making narrative: Patient is evaluated for constipation is worsened over the past month. He is does not have any associated nausea vomiting or abdominal pain on my exam. Protocol x-ray obtained shows a nonobstructive bowel gas pattern which is reviewed by myself as well as radiology. Rectal exam does not show any fecal impaction. Patient given a soapsuds enema with some results. Patient be discharged home with a prescription for lactulose. Encouraged to increase his fluid intake especially to take 8 ounces with MiraLAX or Metamucil and not 4 ounces. Given return precautions. At this time patient is quite well-appearing and I do not think requires CT imaging or lab work. Discharged home in stable condition. Radiography Diagnostic Testing: Clinical Impression(s) from Imaging Studies [facility] X-Ray 12/23/23 12:55 IMPRESSION: Non-obstructive bowel gas pattern. Electronically Signed: Ava Valderrama MD at 13:24 EDT , Discharge Plan Triage Chief Complaint: Constipation ED Provider: Laura Friedman Dx/Rx/DC Orders Clinical Impression: Constipation Instructions: ED Constipation (Adult) Prescriptions: New lactulose 10 gram/15 mL solution 15 ml PO QHS PRN (Reason: constipation) Qty: 237 0RF No Action cyanocobalamin (vitamin B-12) [B-12 DOTS] 500 mcg tablet 1,000 mcg PO QHS pantoprazole 40 MG tablet 40 mg PO QHS potassium chloride 10 MEQ tablet 8 meq PO BID Glucosamine Chondroitin 550-30-1 mg capsule 1 cap PO DAILY Rx Instructions: orally twice a day; polyethylene glycol 3350 [Miralax] 17 gram/dose Powder 17 g PO DAILY ferrous sulfate [iron] 325 mg (65 mg iron) tablet 325 mg PO DAILY acetaminophen 500 mg Tablet 1,000 mg PO Q8 Qty: 0 0RF meloxicam 7.5 mg Tablet 7.5 mg PO BID Qty: 0 0RF aspirin 81 mg Tablet,Chewable 81 mg PO BIDCM Qty: 0 0RF levothyroxine 50 mcg Tablet 50 mcg PO DAILY@0600 Qty: 30 0RF Rx Instructions: Take this medication in the MORNING on an empty stomach and wait 30 minutes to eat. furosemide 20 mg Tablet 60 mg PO DAILY Qty: 90 0RF Rx Instructions: take 3 tabs once a day in the morning to prevent swelling tamsulosin 0.4 mg Capsule 0.4 mg PO DAILY@1730 Qty: 30 0RF oxycodone 5 mg Tablet 5 mg PO Q6H PRN PRN (Reason: Pain Score 4-10) 7 Days Qty: 28 0RF Rx Instructions: Take 1 tab every 6 hours as needed for pain not controlled with Tylenol Serevent Diskus 50 mcg/dose blister with device 1 inh inhalation Q12H Qty: 60 0RF Rx Instructions: 1 inhalation every 12 hours. lisinopril 20 mg tablet 20 mg PO DAILY Qty: 30 0RF albuterol sulfate 90 mcg/actuation HFA aerosol inhaler 2 puff inhalation Q6H PRN (Reason: shortness of breath or wheezing) Qty: 8.5 0RF Rx Instructions: Take this if you are wheezing or short of breath Primary Care Provider: Jose Alejandro Villalpando Referrals: Jose Alejandro Villalpando, DO [Primary Care Provider] - Activity Restrictions/Additional Instructions: Increase your fluid intake. Take least 8 ounces of water with MiraLAX or Metamucil. You may increase the lactulose up to twice a day if needed. Follow-up with your primary care doctor. Return to the ER if you develop severe abdominal pain, did not pass any gas or start vomiting Print Language: Luxembourger Disposition Disposition: Home, Self Care Discharge Date/Time: 12/23/23 21:59
[2023-12-23 20:48] VITALS: BP 134/55; PULSE 112; RESP 18; O2SAT 98
[2023-12-23 21:58] VITALS: BP 126/77; PULSE 94; RESP 16; TEMP 36.7; O2SAT 99
== END 2023-12-23 21:59 | disposition home or self-care (01) ==
PROVIDERS: Emergency Provider Emergency Medicine; PCP Family Medicine; Visit Provider Emergency Medicine
DX: K59.00 Constipation, unspecified (principal); J44.9 Chronic obstructive pulmonary disease, unspecified; N18.31 Chronic kidney disease, stage 3a; Z87.891 Personal history of nicotine dependence; I12.9 Hypertensive chronic kidney disease with stage 1 through stage 4 chronic kidney disease, or unspecified chronic kidney disease; Z96.652 Presence of left artificial knee joint; Z98.41 Cataract extraction status, right eye; Z98.42 Cataract extraction status, left eye; K21.9 Gastro-esophageal reflux disease without esophagitis; Z79.899 Other long term (current) drug therapy; Z79.82 Long term (current) use of aspirin; E03.9 Hypothyroidism, unspecified; Z79.890 Hormone replacement therapy
CPT/HCPCS: 74018; 99284

== ENCOUNTER → 2024-01-09 | Outpatient (CLI) | payer MEDICARE, OTHER, SELFPAY ==
[2024-01-09 15:36] LABS: Absolute Lymphocyte Count 1.95 X10^3/uL (0.83-4.51); Basophil# 0.04 X10^3/uL; Basophil% 0.6 % (0-1); Eosinophil# 0.16 X10^3/uL; Eosinophils% 2.4 % (0-5); Hematocrit 39.9 % (40-54); Hemoglobin 12.6 g/dL (13.0-16.5); Lymphocyte # 1.95 X10^3/ul (0.83-4.51); Lymphocyte % 29.2 % (19-41); Mean Corp Hgb Conc 31.6 g/dL (32-36); Mean Corpuscular Hgb 28.7 pg (27.0-32.0); Mean Corpuscular Volume 90.9 fL (80-94); Mean Platelet Vol. 9.7 fl (6.2-12.0); Monocyte# 0.49 X10^3/uL; Monocyte% 7.3 % (0-10); NRBC Flagged by Analyzer 0 % (0-5); Neutrophil % 59.9 % (47-70); Platelet Count 336 K/mm3 (150-450); RBC Distribution Width CV 13.4 % (11.6-14.6); RBC Distribution Width SD 44.8 fl (35.1-43.9); Red Blood Count 4.39 M/mm3 (4.6-6.2); White Blood Count 6.7 K/mm3 (4.4-11.0)
[2024-01-09 16:02] LABS: Ferritin 110 ng/mL (26-388); Iron 60 ug/dL (65-175)
== END | disposition home or self-care (01) ==
LOC: BFHLAB 13:39
PROVIDERS: PCP Family Medicine; Referring Provider Family Medicine; Visit Provider Family Medicine
DX: D50.9 Iron deficiency anemia, unspecified (principal); E03.9 Hypothyroidism, unspecified
CPT/HCPCS: 36415; 82728; 83540; 84443; 85025

== ENCOUNTER → 2024-07-09 | Outpatient (CLI) | payer MEDICARE, OTHER, SELFPAY ==
[2024-07-09 15:13] LABS: Absolute Lymphocyte Count 1.75 X10^3/uL (0.83-4.51); Absolute Neutrophil Count 4.5 X10^3/uL (2.0-7.7); Basophil# 0.04 X10^3/uL; Basophil% 0.6 % (0-1); Eosinophil# 0.14 X10^3/uL; Hematocrit 43.5 % (40-54); Hemoglobin 14.3 g/dL (13.0-16.5); Lymphocyte # 1.75 X10^3/ul (0.83-4.51); Lymphocyte % 25.1 % (19-41); Mean Corp Hgb Conc 32.9 g/dL (32-36); Mean Corpuscular Hgb 30.1 pg (27.0-32.0); Mean Corpuscular Volume 91.6 fL (80-94); Mean Platelet Vol. 9.6 fl (6.2-12.0); Monocyte# 0.52 X10^3/uL; Monocyte% 7.5 % (0-10); NRBC Flagged by Analyzer 0 % (0-5); Neutrophil # 4.49 X10^3/uL (2.7-7.7); Neutrophil % 64.4 % (47-70); Platelet Count 322 K/mm3 (150-450); RBC Distribution Width CV 13.2 % (11.6-14.6); RBC Distribution Width SD 44.5 fl (35.1-43.9); Red Blood Count 4.75 M/mm3 (4.6-6.2)
[2024-07-09 18:11] LABS: ALB/GLOB Ratio 1.6 RATIO (0.9-2.4); AST(SGOT) 17 U/L (<=37); Alanine Aminotransfer ALT/SGPT 11 U/L (<=46); Albumin, Serum 4.3 g/dL (3.4-4.8); Alkaline Phosphatase 62 U/L (40-129); Anion Gap 11 (5-15); BUN 17 mg/dL (4-19); BUN/Creat Ratio 16.2 RATIO (10-20); Calcium,Total 9.1 mg/dL (7.6-11.0); Carbon Dioxide 24.7 mmol/L (21.0-32.0); Chloride 103 mmol/L (98-108); Creatinine, Serum 1.07 mg/dL (0.70-1.20); EST Glomerular Filtration Rate 68 (>60); Ferritin 177 ng/mL (37-417); Globulin 2.8 g/dL (2.2-4.2); Glucose 91 mg/dL (70-99); Iron 52 ug/dL (65-175); Potassium 4.3 mmol/L (3.3-5.1); Protein, Total 7.1 g/dL (5.9-8.4); Sodium Level 139 mmol/L (133-145); Total Bilirubin 0.27 mg/dL (0.00-1.30)
== END | disposition home or self-care (01) ==
LOC: MTLAB 13:48
PROVIDERS: PCP Family Medicine; Referring Provider Family Medicine; Visit Provider Family Medicine
DX: D50.9 Iron deficiency anemia, unspecified (principal); I10 Essential (primary) hypertension; E03.9 Hypothyroidism, unspecified
CPT/HCPCS: 36415; 80053; 82728; 83540; 84443; 85025

== ENCOUNTER 2024-09-25 11:55 | Emergency (ER) | payer MEDICARE, OTHER, SELFPAY ==
[2024-09-25] VITALS (8 sets, daily range): BP systolic 143–165; BP diastolic 76–80; PULSE 54–96; RESP 16–20; TEMP 35.8–36.9; O2SAT 96–100
--- NOTE | 2024-09-25 12:56 | RAD_ITS ---
PROCEDURE: CHEST PA AND LATERAL 09/25/2024 REASON FOR EXAM: CHEST PAIN TECHNIQUE: CHEST PA AND LATERAL COMPARISON: Prior study dated August 20, 2023. FINDINGS: Hardware: EKG electrodes are seen. Heart: Heart size upper limits of normal. Mediastinum: Unremarkable Lungs: Stable elevation of the right hemidiaphragm. No focal infiltrate is seen. Bones: Degenerative changes are identified within the thoracic spine. RAD/Chest PA and Lateral IMPRESSION: Stable elevation of the right hemidiaphragm. The lungs are clear. Reading Location: [id number]
--- NOTE | 2024-09-25 12:56 | EKG12_ITS ---
Test Reason : petty Blood Pressure : */* mmHG Vent. Rate : 53 BPM Atrial Rate : 53 BPM P-R Int : 270 ms QRS Dur : 92 ms QT Int : 430 ms P-R-T Axes : 66 -4 17 degrees QTcB Int : 403 ms Sinus bradycardia with 1st degree A-V block Otherwise normal ECG Confirmed by BERNADETTE CUEVAS, HARSHA ([id number]), video news editor CHINO BARRAZA ([id number]) on 09/28/2024 6:56:23 AM Referred By: Emile Paz Confirmed By: HARSHA FLEMING MD
--- NOTE | 2024-09-25 13:08 | EX.ED.DYSGE1 ---
HPI History of Present Illness Chief Complaint: General Illness Narrative Narrative: Patient is a 84-year-old male with past medical history of COPD, chronic kidney disease, heart failure, hypertension, hypothyroidism who presented to the emergency department with a chief complaint of cough and concern for pneumonia. Patient states that he woke up this morning and noted that he had some wheezing and started coughing up more sputum than normal. Patient states that he is leaving town and he wanted to be sure that nothing else was going on before he left. 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 Peripheral vertigo Diastolic dysfunction Chronic renal failure, stage 3a Peripheral vascular disease History of echocardiogram Wears hearing aid Wears glasses Wears dentures Rash Ambulates with cane Arthritis Low iron History of ulceration Former smoker Leg cramps History of pain when walking History of edema Constipation GERD (gastroesophageal reflux disease) Hypertension Hypothyroid Home Medications ?Medication ?Instructions ?Recorded ?Last Taken ?Type pantoprazole 40 mg tablet,delayed 40 mg PO QHS reflux 06/02/20 08/19/23 History release potassium chloride 10 mEq 8 meq PO BID supplement 06/02/20 08/20/23 History tablet,extended release(part/cryst) polyethylene glycol 3350 17 17 g PO DAILY bowel mobility 09/03/21 08/20/23 History gram/dose oral powder (Miralax) cyanocobalamin (vitamin B-12) 500 1,000 mcg PO QHS supplement 08/14/22 09/24/24 History mcg tablet (B-12 DOTS) glucosamine sulf dipot 1 cap PO DAILY ? 08/14/22 08/12/23 History chlr,msm,chond 550 mg-C 30 mg-carmela 1 mg capsule (Glucosamine Chondroitin) Held on 09/03/23. Instructions: Resume on 09/17/23. May resume on 09/17/23 ferrous sulfate 325 mg (65 mg 325 mg PO DAILY supplement 07/29/23 09/24/24 History iron) tablet (iron) acetaminophen 500 mg tablet 1,000 mg (2 x 500 mg) PO Q8 pain 08/20/23 08/20/23 Rx #0 tabs meloxicam 7.5 mg tablet 7.5 mg PO BID anti-inflammatory 08/20/23 Unknown Rx Held on 09/03/23. #0 tabs Instructions: Do NOT take this medication until you see Dr. Villalpando. this medication causes ulcers in the stomach and you have blood in your stool which can be a sign of bleeding in the gastrointestinal tract. furosemide 20 mg tablet 60 mg (3 x 20 mg) PO DAILY #90 tabs 09/03/23 09/25/24 Rx levothyroxine 50 mcg tablet 50 mcg PO DAILY@0600 #30 tabs 09/03/23 Unknown Rx salmeterol 50 mcg/dose blister 1 inh inhalation Q12H #60 ea 09/03/23 Unknown Rx powder for inhalation (Serevent Diskus) tamsulosin 0.4 mg capsule 0.4 mg PO DAILY@1730 #30 caps 09/03/23 Unknown Rx lisinopril 20 mg tablet 20 mg PO DAILY #30 tabs 09/04/23 Unknown Rx albuterol sulfate 90 mcg/actuation 2 puff inhalation Q6H PRN 09/25/24 Unknown Rx aerosol inhaler (Ventolin HFA) shortness of breath or wheezing #8.5 grams doxycycline hyclate 100 mg capsule 100 mg PO BID #10 caps 09/25/24 Unknown Rx furosemide 40 mg tablet 40 mg PO BID 09/25/24 Unknown History meclizine 25 mg tablet 12.5 - 25 mg PO TID PRN PRN 09/25/24 Unknown History dizziness prednisone 50 mg tablet 50 mg PO DAILY 4 days #4 tabs 09/25/24 Unknown Rx Allergy/AdvReac Type Severity Reaction Status Date / Time No Known Allergies Allergy Verified 09/25/24 11:55 Surgical History History of total left knee replacement History of esophagogastroduodenoscopy (EGD) Hx of left cataract extraction Hx of right cataract extraction Hx of colonoscopy Hx of left knee surgery Social History household members: none housing: house number of children: 22 Smoking Status: Former smoker Tobacco: How many years used: 55 how long ago did patient quit smokin alcohol intake: never substance use type: does not use ROS ROS ED ROS Narrative Constitutional: Denies fevers, chills, headache Cardiovascular: Denies chest pain or palpitations Respiratory: Claims coughing as noted above denies shortness of breath Abdomen: Denies abdominal pain nausea vomit diarrhea : Denies urinary symptoms Neurological: Denies any numbness, weakness, tingling Musculoskeletal: Denies any back pain Skin: Denies any rashes or lesions EXAM Physical Exam Narrative Exam Narrative: General: Patient is lying in bed rest comfortably did not appear to be acute distress Head: Atraumatic, normocephalic Eyes: PERRL bilateral, EOMI biotic no conjunctival injection noted Neck: Soft, supple, trachea midline Cardiovascular: Regular rate and rhythm no murmurs gallops rubs noted Respiratory: Patient has diffuse end expiratory wheezing noted on exam Abdomen: Soft, nondistended, nontender to palpation Extremities: +5/5 strength noted in the bilateral upper and lower extremities, radial pulses +2/4 in the bladder extremities Neurological: Patient following commands knew that he was at [facility] years 2024 Skin: Warm, dry, intact no rashes or lesions noted Const Vital Signs: 09/25/24 11:56 09/25/24 12:51 09/25/24 12:56 Temperature 98.4 F Temperature Source Oral Pulse Rate 91 Respiratory Rate 16 Respiratory Effort Normal Non-Labored Respiratory Pattern Normal Blood Pressure 165/80 H Blood Pressure Mean 108 Pulse Ox 100 100 Oxygen Delivery Method Room Air Room Air 09/25/24 13:21 09/25/24 13:55 Temperature 98.2 F Temperature Source Oral Pulse Rate 54 L 96 Respiratory Rate 16 17 Respiratory Effort Respiratory Pattern Normal Blood Pressure 152/78 H Blood Pressure Mean 102 Pulse Ox 96 Oxygen Delivery Method MDM MDM MDM Narrative Medical decision making narrative: Patient is a 84-year-old male who presented to the emergency department with chief complaint of cough and concern for pneumonia. On the differential diagnosis includes but not limited to pneumonia, CHF, upper respiratory infection secondary viral etiology, COPD exacerbation. Once the workup is obtained reviewed he will be reevaluated. Patient given IV fluids. Patient CBC was reviewed showed no evidence leukocytosis white blood count normal at 6.4, he was 13.9, platelet count 297. Patient sodium was 140, potassium normal at 4.4, creatinine was noted to be normal at 1.06. Patient's proBNP normal at 176, troponin normal at 9. EKG showed sinus bradycardia with evidence of first-degree AV block with a NM interval of 270. Patient chest x-ray reviewed by myself by radiology showed stable elevation of the right hemidiaphragm lungs are clear. Patient did ambulate here in the emergency department and he went from 97% to 91%. On reevaluation the patient he states that he needs to go home as he has a trip planned and needs to leave by 5 PM. He states that he is not staying in the hospital. He will be given prescriptions for prednisone, albuterol inhaler, doxycycline. He was advised to return with worsening symptoms or other concerns. He is agreeable this plan all question concerns answered he is discharged home in stable condition. Lab Data Labs: Laboratory Results - last 24 hr 09/25/24 13:05 WBC 6.4 RBC 4.69 Hgb 13.9 Hct 42.5 MCV 90.6 MCH 29.6 MCHC 32.7 RDW Std Deviation 43.0 RDW Coeff of Elieser 13.2 Plt Count 297 MPV 9.6 Immature Gran % (Auto) 0.800 Neut % (Auto) 67.1 Lymph % (Auto) 21.5 Dade % (Auto) 6.7 Eos % (Auto) 3.3 Baso % (Auto) 0.6 Absolute Neuts (auto) 4.3 Absolute Lymphs (auto) 1.37 Nucleated RBC % 0 Sodium 140 Potassium 4.4 Chloride 104 Carbon Dioxide 25.2 Anion Gap 11 BUN 18 Creatinine 1.06 Estim Creat Clear Calc 50.99 Est GFR (MDRD) Non-Af 68 BUN/Creatinine Ratio 17.2 Glucose 96 Calcium 9.0 Troponin T High Sens 9 NT pro BNP II 176 Radiography Diagnostic Testing: Clinical Impression(s) from Imaging Studies Chest X-Ray 09/25/24 12:56 IMPRESSION: Stable elevation of the right hemidiaphragm. The lungs are clear. Reading Location: [id number] Discharge Plan Triage Chief Complaint: General Illness ED Provider: Emile Paz Dx/Rx/DC Orders Clinical Impression: COPD exacerbation, Cough, Generalized weakness, History of CHF (congestive heart failure) Prescriptions: New prednisone 50 mg tablet 50 mg PO DAILY 4 Days Qty: 4 0RF doxycycline hyclate 100 mg capsule 100 mg PO BID Qty: 10 0RF albuterol sulfate [Ventolin HFA] 90 mcg/actuation HFA aerosol inhaler 2 puff inhalation Q6H PRN (Reason: shortness of breath or wheezing) Qty: 8.5 0RF No Action cyanocobalamin (vitamin B-12) [B-12 DOTS] 500 mcg tablet 1,000 mcg PO QHS pantoprazole 40 MG tablet 40 mg PO QHS potassium chloride 10 MEQ tablet 8 meq PO BID Glucosamine Chondroitin 550-30-1 mg capsule 1 cap PO DAILY Rx Instructions: orally twice a day; polyethylene glycol 3350 [Miralax] 17 gram/dose Powder 17 g PO DAILY ferrous sulfate [iron] 325 mg (65 mg iron) tablet 325 mg PO DAILY acetaminophen 500 mg Tablet 1,000 mg PO Q8 Qty: 0 0RF meloxicam 7.5 mg Tablet 7.5 mg PO BID Qty: 0 0RF levothyroxine 50 mcg Tablet 50 mcg PO DAILY@0600 Qty: 30 0RF Rx Instructions: Take this medication in the MORNING on an empty stomach and wait 30 minutes to eat. furosemide 20 mg Tablet 60 mg PO DAILY Qty: 90 0RF Rx Instructions: take 3 tabs once a day in the morning to prevent swelling tamsulosin 0.4 mg Capsule 0.4 mg PO DAILY@1730 Qty: 30 0RF Serevent Diskus 50 mcg/dose blister with device 1 inh inhalation Q12H Qty: 60 0RF Rx Instructions: 1 inhalation every 12 hours. lisinopril 20 mg tablet 20 mg PO DAILY Qty: 30 0RF furosemide 40 mg tablet 40 mg PO BID meclizine 25 mg tablet 12.5 - 25 mg PO TID PRN PRN (Reason: dizziness) Primary Care Provider: Jose Alejandro Villalpando Referrals: Jose Alejandro Villalpando, DO [Primary Care Provider] - Activity Restrictions/Additional Instructions: Follow-up your doctor in the outpatient setting. Take steroids and antibiotics as prescribed. Use inhaler as prescribed. Return with worsening symptoms or any other concerns your blood work did not show any acute findings today and your chest x-ray did not show any evidence of pneumonia. Print Language: Libyan Disposition Disposition: Home, Self Care
[2024-09-25 13:21] LABS: Hematocrit 42.5 % (40-54); Hemoglobin 13.9 g/dL (13.0-16.5); Immature Granulocytes Count 0.050 X10^3/uL (0.0-0.0); Mean Corp Hgb Conc 32.7 g/dL (32-36); Mean Corpuscular Volume 90.6 fL (80-94); Mean Platelet Vol. 9.6 fl (6.2-12.0); NRBC Flagged by Analyzer 0 % (0-5); Platelet Count 297 K/mm3 (150-450); RBC Distribution Width CV 13.2 % (11.6-14.6); RBC Distribution Width SD 43.0 fl (35.1-43.9); Red Blood Count 4.69 M/mm3 (4.6-6.2); White Blood Count 6.4 K/mm3 (4.4-11.0)
[2024-09-25] MEDS: 0.9% Normal Saline (1000mL) 1,000 ML 999 ML IV (13:26)
[2024-09-25 14:00] LABS: Troponin T High Sensitivity 9 ng/L (<=22)
[2024-09-25 14:01] LABS: Anion Gap 11 (5-15); BUN 18 mg/dL (4-19); BUN/Creat Ratio 17.2 RATIO (10-20); Calcium,Total 9.0 mg/dL (7.6-11.0); Carbon Dioxide 25.2 mmol/L (21.0-32.0); Chloride 104 mmol/L (98-108); Estimated Creatinine Clearance 50.99 ml/min (50-250); Glucose 96 mg/dL (70-99); Potassium 4.4 mmol/L (3.3-5.1); Pro- Brain NATRIURETIC PEPTIDE 176 pg/mL (<=1800)
== END 2024-09-25 15:13 | disposition home or self-care (01) ==
PROVIDERS: Emergency Provider Emergency Medicine; PCP Family Medicine; Referring Provider Emergency Medicine; Visit Provider Emergency Medicine
DX: J44.1 Chronic obstructive pulmonary disease with (acute) exacerbation (principal); I13.0 Hypertensive heart and chronic kidney disease with heart failure and stage 1 through stage 4 chronic kidney disease, or unspecified chronic kidney disease; I50.9 Heart failure, unspecified; N18.31 Chronic kidney disease, stage 3a; Z87.891 Personal history of nicotine dependence; R53.1 Weakness; R05.9 Cough, unspecified; K21.9 Gastro-esophageal reflux disease without esophagitis; Z79.899 Other long term (current) drug therapy; E03.9 Hypothyroidism, unspecified; Z79.890 Hormone replacement therapy; Z96.652 Presence of left artificial knee joint; Z98.41 Cataract extraction status, right eye; Z98.42 Cataract extraction status, left eye
CPT/HCPCS: 71046; 80048; 83880; 84484; 85025; 93005; 94640; 96360; 99284; A4216

== ENCOUNTER 2025-01-22 14:11 | Emergency (ER) | payer MEDICARE, OTHER, SELFPAY ==
[2025-01-22 14:11] VITALS: BP 123/82; PULSE 97; RESP 16; TEMP 36.6; O2SAT 100; BMI 26.1
--- NOTE | 2025-01-22 14:41 | EX.ED.GENINJ ---
HPI History of Present Illness Chief Complaint: Laceration Informant: patient Onset/Context/Timing Onset: Today Mechanism/Context: Trip Location of pain/injuries: Right hand and Right Knee Quality of Pain: Dull Location: Right eyebrow, right hand, and right knee Worsened by: Nothing Relieved by: Nothing Associated Symptoms Associated Symptoms: Negative for Parasthesias, Weakness, Loss of function, Inability to ambulate, Loss of consciousness or Amnesia Narrative Narrative: Patient presents with head injury that occurred today after a fall. Patient states he tripped over a curb and fell. Patient states he had the right side of his head, right hand, and right knee. Patient denies any loss of consciousness. Patient not taking any anticoagulants. Patient denies any paresthesias or weakness. Patient states his immunizations are up-to-date. Patient states he was able to ambulate after the fall. Patient states he went to urgent care and was referred to the emergency department. 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 Peripheral vertigo Diastolic dysfunction Chronic renal failure, stage 3a Peripheral vascular disease History of echocardiogram Wears hearing aid Wears glasses Wears dentures Rash Ambulates with cane Arthritis Low iron History of ulceration Former smoker Leg cramps History of pain when walking History of edema Constipation GERD (gastroesophageal reflux disease) Hypertension Hypothyroid Home Medications Medication Instructions Recorded Last Taken Type pantoprazole 40 mg tablet,delayed 40 mg PO QHS reflux 06/02/20 08/19/23 History release potassium chloride 10 mEq 8 meq PO BID supplement 06/02/20 08/20/23 History tablet,extended release(part/cryst) polyethylene glycol 3350 17 17 g PO DAILY bowel mobility 09/03/21 08/20/23 History gram/dose oral powder (Miralax) cyanocobalamin (vitamin B-12) 500 1,000 mcg PO QHS supplement 08/14/22 09/24/24 History mcg tablet (B-12 DOTS) glucosamine sulf dipot 1 cap PO DAILY ? 08/14/22 08/12/23 History chlr,msm,chond 550 mg-C 30 mg-carmela 1 mg capsule (Glucosamine Chondroitin) Held on 09/03/23. Instructions: Resume on 09/17/23. May resume on 09/17/23 ferrous sulfate 325 mg (65 mg 325 mg PO DAILY supplement 07/29/23 09/24/24 History iron) tablet (iron) acetaminophen 500 mg tablet 1,000 mg (2 x 500 mg) PO Q8 pain 08/20/23 08/20/23 Rx #0 tabs meloxicam 7.5 mg tablet 7.5 mg PO BID anti-inflammatory 08/20/23 Unknown Rx Held on 09/03/23. #0 tabs Instructions: Do NOT take this medication until you see Dr. Villalpando. this medication causes ulcers in the stomach and you have blood in your stool which can be a sign of bleeding in the gastrointestinal tract. furosemide 20 mg tablet 60 mg (3 x 20 mg) PO DAILY #90 tabs 09/03/23 09/25/24 Rx levothyroxine 50 mcg tablet 50 mcg PO DAILY@0600 #30 tabs 09/03/23 Unknown Rx salmeterol 50 mcg/dose blister 1 inh inhalation Q12H #60 ea 09/03/23 Unknown Rx powder for inhalation (Serevent Diskus) tamsulosin 0.4 mg capsule 0.4 mg PO DAILY@1730 #30 caps 09/03/23 Unknown Rx lisinopril 20 mg tablet 20 mg PO DAILY #30 tabs 09/04/23 Unknown Rx albuterol sulfate 90 mcg/actuation 2 puff inhalation Q6H PRN 09/25/24 Unknown Rx aerosol inhaler (Ventolin HFA) shortness of breath or wheezing #8.5 grams doxycycline hyclate 100 mg capsule 100 mg PO BID #10 caps 09/25/24 Unknown Rx furosemide 40 mg tablet 40 mg PO BID 09/25/24 Unknown History meclizine 25 mg tablet 12.5 - 25 mg PO TID PRN PRN 09/25/24 Unknown History dizziness prednisone 50 mg tablet 50 mg PO DAILY 4 days #4 tabs 09/25/24 Unknown Rx Allergy/AdvReac Type Severity Reaction Status Date / Time No Known Allergies Allergy Verified 01/22/25 14:13 Surgical History History of total left knee replacement History of esophagogastroduodenoscopy (EGD) Hx of left cataract extraction Hx of right cataract extraction Hx of colonoscopy Hx of left knee surgery Social History household members: none housing: house number of children: 22 Smoking Status: Former smoker Tobacco: How many years used: 55 how long ago did patient quit smokin alcohol intake: never substance use type: does not use ROS ROS ED Constitutional Constitutional ED: Denies chills or fever(s) Eyes Eyes: Denies blurry vision or change in vision ENT ENT ED: Denies rhinorrhea or sore throat Cardiovascular Cardiovascular: Denies chest pain or palpitations Respiratory/Chest Respiratory/Chest: Denies cough or dyspnea Gastrointestinal Gastrointestinal: Denies nausea or vomiting Genitourinary Genitourinary ED: Denies dysuria or hematuria Musculoskeletal Musculoskeletal: Denies back pain or neck pain Integumentary Denies abscess or rash Neurologic Neurologic: Denies headache(s) or weakness Allergic/Immunologic Allergic/Immunologic ED: Denies mouth swelling or urticaria EXAM Physical Exam Const Vital Signs: 01/22/25 14:11 Temperature 97.8 F Temperature Source Temporal Pulse Rate 97 Respiratory Rate 16 Blood Pressure 123/82 H Blood Pressure Mean 95 Pulse Ox 100 Positive well nourished and well developed General Appearance ED: well developed and NAD HEENT HEENT Narrative: There is a 2 cm full-thickness linear laceration of the lateral aspect of the right eyebrow. There is mild gapping of the wound margins. There is no bony crepitance or step-off. There is no active bleeding noted. Eyes PERRL and EOMs intact bilaterally Neck full ROM Chest Wall palpation of chest normal Resp normal respiratory effort and clear to auscultation bilaterally Cardio regular rhythm Rate: regular rate GI non-tender and non-distended Palpation: soft Back/Spine normal to inspection Extremity Extremity Narrative: There is Neuro oriented x3, CN's II-XII intact bilaterally, moves all extremities, no focal motor deficits and no sensory deficits noted Ivis Coma Scale: document GCS findings Spontaneous Obeys Commands Oriented 15 Sensorium / Orientation: alert Motor Exam: strength 5/5 throughout Psych mental status grossly normal Skin Skin Narrative: There is a 3 cm full-thickness laceration over the palmar aspect of the right hand over the distal fifth metacarpal. There is mild bleeding noted. There is no foreign body noted. There is mild gapping of the wound margins. There is full range of motion of the MP, PIP, and DIP joints. There is a superficial abrasion over the anterior aspect of the right knee. There is mild bleeding noted. There is no bony crepitance or step-off. There is full range of motion. PROC Procedures Lacerations Right hand: Length: 3 cm Depth: Sub Q Shape: Linear Prep: Sterile Conditions and Chlorhexadine Laceration repair: Irrigated, Lidocaine, Local, Skin sutures and Wound explored Suture Information: Ethilon, Simple and 4-0 Right eyebrow: Length: 2 cm Depth: Sub Q Shape: Linear Prep: Sterile Conditions and Chlorhexadine Laceration repair: Irrigated, Lidocaine, Local, Skin sutures and Wound explored Suture Information: Ethilon and Simple MDM MDM MDM Narrative Medical decision making narrative: Since the patient did not have any loss of consciousness, is not on any anticoagulants, and has a normal neurologic exam, I do not feel that the need for a CT scan of his head at this time. The right hand wound was cleaned and irrigated with copious amounts of normal saline. The wound was anesthetized with 1% plain lidocaine locally. The wound was closed with 5 simple interrupted #4-0 nylon sutures under sterile technique. The right eyebrow wound was cleaned and irrigated with copious amounts of normal saline. The wound was anesthetized with 1% plain lidocaine locally. The wound was closed with 4 simple interrupted #6-0 nylon sutures under sterile technique. Patient tolerated the procedure well. Bacitracin dressing was applied. Treatment and Re-Evaluation Narrative: Patient was instructed to keep the wounds clean and dry. Patient was given head injury instructions. Patient was instructed to follow-up with his primary care physician in 7 days for wound recheck and suture removal. Patient understood and was agreeable with the plan. All questions were answered. Discharge Plan Triage Chief Complaint: Laceration ED Provider: Flaco Stout Dx/Rx/DC Orders Clinical Impression: Laceration of right hand, Laceration of right eyebrow, Abrasion, right knee, initial encounter, Closed head injury, Fall Instructions: ED Abrasion, ED Head Injury (Adult), ED Laceration, All Closures, ED Hand Laceration- All Closures Prescriptions: No Action cyanocobalamin (vitamin B-12) [B-12 DOTS] 500 mcg tablet 1,000 mcg PO QHS pantoprazole 40 MG tablet 40 mg PO QHS potassium chloride 10 MEQ tablet 8 meq PO BID Glucosamine Chondroitin 550-30-1 mg capsule 1 cap PO DAILY Rx Instructions: orally twice a day; polyethylene glycol 3350 [Miralax] 17 gram/dose Powder 17 g PO DAILY ferrous sulfate [iron] 325 mg (65 mg iron) tablet 325 mg PO DAILY acetaminophen 500 mg Tablet 1,000 mg PO Q8 Qty: 0 0RF meloxicam 7.5 mg Tablet 7.5 mg PO BID Qty: 0 0RF levothyroxine 50 mcg Tablet 50 mcg PO DAILY@0600 Qty: 30 0RF Rx Instructions: Take this medication in the MORNING on an empty stomach and wait 30 minutes to eat. furosemide 20 mg Tablet 60 mg PO DAILY Qty: 90 0RF Rx Instructions: take 3 tabs once a day in the morning to prevent swelling tamsulosin 0.4 mg Capsule 0.4 mg PO DAILY@1730 Qty: 30 0RF Serevent Diskus 50 mcg/dose blister with device 1 inh inhalation Q12H Qty: 60 0RF Rx Instructions: 1 inhalation every 12 hours. lisinopril 20 mg tablet 20 mg PO DAILY Qty: 30 0RF furosemide 40 mg tablet 40 mg PO BID meclizine 25 mg tablet 12.5 - 25 mg PO TID PRN PRN (Reason: dizziness) prednisone 50 mg tablet 50 mg PO DAILY 4 Days Qty: 4 0RF doxycycline hyclate 100 mg capsule 100 mg PO BID Qty: 10 0RF albuterol sulfate [Ventolin HFA] 90 mcg/actuation HFA aerosol inhaler 2 puff inhalation Q6H PRN (Reason: shortness of breath or wheezing) Qty: 8.5 0RF Primary Care Provider: Jose Alejandro Villalpando Referrals: Jose Alejandro Villalpando DO [Primary Care Provider, Family Practice] - 7 Days for suture removal Print Language: Azeri Disposition Disposition: Home, Self Care
[2025-01-22] MEDS: Lidocaine 1% (20 ml mdv) 20 ML Vial INFILT (14:44)
--- OUTSIDE RECORDS SUMMARY | 2025-01-22 15:20 | XMS RPT_ITS | CCD ---
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 Davis Recio Primary Care Provider Dr. Elgin Hoffmann Emergency Provider Dr. Flaco Correia Attending Provider Dr. Sagar Kaur Attending Provider Dr. Flaco Correia Admit Provider Dr. Flaco Correia Other Provider Dr. Jose Alejandro Nj Attending Provider Dr. Jose Alejandro Nj Other Provider Dr. Ailyn Hernandez Primary Care Provider Dr. Ailyn Hernandez Referring Provider PAIGE Guerra Attending Provider Dr. Flaco Armando Attending Provider Dr. Jose Alejandro Villalpando DO Primary Care Provider Dr. Jose Alejandro Villalpando DO Attending Provider Dr. Jose Alejandro Villalpando DO Referring Provider Dr. Eimle Paz DO Referring Provider Dr. Emile Paz DO Emergency Provider Jose Alejandro Villalpando Primary Care Unavailable Jose Alejandro Villalpando Attending Unavailable Jose Alejandro Villalpando Referring Unavailable Jose Alejandro Villalpando Primary Care Unavailable Jose Alejandro Villalpando Attending Unavailable Jose Alejandro Villalpando Referring Unavailable Jose Alejandro Villalpando Attending Unavailable Jose Alejandro Villalpando Referring Unavailable Jose Alejandro Villalpando Primary Care Unavailable Emile Paz Attending Unavailable Emile Paz Referring Unavailable Jose Alejandro Villalpando Primary Care Unavailable IrasemaJose Alejandro Primary Care Unavailable Laura Friedman Attending Unavailable Carol Wallace Attending UnavailCarol Alvarado Referring Unavaila Jose Alejandro Chandler Primary Care Unavailable Medications Current Medications Medication Drug Class(es) Dates Sig (Normalized) Sig (Original) acetaminophen 500 mg oral tablet (2 sources) Start: 08-20-2023 take 2 tablets by mouth every eight hours Acetaminophen 500 mg Tablet Active 1000 mg PO EVERY 8 HOURS 0 0 August 20, 2023 12:00am pain [id number] 200 actuat albuterol 0.09 mg/actuat metered dose inhaler (3 sources) beta2-Adrenergic Agonist Start: 09-04-2023 End: 09-25-2024 Albuterol Sulfate (Ventolin Hfa) 90 mcg/actuation HFA aerosol inhaler Active 2 NMA INHALATION EVERY 6 HOURS as needed for shortness of breath or wheezing 8.5 0 September 25, 2024 12:00am Compress.Jay Storey,Reg,Med (1 source) Start: 09-18-2022 Compress.Martin Storey,Reg,Med Active 0 .Route 2 September 18, 2022 12:00am As directed Cyanocobalamin-Liver Extract (Vitamin G17-Jxpiv) Tablet (1 source) Start: 02-04-2021 take 1 tablet by mouth once daily Cyanocobalamin-Live r Extract (Vitamin X59-Tlvjf) Tablet Active 1 TABLET PO DAILY February 04, 2021 4:40pm docusate sodium 100 mg oral capsule (1 source) Start: 06-02-2020 take 100 mg by mouth once daily Docusate Sodium Active 100 MG PO DAILY June 02, 2020 2:18pm doxycycline hyclate 100 mg oral capsule (1 source) Tetracycline-cla ss Drug Start: 09-25-2024 take 1 capsule by mouth twice daily Doxycycline Hyclate 100 mg capsule Active 100 mg PO TWICE A DAY 10 0 September 25, 2024 12:00am ferrous sulfate 325 mg oral tablet (2 sources) Start: 07-29-2023 take 1 tablet by mouth once daily Ferrous Sulfate (Iron) 325 mg (65 mg iron) tablet Active 325 mg PO DAILY July 29, 2023 12:00am supplement furosemide 40 mg oral tablet (17 sources) Loop Diuretic Start: 09-25-2024 take 1 tablet by mouth twice daily Furosemide 40 mg tablet Active 40 mg PO TWICE A DAY September 25, 2024 12:00am Start: 09-03-2023 take 3 tablets by mo uth once daily in the morning Furosemide 20 mg Tablet Active 60 mg PO DAILY 90 0 September 03, 2023 12:00am take 3 tabs once a day in the morning to prevent swelling Start: 07-29-2023 End: 09-03-2023 Furosemide 40 mg tablet Disc ontinued 20 mg PO AT BEDTIME July 29, 2023 12:00am September 03, 2023 2:19pm diuretic Start: 06-02-2020 End: 09-03-2023 take 2 tablets by mouth once daily Furosemide 20 MG tablet Discontinued 40 mg PO DAILY June 02, 2020 12:00am September 03, 2023 2:19pm diuretic Start: 06-02-2020 take 20 mg by mouth once daily Furosemide Active 20 MG PO DAILY June 02, 2020 12:00am Glucos Sul 4mdp-Ido-Vrjum-C-Mn (Glucosamine Chondroitin) 550-30-1 mg Capsule (12 sources) Start: 02-04-2021 take 1 capsule by mouth once daily Glucos Sul 0rij-Ajw-Dhloo-C-Mn (Glucosamine Chondroitin) 550-30-1 mg Capsule Active 1 CAP PO DAILY February 04, 2021 4:40pm Start: 02-04-2021 End: 08-14-2022 Glucos Sul 2fdy-Ocf-Ejkgu-C- Mn (Glucosamine Chondroitin) 550-30-1 mg Capsule Discontinued 1 NMA PO DAILY February 04, 2021 1:00am August 14, 2022 1:11pm Start: 02-04-2021 End: 08-14-2022 take 1 capsule by mouth once daily Glucos Sul 4ksa-Jos-Pxbac-C-Mn (Glucosamine Chondroitin) 550-30-1 mg Capsule Discontinued 1 CAP PO DAILY February 04, 2021 1:00am August 14, 2022 1:11pm Start: 02-04-2021 take 1 capsule by mo uth once daily Glucos Sul 3sdg-Gfq-Cuxke-C-Mn (Glucosamine Chondroitin) 550-30-1 mg Capsule Active 1 CAP PO DAILY Iggy 11th, 2021 1:00am Glucos Sul 7eck-Ztk-Bgtjx-C- Mn (Glucosamine Chondroitin) 550-30-1 mg capsule (5 sources) Start: 08-14-2022 Glucos Sul 2kc h-Vch-Atjhp-C-Mn (Glucosamine Chondroitin) 550-30-1 mg capsule Active 1 NMA PO DAILY August 14, 2022 1:10pm ? On Hold: Resume on 09/17/23. June resume on 09/17/23 orally twice a day; Start: 08-14-2022 Glucos Sul 2kc d-Yov-Wzhns-C-Mn (Glucosamine Chondroitin) 550-30-1 mg capsule Active 1 NMA PO DAILY August 14, 2022 1:10pm On Hold: Resume on 09/17/23. June resume on 09/17/23 orally twice a day; Start: 08-14-2022 Glucos Sul 2kc z-Ymm-Kttyw-C-Mn (Glucosamine Chondroitin) 550-30-1 mg capsule Active 0 PO TWICE A DAY August 14, 2022 1:10pm orally twice a day; levothyroxine sodium 0.05 mg oral tablet (14 sources) l-Thyroxine Start: 12-11-2015 End: 09-03-2023 take 1 tablet by mouth in the morning Levothyroxine 50 mcg Tablet Active 50 ug PO DAILY@0600 30 0 September 03, 2023 12:00am Take this medication in the MORNING on an empty stomach and wait 30 minutes to eat. Start: 12-11-2015 take 50 ug by mouth once daily Levothyroxine Active 50 MCG PO DAILY December 11, 2015 12:00am lisinopril 20 mg oral tablet (14 sources) Angiotensin Converting Enzyme Inhibitor Start: 09-04-2023 take 1 tablet by mouth once daily Lisinopril 20 mg tablet Active 20 mg PO DAILY 30 September 04, 2023 12:00am Start: 07-29-2023 End: 09-03-2023 take 1 tablet by mouth once daily Lisinopril 40 mg tablet Discontinued 40 mg PO DAILY July 29, 2023 12:00am September 03, 2023 2:21pm BP Start: 09-04-2021 End: 07-29-2023 take 1 tablet by mouth once daily Lisinopril 10 mg tablet Discontinued 10 mg PO DAILY September 04, 2021 12:00am July 29, 2023 10:14am meclizine hydrochloride 25 mg oral tablet (1 source) Antiemetic Start: 09-25-2024 take 12.5-25 mg by mouth three times daily as needed for dizziness Meclizine 25 mg tablet Active 12.5 - 25 mg PO 3 TIMES DAILY NEEDED as needed for dizziness September 25, 2024 12:00am pantoprazole 40 mg delayed release oral tablet (12 sources) Proton Pump Inhibitor Start: 06-02-2020 take 1 tablet by mouth at bedtime Pantoprazole 40 MG tablet Active 40 mg PO AT BEDTIME June 02, 2020 12:00am reflux polyethylene glycol 3350 55192 mg powder for oral solution (11 sources) Osmotic Laxative Start: 09-03-2021 Polyethylene Glycol 3350 (Miralax) 17 gram/dose Powder Active 17 g PO DAILY September 03, 2021 12:00am bowel mobility microencapsulated potassium chloride 10 meq extended release oral tablet (12 sources) Start: 06-02-2020 take 8 mEq by mouth twice daily Potassium Chloride 10 MEQ tablet Active 8 meq PO TWICE A DAY June 02, 2020 12:00am supplement Start: 06-02-2020 take 8 mEq by mouth once daily Potassium Chloride Active 8 MEQ PO DAILY June 02, 2020 12:00am predniSONE 50 mg oral tablet (1 source) Start: 09-25-2024 take 1 tablet by mouth once daily Prednisone 50 mg tablet Active 50 mg PO DAILY 4 4 0 September 25, 2024 12:00am Salmeterol (2 sources) beta2-Adrenergic Agonist Start: 09-03-2023 Salmeterol (Serevent Diskus) 50 mcg/dose blister with device Active 1 NMA INHALATION Q12H 60 0 September 03, 2023 12:00am 1 inhalation every 12 hours. Start: 09-03-2023 Salmeterol (Se revent Diskus) 50 mcg/dose blister with device Active 1 NMA INHALATION Q12H 60 September 03, 2023 12:00am 1 inhalation every 12 hours. tamsulosin hydrochloride 0.4 mg oral capsule (2 sources) alpha-Adrenergic Shanthi Start: 09-03-2023 take 1 capsule by mouth once daily Tamsulosin 0.4 mg Capsule Active 0.4 mg PO DAILY@1730 30 0 September 03, 2023 12:00am vitamin B12 (5 sources) Vitamin B12 Start: 08-14-2022 take 2 tablets by mouth at bedtime Cyanocobalamin (Vitamin B-12) (B-12 Dots) 500 mcg tablet Active 1000 ug PO AT BEDTIME August 14, 2022 12:00am supplement Start: 08-14-2022 take 2 tablets by mo uth at bedtime Cyanocobalamin (Vitamin B-12) (B-12 Dots) 500 mcg tablet Active 1000 ug PO AT BEDTIME August 14, 2022 12:00am Start: 08-14-2022 take 2 tablets by mo uth once daily Cyanocobalamin (Vitamin B-12) (B-12 Dots) 500 mcg tablet Active 1000 MCG PO DAILY August 14, 2022 12:00am Completed/Discontinued Medications Medication Drug Class(es) Dates Sig (Normalized) Sig (Original) aspirin 81 mg chewable tablet (2 sources) Platelet Aggregation Inhibitor, Nonsteroidal Anti-inflammatory Drug Start: 08-20-2023 End: 09-25-2024 take 1 tablet by mouth twice daily at mealtime Aspirin 81 mg Tablet,Chewable Discontinued 81 mg PO TWICE DAILY WITH MEALS 0 0 August 20, 2023 12:00am September 25, 2024 12:52pm [facility] atorvastatin 80 mg oral tablet (4 sources) HMG-CoA Reductase Inhibitor Start: 08-30-2022 End: 07-29-2023 take 1 tablet by mouth at bedtime Atorvastatin 80 mg tablet Discontinued 80 mg PO AT BEDTIME 30 11 August 30, 2022 12:00am July 29, 2023 10:17am Compress.Martin Storey nee,Reg,Med misc (2 sources) Start: 09-18-2022 End: 08-20-2023 Compress.Stocking, Knee,Reg,Med misc Discontinued 0 .Route 2 0 September 18, 2022 12:00am August 20, 2023 11:34am Peripheral vascular disease Peripheral vascular disease, unspecified blood clot prevention As directed Start: 09-18-2022 End: 08-20-2023 Compress.Stocking,Knee,Reg,M ed misc Discontinued 0 .Route 2 September 18, 2022 12:00am August 20, 2023 11:34am As directed ferrous gluconate 324 mg oral tablet (11 sources) Start: 09-03-2021 End: 08-20-2023 Ferrous Gluconate 324 mg (37.5 mg iron) tablet Discontinued 1 {tbl} PO DAILY September 03, 2021 12:00am August 20, 2023 11:33am supplement hydroCHLOROthiazide 25 mg oral tablet (12 sources) Thiazide Diuretic Start: 02-04-2021 End: 09-04-2021 take 1 tablet by mouth once daily Hydrochlorothiazide 25 mg Tablet Discontinued 25 mg PO DAILY February 04, 2021 1:00am September 04, 2021 5:14pm ketoconazole 20 mg/ml topical cream (4 sources) Azole Antifungal Start: 09-11-2022 End: 07-29-2023 Ketoconazole 2 % cream Discontinued 1 NMA TOPICAL TWICE A DAY 60 0 September 11, 2022 12:00am July 29, 2023 10:18am lactulose 667 mg/ml oral solution (2 sources) Osmotic Laxative Start: 12-23-2023 End: 09-25-2024 take 1 mL by mouth at bedtime as needed for constipation Lactulose 10 gram/15 mL solution Discontinued 15 mL PO AT BEDTIME as needed for constipation 237 0 December 23, 2023 12:00am September 25, 2024 12:54pm meloxicam 7.5 mg oral tablet (2 sources) Nonsteroidal Anti-inflammato ry Drug Start: 08-20-2023 take 1 tablet by mouth twice daily Meloxicam 7.5 mg Tablet Active 7.5 mg PO TWICE A DAY 0 0 August 20, 2023 12:00am anti-inflammatory On Hold: Do NOT take this medication until you see Dr. Villalpando. this medication causes ulcers in the stomach and you have blood in your stool which can be a sign of bleeding in the gastrointestinal tract. oxyCODONE hydrochloride 5 mg oral tablet (4 sources) Opioid Agonist Start: 09-03-2023 End: 09-25-2024 take 1 tablet by mouth every six hours as needed for pain Oxycodone 5 mg Tablet Discontinued 5 mg PO EVERY 6 HOURS NEEDED as needed for Pain Score 4-10 28 7 0 September 03, 2023 September 25, 2024 12:54pm History of total left knee replacement Presence of left artificial knee joint Take 1 tab every 6 hours as needed for pain not controlled with Tylenol Start: 08-20-2023 End: 09-03-2023 take 5-10 mg by mouth every four hours as needed for pain Oxycodone 5 mg Tablet Discontinued 5 - 10 mg PO EVERY 4 HOURS NEEDED as needed for Pain Score 4-10 0 0 August 20, 2023 September 03, 2023 2:24pm psyllium 3400 mg powder for oral suspension (2 sources) Start: 07-29-2023 End: 08-20-2023 Psyllium Husk (Metamucil) 3. 4 gram/5.4 gram powder Discontinued 1 tbsp PO AT BEDTIME July 29, 2023 12:00am August 20, 2023 11:34am bowel mobility mix into at least 8 oz of water or juice before administering Problems Active Problems Problem Classification Problem Date Documented Da te Episodic/Chronic Acute cerebrovascular disease (2 sources) Cerebrovascular accident; Translations: [Cerebral infarction, unspecified] Chronic Acute posthemorrhagic anemia (2 sources) Acute posthemorrhagic anemia; Translations: [Acute posthemorrhagic anemia] 08-20-2023 Episodic Allergic reactions (2 sources) Allergic disorder of skin; Translations: [Allergic contact dermatitis, unspecified cause] 09-12-2023 Episodic Chronic kidney disease (2 sources) Chronic kidney disease stage 3A ; Translations: [Chronic renal failure, stage 3a] 09-12-2023 Chronic Chronic obstructive pulmonary disease and bronchiectasis (5 sources) Chronic obstructive lung disease; Translations: [Chronic obstructive pulmonary disease, unspecified] 09-03-2023 Chronic Chronic obstructive pulmonary disease and bronchiectasis (2 sources) Bronchitis, not specified as acute or chronic; Translations: [Bronchitis due to human metapneumovirus (hMPV)] 09-12-2023 Episodic Conditions associated with dizziness or vertigo (20 sources) Peripheral vertigo; Translations: [Other peripheral vertigo, unspecified ear] Episodic Deficiency and other anemia (1 source) Iron deficiency anemia, unspecified; Translations: [Iron deficiency anemia, unspecified] Onset: Episodic Esophageal disorders (12 sources) Gastroesophageal reflux disease; Translations: [Gastro-esophageal reflux disease without esophagitis] 09-03-2021 Chronic Comment on above: CONTROLLED WITH MED Essential hypertension (15 sources) Hypertensive disorder; Translations: [Essential (primary) hypertension] Chronic Comment on above: CONTROLLED WITH MED Genitourinary symptoms and ill-defined conditions (2 sources) Retention of urine; Translations: [Retention of urine, unspecified] 09-12-2023 Episodic Malaise and fatigue (3 sources) Asthenia; Translations: [Other malaise] 08-20-2023 Episodic Mycoses (4 sources) Tinea corporis; Translations: [Tinea corporis] 09-11-2022 Episodic Osteoarthritis (2 sources) Arthritis of knee; Translations: [Unilateral primary osteoarthritis, left knee] 08-20-2023 Chronic Other and ill-defined heart disease (2 sources) Diastolic dysfunction; Translations: [Other ill-defined heart diseases] 09-12-2023 Chronic Other circulatory disease (1 source) H/O: heart failure; Translations: [Personal history of other diseases of the circulatory system] 09-25-2024 Episodic Other connective tissue disease (4 sources) History of total knee arthroplasty; Translations: [Presence of left artificial knee joint] 08-20-2023 Chronic Comment on above: 08/19/[address] Declan Carson. 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, unspecified eye] 09-03-2021 Episodic Other eye disorders (3 sources) Third [oculomotor] nerve palsy, unspecified eye; Translations: [Third or oculomotor nerve palsy, partial] Episodic Other gastrointestinal disorders (20 sources) Constipation; Translations: [Constipation, unspecified] 06-03-2020 Episodic Other gastrointestinal disorders (9 sources) Acute constipation; Translations: [Constipation, unspecified] 12-19-2021 Episodic Other gastrointestinal disorders (2 sources) Chronic constipation; Translations: [Other constipation] 09-12-2023 Episodic Other gastrointestinal disorders (2 sources) Swollen abdomen; Translations: [Abdominal distension (gaseous)] 09-12-2023 Episodic Other gastrointestinal disorders (2 sources) Occult blood in stools; Translations: [Other fecal abnormalities] 08-23-2023 Episodic Other lower respiratory disease (3 sources) Cough; Translations: [Cough in adult] 09-12-2023 Episodic Peripheral and visceral atherosclerosis (8 sources) Peripheral vascular disease; Translations: [Peripheral vascular disease, unspecified] 08-14-2022 Chronic Residual codes; unclassified (2 sources) Insomnia; Translations: [Insomnia, unspecified] 09-12-2023 Episodic Screening and history of mental health and substance abuse codes (2 sources) Ex-smoker; Translations: [Personal history of nicotine dependence] 08-20-2023 Episodic Skin and subcutaneous tissue infections (2 sources) Cellulitis; Translations: [Cellulitis, unspecified] 09-12-2023 Episodic Comment on above: Left lower extremity Thyroid disorders (12 sources) Hypothyroidism; Translations: [Hypothyroidism, unspecified] 09-03-2021 Chronic Comment on above: ON MED Past or Other Problems Problem Classification Problem Date Documented Da te Episodic/Chronic Deficiency and other anemia (1 source) Anemia, unspecified; Translations: [Anemia, unspecified] Onset: 10-30-2023 Episodic Other gastrointestinal disorders (1 source) Constipation, unspecified; Translations: [Constipation, unspecified] Onset: 01-14-2024 Episodic Results Test Name Value Interpretation Reference Range Facility 12 Lead EKGon 09-25-2024 12 Lead EKG [facility] [address] [place] [address] 12 Lead EKG 09/25/24 1316 MR#: [id number] Acct: [id number] Name: FRANCISCA BRAGG Rep #: [id number] : 1940 84 From: Sagar Kaur MD Attending Dr: Status: DEP ER Ordering Dr: Emile Paz DO Date: 09/25/24 Location: ED Sex: M C Admitted: Test Reason : petty Blood Pressure : */* mmHG Vent. Rate : 53 BPM Atrial Rate : 53 BPM P-R Int : 270 ms QRS Dur : 92 ms QT Int : 430 ms P-R-T Axes : 66 -4 17 degrees QTcB Int : 403 ms Sinus bradycardia with 1st degree A-V block Otherwise normal ECG Confirmed by SAGAR KAUR MD ([id number]), food editor CHINO BARRAZA ([id number]) on 09/28/2024 6:56:23 AM Referred By: Emile Paz Confirmed By: SAGAR KAUR MD 09/28/24 0656 Date Sagar Kaur MD CC: Dr. Jose Alejandro Villalpando DO; Dr. Emile Paz DO Signed Normal [facility] Absolute lymphocyte countOrd ered By: Emile Paz on 09-25-2024 Lymphocytes Auto (Unsp spec) [#/Vol] 1.37 10*3/uL 0.83-4.51 [facility] Absolute neutrophil countOrd ered By: Emile Paz on 09-25-2024 Neutrophils (Bld) [#/Vol] 4.3 10*3/uL 2.0-7.7 [facility] Anion gap in Serum or Plasma Ordered By: Emile Paz on 09-25-2024 Anion gap [Moles/Vol] 11 mmol/L 5-15 [facility] Automated lymphocyte count a s percentage of total leukocytesOrdered By: Emile Paz on 09-25-2024 Lymphocytes/100 WBC Auto (Unsp spec) 21.5 % 19-41 [facility] BUN/creatinine ratioOrdered By: Emile Paz on 09-25-2024 Urea nitrogen/Creatinine [Mass ratio] 17.2 mg/mg 10-20 [facility] Basic Metabolic Profile (BMP )on 09-25-2024 BUN/CRE 17.2 RATIO Normal - [facility] Comment on above: Performed By: #### L 500.2500, L5.8645 ####[facility] [address] [place], [address] Calcium [Mass/Vol] 9.0 mg/dL Normal 7.6-11.0 [facility] Comment on above: Performed By: #### L 500.2500, L5.7505 ####[facility] [address] [place], [address] Chloride [Moles/Vol] 104 mmol/L Normal 98-108 [facility] Comment on above: Performed By: #### L 500.2500, L503.7505 ####[facility] [address] [place], [address] CO2 [Moles/Vol] 25.2 mmol/L Normal 21.0-32.0 [facility] Comment on above: Performed By: #### L 500.2500, L503.7505 ####[facility] [address] [place], [address] Creatinine [Mass/Vol] 1.06 mg/dL Normal 0.70-1.20 [facility] Comment on above: Performed By: #### L 500.2500, L503.7505 ####[facility] [address] [place], [address] ECRCL 50.99 ml/min Normal 50-250 [facility] Comment on above: Performed By: #### L 500.2500, L503.7505 ####[facility] [address] [place], [address] GAP 11 Normal 5-15 [facility] Comment on above: Performed By: #### L 500.2500, L5.7505 ####[facility] [address] [place], [address] GFR/1.73 sq M.predicted among non-blacks MDRD (S/P/Bld) [Vol rate/Area] 68 mL/min/{1.73_m2} Normal >60 [facility] Comment on above: Result Comment: mL/m in/1.73m2 CKD-EPI Creatinine Equation (2020) Performed By: #### L 500.2500, L503.7505 ####[facility] [address] [place], [address] Glucose [Mass/Vol] 96 mg/dL Normal 70-99 [facility] Comment on above: Performed By: #### L 500.2500, L503.7505 ####[facility] [address] [place], [address] Potassium [Moles/Vol] 4.4 mmol/L Normal 3.3-5.1 [facility] Comment on above: Performed By: #### L 500.2500, L503.7505 ####[facility] [address] [place], [address] Sodium [Moles/Vol] 140 mmol/L Normal 133-145 [facility] Comment on above: Performed By: #### L 500.2500, L503.7505 ####[facility] [address] [place], [address] Urea nitrogen [Mass/Vol] 18 mg/dL Normal 4-19 [facility] Comment on above: Performed By: #### L 500.2500, L503.7505 ####[facility] [address] [place], [address] Basophil percentageOrdered B y: Emile Paz on 09-25-2024 Basophils/100 WBC (Bld) 0.6 % 0-1 [facility] CBC W/Diff, Automatedon Absolute Lymph 1.37 X10 3/uL Normal 0.83-4.51 [facility] Comment on above: Performed By: #### L 501.4021, L100.0100 ####[facility] [address] [place], [address] Absolute Neut 4.3 X10 3/uL Normal 2.0-7.7 [facility] Comment on above: Performed By: #### L 501.4021, L100.0100 ####[facility] [address] [place], [address] Basophils/100 WBC (Bld) 0.6 % Normal 0-1 [facility] Comment on above: Performed By: #### L 501.4021, L100.0100 ####[facility] [address] [place], [address] Eosinophils/100 WBC (Bld) 3.3 % Normal 0-5 [facility] Comment on above: Performed By: #### L 501.4021, L100.0100 ####[facility] [address] [place], [address] Erythrocyte distribution width (RBC) [Ratio] 13.2 % Normal 11.6-14.6 [facility] Comment on above: Performed By: #### L 501.4021, L100.0100 ####[facility] [address] [place], [address] Hematocrit (Bld) [Volume fraction] 42.5 % Normal 40-54 [facility] Comment on above: Performed By: #### L 501.4021, L100.0100 ####[facility] [address] [place], [address] Hemoglobin (Bld) [Mass/Vol] 13.9 g/dL Normal 13.0-16.5 [facility] Comment on above: Performed By: #### L 501.4021, L100.0100 ####[facility] [address] [place], [address] IG% 0.800 Normal 0.0-0.9 [facility] Comment on above: Result Comment: IG% - Immature Granulocytes (promyelocytes, myelocytes and metamyelocytes) > 1% indicates that a LEFT SHIFT is Present. Performed By: #### L 501.4021, L100.0100 ####[facility] [address] [place], [address] Lymphocytes/100 WBC (Bld) 21.5 % Normal 19-41 [facility] Comment on above: Performed By: #### L 501.4021, L100.0100 ####[facility] [address] [place], [address] MCH (RBC) [Entitic mass] 29.6 pg Normal 27.0-32.0 [facility] Comment on above: Performed By: #### L 501.4021, L100.0100 ####[facility] [address] [place], [address] MCHC (RBC) [Mass/Vol] 32.7 g/dL Normal 32-36 [facility] Comment on above: Performed By: #### L 501.4021, L100.0100 ####[facility] [address] [place], [address] MCV (RBC) [Entitic vol] 90.6 fL Normal 80-94 [facility] Comment on above: Performed By: #### L 501.4021, L100.0100 ####[facility] [address] [place], [address] Monocytes/100 WBC (Bld) 6.7 % Normal 0-10 [facility] Comment on above: Performed By: #### L 501.4021, L100.0100 ####[facility] [address] [place], [address] Neutrophils/100 WBC (Bld) 67.1 % Normal 47-70 [facility] Comment on above: Performed By: #### L 501.4021, L100.0100 ####[facility] [address] [place], [address] Nucleated RBC (Bld) [#/Vol] 0 10*3/uL Normal 0-5 [facility] Comment on above: Performed By: #### L 501.4021, L100.0100 ####[facility] [address] [place], [address] Platelet mean volume (Bld) [Entitic vol] 9.6 fL Normal 6.2-12.0 [facility] Comment on above: Performed By: #### L 501.4021, L100.0100 ####[facility] [address] [place], [address] Platelets (Bld) [#/Vol] 297 10*3/uL Normal 150-450 [facility] Comment on above: Performed By: #### L 501.4021, L100.0100 ####[facility] [address] [place], [address] RBC (Bld) [#/Vol] 4.69 10*6/uL Normal 4.6-6.2 [facility] Comment on above: Performed By: #### L 501.4021, L100.0100 ####[facility] [address] [place], [address] RDW SD 43.0 fl Normal 35.1-43.9 [facility] Comment on above: Performed By: #### L 501.4021, L100.0100 ####[facility] [address] [place], [address] WBC (Bld) [#/Vol] 6.4 10*3/uL Normal 4.4-11.0 [facility] Comment on above: Performed By: #### L 501.4021, L100.0100 ####[facility] [address] [place], [address] Carbon dioxide, total [Moles /volume] in Central venous bloodOrdered By: Emile Paz on 09-25-2024 CO2 [Moles/Vol] 25.2 mmol/L 21.0-32.0 [facility] Chest PA and Lateralon 09-25 Chest PA and Lateral [facility] [address] [place] [address] Chest PA and Lateral MR#: [id number] Acct: [id number] Name: FRANCISCA BRAGG S Rep #: [id number] : 1940 M 84 From: Kp giron MD PCP: Dr. Jose Alejandro Villalpando DO Status: REG ER Study: Chest PA and Lateral Date of Exam: 09/25/24 Exam# [id number] Ordering Dr: Emile Paz DO PROCEDURE: CHEST PA AND LATERAL 09/25/2024 REASON FOR EXAM: CHEST PAIN TECHNIQUE: CHEST PA AND LATERAL COMPARISON: Prior study dated August 20, 2023. FINDINGS: Hardware: EKG electrodes are seen. Heart: Heart size upper limits of normal. Mediastinum: Unremarkable Lungs: Stable elevation of the right hemidiaphragm. No focal infiltrate is seen. Bones: Degenerative changes are identified within the thoracic spine. RAD/Chest PA and Lateral IMPRESSION: Stable elevation of the right hemidiaphragm. The lungs are clear. Reading Location: [id number] CC: Dr. Jose Alejandro Villalpando DO; Dr. Emile Paz DO Crew Chief: Signed Normal [facility] Chloride assayOrdered By: Cody Paz on 09-25-2024 Chloride [Moles/Vol] 104 mmol/L 98-108 [facility] Emergency Department Summary on 09-25-2024 Emergency Department Summary [facility] Medical Records Department [address] [place] [address] Emergency Department Summary 09/25/24 MR#: [id number] Acct: [id number] Name: FRANCISCA BRAGG Rep #: [id number] : 1940 84 From: Emile Paz DO PCP: Dr. Jose Alejandro Villalpando DO Status:REG ER Location: ED HPI History of Present Illness Chief Complaint: General Illness Narrative Narrative: Patient is a 84-year-old male with past medical history of COPD, chronic kidney disease, heart failure, hypertension, hypothyroidism who presented to the emergency department with a chief complaint of cough and concern for pneumonia. Patient states that he woke up this morning and noted that he had some wheezing and started coughing up more sputum than normal. Patient states that he is leaving town and he wanted to be sure that nothing else was going on before he left. 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 Peripheral vertigo Diastolic dysfunction Chronic renal failure, stage 3a Peripheral vascular disease History of echocardiogram Wears hearing aid Wears glasses Wears dentures Rash Ambulates with cane Arthritis Low iron History of ulceration Former smoker Leg cramps History of pain when walking History of edema Constipation GERD (gastroesophageal reflux disease) Hypertension Hypothyroid Home Medications ???Medication ???Instructions ???Recorded ???Last Taken ???Type pantoprazole 40 mg tablet,delayed 40 mg PO QHS reflux 06/02/2007/27 History release potassium chloride 10 mEq 8 meq PO BID supplement 06/02/20 0 08/20/23 History tablet,extended release(part/cryst) polyethylene glycol 3350 17 17 g PO DAILY bowel mobility 09/0308/20/23 History gram/dose oral powder (Miralax) cyanocobalamin (vitamin B-12) 500 1,000 mcg PO QHS supplement 08/1409/24/24 History mcg tablet (B-12 DOTS) glucosamine sulf dipot 1 cap PO DAILY ? 08/14/22 08/12/23 History chlr,msm,chond 550 mg-C 30 mg-carmela 1 mg capsule (Glucosamine Chondroitin) Held on 09/03/23. Instructions: Resume on 09/17/23. May resume on 09/17/23 ferrous sulfate 325 mg (65 mg 325 mg PO DAILY supplement 4 09/24/24 History iron) tablet (iron) acetaminophen 500 mg tablet 1,000 mg (2 x 500 mg) PO Q8 pain 0 08/20/23 08/20/23 Rx #0 tabs meloxicam 7.5 mg tablet 7.5 mg PO BID anti-inflammatory Unknown Rx Held on 09/03/23. #0 tabs Instructions: Do NOT take this medication until you see Dr. Villalpando. this medication causes ulcers in the stomach and you have blood in your stool which can be a sign of bleeding in the gastrointestinal tract. furosemide 20 mg tablet 60 mg (3 x 20 mg) PO DAILY #90 tab s 09/03/23 09/25/24 Rx levothyroxine 50 mcg tablet 50 mcg PO DAILY@0600 #30 tabs 11/18 Unknown Rx salmeterol 50 mcg/dose blister 1 inh inhalation Q12H #60 ea 09/02 Unknown Rx powder for inhalation (Serevent Diskus) tamsulosin 0.4 mg capsule 0.4 mg PO DAILY@1730 #30 caps 11/18 Unknown Rx lisinopril 20 mg tablet 20 mg PO DAILY #30 tabs 09/04/23 U nknown Rx albuterol sulfate 90 mcg/actuation 2 puff inhalation Q6H PRN Unknown Rx aerosol inhaler (Ventolin HFA) shortness of breath or wheezing #8.5 grams doxycycline hyclate 100 mg capsule 100 mg PO BID #10 caps 09/25/24 Unknown Rx furosemide 40 mg tablet 40 mg PO BID 09/25/24 Unknown Hist ory meclizine 25 mg tablet 12.5 - 25 mg PO TID PRN PRN Unknown History dizziness prednisone 50 mg tablet 50 mg PO DAILY 4 days #4 tabs 03/21 Unknown Rx Allergy/AdvReac Type Severity Reaction Status Date / Time No Known Allergies Allergy Verified 09/25/24 11:55 Surgical History History of total left knee replacement History of esophagogastroduodenoscopy (EGD) Hx of left cataract extraction Hx of right cataract extraction Hx of colonoscopy Hx of left knee surgery Social History household members: none housing: house number of children: 22 Smoking Status: Former smoker Tobacco: How many years used: 55 how long ago did patient quit smokin alcohol intake: never substance use type: does not use ROS ROS ED ROS Narrative Constitutional: Denies fevers, chills, headache Cardiovascular: Denies chest pain or palpitations Respiratory: Claims coughing as noted above denies shortness of breath Abdomen: Denies abdominal pain nausea vomit diarrhea : Denies urinary symptoms (more content not included)... Normal [facility] Eosinophil percentageOrdered By: Emile Paz on 09-25-2024 Eosinophils/100 WBC (Bld) 3.3 % 0-5 [facility] Erythrocyte distribution wid th ratioOrdered By: Emile Paz on 09-25-2024 Erythrocyte distribution width (RBC) [Ratio] 13.2 % 11.6-14.6 [facility] Erythrocyte distribution wid th standard deviationOrdered By: Emile Paz on 09-25-2024 Erythrocyte distribution width (RBC) [Ratio] 43.0 fl 35.1-43.9 [facility] Glomerular filtration rate ( GFR) estimation/1.73 sq m using serum, plasma, or whole bOrdered By: Emile Paz on 09-25-2024 GFR/1.73 sq M.predicted among non-blacks MDRD (S/P/Bld) [Vol rate/Area] 68 mL/min/{1.73_m2} >60 [facility] Comment on above: mL/min/1.73m2 CKD-EP I Creatinine Equation (2020) Hematocrit Auto (Bld) [Volum e fraction]Ordered By: Emile Paz on 09-25-2024 Hematocrit (Bld) [Volume fraction] 42.5 % 40-54 [facility] Hemoglobin measurementOrdere d By: Emile Paz on 09-25-2024 Hemoglobin (Bld) [Mass/Vol] 13.9 g/dL 13.0-16.5 [facility] Immature granulocytes/100 WB C Auto (Bld)Ordered By: Emile Paz on 09-25-2024 Immature granulocytes/100 WBC (Bld) 0.800 % 0.0-0.9 [facility] Comment on above: IG% - Immature Granu locytes (promyelocytes, myelocytes and metamyelocytes) > 1% indicates that a LEFT SHIFT is Present. L501.4021on 09-25-2024 Trop T High Sen 9 ng/L Normal <=22 [facility] Comment on above: Performed By: #### L 501.4021, L100.0100 ####[facility] [address] [place], [place], [id number] MCV (mean corpuscular volume ) determinationOrdered By: Emile Paz on 09-25-2024 MCV (RBC) [Entitic vol] 90.6 fL 80-94 [facility] Mean corpuscular hemoglobin (MCH) determinationOrdered By: Emile Paz on 09-25-2024 MCH (RBC) [Entitic mass] 29.6 pg 27.0-32.0 [facility] Mean corpuscular hemoglobin concentration (MCHC) determinationOrdered By: Emile Paz on 09-25-2024 MCHC (RBC) [Mass/Vol] 32.7 g/dL 32-36 [facility] Mean platelet volume determi nationOrdered By: Emile Paz on 09-25-2024 Platelet mean volume (Bld) [Entitic vol] 9.6 fL 6.2-12.0 [facility] Monocyte percentageOrdered B y: Emile aPz on 09-25-2024 Monocytes/100 WBC (Bld) 6.7 % 0-10 [facility] Natriuretic peptide.B prohor francisco N-Terminal [Mass/volume] in Serum or PlasmaOrdered By: Emile Paz on 09-25-2024 Natriuretic peptide.B prohormone N-Terminal [Mass/Vol] 176 pg/mL <1800 [facility] Comment on above: Heart Failure Unlike ly: < 300 pg/mLHeart Failure Likely< 50 Years: > 450 pg/mL50-75 Years: > 900 pg/mL>75 Years: > 1800 pg/mL Neutrophil percentageOrdered By: Emile Paz on 09-25-2024 Neutrophils/100 WBC (Bld) 67.1 % 47-70 [facility] Nucleated red blood cell per centageOrdered By: Emile Paz on 09-25-2024 Nucleated RBC/100 WBC (Bld) [Ratio] 0 % 0-5 [facility] Platelet countOrdered By: Cody Paz on 09-25-2024 Platelets (Bld) [#/Vol] 297 10*3/uL 150-450 [facility] Potassium measurement (mass/ volume)Ordered By: Emile Paz on 09-25-2024 Potassium (Unsp spec) [Mass/Vol] 4.4 mmol/L 3.3-5.1 [facility] Pro- Brain NATRIURETIC PEPTI Al 09-25-2024 Natriuretic peptide B (Bld) [Mass/Vol] 176 pg/mL Normal <=1800 [facility] Comment on above: Result Comment: Hear t Failure Unlikely: < 300 pg/mL Heart Failure Likely < 50 Years: > 450 pg/mL 50-75 Years: > 900 pg/mL >75 Years: > 1800 pg/mL Performed By: #### L 500.2500, L503.7505 ####[facility] [address] [place], [address] RBC Auto (Bld) [#/Vol]Ordere d By: Emile Paz on 09-25-2024 RBC (Bld) [#/Vol] 4.69 10*6/uL 4.6-6.2 [facility] Serum creatinine measurement (mass/volume)Ordered By: Emile Paz on 09-25-2024 Creatinine [Mass/Vol] 1.06 mg/dL 0.70-1.20 [facility] Serum glucose measurement (m ass/volume)Ordered By: Emile Paz on 09-25-2024 Glucose [Mass/Vol] 96 mg/dL 70-99 [facility] Serum or plasma calcium kristan urement (mass/volume)Ordered By: Emile Paz on 09-25-2024 Calcium [Mass/Vol] 9.0 mg/dL 7.6-11.0 [facility] Serum or plasma urea nitroge n measurement (mass/volume)Ordered By: Emile Paz on 09-25-2024 Urea nitrogen [Mass/Vol] 18 mg/dL 4-19 [facility] Sodium levelOrdered By: Cassy Paz on 09-25-2024 Sodium [Moles/Vol] 140 mmol/L 133-145 [facility] Troponin T HS 2 HRon 025 Trop T High Sen Normal <=22 [facility] Comment on above: Result Comment: NO S PECIMEN COLLECTED. PATIENT DEPARTED ED. Performed By: #### L 499.0042 #### [facility] [address] [place], [place], [id number] Troponin T HS 4 HRon 025 Trop T High Sen Normal <=22 [facility] Comment on above: Result Comment: Canc elled via OM: Order cancelled - Patient discharged Performed By: #### L 499.0043 ####[facility] [address] [place], [address] Troponin T.cardiac [Mass/vol ume] in Serum or Plasma by High sensitivity methodOrdered By: Emile Paz on 09-25-2024 Troponin T.cardiac High sensitivity method [Mass/Vol] 9 ng/L <22 [facility] White blood cell (WBC) count Ordered By: Emile Paz on 09-25-2024 WBC (Bld) [#/Vol] 6.4 10*3/uL 4.4-11.0 [facility] Absolute lymphocyte countOrd ered By: Jose Alejandro Villalpando on 07-09-2024 Lymphocytes Auto (Unsp spec) [#/Vol] 1.75 10*3/uL 0.83-4.51 [facility] Absolute neutrophil countOrd ered By: Jose Alejandro Villalpando on 07-09-2024 Neutrophils (Bld) [#/Vol] 4.5 10*3/uL 2.0-7.7 [facility] Anion gap in Serum or Plasma Ordered By: Jose Alejandro Villalpando on 07-09-2024 Anion gap [Moles/Vol] 11 mmol/L 07-09 [facility] Automated lymphocyte count a s percentage of total leukocytesOrdered By: Jose Alejandro Villalpando on 07-09-2024 Lymphocytes/100 WBC Auto (Unsp spec) 25.1 % - [facility] BUN/creatinine ratioOrdered By: Jose Alejandro Villalpando on 07-09-2024 Urea nitrogen/Creatinine [Mass ratio] 16.2 mg/mg 10- [facility] Basophil percentageOrdered B y: Jose Alejandro Villalpando on 07-09-2024 Basophils/100 WBC (Bld) 0.6 % 0- [facility] Bilirubin, totalOrdered By: Jose Alejandro Villalpando on 07-09-2024 Bilirubin [Mass/Vol] 0.27 mg/dL 0.00-1.30 [facility] CBC W/Diff, Automatedon 06-25 Absolute Lymph 1.75 X10 3/uL Normal 0.83-4.51 [facility] Comment on above: Performed By: #### L 501.2017, L503.3650, L500.4050, L100.0100, L503.6150 #### [facility] [address] [facility] [place], [place], [id number] Absolute Neut 4.5 X10 3/uL Normal 2.0-7.7 [facility] Comment on above: Performed By: #### L 501.9520, L503.6550, L500.4050, L100.0100, L503.6150 #### [facility] [address] [place], [address] Basophils/100 WBC (Bld) 0.6 % Normal 0-1 [facility] Comment on above: Performed By: #### L 501.9520, L503.6550, L500.4050, L100.0100, L503.6150 #### [facility] [address] [place], [address] Eosinophils/100 WBC (Bld) 2.0 % Normal 0-5 [facility] Comment on above: Performed By: #### L 501.9520, L503.6550, L500.4050, L100.0100, L503.6150 #### [facility] [address] [place], [address] Erythrocyte distribution width (RBC) [Ratio] 13.2 % Normal 11.6-14.6 [facility] Comment on above: Performed By: #### L 501.9520, L503.6550, L500.4050, L100.0100, L503.6150 #### [facility] [address] [place], [address] Hematocrit (Bld) [Volume fraction] 43.5 % Normal 40-54 [facility] Comment on above: Performed By: #### L 501.9520, L503.6550, L500.4050, L100.0100, L503.6150 #### [facility] [address] [place], [address] Hemoglobin (Bld) [Mass/Vol] 14.3 g/dL Normal 13.0-16.5 [facility] Comment on above: Performed By: #### L 501.9520, L503.6550, L500.4050, L100.0100, L503.6150 #### [facility] [address] [place], [address] IG% 0.400 Normal 0.0-0.9 [facility] Comment on above: Result Comment: IG% - Immature Granulocytes (promyelocytes, myelocytes and metamyelocytes) > 1% indicates that a LEFT SHIFT is Present. Performed By: #### L 501.9520, L503.6550, L500.4050, L100.0100, L503.6150 #### [facility] [address] [place], [address] Lymphocytes/100 WBC (Bld) 25.1 % Normal 19-41 [facility] Comment on above: Performed By: #### L 501.9520, L503.6550, L500.4050, L100.0100, L503.6150 #### [facility] [address] [place], [address] MCH (RBC) [Entitic mass] 30.1 pg Normal 27.0-32.0 [facility] Comment on above: Performed By: #### L 501.9520, L503.6550, L500.4050, L100.0100, L503.6150 #### [facility] [address] [place], [address] MCHC (RBC) [Mass/Vol] 32.9 g/dL Normal 32-36 [facility] Comment on above: Performed By: #### L 501.9520, L503.6550, L500.4050, L100.0100, L503.6150 #### [facility] [address] [place], [address] MCV (RBC) [Entitic vol] 91.6 fL Normal 80-94 [facility] Comment on above: Performed By: #### L 501.9520, L503.6550, L500.4050, L100.0100, L503.6150 #### [facility] [address] [place], [address] Monocytes/100 WBC (Bld) 7.5 % Normal 0-10 [facility] Comment on above: Performed By: #### L 501.9520, L503.6550, L500.4050, L100.0100, L503.6150 #### [facility] [address] [place], [address] Neutrophils/100 WBC (Bld) 64.4 % Normal 47-70 [facility] Comment on above: Performed By: #### L 501.9520, L503.6550, L500.4050, L100.0100, L503.6150 #### [facility] [address] [place], [address] Nucleated RBC (Bld) [#/Vol] 0 10*3/uL Normal 0-5 [facility] Comment on above: Performed By: #### L 501.9520, L503.6550, L500.4050, L100.0100, L503.6150 #### [facility] [address] [place], [address] Platelet mean volume (Bld) [Entitic vol] 9.6 fL Normal 6.2-12.0 [facility] Comment on above: Performed By: #### L 501.9520, L503.6550, L500.4050, L100.0100, L503.6150 #### [facility] [address] [place], [address] Platelets (Bld) [#/Vol] 322 10*3/uL Normal 150-450 [facility] Comment on above: Performed By: #### L 501.9520, L503.6550, L500.4050, L100.0100, L503.6150 #### [facility] [address] [place], [address] RBC (Bld) [#/Vol] 4.75 10*6/uL Normal 4.6-6.2 [facility] Comment on above: Performed By: #### L 501.9520, L503.6550, L500.4050, L100.0100, L503.6150 #### [facility] [address] [place], [address] RDW SD 44.5 fl High 35.1-43.9 [facility] Comment on above: Performed By: #### L 501.9520, L503.6550, L500.4050, L100.0100, L503.6150 #### [facility] [address] [place], [address] WBC (Bld) [#/Vol] 7.0 10*3/uL Normal 4.4-11.0 [facility] Comment on above: Performed By: #### L 501.9520, L503.6550, L500.4050, L100.0100, L503.6150 #### [facility] [address] [place], [address] Carbon dioxide, total [Moles /volume] in Central venous bloodOrdered By: Jose Alejandro Villalpando on 07-09-2024 CO2 [Moles/Vol] 24.7 mmol/L 21.0-32.0 [facility] Chloride assayOrdered By: An Villalpando on 07-09-2024 Chloride [Moles/Vol] 103 mmol/L 98-108 [facility] Comprehensive Metabolic Prof ilon 07-09-2024 Albumin [Mass/Vol] 4.3 g/dL Normal 3.4-4.8 [facility] Comment on above: Performed By: #### L 501.9520, L503.6550, L500.4050, L100.0100, L503.6150 #### [facility] [address] [place], [address] Albumin/Globulin [Mass ratio] 1.6 {ratio} Normal 0.9-2.4 [facility] Comment on above: Performed By: #### L 501.9520, L503.6550, L500.4050, L100.0100, L503.6150 #### [facility] [address] [place], [address] ALK PHOS 62 U/L Normal 40-129 [facility] Comment on above: Performed By: #### L 501.9520, L503.6550, L500.4050, L100.0100, L503.6150 #### [facility] [address] [place], [address] ALT [Catalytic activity/Vol] 11 U/L Normal <=46 [facility] Comment on above: Performed By: #### L 501.9520, L503.6550, L500.4050, L100.0100, L503.6150 #### [facility] [address] [place], [address] AST [Catalytic activity/Vol] 17 U/L Normal <=37 [facility] Comment on above: Performed By: #### L 501.9520, L503.6550, L500.4050, L100.0100, L503.6150 #### [facility] [address] [place], [address] Bilirubin [Mass/Vol] 0.27 mg/dL Normal 0.00-1.30 [facility] Comment on above: Performed By: #### L 501.9520, L503.6550, L500.4050, L100.0100, L503.6150 #### [facility] [address] [place], [address] BUN/CRE 16.2 RATIO Normal 10-20 [facility] Comment on above: Performed By: #### L 501.9520, L503.6550, L500.4050, L100.0100, L503.6150 #### [facility] [address] [place], [address] Calcium [Mass/Vol] 9.1 mg/dL Normal 7.6-11.0 [facility] Comment on above: Performed By: #### L 501.9520, L503.6550, L500.4050, L100.0100, L503.6150 #### [facility] [address] [place], [address] Chloride [Moles/Vol] 103 mmol/L Normal 98-108 [facility] Comment on above: Performed By: #### L 501.9520, L503.6550, L500.4050, L100.0100, L503.6150 #### [facility] [address] [place], [address] CO2 [Moles/Vol] 24.7 mmol/L Normal 21.0-32.0 [facility] Comment on above: Performed By: #### L 501.9520, L503.6550, L500.4050, L100.0100, L503.6150 #### [facility] [address] [place], [address] Creatinine [Mass/Vol] 1.07 mg/dL Normal 0.70-1.20 [facility] Comment on above: Performed By: #### L 501.9520, L503.6550, L500.4050, L100.0100, L503.6150 #### [facility] [address] [place], [address] GAP 11 Normal 5-15 [facility] Comment on above: Performed By: #### L 501.9520, L503.6550, L500.4050, L100.0100, L503.6150 #### [facility] [address] [place], [address] GFR/1.73 sq M.predicted among non-blacks MDRD (S/P/Bld) [Vol rate/Area] 68 mL/min/{1.73_m2} Normal >60 [facility] Comment on above: Result Comment: mL/m in/1.73m2 CKD-EPI Creatinine Equation (2020) Performed By: #### L 501.9520, L503.6550, L500.4050, L100.0100, L503.6150 #### [facility] [address] [place], [address] Globulin (S) [Mass/Vol] 2.8 g/dL Normal 2.2-4.2 [facility] Comment on above: Performed By: #### L 501.9520, L503.6550, L500.4050, L100.0100, L503.6150 #### [facility] [address] [place], [address] Glucose [Mass/Vol] 91 mg/dL Normal 70-99 [facility] Comment on above: Performed By: #### L 501.9520, L503.6550, L500.4050, L100.0100, L503.6150 #### [facility] [address] [place], [address] Potassium [Moles/Vol] 4.3 mmol/L Normal 3.3-5.1 [facility] Comment on above: Performed By: #### L 501.9520, L503.6550, L500.4050, L100.0100, L503.6150 #### [facility] [address] [place], [address] Sodium [Moles/Vol] 139 mmol/L Normal 133-145 [facility] Comment on above: Performed By: #### L 501.9520, L503.6550, L500.4050, L100.0100, L503.6150 #### [facility] [address] [place], [address] T PROT 7.1 g/dL Normal 5.9-8.4 [facility] Comment on above: Performed By: #### L 501.9520, L503.6550, L500.4050, L100.0100, L503.6150 #### [facility] [address] [place], [address] Urea nitrogen [Mass/Vol] 17 mg/dL Normal 4-19 [facility] Comment on above: Performed By: #### L 501.9520, L503.6550, L500.4050, L100.0100, L503.6150 #### [facility] [address] [place], [address] Eosinophil percentageOrdered By: Jose Alejandro Villalpando on 07-09-2024 Eosinophils/100 WBC (Bld) 2.0 % 0-5 [facility] Erythrocyte distribution wid th ratioOrdered By: Jose Alejandro Villalpando on 07-09-2024 Erythrocyte distribution width (RBC) [Ratio] 13.2 % 11.6-14.6 [facility] Erythrocyte distribution wid th standard deviationOrdered By: Jose Alejandro Villalpando on 07-09-2024 Erythrocyte distribution width (RBC) [Ratio] 44.5 fl High 35.1-43.9 [facility] Ferritinon 07-09-2024 Ferritin [Mass/Vol] 177 ng/mL Normal 37-417 [facility] Comment on above: Performed By: #### L 501.9520, L503.6550, L500.4050, L100.0100, L503.6150 #### [facility] [address] [place], [place], [id number] Glomerular filtration rate ( GFR) estimation/1.73 sq m using serum, plasma, or whole bOrdered By: Jose Alejandro Villalpando on 07-09-2024 GFR/1.73 sq M.predicted among non-blacks MDRD (S/P/Bld) [Vol rate/Area] 68 mL/min/{1.73_m2} >60 [facility] Comment on above: mL/min/1.73m2 CKD-EP I Creatinine Equation (2020) Hematocrit Auto (Bld) [Volum e fraction]Ordered By: Jose Alejandro Villalpando on 07-09-2024 Hematocrit (Bld) [Volume fraction] 43.5 % 40-54 [facility] Hemoglobin measurementOrdere d By: Jose Alejandro Villalpando on 07-09-2024 Hemoglobin (Bld) [Mass/Vol] 14.3 g/dL 13.0-16.5 [facility] Immature granulocytes/100 WB C Auto (Bld)Ordered By: Jose Alejandro Villalpando on 07-09-2024 Immature granulocytes/100 WBC (Bld) 0.400 % 0.0-0.9 [facility] Comment on above: IG% - Immature Granu locytes (promyelocytes, myelocytes and metamyelocytes) > 1% indicates that a LEFT SHIFT is Present. Ironon 07-09-2024 Iron [Mass/Vol] 52 ug/dL Low 65-175 [facility] Comment on above: Performed By: #### L 501.9520, L503.6550, L500.4050, L100.0100, L503.6150 #### [facility] [place], [address] Iron measurement (mass/mass) Ordered By: Jose Alejandro Villalpando on 07-09-2024 Iron (Unsp spec) [Mass/Mass] 52 ug/dL Low 65-175 [facility] - Chemistry and C hemistry - challengeOrdered By: Jose Alejandro Villalpando on 07-09-2024 AST [Catalytic activity/Vol] 17 U/L <38 [facility] MCV (mean corpuscular volume ) determinationOrdered By: Jose Alejandro Villalpando on 07-09-2024 MCV (RBC) [Entitic vol] 91.6 fL 80-94 [facility] Mean corpuscular hemoglobin (MCH) determinationOrdered By: Jose Alejandro Villalpando on 07-09-2024 MCH (RBC) [Entitic mass] 30.1 pg 27.0-32.0 [facility] Mean corpuscular hemoglobin concentration (MCHC) determinationOrdered By: Jose Alejandro Villalpando on 07-09-2024 MCHC (RBC) [Mass/Vol] 32.9 g/dL 32-36 [facility] Mean platelet volume determi nationOrdered By: Jose Alejandro Villalpando on 07-09-2024 Platelet mean volume (Bld) [Entitic vol] 9.6 fL 6.2-12.0 [facility] Monocyte percentageOrdered B y: Jose Alejandro Villalpando on 07-09-2024 Monocytes/100 WBC (Bld) 7.5 % 0-10 [facility] Neutrophil percentageOrdered By: Jose Alejandro Villalpando on 07-09-2024 Neutrophils/100 WBC (Bld) 64.4 % 47-70 [facility] Nucleated red blood cell per centageOrdered By: Jose Alejandro Villalpando on 07-09-2024 Nucleated RBC/100 WBC (Bld) [Ratio] 0 % 0-5 [facility] Platelet countOrdered By: An Villalpando on 07-09-2024 Platelets (Bld) [#/Vol] 322 10*3/uL 150-450 [facility] Potassium measurement (mass/ volume)Ordered By: Jose Alejandro Villalpando on 07-09-2024 Potassium (Unsp spec) [Mass/Vol] 4.3 mmol/L 3.3-5.1 [facility] RBC Auto (Bld) [#/Vol]Ordere d By: Jose Alejandro Villalpando on 07-09-2024 RBC (Bld) [#/Vol] 4.75 10*6/uL 4.6-6.2 [facility] Serum creatinine measurement (mass/volume)Ordered By: Jose Alejandro Villalpando on 07-09-2024 Creatinine [Mass/Vol] 1.07 mg/dL 0.70-1.20 [facility] Serum globulin measurementOr dered By: Jose Alejandro Villalpando on 07-09-2024 Globulin (S) [Mass/Vol] 2.8 g/dL 2.2-4.2 [facility] Serum glucose measurement (m ass/volume)Ordered By: Jose Alejandro Villalpando on 07-09-2024 Glucose [Mass/Vol] 91 mg/dL 70-99 [facility] Serum or plasma alanine veloz otransferase (ALT) measurementOrdered By: Jose Alejandro Villalpando on 07-09-2024 ALT [Catalytic activity/Vol] 11 U/L <47 [facility] Serum or plasma albumin kristan urement (mass/volume)Ordered By: Jose Alejandro Villalpando on 07-09-2024 Albumin [Mass/Vol] 4.3 g/dL 3.4-4.8 [facility] Serum or plasma albumin/glob ulin mass ratioOrdered By: Jose Alejandro Villalpando on 07-09-2024 Albumin/Globulin [Mass ratio] 1.6 {ratio} 0.9-2.4 [facility] Serum or plasma alkaline scottie sphatase measurementOrdered By: Jose Alejandro Villalpando on 07-09-2024 ALP [Catalytic activity/Vol] 62 U/L 40-129 [facility] Serum or plasma calcium kristan urement (mass/volume)Ordered By: Jose Alejandro Villalpando on 07-09-2024 Calcium [Mass/Vol] 9.1 mg/dL 7.6-11.0 [facility] Serum or plasma ferritin sarath surement (mass/volume)Ordered By: Jose Alejandro Villalpando on 07-09-2024 Ferritin [Mass/Vol] 177 ng/mL 37-417 [facility] Serum or plasma urea nitroge n measurement (mass/volume)Ordered By: Jose Alejandro Villalpando on 07-09-2024 Urea nitrogen [Mass/Vol] 17 mg/dL 4-19 [facility] Sodium levelOrdered By: Jose Alejandro Villalpando on 07-09-2024 Sodium [Moles/Vol] 139 mmol/L 133-145 [facility] TSH DL <= 0.005 mIU/L QnOrde red By: Jose Alejandro Villalpando on 07-09-2024 TSH Qn 2.500 uIU/mL 0.300-4.[address] [facility] Thyroid Stim Hormone (TSH)on 07-09-2024 TSH 2.500 uIU/mL Normal 0.300-4.[address] [facility] Comment on above: Performed By: #### L 245.3879, L503.4370, L500.4050, L100.0100, L503.1150 #### [facility] [address] [place], [place], [id number] Total proteinOrdered By: Mirian Villalpando on 07-09-2024 Protein [Mass/Vol] 7.1 g/dL 5.9-8.4 [facility] White blood cell (WBC) count Ordered By: Jose Alejandro Villalpando on 07-09-2024 WBC (Bld) [#/Vol] 7.0 10*3/uL 4.4-11.0 [facility] CBC W/Diff, Automatedon 11- Absolute Lymph 1.95 X10 3/uL Normal 0.83-4.51 [facility] Comment on above: Performed By: #### L 100.0100, L503.6550, L501.9520, L503.6150 ####[facility] [address] [place], [address] Absolute Neut 4.0 X10 3/uL Normal 2.0-7.7 [facility] Comment on above: Performed By: #### L 100.0100, L503.6550, L501.9520, L503.6150 ####[facility] [address] [place], [address] Basophils/100 WBC (Bld) 0.6 % Normal 0-1 [facility] Comment on above: Performed By: #### L 100.0100, L503.6550, L501.9520, L503.6150 ####[facility] [address] [place], [address] Eosinophils/100 WBC (Bld) 2.4 % Normal 0-5 [facility] Comment on above: Performed By: #### L 100.0100, L503.6550, L501.9520, L503.6150 ####[facility] [address] [place], [address] Erythrocyte distribution width (RBC) [Ratio] 13.4 % Normal 11.6-14.6 [facility] Comment on above: Performed By: #### L 100.0100, L503.6550, L501.9520, L503.6150 ####[facility] [address] [place], [address] Hematocrit (Bld) [Volume fraction] 39.9 % Low 40-54 [facility] Comment on above: Performed By: #### L 100.0100, L503.6550, L501.9520, L503.6150 ####[facility] [address] [place], [address] Hemoglobin (Bld) [Mass/Vol] 12.6 g/dL Low 13.0-16.5 [facility] Comment on above: Performed By: #### L 100.0100, L503.6550, L501.9520, L503.6150 ####[facility] [address] [place], [address] IG% 0.600 Normal 0.0-0.9 [facility] Comment on above: Result Comment: IG% - Immature Granulocytes (promyelocytes, myelocytes and metamyelocytes) > 1% indicates that a LEFT SHIFT is Present. Performed By: #### L 100.0100, L503.6550, L501.9520, L503.6150 ####[facility] [address] [place], [address] Lymphocytes/100 WBC (Bld) 29.2 % Normal 19-41 [facility] Comment on above: Performed By: #### L 100.0100, L503.6550, L501.9520, L503.6150 ####[facility] [address] [place], [address] MCH (RBC) [Entitic mass] 28.7 pg Normal 27.0-32.0 [facility] Comment on above: Performed By: #### L 100.0100, L503.6550, L501.9520, L503.6150 ####[facility] [address] [place], [address] MCHC (RBC) [Mass/Vol] 31.6 g/dL Low 32-36 [facility] Comment on above: Performed By: #### L 100.0100, L503.6550, L501.9520, L503.6150 ####[facility] [address] [place], [address] MCV (RBC) [Entitic vol] 90.9 fL Normal 80-94 [facility] Comment on above: Performed By: #### L 100.0100, L503.6550, L501.9520, L503.6150 ####[facility] [address] [place], [address] Monocytes/100 WBC (Bld) 7.3 % Normal 0-10 [facility] Comment on above: Performed By: #### L 100.0100, L503.6550, L501.9520, L503.6150 ####[facility] [address] [place], [address] Neutrophils/100 WBC (Bld) 59.9 % Normal 47-70 [facility] Comment on above: Performed By: #### L 100.0100, L503.6550, L501.9520, L503.6150 ####[facility] [address] [place], [address] Nucleated RBC (Bld) [#/Vol] 0 10*3/uL Normal 0-5 [facility] Comment on above: Performed By: #### L 100.0100, L503.6550, L501.9520, L503.6150 ####[facility] [address] [place], [address] Platelet mean volume (Bld) [Entitic vol] 9.7 fL Normal 6.2-12.0 [facility] Comment on above: Performed By: #### L 100.0100, L503.6550, L501.9520, L503.6150 ####[facility] [address] [place], [address] Platelets (Bld) [#/Vol] 336 10*3/uL Normal 150-450 [facility] Comment on above: Performed By: #### L 100.0100, L503.6550, L501.9520, L503.6150 ####[facility] [address] [place], [address] RBC (Bld) [#/Vol] 4.39 10*6/uL Low 4.6-6.2 [facility] Comment on above: Performed By: #### L 100.0100, L503.6550, L501.9520, L503.6150 ####[facility] [address] [place], [address] RDW SD 44.8 fl High 35.1-43.9 [facility] Comment on above: Performed By: #### L 100.0100, L503.6550, L501.9520, L503.6150 ####[facility] [address] [place], [address] WBC (Bld) [#/Vol] 6.7 10*3/uL Normal 4.4-11.0 [facility] Comment on above: Performed By: #### L 100.0100, L503.6550, L501.9520, L503.6150 ####[facility] [address] [place], [address] Ferritinon 01-09-2024 Ferritin [Mass/Vol] 110 ng/mL Normal 26-388 [facility] Comment on above: Performed By: #### L 100.0100, L503.6550, L501.9520, L503.6150 ####[facility] [address] [place], [address] Ironon 01-09-2024 Iron [Mass/Vol] 60 ug/dL Low 65-175 [facility] Comment on above: Performed By: #### L 100.0100, L503.6550, L501.9520, L503.6150 ####[facility] [address] [place], [address] Thyroid Stim Hormone (TSH)on 01-09-2024 TSH 1.660 uIU/mL Normal 0.358-3.[address] [facility] Comment on above: Performed By: #### L 100.0100, L503.6550, L501.9520, L503.6150 ####[facility] [address] [place], [address] Abdomen Single Viewon 2023 Abdomen Single View [facility] [address] [place] [address] Abdomen Single View MR#: [id number] Acct: [id number] Name: FRANCISCA BRAGG S Rep #: [id number] : 1940 M 83 From: Ava fenton MD PCP: Dr. Jose Alejandro Villalpando DO Status: PRE ER Study: Abdomen Single View Date of Exam: 12/23/23 Exam# [id number] Ordering Dr: Provider,Ed P. :[id number] HISTORY: constipation, pain. TECHNIQUE: XR Abdomen 1 View. COMPARISON: 08/20/2023. FINDINGS: BOWEL GAS PATTERN: No dilated bowel loops identified. Scattered stool in the colon. FREE AIR: Not assessed on supine view. CALCIFICATIONS: Possible punctate left renal calculus. BONES: Degenerative change. RAD/Abdomen Single View IMPRESSION: Non-obstructive bowel gas pattern. Electronically Signed: Ava Valderrama MD at 13:24 EDT , CC: Dr. Jose Alejandro Villalpando DO; ED PHYSICIAN PROVIDER Crew Chief: Signed Normal [facility] Emergency Department Summary on 12-23-2023 Emergency Department Summary [facility] Medical Records Department [address] [place] [address] Emergency Department Summary 12/23/23 MR#: [id number] Acct: [id number] Name: FRANCISCA BRAGG Rep #: [id number] : 1940 83 From: Laura Friedman DO PCP: Dr. Jose Alejandro Villalpando DO Status:DEP ER Location: ED HPI History of Present Illness Chief Complaint: Constipation Informant: patient Narrative Narrative: Patient is an 83-year-old male presenting with constipation. Patient states he has had worsening constipation for the past month but is been significantly worse over the past few days. Over the past month he has been having small caliber stools. He states has been for about 3 weeks. He has been taking a mixture of MiraLAX and Metamucil. Over the past few days he started taking Dulcolax initially that was helping but then nothing today. He has not been passing gas today. Denies any associate nausea or vomiting. Notes he did not have a bowel movement yesterday either. Denies a history of any abdominal surgeries. Today did develop with her abdominal pain but this seems to be improving. Denies any rectal pain or pressure. Had a knee replacement 4 months ago and only had oxycodone the first 2 weeks. Otherwise he just been taking Tylenol for pain. Denies any fever or chills. No report of black or blood in the stool. No other complaints or concerns at this time. [facility] Medical History COPD (chronic obstructive pulmonary disease) Insomnia Chronic constipation Arthritis of left knee Cranial nerve III palsy Peripheral vertigo Diastolic dysfunction Chronic renal failure, stage 3a Peripheral vascular disease History of echocardiogram Wears hearing aid Wears glasses Wears dentures Rash Ambulates with cane Arthritis Low iron History of ulceration Former smoker Leg cramps History of pain when walking History of edema Constipation GERD (gastroesophageal reflux disease) Hypertension Hypothyroid Home Medications ???Medication ???Instructions ???Recorded ???Last Taken ???Type pantoprazole 40 mg tablet,delayed 40 mg PO QHS reflux 06/02/20 08/19/23 History release potassium chloride 10 mEq 8 meq PO BID supplement 06/02/20 08/20/23 History tablet,extended release(part/cryst) polyethylene glycol 3350 17 17 g PO DAILY bowel mobility 09/03/21 08/20/23 History gram/dose oral powder (Miralax) cyanocobalamin (vitamin B-12) 500 1,000 mcg PO QHS supplement 08/14/22 08/19/23 History mcg tablet (B-12 DOTS) glucosamine sulf dipot 1 cap PO DAILY ? 08/14/22 08/12/23 History chlr,msm,chond 550 mg-C 30 mg-carmela 1 mg capsule (Glucosamine Chondroitin) ferrous sulfate 325 mg (65 mg 325 mg PO DAILY supplement 07/29/23 08/12/23 History iron) tablet (iron) acetaminophen 500 mg tablet 1,000 mg (2 x 500 mg) PO Q8 pain 08/20/23 08/20/23 Rx #0 tabs aspirin 81 mg chewable tablet 81 mg PO BID heart health #0 tabs 08/20/23 08/20/23 Rx meloxicam 7.5 mg tablet 7.5 mg PO BID anti-inflammatory 08/20/23 Unknown Rx #0 tabs furosemide 20 mg tablet 60 mg (3 x 20 mg) PO DAILY #90 tabs 09/03/23 Unknown Rx levothyroxine 50 mcg tablet 50 mcg PO DAILY@0600 #30 tabs 09/03/23 Unknown Rx oxycodone 5 mg tablet 5 mg PO Q6H PRN PRN Pain Score 09/03/23 Unknown Rx 4-10 7 days #28 tabs salmeterol 50 mcg/dose blister 1 inh inhalation Q12H #60 ea 09/03/23 Unknown Rx powder for inhalation (Serevent Diskus) tamsulosin 0.4 mg capsule 0.4 mg PO DAILY@1730 #30 caps 09/03/23 Unknown Rx albuterol sulfate 90 mcg/actuation 2 puff inhalation Q6H PRN 09/04/23 Unknown Rx aerosol inhaler shortness of breath or wheezing #8.5 grams lisinopril 20 mg tablet 20 mg PO DAILY #30 tabs 09/04/23 Unknown Rx lactulose 10 gram/15 mL oral 15 ml PO QHS PRN constipation #237 12/23/23 Unknown Rx solution mL Allergy/AdvReac Type Severity Reaction Status Date / Time No Known Allergies Allergy Verified 12/23/23 11:44 Surgical History History of total left knee replacement History of esophagogastroduodenoscopy (EGD) Hx of left cataract extraction Hx of right cataract extraction Hx of colonoscopy Hx of left knee surgery Social History household members: none housing: house number of children: 22 Smoking Status: Former smoker Tobacco: How many years used: 55 how long ago did patient quit smokin alcohol intake: never substance use type: does not use ROS ROS ED Constitutional Constitutional ED: Denies chills or fever(s) Cardiovascular Cardiovascular: Denies chest pain Respiratory/Chest Respiratory/Chest: Denies cough Gastrointestinal Gastrointestinal: Reports abdominal pain and constipation; Ricardo (more content not included)... Normal [facility] PT D/C Summary (1)on 024 PT D/C Summary (1) [facility] [address] [place] [address] [address] [place] [address] / REHABILITATION SERVICES DISCHARGE SUMMARY MR#: [id number] Acct: [id number] Name: FRANCISCA BRAGG Rep #: [id number] : 1940 83 From: Alexander Farias DPT Referring Dr.: Dr. Carol Wallace DO Status: REG RCR Insurance: MEDICARE PART A B [facility] Discharge Summary D/C summary: It has been my pleasure to treat FRANCISCA BRAGG referred by Dr. Carol Wallace DO, with the diagnosis of L TKA, DOS: 08/19/23 for a total of 16 visit(s). Discharge Date: Please see the following information for a summary of their discharge status. Subjective Subjective: Pt. reports being a little bit more sore today, but not too bad. Pt. reports no major issues. He has been walking a little bit more outside at home. Pt. reports being 50% better overall. HEP compliant. Pain L knee: Pain Intensity (Out of 10): 1 Overall Improvement % Improvement: 50 Objective Objective/Function: PROM: 0-0-111deg. AROM: 0-1-108deg. 30sec sit to stand rep test: 14 TU.1sec with cane STAIRS: Pt. is able to complete with 1 HR without LOB and with reciprocal pattern. GAIT: has steady and decent gait. MMT: Pt. has symmetrical strength between BLEs. Pt. reports that he is ready to be done with PT. I urged him to continue to be active. Pt. is a little tight with flexion, but does not seem to bother his functional mobility. He does have B distal LE edema at calves. Pt. reports this is being monitored by his physicians. pt. is overall doing well he will be DC from PT at this point in time. Goals Goal 1:: LTG: Pt. to be I with HEP. Goal Progress: Goal Met Goal 2:: LTG: PT. to have increased L knee ROM to 0-0-120deg without increase in symptoms allowing from improved functional mobility. Goal Progress: Progressing Goal 3:: LTG: Pt. to have symmetrical strength between BLEs allowing for increased stability and functional mobilty. Goal Progress: Goal Met Goal 4:: LTG: Pt. to complete TUG without AD less than 10sec indicating safe functional mobility. Goal Progress: Progressing Goal 5:: LTG: pt. to negotiate stairs with reciprocal pattern with use of 1 HR. Goal Progress: Goal Met Goal 6:: LTG: Pt. to complete 30sec sit to stand rep test with 12 or greater reps. Goal Progress: Goal Met Plan Plan: Pt. to be DC from PT at this point in time. D/C Information d/c sentence: If there are questions or concerns regarding this patient's physical therapy, please feel free to call me at [phone]. Thank you for the referral of this patient. Sincerely, Alexander Moreos, DPT Balance/Gait/Functional tests Balance/Special Test Scores Lower Extremity Functional Score: 53 TUG Test Time Seconds: 13.1 Tug Test: <20 sec.=mostly independent 30 Second Chair Rise Test Seconds: 14 WOMAC Total Score: 62 WOMAC Percentage: 35.4200 Improvement % Improvement: 50 11/22/23 1013 CC: Dr. Jose Alejandro Villaplando DO; Dr. Carol Wallace DO CLS Signed Normal [facility] Re-Evaluation - PT (1)on Re-Evaluation - PT (1) [facility] [address] [place] [address] / REEVALUATION / MEDICARE RECERTIFICATION PHYSICAL THERAPY MR#: [id number] Acct: [id number] Name: FRANCISCA BRAGG Rep #: [id number] : 1940 83 From: Alexander Farias DPT Referring Dr.: Dr. Carol Wallace DO Status: REG RCR Insurance: MEDICARE PART A B [employer] Re-Evaluation Intro: Dr. Carol Wallace DO, It has been my pleasure to treat FRANCISCA BRAGG over the last 10 visits for L TKA, DOS: 08/19/23. Please see the progress note below for an update on the physical therapy plan of care! Subjective Subjective: Pt. reports being 60% better overall. He is sleeping okay, but still prefers the reclining chair. Pt. reports having 2/10 pain pre treatment today. He is walking with SPC without issues. Objective Objective/Function: AROM: 0-2-105deg. PROM 0-0-110deg. Pain as limiting factor. leathery end feel felt in both directions. MMT: RLE: knee: ext 40.8#, flexion 30.2# LLE: knee: ext 29.1#, flexion 26.4# GAIT: Pt. ambulates with and without SPC. He does better with cane TU.9sec without AD. 30sec sit to stand: 11 reps without use of UEs. stairs: with 2 HR with reciprocal pattern with issues with ascending, mild increase in L knee pain during loaded phase of descending. Plan Plan Plan: I am extending his POC x2 per week for 3 weeks. He does not have access to silver sneakers, so focus on home exercises for his HEP. Progress end range of motion and quad strengthening. Progress gait cane vs no AD. Balance/Gait/Functional tests Balance/Special Test Scores Lower Extremity Functional Score: 46 TUG Test Time Seconds: 15.9 Tug Test: <20 sec.=mostly independent 30 Second Chair Rise Test Seconds: 12 WOMAC Total Score: 62 WOMAC Percentage: 35.4200 Goals Goals Goal 1:: LTG: Pt. to be I with HEP. Goal Time Frame: 4-6 Weeks Goal Progress: Goal Met Goal 2:: LTG: PT. to have increased L knee ROM to 0-0-120deg without increase in symptoms allowing from improved functional mobility. Goal Time Frame: 4-6 Weeks Goal Progress: Progressing Goal 3:: LTG: Pt. to have symmetrical strength between BLEs allowing for increased stability and functional mobilty. Goal Time Frame: 4-6 Weeks Goal Progress: Progressing Goal 4:: LTG: Pt. to complete TUG without AD less than 10sec indicating safe functional mobility. Goal Time Frame: 4-6 Weeks Goal Progress: Progressing Goal 5:: LTG: pt. to negotiate stairs with reciprocal pattern with use of 1 HR. Goal Time Frame: 4-6 Weeks Goal 6:: LTG: Pt. to complete 30sec sit to stand rep test with 12 or greater reps. Goal Time Frame: 4-6 Weeks Goal Progress: Progressing Anticipated Interventions Anticipated Interventions Patient/Client Instruction: Educate patient on: Condition, Plan of Care, Risk Factors and Benefits of Fitness Program For the Purpose of:: To improve decision making, To facilitate caregiver knowledge, To improve self management, To prevent re-injury and To improve ability to perform tasks related to life management Therapeutic Exercise to Include: Strength training, Power training, Endurance training, Balance training, Coordination, Postural training, Flexibilty training, Gait and locomotor training, Passive ROM and Active ROM For the Purpose of:: To decrease pain, To increase ROM, To improve nutrient delivery to tissue, To increase oxygenation perfusion, To improve muscle performance and motor function, To improve ability to perform ADL's, To increase tolerance to activity/condition/position, To improve performance and independence with ADL's, To improve ability of physical actions for home/community/work/leisure, To improve gait and locomotor functions, To improve health of tissue, To decrease soft tissue restriction and To increase flexibility/ROM Cryotherapy (ice pack, ice massage): Yes Vasopneumatic device: Yes For the Purpose of:: To decrease pain, To decrease swelling/inflammation and To increase ROM Re-Evaluation Ending Re-evaluation ending: Please do not hesitate to contact me at [phone] by phone or if you have questions or concerns regarding this new plan of care! Sincerely, Alexander Farias, DPT 10/21/23 1026 CC: Dr. Jose Alejandro Villalpando DO; Dr. Carol Wallace DO CLS Signed For Medicare only, by signing this I certify the plan of care. Physicians Signature Date Normal [facility] CBC W/Diff, Automatedon 09-25 Absolute Lymph 1.96 X10 3/uL Normal 0.83-4.51 [facility] Comment on above: Performed By: #### L 100.0100, [id number], [id number] #### [facility] [address] [place], [address] Absolute Neut 5.0 X10 3/uL Normal 2.0-7.7 [facility] Comment on above: Performed By: #### L 100.0100, [id number], [id number] #### [facility] [address] [place], [address] Basophils/100 WBC (Bld) 0.8 % Normal 0-1 [facility] Comment on above: Performed By: #### L 100.0100, [id number], [id number] #### [facility] [address] [place], [address] Eosinophils/100 WBC (Bld) 2.5 % Normal 0-5 [facility] Comment on above: Performed By: #### L 100.0100, [id number], [id number] #### [facility] [address] [place], [address] Erythrocyte distribution width (RBC) [Ratio] 13.6 % Normal 11.6-14.6 [facility] Comment on above: Performed By: #### L 100.0100, [id number], [id number] #### [facility] [address] [place], [address] Hematocrit (Bld) [Volume fraction] 36.5 % Low 40-54 [facility] Comment on above: Performed By: #### L 100.0100, [id number], [id number] #### [facility] [address] [place], [address] Hemoglobin (Bld) [Mass/Vol] 11.5 g/dL Low 13.0-16.5 [facility] Comment on above: Performed By: #### L 100.0100, [id number], [id number] #### [facility] [address] [place], [address] IG% 1.100 High 0.0-0.9 [facility] Comment on above: Result Comment: IG% - Immature Granulocytes (promyelocytes, myelocytes and metamyelocytes) > 1% indicates that a LEFT SHIFT is Present. Performed By: #### L 100.0100, [id number], [id number] #### [facility] [address] [place], [address] Lymphocytes/100 WBC (Bld) 24.6 % Normal 19-41 [facility] Comment on above: Performed By: #### L 100.0100, [id number], [id number] #### [facility] [address] [place], [address] MCH (RBC) [Entitic mass] 29.6 pg Normal 27.0-32.0 [facility] Comment on above: Performed By: #### L 100.0100, [id number], [id number] #### [facility] [address] [place], [address] MCHC (RBC) [Mass/Vol] 31.5 g/dL Low 32-36 [facility] Comment on above: Performed By: #### L 100.0100, [id number], [id number] #### [facility] [address] [place], [address] MCV (RBC) [Entitic vol] 94.1 fL High 80-94 [facility] Comment on above: Performed By: #### L 100.0100, [id number], [id number] #### [facility] [address] [place], [address] Monocytes/100 WBC (Bld) 8.0 % Normal 0-10 [facility] Comment on above: Performed By: #### L 100.0100, [id number], [id number] #### [facility] [address] [place], [address] Neutrophils/100 WBC (Bld) 63.0 % Normal 47-70 [facility] Comment on above: Performed By: #### L 100.0100, [id number], [id number] #### [facility] [address] [place], [address] Nucleated RBC (Bld) [#/Vol] 0 10*3/uL Normal 0-5 [facility] Comment on above: Performed By: #### L 100.0100, [id number], [id number] #### [facility] [address] [place], [address] Platelet mean volume (Bld) [Entitic vol] 9.4 fL Normal 6.2-12.0 [facility] Comment on above: Performed By: #### L 100.0100, [id number], [id number] #### [facility] [address] [place], [address] Platelets (Bld) [#/Vol] 302 10*3/uL Normal 150-450 [facility] Comment on above: Performed By: #### L 100.0100, [id number], [id number] #### [facility] [address] [place], [address] RBC (Bld) [#/Vol] 3.88 10*6/uL Low 4.6-6.2 [facility] Comment on above: Performed By: #### L 100.0100, [id number], [id number] #### [facility] [address] [place], [address] RDW SD 46.3 fl High 35.1-43.9 [facility] Comment on above: Performed By: #### L 100.0100, [id number], [id number] #### [facility] [address] [place], [address] WBC (Bld) [#/Vol] 8.0 10*3/uL Normal 4.4-11.0 [facility] Comment on above: Performed By: #### L 100.0100, [id number], [id number] #### [facility] [address] [place], [address] Ferritinon 10-14-2023 Ferritin [Mass/Vol] 175 ng/mL Normal 26-388 [facility] Comment on above: Performed By: #### L 100.0100, [id number], [id number] ####[facility] [id number] [place], [address] Ironon 10-14-2023 Iron [Mass/Vol] 48 ug/dL Low 65-175 [facility] Comment on above: Performed By: #### L 100.0100, [id number], [id number] #### [facility] [address] [place], [address] Basophil percentageOrdered B y: Dr. Hernandez on 07-27-2022 Chloride [Moles/Vol] 105 mmol/L 98-107 [facility] Glucose [Mass/Vol] 101 mg/dL 74-106 [facility] Comment on above: Fasting Glucose resu lt from 100 to 125 mg/dL suggests IMPAIRED HOMEOSTASIS per A.D.A. criteria. Potassium [Moles/Vol] 4.1 mmol/L 3.5-5.1 [facility] Sodium [Moles/Vol] 141 mmol/L 136-145 [facility] Cerebrospinal fluid Borrelia burgdorferi 18kd IgG antibody detection by immunoblotOrdered By: Dr. Hernandez on 07-27-2022 B. burgdorferi 18kD IgG IB Ql (CSF) Absent . [facility] Cerebrospinal fluid Borrelia burgdorferi 23kD IgG antibody detection by immunoblotOrdered By: Dr. Hernandez on 07-27-2022 B. burgdorferi 23kD IgG IB Ql (CSF) Absent . [facility] Cerebrospinal fluid Borrelia burgdorferi 23kD IgM antibody detection by immunoblotOrdered By: Dr. Hernandez on 07-27-2022 B. burgdorferi 23kD IgM IB Ql (CSF) Absent . [facility] Cerebrospinal fluid Borrelia burgdorferi 28kD IgG antibody detection by immunoblotOrdered By: Dr. Hernandez on 07-27-2022 B. burgdorferi 28kD IgG IB Ql (CSF) Absent . [facility] Cerebrospinal fluid Borrelia burgdorferi 39kD IgG antibody detection by immunoblotOrdered By: Dr. Hernandez on 07-27-2022 B. burgdorferi 39kD IgG IB Ql (CSF) Absent . [facility] Cerebrospinal fluid Borrelia burgdorferi 39kD IgM antibody detection by immunoblotOrdered By: Dr. Hernandez on 07-27-2022 B. burgdorferi 39kD IgM IB Ql (CSF) Absent . [facility] Cerebrospinal fluid Borrelia burgdorferi 41kD IgM antibody detection by immunoblotOrdered By: Dr. Hernandez on 07-27-2022 B. burgdorferi 41kD IgM IB Ql (CSF) Present . [facility] - Chemistry and C hemistry - challengeOrdered By: Dr. Hernandez on 07-27-2022 CO2 [Moles/Vol] 29.0 mmol/L 21.0-32.0 [facility] Urea nitrogen/Creatinine [Mass ratio] 23.0 mg/mg 10- [facility] No Panel InformationOrdered By: Dr. Hernandez on 07-27-2022 Estimated GFR (MDRD) Amer 58 mL/min >60 [facility] Comment on above: GFR Calc Estimated GFR (MDRD) Non-Af Amer 48 mL/min >60 [facility] Comment on above: Non- GFR Calc Lyme Disease IgG Ab 30 kDa Band Absent . [facility] Lyme Disease IgG Ab 93 kDa Band Absent . [facility] Lyme Disease IgG West Blot Interp Negative . [facility] Comment on above: Positive: 5 of the f ollowing Borrelia-specific bands: 18,23,28,30,39,41,45,58, 66, and 93. Negative: No bands or banding patterns which do not meet positive criteria. Lyme Disease IgM Ab (Western Blot) Negative . [facility] Comment on above: Note: An equivocal o r positive EIA result followed by anegative Line Blot result is considered NEGATIVE. Anequivocal or positive EIA result followed by a positiveLine Blot is considered POSITIVE by the CDC.Positive: 2 of the following bands: 23,39 or 41Negative: No bands or banding patterns which do not meetpositive criteria.Criteria for positivity are those recommended byCDC/ASTPHLD. p23=Osp C, i53=codzncektNebv:Sera from individuals with the following may cross reactin the Lyme Line Blot assays: other spirochetal diseases(periodontal disease, leptospirosis, relapsing fever, yaws,and pinta); connective autoimmune (Rheumatoid Arthritis andSystemic Lupus Erythematosus and also individuals withAntinuclear Antibody); other infections (Ramez MountainSpotted Fever; Kwaku-Irby Virus, and Cytomegalovirus).Please Note: Lyme immunoblot alone is not recommended forthe diagnosis of Lyme disease. Current guidelines recommendthe use of a two-tiered approach to Lyme serology testingto improve the sensitivity and specificity of testing.[facility] offers test code 819445 Lyme Disease Serology withReflex to aid in the diagnosis of Lyme Disease.Performed at: [address] [id number] Director: Fam Márquez MD, Phone: [phone] Serum Borrelia burgdorferi 4 1kD IgG antibody detection by immunoblotOrdered By: Dr. Hernandez on 07-27-2022 B. burgdorferi 41kD IgG IB Ql (S) Present . [facility] Serum Borrelia burgdorferi 6 6kD IgG antibody detection by immunoblotOrdered By: Dr. Hernandez on 07-27-2022 B. burgdorferi 66kD IgG IB Ql (S) Absent . [facility] Serum or plasma calcium kristan urement (mass/volume)Ordered By: Dr. Hernandez on 07-27-2022 Calcium [Mass/Vol] 9.1 mg/dL 8.5-10.1 [facility] Serum or plasma creatinine m easurement (mass/volume)Ordered By: Dr. Hernandez on 07-27-2022 Creatinine [Mass/Vol] 1.48 mg/dL 0.70-1.30 [facility] Comment on above: The validity of the calculated GFR & GFRAA in patients over 70 years has not been determined. Clinical correlation is essential. Serum or plasma urea nitroge n measurement (mass/volume)Ordered By: Dr. Hernandez on 07-27-2022 Urea nitrogen [Mass/Vol] 34 mg/dL 7-18 [facility] Synovial fluid Borrelia joaquin dorferi 45kD IgG antibody detection by immunoblotOrdered By: Dr. Hernandez on 07-27-2022 B. burgdorferi 45kD IgG IB Ql (Syn fld) Absent . [facility] Synovial fluid Borrelia joaquin dorferi 58kD IgG antibody detection by immunoblotOrdered By: Dr. Hernandez on 07-27-2022 B. burgdorferi 58kD IgG IB Ql (Syn fld) Absent . [facility] Thin prep Papanicolaou smear with manual screeningOrdered By: Dr. Hernandez on 07-27-2022 Thin prep Papanicolaou smear with manual screening 7 5-15 [facility] Basophil percentageOrdered B y: Dr. Hernandez on 07-19-2022 Chloride [Moles/Vol] 103 mmol/L 98-107 [facility] Glucose [Mass/Vol] 90 mg/dL 74-106 [facility] Potassium [Moles/Vol] 3.7 mmol/L 3.5-5.1 [facility] Sodium [Moles/Vol] 139 mmol/L 136-145 [facility] - Chemistry and C hemistry - challengeOrdered By: Dr. Hernandez on 07-19-2022 CO2 [Moles/Vol] 31.0 mmol/L 21.0-32.0 [facility] Urea nitrogen/Creatinine [Mass ratio] 16.6 mg/mg 10-20 [facility] No Panel InformationOrdered By: Dr. Hernandez on 07-19-2022 Estimated GFR (MDRD) Amer 60 mL/min >60 [facility] Comment on above: GFR Calc Estimated GFR (MDRD) Non-Af Amer 49 mL/min >60 [facility] Comment on above: Non- GFR Calc Serum or plasma calcium kristan urement (mass/volume)Ordered By: Dr. Hernandez on 07-19-2022 Calcium [Mass/Vol] 9.2 mg/dL 8.5-10.1 [facility] Serum or plasma creatinine m easurement (mass/volume)Ordered By: Dr. Hernandez on 07-19-2022 Creatinine [Mass/Vol] 1.45 mg/dL 0.70-1.30 [facility] Comment on above: The validity of the calculated GFR & GFRAA in patients over 70 years has not been determined. Clinical correlation is essential. Serum or plasma urea nitroge n measurement (mass/volume)Ordered By: Dr. Hernandez on 07-19-2022 Urea nitrogen [Mass/Vol] 24 mg/dL 7-18 [facility] Thin prep Papanicolaou smear with manual screeningOrdered By: Dr. Hernandez on 07-19-2022 Thin prep Papanicolaou smear with manual screening 5 5-15 [facility] Absolute lymphocyte counton 05-31-2022 Lymphocytes Auto (Unsp spec) [#/Vol] 1.64 10*3/uL 0.83-4.51 [facility] Basophil percentageon 2022 Basophils/100 WBC (Bld) 0.2 % 0-1 [facility] Bilirubin [Mass/Vol] 0.30 mg/dL 0.20-1.00 [facility] Comment on above: For patients on eltr ombopag therapy, use of Dimension [place] TBIL is not recommended. Chloride [Moles/Vol] 107 mmol/L 98-107 [facility] Cholesterol [Mass/Vol] 209 mg/dL <200 [facility] Comment on above: <200 mg/dL Desirable 200-240 mg/dL Borderline >240 mg/dL High Risk Eosinophils/100 WBC (Bld) 0.0 % 0-5 [facility] Glucose [Mass/Vol] 107 mg/dL 74-106 [facility] Comment on above: Fasting Glucose resu lt from 100 to 125 mg/dL suggests IMPAIRED HOMEOSTASIS per A.D.A. criteria. Neutrophils (Bld) [#/Vol] 8.9 10*3/uL 2.0-7.7 [facility] Neutrophils/100 WBC (Bld) 78.7 % 47-70 [facility] Potassium [Moles/Vol] 3.7 mmol/L 3.5-5.1 [facility] Protein [Mass/Vol] 7.6 g/dL 6.4-8.2 [facility] Sodium [Moles/Vol] 141 mmol/L 136-145 [facility] Triglyceride [Mass/Vol] 71 mg/dL <199 [facility] Comment on above: The drugs N-Acetylcy steine and Metamizole may falsely depress this assay.Serum Triglycerides Reference Interval Normal <150 mg/dL Borderline high 150 - 199 mg/dL High 200 - 499 mg/dL Very High > or = 500 mg/dL WBC (Bld) [#/Vol] 11.3 10*3/uL 4.4-11.0 [facility] Blood erythrocytes count (nu mber/volume)on 05-31-2022 RBC (Bld) [#/Vol] 4.69 10*6/uL 4.6-6.2 [facility] Blood hemoglobin measurement (mass/volume)on 05-31-2022 Hemoglobin (Bld) [Mass/Vol] 13.8 g/dL 13.0-16.5 [facility] Blood lymphocytes/100 leukoc yteson 05-31-2022 Lymphocytes/100 WBC (Bld) 14.5 % 19-41 [facility] Blood monocytes/100 leukocyt eson 05-31-2022 Monocytes/100 WBC (Bld) 5.8 % 0-10 [facility] Blood platelet mean volumeon 05-31-2022 Platelet mean volume (Bld) [Entitic vol] 10.1 fL 6.2-12.0 [facility] Determination of erythrocyte mean corpuscular volume (MCV)on 05-31-2022 MCV (RBC) [Entitic vol] 91.7 fL 80-94 [facility] Hematocrit Auto (Bld) [Volum e fraction]on 05-31-2022 Hematocrit (Bld) [Volume fraction] 43.0 % 40-54 [facility] Iron measurement (mass/mass) on 05-31-2022 Iron (Unsp spec) [Mass/Mass] 87 ug/dL 65-175 [facility] - Chemistry and C hemistry - challengeon 05-31-2022 ALP [Catalytic activity/Vol] 59 U/L 45-117 [facility] ALT [Catalytic activity/Vol] 22 U/L 16-61 [facility] CO2 [Moles/Vol] 29.0 mmol/L 21.0-32.0 [facility] Cobalamin (Vitamin B12) [Mass/Vol] 609 pg/mL 211-911 [facility] Globulin (S) [Mass/Vol] 3.6 g/dL 2.2-4.2 [facility] Urea nitrogen/Creatinine [Mass ratio] 25.4 mg/mg 10-20 [facility] - Hematology and Cell countson 05-31-2022 Erythrocyte distribution width (RBC) [Entitic vol] 47.3 fL 35.1-43.9 [facility] Erythrocyte distribution width (RBC) [Ratio] 14.2 % 11.6-14.6 [facility] Immature granulocytes/100 WBC (Bld) 0.800 % 0.0-0.9 [facility] Comment on above: IG% - Immature Granu locytes (promyelocytes, myelocytes and metamyelocytes) > 1% indicates that a LEFT SHIFT is Present. MCH (RBC) [Entitic mass] 29.4 pg 27.0-32.0 [facility] Nucleated RBC/100 WBC (Bld) [Ratio] 0 % 0-5 [facility] MCHC Auto (RBC) [Mass/Vol]on 04-06-2023 MCHC (RBC) [Mass/Vol] 32.1 g/dL 32-36 [facility] No Panel Informationon 05-31 Estimated GFR (MDRD) Amer 65 mL/min >60 [facility] Comment on above: GFR Calc Estimated GFR (MDRD) Non-Af Amer 54 mL/min >60 [facility] Comment on above: Non- GFR Calc Thyroid Stimulating Hormone (TSH) 1.26 uIU/mL 0.358-3.74 [facility] Platelets bldon 05-31-2022 Platelets (Bld) [#/Vol] 410 10*3/uL 150-450 [facility] Serum or plasma albumin kristan urement (mass/volume)on 05-31-2022 Albumin [Mass/Vol] 4.0 g/dL 3.2-5.0 [facility] Serum or plasma albumin/glob ulin mass ratioon 05-31-2022 Albumin/Globulin [Mass ratio] 1.1 {ratio} 0.9-2.4 [facility] Serum or plasma calcium kristan urement (mass/volume)on 05-31-2022 Calcium [Mass/Vol] 8.9 mg/dL 8.5-10.1 [facility] Serum or plasma cholesterol in HDL measurement (mass/volume)on 05-31-2022 Cholesterol in HDL [Mass/Vol] 57 mg/dL >40 [facility] Comment on above: The drugs N-Acetylcy steine and Metamizole may falsely depress this assay. Reference Range HDL <40 mg/dL Low HDL Cholesterol HDL >or= 60 mg/dL High HDL Cholesterol Serum or plasma cholesterol in VLDL measurement (mass/volume)on 05-31-2022 Cholesterol in VLDL [Mass/Vol] 14 mg/dL 5-40 [facility] Serum or plasma creatinine m easurement (mass/volume)on 05-31-2022 Creatinine [Mass/Vol] 1.34 mg/dL 0.70-1.30 [facility] Comment on above: The validity of the calculated GFR & GFRAA in patients over 70 years has not been determined. Clinical correlation is essential. Serum or plasma ferritin sarath surement (mass/volume)on 05-31-2022 Ferritin [Mass/Vol] 41 ng/mL 26-388 [facility] Serum or plasma folate measu rement (mass/volume)on 05-31-2022 Folate [Mass/Vol] 9.80 ng/mL 3.1-55.4 [facility] Serum or plasma low density lipoprotein (LDL) cholesterol measurement (mass/volume)on 05-31-2022 Cholesterol in LDL [Mass/Vol] 138 mg/dL 0-130 [facility] Serum or plasma urea nitroge n measurement (mass/volume)on 05-31-2022 Urea nitrogen [Mass/Vol] 34 mg/dL 7-18 [facility] Thin prep Papanicolaou smear with manual screeningon 05-31-2022 Thin prep Papanicolaou smear with manual screening 14 U/L 15-37 [facility] Thin prep Papanicolaou smear with manual screening 5 5-15 [facility] Basophil percentageon 2021 Cholesterol [Mass/Vol] 166 mg/dL <200 [facility] Work Phone: Comment on above: <200 mg/dL Desirable 200-240 mg/dL Borderline >240 mg/dL High Risk Triglyceride [Mass/Vol] 139 mg/dL <199 [facility] Work Phone: Comment on above: The drugs N-Acetylcy steine and Metamizole may falsely depress this assay.Serum Triglycerides Reference Interval Normal <150 mg/dL Borderline high 150 - 199 mg/dL High 200 - 499 mg/dL Very High > or = 500 mg/dL Serum or plasma cholesterol in HDL measurement (mass/volume)on 09-04-2021 Cholesterol in HDL [Mass/Vol] 39 mg/dL >40 [facility] Work Phone: Comment on above: The drugs N-Acetylcy steine and Metamizole may falsely depress this assay. Reference Range HDL <40 mg/dL Low HDL Cholesterol HDL >or= 60 mg/dL High HDL Cholesterol Serum or plasma cholesterol in VLDL measurement (mass/volume)on 09-04-2021 Cholesterol in VLDL [Mass/Vol] 28 mg/dL 5-40 [facility] Work Phone: Serum or plasma low density lipoprotein (LDL) cholesterol measurement (mass/volume)on 09-04-2021 Cholesterol in LDL [Mass/Vol] 99 mg/dL 0-130 [facility] Work Phone: Absolute lymphocyte counton 09-03-2021 Lymphocytes Auto (Unsp spec) [#/Vol] 1.58 10*3/uL 0.83-4.51 [facility] Work Phone: Basophil percentageon 2021 Basophils/100 WBC (Bld) 0.8 % 0-1 [facility] Work Phone: Chloride [Moles/Vol] 102 mmol/L 98-107 [facility] Work Phone: Eosinophils/100 WBC (Bld) 2.0 % 0-5 [facility] Work Phone: Glucose [Mass/Vol] 151 mg/dL 74-106 [facility] Work Phone: Comment on above: Fasting Glucose resu lt greater than or equal to 126 mg/dL suggests DIABETES MELLITUS per A.D.A. criteria. Neutrophils (Bld) [#/Vol] 5.1 10*3/uL 2.0-7.7 [facility] Work Phone: Neutrophils/100 WBC (Bld) 68.7 % 47-70 [facility] Work Phone: Potassium [Moles/Vol] 3.5 mmol/L 3.5-5.1 [facility] Work Phone: Sodium [Moles/Vol] 139 mmol/L 136-145 [facility] Work Phone: WBC (Bld) [#/Vol] 7.4 10*3/uL 4.4-11.0 [facility] Work Phone: Blood erythrocytes count (nu mber/volume)on 09-03-2021 RBC (Bld) [#/Vol] 4.89 10*6/uL 4.6-6.2 [facility] Work Phone: Blood hemoglobin measurement (mass/volume)on 09-03-2021 Hemoglobin (Bld) [Mass/Vol] 12.7 g/dL 13.0-16.5 [facility] Work Phone: Blood lymphocytes/100 leukoc yteson 09-03-2021 Lymphocytes/100 WBC (Bld) 21.4 % 19-41 [facility] Work Phone: Blood monocytes/100 leukocyt eson 09-03-2021 Monocytes/100 WBC (Bld) 6.4 % 0-10 [facility] Work Phone: Blood platelet mean volumeon 09-03-2021 Platelet mean volume (Bld) [Entitic vol] 9.1 fL 6.2-12.0 [facility] Work Phone: [phone] Determination of erythrocyte mean corpuscular volume (MCV)on 09-03-2021 MCV (RBC) [Entitic vol] 82.8 fL 80-94 [facility] Work Phone: Glucose Glucometer (BldC) [M ass/Vol]on 09-03-2021 Glucose [Mass/Vol] 130 mg/dL 74-106 [facility] Work Phone: Comment on above: MANAGEMENT OF PATIEN T CARE PER NURSING PROTOCOL Hematocrit Auto (Bld) [Volum e fraction]on 09-03-2021 Hematocrit (Bld) [Volume fraction] 40.5 % 40-54 [facility] Work Phone: INR in Blood by Coagulation assayon 09-03-2021 INR Coag (Bld) [Relative time] 1.0 {INR} [facility] Work Phone: [phone] Laboratory - Chemistry and C hemistry - challengeon 09-03-2021 CO2 [Moles/Vol] 30.0 mmol/L 21.0-32.0 [facility] Work Phone: [phone] Urea nitrogen/Creatinine [Mass ratio] 12.5 mg/mg 10-20 [facility] Work Phone: Laboratory - Coagulationon 0 09-03-2021 aPTT Coag (Bld) [Time] 30.8 s 24.1-36.2 [facility] Work Phone: [phone] PT Coag (PPP) [Time] 12.9 s 11.7-14.9 [facility] Work Phone: Laboratory - Hematology and Cell countson 09-03-2021 Erythrocyte distribution width (RBC) [Entitic vol] 48.8 fL 35.1-43.9 [facility] Work Phone: Erythrocyte distribution width (RBC) [Ratio] 16.2 % 11.6-14.6 [facility] Work Phone: Immature granulocytes/100 WBC (Bld) 0.700 % 0.0-0.9 [facility] Work Phone: Comment on above: IG% - Immature Granu locytes (promyelocytes, myelocytes and metamyelocytes) > 1% indicates that a LEFT SHIFT is Present. MCH (RBC) [Entitic mass] 26.0 pg 27.0-32.0 [facility] Work Phone: Nucleated RBC/100 WBC (Bld) [Ratio] 0 % 0-5 [facility] Work Phone: MCHC Auto (RBC) [Mass/Vol]on 09-03-2021 MCHC (RBC) [Mass/Vol] 31.4 g/dL 32-36 [facility] Work Phone: No Panel Informationon 09-03 Troponin I High Sensitivity 4 pg/mL 3.0-78.0 [facility] Work Phone: Comment on above: Please Note: New Bea t Units and Gender Specific Reference Ranges. For more information see Policy Stat Procedure [place] High Sensitivity Troponin (TNIH) and attachments. Estimated Creatinine Clearance Calc 45.10 ml/min [facility] Work Phone: Estimated GFR (MDRD) Amer 81 mL/min >60 [facility] Work Phone: Comment on above: GFR Calc Estimated GFR (MDRD) Non-Af Amer 67 mL/min >60 [facility] Work Phone: Comment on above: Non- GFR Calc Troponin I High Sensitivity 5 pg/mL 3.0-78.0 [facility] Work Phone: Comment on above: Please Note: New Bea t Units and Gender Specific Reference Ranges. For more information see Policy Stat Procedure [place] High Sensitivity Troponin (TNIH) and attachments. Platelets bldon 09-03-2021 Platelets (Bld) [#/Vol] 401 10*3/uL 150-450 [facility] Work Phone: Serum or plasma calcium kristan urement (mass/volume)on 09-03-2021 Calcium [Mass/Vol] 9.1 mg/dL 8.5-10.1 oste r [facility] Work Phone: [phone] Serum or plasma creatinine m easurement (mass/volume)on 09-03-2021 Creatinine [Mass/Vol] 1.12 mg/dL 0.70-1.30 [facility] Work Phone: Comment on above: The validity of the calculated GFR & GFRAA in patients over 70 years has not been determined. Clinical correlation is essential. Serum or plasma urea nitroge n measurement (mass/volume)on 09-03-2021 Urea nitrogen [Mass/Vol] 14 mg/dL 7-18 [facility] Work Phone: [phone] Thin prep Papanicolaou smear with manual screeningon 09-03-2021 Thin prep Papanicolaou smear with manual screening 7 5-15 [facility] Work Phone: [phone] Absolute lymphocyte counton 06-21-2021 Lymphocytes Auto (Unsp spec) [#/Vol] 1.55 10*3/uL 0.83-4.51 [facility] Work Phone: [phone] Basophil percentageon 2021 Basophils/100 WBC (Bld) 0.5 % 0-1 [facility] Work Phone: Eosinophils/100 WBC (Bld) 3.3 % 0-5 [facility] Work Phone: Neutrophils (Bld) [#/Vol] 5.0 10*3/uL 2.0-7.7 [facility] Work Phone: [phone] Neutrophils/100 WBC (Bld) 66.1 % 47-70 [facility] Work Phone: WBC (Bld) [#/Vol] 7.6 10*3/uL 4.4-11.0 [facility] Work Phone: Blood erythrocytes count (nu mber/volume)on 06-21-2021 RBC (Bld) [#/Vol] 4.95 10*6/uL 4.6-6.2 [facility] Work Phone: Blood hemoglobin measurement (mass/volume)on 06-21-2021 Hemoglobin (Bld) [Mass/Vol] 11.7 g/dL 13.0-16.5 [facility] Work Phone: Blood lymphocytes/100 leukoc yteson 06-21-2021 Lymphocytes/100 WBC (Bld) 20.5 % 19-41 [facility] Work Phone: Blood monocytes/100 leukocyt eson 06-21-2021 Monocytes/100 WBC (Bld) 8.7 % 0-10 [facility] Work Phone: Blood platelet mean volumeon 06-21-2021 Platelet mean volume (Bld) [Entitic vol] 9.3 fL 6.2-12.0 [facility] Work Phone: [phone] Determination of erythrocyte mean corpuscular volume (MCV)on 06-21-2021 MCV (RBC) [Entitic vol] 78.2 fL 80-94 [facility] Work Phone: Hematocrit Auto (Bld) [Volum e fraction]on 06-21-2021 Hematocrit (Bld) [Volume fraction] 38.7 % 40-54 [facility] Work Phone: Iron measurement (mass/mass) on 06-21-2021 Iron (Unsp spec) [Mass/Mass] 27 ug/dL 65-175 [facility] Work Phone: Laboratory - Chemistry and C hemistry - challengeon 06-21-2021 Cobalamin (Vitamin B12) [Mass/Vol] 832 pg/mL 211-911 [facility] Work Phone: Laboratory - Hematology and Cell countson 06-21-2021 Erythrocyte distribution width (RBC) [Entitic vol] 46.7 fL 35.1-43.9 [facility] Work Phone: Erythrocyte distribution width (RBC) [Ratio] 16.5 % 11.6-14.6 [facility] Work Phone: [phone] Immature granulocytes/100 WBC (Bld) 0.900 % 0.0-0.9 [facility] Work Phone: Comment on above: IG% - Immature Granu locytes (promyelocytes, myelocytes and metamyelocytes) > 1% indicates that a LEFT SHIFT is Present. MCH (RBC) [Entitic mass] 23.6 pg 27.0-32.0 [facility] Work Phone: Nucleated RBC/100 WBC (Bld) [Ratio] 0 % 0-5 [facility] Work Phone: MCHC Auto (RBC) [Mass/Vol]on 06-21-2021 MCHC (RBC) [Mass/Vol] 30.2 g/dL 32-36 [facility] Work Phone: No Panel Informationon 06-21 Thyroid Stimulating Hormone (TSH) 2.49 uIU/mL 0.358-3.74 [facility] Work Phone: Platelets bldon 06-21-2021 Platelets (Bld) [#/Vol] 430 10*3/uL 150-450 [facility] Work Phone: [phone] Serum or plasma ferritin sarath surement (mass/volume)on 06-21-2021 Ferritin [Mass/Vol] 14 ng/mL 26-388 [facility] Work Phone: [phone] Serum or plasma folate measu rement (mass/volume)on 06-21-2021 Folate [Mass/Vol] 18.00 ng/mL 3.1-55.4 [facility] Work Phone: Vital Signs Date Time Vital Sign Value Performing Clinician Mariama hull 09-25-2024 15:00-0400 Body temperature 96.5 [degF] Dr. Jose Alejandro Villalpando DO Work Phone: [facility] 09-25-2024 15:00-0400 Diastolic blood pressure 76 mm[Hg] Dr. Jose Alejandro Villalpando DO Work Phone: [facility] 09-25-2024 15:00-0400 Heart rate 96 /min Dr. Jose Alejandro Villalpando DO Work Phone: [facility] 09-25-2024 15:00-0400 Respiratory rate 20 /min Dr. Jose Alejandro Villalpando DO Work Phone: [facility] 09-25-2024 15:00-0400 SaO2% (BldA) [Mass fraction] 97 % Dr. Jose Alejandro Villalpando DO Work Phone: [facility] 09-25-2024 15:00-0400 Systolic blood pressure 143 mm[Hg] Dr. Jose Alejandro Villalpando DO Work Phone: [facility] 09-25-2024 11:56-0400 Body height 167.[address] Jose Alejandro Villalpando DO Work Phone: [facility] 09-25-2024 11:56-0400 Body mass index (BMI) [Ratio] 30 kg/m2 Dr. Jose Alejandro Villalpando DO Work Phone: [facility] 09-25-2024 11:56-0400 Body weight 84.[address] Jose Alejandro Villalpando DO Work Phone: [facility] 09-11-2022 11:35-0400 Body height 167.[address] Ailyn Hernandez Work Phone: [facility] 09-11-2022 11:35-0400 Body mass index (BMI) [Ratio] 29.9 kg/m2 Dr. Ailyn Hernandez Work Phone: [facility] 09-11-2022 11:35-0400 Body temperature 97.8 [degF] Dr. Ailyn Hernandez Work Phone: [facility] 09-11-2022 11:35-0400 Body weight 84.[address] Ailyn Hernandez Work Phone: [facility] 09-11-2022 11:35-0400 Diastolic blood pressure 66 mm[Hg] Dr. Ailyn Hernandez Work Phone: [facility] 09-11-2022 11:35-0400 Heart rate 97 /min Dr. Ailyn Hernandez Work Phone: [facility] 09-11-2022 11:35-0400 Respiratory rate 14 /min Dr. Ailyn Hernandez Work Phone: [facility] 09-11-2022 11:35-0400 SaO2% (BldA) [Mass fraction] 98 % Dr. Ailyn Hernandez Work Phone: [facility] 09-11-2022 11:35-0400 Systolic blood pressure 128 mm[Hg] Dr. Ailyn Hernandez Work Phone: [facility] 08-30-2022 11:01-0400 Body temperature 98.2 [degF] Dr. Ailyn Hernandez Work Phone: [facility] 08-30-2022 11:01-0400 Body weight 87.[address] Ailyn Hernandez Work Phone: [facility] 08-30-2022 11:01-0400 Diastolic blood pressure 69 mm[Hg] Dr. Ailyn Hernandez Work Phone: [facility] 08-30-2022 11:01-0400 Heart rate 82 /min Dr. Ailyn Hernandez Work Phone: [facility] 08-30-2022 11:01-0400 Respiratory rate 18 /min Dr. Ailyn Hernandez Work Phone: [facility] 08-30-2022 11:01-0400 SaO2% (BldA) [Mass fraction] 98 % Dr. Ailyn Hernandez Work Phone: [facility] 08-30-2022 11:01-0400 Systolic blood pressure 125 mm[Hg] Dr. Ailyn Hernandez Work Phone: [facility] 08-14-2022 13:02-0400 Body temperature 98.2 [degF] Dr. Ailyn Hernandez Work Phone: [facility] 08-14-2022 13:02-0400 Body weight 86.[address] Ailyn Hernandez Work Phone: [facility] 08-14-2022 13:02-0400 Diastolic blood pressure 63 mm[Hg] Dr. Ailyn Hernandez Work Phone: [facility] 08-14-2022 13:02-0400 Heart rate 99 /min Dr. Ailyn Hernandez Work Phone: [facility] 08-14-2022 13:02-0400 SaO2% (BldA) [Mass fraction] 97 % Dr. Ailyn Hernandez Work Phone: [facility] 08-14-2022 13:02-0400 Systolic blood pressure 115 mm[Hg] Dr. Ailyn Hernandez Work Phone: [facility] 12-11-2021 15:34-0400 Diastolic blood pressure 67 mm[Hg] Dr. Davis Recio Work Phone: [facility] Work Phone: 12-11-2021 15:34-0400 Heart rate 63 /min Dr. Davis Recio Work Phone: [facility] Work Phone: 12-11-2021 15:34-0400 Respiratory rate 16 /min Dr. Davis Recio Work Phone: [facility] Work Phone: 12-11-2021 15:34-0400 SaO2% (BldA) [Mass fraction] 99 % Dr. Davis Recio Work Phone: [facility] Work Phone: 12-11-2021 15:34-0400 Systolic blood pressure 137 mm[Hg] Dr. Davis Recio Work Phone: [facility] Work Phone: 12-11-2021 12:57-0400 Body height 167.[address] Davis Recio Work Phone: [facility] Work Phone: 12-11-2021 12:57-0400 Body mass index (BMI) [Ratio] 30.7 kg/m2 Dr. Davis Recio Work Phone: [facility] Work Phone: 12-11-2021 12:57-0400 Body temperature 97.2 [degF] Dr. Davis Recio Work Phone: [facility] Work Phone: 12-11-2021 12:57-0400 Body weight 86.[address] Davis Recio Work Phone: [facility] Work Phone: 09-04-2021 17:02-0400 Body temperature 97.6 [degF] Dr. Davis Recio Work Phone: [facility] Work Phone: 09-04-2021 17:02-0400 Diastolic blood pressure 76 mm[Hg] Dr. Davis Recio Work Phone: [facility] Work Phone: 09-04-2021 17:02-0400 Heart rate 92 /min Dr. Davis Recio Work Phone: [facility] Work Phone: 09-04-2021 17:02-0400 Respiratory rate 12 /min Dr. Davis Recio Work Phone: [facility] Work Phone: 09-04-2021 17:02-0400 SaO2% (BldA) [Mass fraction] 98 % Dr. Davis Recio Work Phone: [facility] Work Phone: 09-04-2021 17:02-0400 Systolic blood pressure 150 mm[Hg] Dr. Davis Recio Work Phone: [facility] Work Phone: 09-04-2021 12:34-0400 Body height 167.[address] Davis Recio Work Phone: [facility] Work Phone: 09-04-2021 12:34-0400 Body weight 86.[address] Davis Recio Work Phone: [facility] Work Phone: 09-04-2021 11:53-0400 Body mass index (BMI) [Ratio] 30.9 kg/m2 Dr. Davis Recio Work Phone: [facility] Work Phone: 09-03-2021 12:00-0400 Respiratory rate 14 /min Dr. Davis Recio Work Phone: [facility] Work Phone: 09-03-2021 11:41-0400 Body temperature 98.2 [degF] Dr. Davis Recio Work Phone: [facility] Work Phone: 09-03-2021 11:41-0400 Diastolic blood pressure 73 mm[Hg] Dr. Davis Recio Work Phone: [facility] Work Phone: 09-03-2021 11:41-0400 Heart rate 73 /min Dr. Davis Recio Work Phone: [facility] Work Phone: 09-03-2021 11:41-0400 SaO2% (BldA) [Mass fraction] 96 % Dr. Davis Recio Work Phone: [facility] Work Phone: 09-03-2021 11:41-0400 Systolic blood pressure 161 mm[Hg] Dr. Davis Recio Work Phone: [facility] Work Phone: 09-03-2021 10:03-0400 Body height 167.[address] Davis Recio Work Phone: [facility] Work Phone: 09-03-2021 10:03-0400 Body mass index (BMI) [Ratio] 29.8 kg/m2 Dr. Davis Recio Work Phone: [facility] Work Phone: 09-03-2021 10:03-0400 Body weight 83.[address] Davis Recio Work Phone: [facility] Work Phone: Encounters Encounter Date Encounter Type Care Provider Facility Start: 09-25-2024 End: 09-25-2024 Emergency department patient visit Dr. Jose Alejandro Villalpando DO Work Phone: -Emergency Department Work Phone: Start: 07-09-2024 End: 07-09-[address] Jose Alejandro Villalpando DO Work Phone: [facility] Work Phone: Start: 07-09-2024 End: 07-09-[address] Jose Alejandro Villalpando DO -Laboratory [place] Work Phone: Start: 07-09-2024 End: 07-09-2024 ambulatory Jose Alejandro Villalpando Facility:[facility] Start: 01-09-2024 End: 01-09-2024 ambulatory Jose Alejandro Irasema Facility:[facility] Start: 12-23-2023 End: 12-23-2023 Emergency department patient visit Jose Alejandro Villalpando Facility:[facility] Start: 11-22-2023 End: 11-22-2023 ambulatory Carol Wallace Facility:[facility] Start: 10-14-2023 End: 10-14-2023 ambulatory Jose Alejandro Villalpando Facility:[facility] Start: 06-25-2023 End: 06-25-[address] [facility] Work Phone: Start: 06-25-2023 End: 06-25-[address] [facility] Work Phone: Start: 09-11-2022 End: 09-11-2022 Emergency department patient visit Dr. Ailyn Hernandez Work Phone: [facility] Work Phone: Start: 08-30-2022 End: 08-30-[address] Ailyn Hernandez Work Phone: [facility] Work Phone: Start: 08-16-2022 Non-patient / Non-visit Dr. Jean-Paul Hernandez Work Phone: [facility] Start: 08-16-2022 End: 08-16-[address] Ailyn Hernandez Work Phone: [facility] Work Phone: Start: 08-16-2022 End: 08-16-[address] Ailyn Hernandez Work Phone: [facility] Start: 08-14-2022 End: 08-14-[address] Ailyn Hernandez Work Phone: [facility] Start: 07-27-2022 End: 07-27-[address] [facility] Work Phone: Start: 07-27-2022 End: 07-27-[address] [facility] Start: 07-19-2022 End: 07-19-[address] [facility] Work Phone: Start: 07-19-2022 End: 07-19-[facility]22 [facility] Start: 05-31-2022 End: 05-31-[address] [facility] Work Phone: Start: 05-31-2022 End: 05-31-2022 [facility] Start: 12-11-2021 End: 12-11-2021 Emergency department patient visit Dr. Davis Recio Work Phone: [facility]gency [facility] Start: 09-04-2021 Non-patient / Non-visit Dr. Mumtaz Recio Work Phone: [facility] Start: 09-04-2021 Non-patient / Non-visit Dr. Mumtaz Recio Work Phone: [facility] Start: 09-03-2021 Non-patient / Non-visit Dr. Mumtaz Recio Work Phone: [facility] Start: 09-03-2021 End: 09-04-2021 Evaluation and management of inpatient Dr. Davis Recio Work Phone: [facility] Start: 06-21-2021 End: 06-21-2021 Patient encounter procedure [facility] Procedures Date Procedure Procedure Detail Performing Clinician Start: 09-25-[address] Jose Alejandro Villalpando DO Work Phone: Start: 09-25-2024 X-ray of chest, PA a nd lateral views Dr. Jose Alejandro Villalpando DO Work Phone: Start: 06-25-2023 MRI of lower extremity Start: 12-11-2021 Diagnostic radiograp hy of abdomen, decubitus and erect Dr. Davis Recio Work Phone: Start: 09-04-2021 MRI of brain without contrast Dr. Davis Recio Work Phone: Start: 09-03-2021 CT angiography of he ad and neck Dr. Davis Recio Work Phone: Start: 09-03-2021 CT of head without contrast Dr. Davis Recio Work Phone: Start: 09-03-2021 Plain chest X-ray Dr. Sidney Recio Work Phone: Plan of Treatment Date Care Activity Detail Author Start: 09-25-2024 End: 09-25-2024 [facility] Start: 09-25-2024 [facility] Start: 07-27-[address] [facility] Start: 09-04-2021 Patient discharge [facility] Work Phone: Start: 09-03-2021 Following clinical p athway protocol [facility] Work Phone: Start: 09-03-2021 Assessment of risk o f venous thromboembolism [facility] Work Phone: Start: 09-03-2021 Cardiac monitoring [facility] Work Phone: Start: 09-03-[address] [facility] Work Phone: Start: 09-03-[address] [facility] Work Phone: Start: 09-03-2021 Elevation of head of bed [facility] Work Phone: Start: 09-03-2021 Exercises [facility] Work Phone: Start: 09-03-[address] anned interventions [facility] Work Phone: Start: 09-03-2021 Insertion of cathete r into peripheral vein [facility] Work Phone: Start: 09-03-2021 Measuring intake and output [facility] Work Phone: Start: 09-03-[address] [facility] Work Phone: Start: 09-03-[address] [facility] Work Phone: Start: 09-03-2021 Providing care accor ding to standard [facility] Work Phone: Start: 09-03-2021 Referral to occupati onal therapist [facility] Work Phone: Start: 09-03-2021 Referral to service [facility] Work Phone: Start: 09-03-[address] [facility] Work Phone: Start: 09-03-2021 Tobacco use cessatio n education [facility] Work Phone: Start: 09-03-2021 [facility] Work Phone: Start: 09-03-2021 Application of eye patch [facility] Work Phone: Start: 09-03-[address] [facility] Work Phone: Start: 09-03-2021 Verification routine [facility] Work Phone: Start: 09-03-2021 Admission procedure [facility] Work Phone: Start: 09-03-[address] [facility] Work Phone: Start: 09-03-2021 Plain chest X-ray Chest 1 View [facility] Work Phone: Start: 09-03-2021 XR Chest Single view [facility] Work Phone: Start: 09-03-2021 [facility] Work Phone: Laboratory data interpretation [facility] Patient Education [facility] Work Phone: Patient referral [facility] Work Phone: Troponin I measurement [facility] Work Phone: Troponin T.cardiac [Mass/volume] in Serum or Plasma by High sensitivity method [facility] Immunizations Immunization Date Immunization Notes Care Provider Fa cility 12-26-2022 influenza, injectabl e, quadrivalent, preservative free Dr. Jose Alejandro Villalpando DO Work Phone: [facility] 12-26-2022 Pfizer Covid-19 (Comirnaty) Dr. Jose Alejandro Villalpando DO Work Phone: [facility] 12-01-2021 Covid Moderna Bivale nt Booster Dr. Jose Alejandro Villalpando DO Work Phone: [facility] 06-18-2021 Covid (Moderna) Dr. Jose Alejandro schmid DO Work Phone: [facility] 03-28-2021 Covid (Moderna) Dr. Davis burgess Work Phone: [facility] 02-12-2021 Covid (Moderna) Dr. Jose Alejandro schmid DO Work Phone: [facility] 11-25-2020 influenza, injectabl e, quadrivalent, preservative free [facility] 11-25-2020 influenza, seasonal, injectable Dr. Davis Recio Work Phone: [facility] 04-21-2020 Covid (Moderna) Dr. Jose Alejandro schmid DO Work Phone: [facility] 03-24-2020 Covid (Moderna) Dr. Jose Alejandro schmid DO Work Phone: [facility] Payers Date Payer Category Payer Medicare [id number] 2023 Self-pay [id number] 2016 Unknown [id number] 616 [id number] 1998 Medicare [id number] Unknown [id number] 2.16.8 [id number] Unknown [id number] 2.16.8 [id number] Unknown [id number] 2.16.8 [id number] Unknown [id number] 2.16.8 [id number] Unknown [id number] 2.16.8 [id number] Unknown [id number] 2.16.8 [id number] Social History Date Type Detail Facility Start: 02-04-2021 End: 09-11-2022 Tobacco smoking status [facility] Unknown if ever smoked [facility] Start: 1940 Sex Assigned At Male W [facility] Start: 09-04-2021 Cigarettes;Cig ars;Kayli w [facility] Start: 12-23-2023 End: 09-25-2024 Tobacco smoking status ILIS Ex-smoker (finding) [facility] Medical Equipment Procedure Code Equipment Code Equipment Origin al Text Equipment Identifier Dates Total knee replacement ([id number]) Metal-backed patella prosthesis [id number] FDA Start: 08-19-2023 Total knee replacement ([id number]) Coated knee femur prosthesis ()[id number] FDA Start: 08-19-2023 Total knee replacement ([id number]) Coated knee tibia prosthesis ()[id number] FDA Start: 08-19-2023 Total knee replacement ([id number]) Tibial insert ()[id number] FDA Start: 08-19-2023 Goals Date Patient Goal Desired Activity /State Functional Status Date Assessment Result Facility 09-04-2021 Functional status Activity Abili ty With Assist of 1 [facility] Work Phone: 09-04-2021 Functional status Ambulates [facility] Work Phone: Mental Status Date Assessment Result Facility 09-25-2024 Cognitive function Level Of Cons ciousness Awake;Alert;Appropriate;Follow s Commands [facility] Work Phone: 09-04-2021 Cognitive function Voice/Name [facility] Work Phone: 09-03-2021 Cognitive function Voice/Name [facility] Work Phone: Clinical Notes 09-25-2024 Note Date & Type Note Facility 09-25-[address] [facility] 09-25-2024 Radiology Diagnostic study note [facility] Imaging Services [address] [place], [place] [id number] Chest PA and Lateral MR#: [id number] Acct: [id number] Name: BRAGGFORMERLY [facility] Rep #: [id number] : 1940 M 84 From: Get Weber MD PCP: Dr. Jose Alejandro Villalpando DO Status: REG ER Study:Chest PA and Lateral Date of Exam: 09/25/24 Exam# [id number] Ordering Dr: Keegan Paz DO PROCEDURE: CHEST PA AND LATERAL 09/25/2024 REASON FOR EXAM: CHEST PAIN TECHNIQUE: CHEST PA AND LATERAL COMPARISON: Prior study dated August 20, 2023. FINDINGS: Hardware: EKG electrodes are seen. Heart: Heart size upper limits of normal. Mediastinum: Unremarkable Lungs: Stable elevation of the right hemidiaphragm. No focal infiltrate is seen. Bones: Degenerative changes are identified within the thoracic spine. RAD/Chest PA and Lateral IMPRESSION: Stable elevation of the right hemidiaphragm. The lungs are clear. Reading Location: [facility] CC: Dr. Jose Alejandro Villalpando DO; Dr. Emile Paz DO ~ Crew Chief: Signed [facility] 09-25-2024 Discharge summary Note Date/Time September 25, 2024 2:57pm [facility] Medical Records Department [address] [place] [address] Emergency Department Summary 09/25/24 MR#: [id number] Acct: [id number] Name: FRANCISCA BRAGG Rep #:[id number] : 1940 84 From: Emile Paz DO PCP: Dr. Jose Alejandro Villalpando DO Status:REG ER Location: ED HPI History of Present Illness Chief Complaint: General Illness Narrative Narrative: Patient is a 84-year-old male with past medical history of COPD, chronic kidney disease, heart failure, hypertension, hypothyroidism who presented to the emergency department with a chief complaint of cough and concern for pneumonia. Patient states that he woke up this morning and noted that he had some wheezing and started coughing up more sputum than normal. Patient states that he is leaving town and he wanted to be sure that nothing else was going on before he left. Denies any fevers denies shortness of breath denies chest pain PFSH PFSH Medical History COPD (chronic obstructive pulmonary disease) Insomnia Chronic constipation Arthritis of left knee Cranial nerve III palsy Peripheral vertigo Diastolic dysfunction Chronic renal failure, stage 3a Peripheral vascular disease History of echocardiogram Wears hearing aid Wears glasses Wears dentures Rash Ambulates with cane Arthritis Low iron History of ulceration Former smoker Leg cramps History of pain when walking History of edema Constipation GERD (gastroesophageal reflux disease) Hypertension Hypothyroid Home Medications ?Medication ?Instructions ?Recorded ?Last Taken ?Type pantoprazole 40 mg tablet,delayed 40 mg PO QHS reflux 06/02/20 08/19/23 History release potassium chloride 10 mEq 8 meq PO BID supplement 10/1508/20/23 History tablet,extended release(part/cryst) polyethylene glycol 3350 17 17 g PO DAILY bowel mobili ty 09/03/21 08/20/23 History gram/dose oral powder (Miralax) cyanocobalamin (vitamin B-12) 500 1,000 mcg PO QHS sup plement 08/14/22 09/24/24 History mcg tablet (B-12 DOTS) glucosamine sulf dipot 1 cap PO DAILY ? 08/14/22 History chlr,msm,chond 550 mg-C 30 mg-carmela 1 mg capsule (Glucosamine Chondroitin) Held on 09/03/23. Instructions: Resume on 09/17/23. May resume on 09/17/23 ferrous sulfate 325 mg (65 mg 325 mg PO DAILY suppleme nt 07/29/23 09/24/24 History iron) tablet (iron) acetaminophen 500 mg tablet 1,000 mg (2 x 500 mg) PO Q 8 pain 08/20/23 08/20/23 Rx #0 tabs meloxicam 7.5 mg tablet 7.5 mg PO BID anti-inflammat ory 08/20/23 Unknown Rx Held on 09/03/23. #0 tabs Instructions: Do NOT take this medication until you see Dr. Villalpando. this medication causes ulcers in the stomach and you have blood in your stool which can be a sign of bleeding in the gastrointestinal tract. furosemide 20 mg tablet 60 mg (3 x 20 mg) PO DAILY # 90 tabs 09/03/23 09/25/24 Rx levothyroxine 50 mcg tablet 50 mcg PO DAILY@0600 #30 t abs 09/03/23 Unknown Rx salmeterol 50 mcg/dose blister 1 inh inhalation Q12H # 60 ea 09/03/23 Unknown Rx powder for inhalation (Serevent Diskus) tamsulosin 0.4 mg capsule 0.4 mg PO DAILY@1730 #30 cap s 09/03/23 Unknown Rx lisinopril 20 mg tablet 20 mg PO DAILY #30 tabs 08/25 Unknown Rx albuterol sulfate 90 mcg/actuation 2 puff inhalation Q 6H PRN 09/25/24 Unknown Rx aerosol inhaler (Ventolin HFA) shortness of breath or wheezing #8.5 grams doxycycline hyclate 100 mg capsule 100 mg PO BID #10 c aps 09/25/24 Unknown Rx furosemide 40 mg tablet 40 mg PO BID 09/25/24 Unknow n History meclizine 25 mg tablet 12.5 - 25 mg PO TID PRN PRN 09/25/24 Unknown History dizziness prednisone 50 mg tablet 50 mg PO DAILY 4 days #4 tab s 09/25/24 Unknown Rx Allergy/AdvReac Type Severity Reaction Status Date / Time No Known Allergies Allergy Verified 09/25/24 11:55 Surgical History History of total left knee replacement History of esophagogastroduodenoscopy (EGD) Hx of left cataract extraction Hx of right cataract extraction Hx of colonoscopy Hx of left knee surgery Social History household members: none housing: house number of children: 22 Smoking Status: Former smoker Tobacco: How many years used: 55 how long ago did patient quit smokin alcohol intake: never substance use type: does not use ROS ROS ED ROS Narrative Constitutional: Denies fevers, chills, headache Cardiovascular: Denies chest pain or palpitations Respiratory: Claims coughing as noted above denies shortness of breath Abdomen: Denies abdominal pain nausea vomit diarrhea : Denies urinary symptoms Neurological: Denies any numbness, weakness, tingling Musculoskeletal: Denies any back pain Skin: Denies any rashes or lesions EXAM Physical Exam Narrative Exam Narrative: General: Patient is lying in bed rest comfortably did not appear to be acute distress Head: Atraumatic, normocephalic Eyes: PERRL bilateral, EOMI biotic no conjunctival injection noted Neck: Soft, supple, trachea midline Cardiovascular: Regular rate and rhythm no murmurs gallops rubs noted Respiratory: Patient has diffuse end expiratory wheezing noted on exam Abdomen: Soft, nondistended, nontender to palpation Extremities: +5/5 strength noted in the bilateral upper and lower extremities, radial pulses +2/4 in the bladder extremities Neurological: Patient following commands knew that he was at [facility] years 2024 Skin: Warm, dry, intact no rashes or lesions noted Const Vital Signs: 09/25/24 11:56 09/25/24 12:51 09/25/24 12:56 Temperature 98.4 F Temperature Source Oral Pulse Rate 91 Respiratory Rate 16 Respiratory Effort Normal Non-Labored Respiratory Pattern Normal Blood Pressure 165/80 H Blood Pressure Mean 108 Pulse Ox 100 100 Oxygen Delivery Method Room Air Room Air 09/25/24 13:21 09/25/24 13:55 Temperature 98.2 F Temperature Source Oral Pulse Rate 54 L 96 Respiratory Rate 16 17 Respiratory Effort Respiratory Pattern Normal Blood Pressure 152/78 H Blood Pressure Mean 102 Pulse Ox 96 Oxygen Delivery Method MDM MDM MDM Narrative Medical decision making narrative: Patient is a 84-year-old male who presented to the emergency department with chief complaint of cough and concern for pneumonia. On the differential diagnosis includes but not limited to pneumonia, CHF, upper respiratory infection secondary viral etiology, COPD exacerbation. Once the workup is obtained reviewed he will be reevaluated. Patient given IV fluids. Patient CBC was reviewed showed no evidence leukocytosis white blood count normal at 6.4, he was 13.9, platelet count 297. Patient sodium was 140, potassium normal at 4.4, creatinine was noted to be normal at 1.06. Patient's proBNP normal at 176, troponin normal at 9. EKG showed sinus bradycardia with evidence of first-degree AV block with a DE interval of 270. Patient chest x-ray reviewed by myself by radiology showed stable elevation of the right hemidiaphragm lungs are clear. Patient did ambulate here in the emergency department and he went from 97% to 91%. On reevaluation the patient he states that he needs to go home as he has a trip planned and needs to leave by 5 PM. He states that he is not staying in the hospital. He will be given prescriptions for prednisone, albuterol inhaler, doxycycline. He was advised to return with worsening symptoms or other concerns. He is agreeable this plan all question concerns answered he is discharged home in stable condition. Lab Data Labs: Laboratory Results - last 24 hr 09/25/24 13:05 WBC 6.4 RBC 4.69 Hgb 13.9 Hct 42.5 MCV 90.6 MCH 29.6 MCHC 32.7 RDW Std Deviation 43.0 RDW Coeff of Elieser 13.2 Plt Count 297 MPV 9.6 Immature Gran % (Auto) 0.800 Neut % (Auto) 67.1 Lymph % (Auto) 21.5 [place] % (Auto) 6.7 Eos % (Auto) 3.3 Baso % (Auto) 0.6 Absolute Neuts (auto) 4.3 Absolute Lymphs (auto) 1.37 Nucleated RBC % 0 Sodium 140 Potassium 4.4 Chloride 104 Carbon Dioxide 25.2 Anion Gap 11 BUN 18 Creatinine 1.06 Estim Creat Clear Calc 50.99 Est GFR (MDRD) Non-Af 68 BUN/Creatinine Ratio 17.2 Glucose 96 Calcium 9.0 Troponin T High Sens 9 NT pro BNP II 176 Radiography Diagnostic Testing: Clinical Impression(s) from Imaging Studies Chest X-Ray 09/25/24 12:56 IMPRESSION: Stable elevation of the right hemidiaphragm. The lungs are clear. Reading Location: [facility] Discharge Plan Triage Chief Complaint: General Illness ED Provider: Emile Paz Dx/Rx/DC Orders Clinical Impression: COPD exacerbation, Cough, Generalized weakness, History of CHF (congestive heart failure) Prescriptions: New prednisone 50 mg tablet 50 mg PO DAILY 4 Days Qty: 4 0RF doxycycline hyclate 100 mg capsule 100 mg PO BID Qty: 10 0RF albuterol sulfate [Ventolin HFA] 90 mcg/actuation HFA aerosol inhaler 2 puff inhalation Q6H PRN (Reason: shortness of breath or wheezing) Qty: 8.5 0RF No Action cyanocobalamin (vitamin B-12) [B-12 DOTS] 500 mcg tablet 1,000 mcg PO QHS pantoprazole 40 MG tablet 40 mg PO QHS potassium chloride 10 MEQ tablet 8 meq PO BID Glucosamine Chondroitin 550-30-1 mg capsule 1 cap PO DAILY Rx Instructions: orally twice a day; polyethylene glycol 3350 [Miralax] 17 gram/dose Powder 17 g PO DAILY ferrous sulfate [iron] 325 mg (65 mg iron) tablet 325 mg PO DAILY acetaminophen 500 mg Tablet 1,000 mg PO Q8 Qty: 0 0RF meloxicam 7.5 mg Tablet 7.5 mg PO BID Qty: 0 0RF levothyroxine 50 mcg Tablet 50 mcg PO DAILY@0600 Qty: 30 0RF Rx Instructions: Take this medication in the MORNING on an empty stomach and wait 30 minutes to eat. furosemide 20 mg Tablet 60 mg PO DAILY Qty: 90 0RF Rx Instructions: take 3 tabs once a day in the morning to prevent swelling tamsulosin 0.4 mg Capsule 0.4 mg PO DAILY@1730 Qty: 30 0RF Serevent Diskus 50 mcg/dose blister with device 1 inh inhalation Q12H Qty: 60 0RF Rx Instructions: 1 inhalation every 12 hours. lisinopril 20 mg tablet 20 mg PO DAILY Qty: 30 0RF furosemide 40 mg tablet 40 mg PO BID meclizine 25 mg tablet 12.5 - 25 mg PO TID PRN PRN (Reason: dizziness) Primary Care Provider: Jose Alejandro Villalpando Referrals: Joes Alejandro Villalpando DO [Primary Care Provider] - Activity Restrictions/Additional Instructions: Follow-up your doctor in the outpatient setting. Take steroids and antibiotics as prescribed. Use inhaler as prescribed. Return with worsening symptoms or any other concerns your blood work did not show any acute findings today and your chest x-ray did not show any evidence of pneumonia. Print Language: Occitan Disposition Disposition: Home, Self Care What to do if you have Problems For any increased pain, shortness of breath, bleeding, nausea or vomiting, chestpain, or any unexpected problems, contact your Primary Care Provider. Call [facility] ([phone]) or report to the closest Emergency Room. Call 911 if necessary. 09/25/24 1420 <Electronically signed by Emile Paz DO> Cosigner Signature (if applicable): CC: Dr. Jose Alejandro Villalpando DO ~ Signed [facility] Work Phone: Discharge summary Author Charles Thomas [facility] September 11, 2022 11:58am Note Date/Time September 11, 2022 11:[address] [facility] Medical Records Department [address] [place] [address] Emergency Department Summary 09/11/22 MR#: [id number] Acct: [id number] Name: FRANCISCA BRAGG Rep #:[id number] : 1940 82 From: Charles Thomas MD PCP: Dr. Ailyn Hernandez MD Status:REG ER Location: ED HPI History of Present Illness Chief Complaint: Rash Narrative Narrative: 79-year-old male past medical history of hypertension, presents with worsening rash on the back of his left calf. He states has been there for a month. It started out as a small area with clearing in the middle. He states he went to his primary care provider, and wanted to be tested for Lyme disease. They tested him and it was negative. He was given 2 small tubes of cream to put on the area but does not recall what they were. He presents because of worsening rash on the back of his calf. He states it is grown much larger in size and is sometimes itchy. It is rarely flaky. He denies any fevers or chills. No othersymptoms. No drainage from the rash. [facility] Medical History Constipation GERD (gastroesophageal reflux disease) Hypertension Hypothyroid Home Medications levothyroxine 50 mcg tablet 50 mcg PO DAILY 12/11/15 [History Last Taken 05/17/16 06:00] furosemide 20 mg tablet 20 mg PO DAILY 06/02/20 [History Last Taken Unknown] pantoprazole 40 mg tablet,delayed release 40 mg PO DAILY 06/02/20 [History Last Taken Unknown] potassium chloride 10 mEq tablet,extended release(part/cryst) 8 meq PO DAILY 06/02/20 [History Last Taken Unknown] ferrous gluconate 324 mg (37.5 mg iron) tablet 1 tab PO DAILY 09/03/21 [History Last Taken Unknown] polyethylene glycol 3350 17 gram/dose oral powder (Miralax) 17 g PO DAILY 09/03/21 [History Last Taken Unknown] lisinopril 10 mg tablet 10 mg PO DAILY #30 tabs 09/04/21 [Rx Last Taken Unknown] cyanocobalamin (vitamin B-12) 500 mcg tablet (B-12 DOTS) 1,000 mcg PO DAILY 08/14/22 [History Last Taken Unknown] glucosamine sulf dipot chlr,msm,chond 550 mg-C 30 mg-carmela 1 mg capsule (Glucosamine Chondroitin) See Rx Instructions PO BID 08/14/22 [History Last Taken Unknown] atorvastatin 80 mg tablet 80 mg PO QHS #30 tabs 08/30/22 [Rx Last Taken Unknown] ketoconazole 2 % topical cream 1 applic topical BID #60 grams 09/11/22 [Rx Last Taken Unknown] Allergy/AdvReac Type Severity Reaction Status Date / Time No Known Allergies Allergy Verified 08/30/22 11:04 Social History Smoking Status: Former smoker alcohol intake: never ROS ROS ED ROS Narrative Constitutional: No fever, no chills. HEENT: No sore throat. No neck pain. No loss of vision. No rhinorrhea. Cardiovascular: No chest pain. No palpitations. No pedal edema. Respiratory: No cough, no shortness of breath. Abdominal: No abdominal pain. No nausea. No vomiting. Genitourinary: No dysuria. No hematuria. Musculoskeletal: No myalgias. No arthralgias. Neurologic: No headaches. No dizziness. No lightheadedness. Skin: Worsening posterior left calf rash. Occasionally itchy. No change in color. Psychiatric: No depression. No anxiety. EXAM Physical Exam Narrative Exam Narrative: Afebrile. Vital signs noted. Nontoxic-appearing. HEENT: Normocephalic. Atraumatic. PERRL, EOMI. Neck soft and supple. No pointtenderness or step off. Cardiovascular: Regular rate and rhythm. No murmurs, rubs, or gallops appreciated. Respiratory: No tachypnea. Lungs clear to auscultation bilaterally. Gastrointestinal: Abdomen soft, nontender, with normoactive bowel sounds. No rebound or guarding. Neurological: Awake. Alert. Nonfocal, nonlateralizing. Skin: Positive area on back of left calf consistent with large patch of tinea corporis. Positive mild central clearing. Normal color. No pallor. Musculoskeletal: No pedal edema. Full range of motion extremities. Const Vital Signs: 09/11/22 11:35 Temperature 97.8 F Temperature Source Temporal Pulse Rate 97 Respiratory Rate 14 Blood Pressure 128/66 H Blood Pressure Mean 86 Pulse Ox 98 Oxygen Delivery Method Room Air MDM MDM MDM Narrative Medical decision making narrative: Patient could have more of an eczema versus tinea corporis. Regardless, he was told that he should apply the antifungal cream that I will write for him twice aday and that it can take weeks for this to improve if not longer. Board of oralantifungal given his age and possible side effects/comorbidities that he has. Hence, he was referred to a citrus fruit colorer. I do not feel that any laboratory work or imaging is indicated. I have low suspicion for DVT based on his clinical examination. I feel he can be discharged safely home with follow-up. He can also follow-up with his primary care provider. Return instructions to the emergency department were reviewed. Disposition is discharged home in stable condition. History & Record Review Discussion w/independent historian: Patient Additional record(s) reviewed:: Prior ED visit Discharge Plan Triage Chief Complaint: Rash ED Provider: Charles Thomas Dx/Rx/DC Orders Clinical Impression: Tinea corporis, Hypertension Instructions: ED Fungal Skin Infection (Tinea), ED Ringworm, Skin Prescriptions: New ketoconazole 2 % cream 1 applic topical BID Qty: 60 0RF No Action cyanocobalamin (vitamin B-12) [B-12 DOTS] 500 mcg tablet 1,000 mcg PO DAILY atorvastatin 80 mg tablet 80 mg PO QHS Qty: 30 11RF levothyroxine 50 MCG tablet 50 mcg PO DAILY pantoprazole 40 MG tablet 40 mg PO DAILY furosemide 20 MG tablet 20 mg PO DAILY potassium chloride 10 MEQ tablet 8 meq PO DAILY Glucosamine Chondroitin 550-30-1 mg capsule See Rx Instructions PO BID Rx Instructions: orally twice a day; polyethylene glycol 3350 [Miralax] 17 gram/dose Powder 17 g PO DAILY ferrous gluconate 324 mg (37.5 mg iron) tablet 1 tab PO DAILY Patient Comments: TAKE 1 TABLET BY MOUTH EVERY DAY lisinopril 10 mg tablet 10 mg PO DAILY Qty: 30 0RF Primary Care Provider: Ailyn Hernandez Referrals: Ailyn Hernandez MD [Primary Care Provider] - 1 Week if not improving Vero Jaramillo MD [Non-Staff] - As soon as possible Disposition Disposition: Home, Self Care What to do if you have Problems For any increased pain, shortness of breath, bleeding, nausea or vomiting, chestpain, or any unexpected problems, contact your Primary Care Provider. Call [facility] ([phone]) or report to the closest Emergency Room. Call 911 if necessary. 09/11/22 1158 <Electronically signed by Charles Thomas MD> Cosigner Signature (if applicable): CC: Dr. Ailyn Hernandez MD ~ Signed [facility] Work Phone: Evaluation noteNo assessment information available 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 Work Phone: Evaluation note* Diagnosis Onset Date Resolution Status Acute CVA (cerebrovascular accident) acute Cranial nerve III palsy acut e Dizziness acute Hypertension chronic 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 Work Phone: Evaluation note* Diagnosis Onset Date Resolution Status Peripheral vascular disease acute [facility] Work Phone: Evaluation note* Diagnosis Onset Date Resolution Status Peripheral vascular disease acute Peripheral vascular disease acute [facility] Work Phone: Hospital Discharge instructionsAdditional Instructions Follow-up your doctor in the outpatient setting. Take steroids and antibiotics as prescribed. Use inhaler as prescribed. Return with worsening symptoms or any other concerns your blood work did not show any acute findings today and your chest x-ray did not show any evidence of pneumonia.[facility] Work Phone: Reason for referral (narrative)No reason for referral information availableWSelect Medical Special[facility], [facility] Work Phone: Advance Directives No Advanced Directives Records Found Advance Directive Response Recorded Date/ Time Living Will No February 04 4:44pm Power of Wastewater Process Engineer No February 04, 2021 4:44pm Advance Directive Response Recorded Date/ Time Name of Medical Power of Wastewater Process Engineer LOU BRAGG September 03, 2021 10:08am Living Will Yes September 03, 2021 10:08am Power of Wastewater Process Engineer Yes September 03 10:08am Advance Directive Response Recorded Date/ Time Name of Medical Power of Wastewater Process Engineer Lou Bragg September 03, 2021 12:30pm Living Will Yes September 03, 2021 12:30pm Power of Wastewater Process Engineer Yes September 03 12:30pm Advance Directive Response Recorded Date/ Time Name of Medical Power of Wastewater Process Engineer Lou Bragg September 03, 2021 12:30pm Living Will No December 11 1:20pm Power of Wastewater Process Engineer No December 11, 2021 1:20pm Advance Directive Response Recorded Date/ Time Living Will No December 11 1:20pm Power of Wastewater Process Engineer No December 11, 2021 1:20pm Advance Directive Response Recorded Date/ Time Living Will No September 11, 2022 11:54am Power of Wastewater Process Engineer No September 11 11:54am Advance Directive Response Recorded Date/ Time Do you have a Healthcare Power of Wastewater Process Engineer? No September 25, 2024 12:49pm Chief Complaint and Reason for Visit Chief Complaint Vertigo CVA Reason for Visit Cranial nerve III pa lsy Hypertension Chief Complaint CVA Vertigo Reason for Visit Acute CVA (cerebrova scular accident) Cranial nerve III palsy Dizziness Hypertension Chief Complaint CVA Vertigo Cerebrovascular accident CONSTIPATION Reason for Visit Cranial nerve III pa lsy Hypertension Dizziness Chief Complaint PAD Localized edema Reason for Visit Peripheral vascular disease Chief Complaint PAD Localized edema DISCUSS RESULTS RASH Reason for Visit Peripheral vascular disease Peripheral vascular disease Chief Complaint LEFT KNEE PROTOCAL L S1 Chief Complaint Admit Date gen illness September 25, 2024 11: 55am Summary Purpose Family History No Family History Records Found Additional Source Comments Goals (unrecognized section and content) Goals may be documented in a n alternate sectionGoals may be documented in an alternate sectionGoals may be documented in an alternate sectionGoals may be documented in an alternate sectionGoals may be documented in an alternate sectionGoals may be documented in an alternate sectionGoals may be documented in an alternate sectionGoals may be documented in an alternate sectionGoals may be documented in an alternate sectionGoals may be documented in an alternate section Care Teams (unrecognized sec tion and content) Team Status: Active Member Role Status Dates Dr. Davis Recio MD Family Provider Active MELODY BENOIT Primary Care Provider Active Team Status: Inactive Member Role Status Dates KAYCEE OLIVER Primary Care Provide r, Attending Provider, Referring Provider Active Team Status: Active Member Role Status Dates Dr. Davis Recio MD Family Provider Active Dr. Ailyn Hernandez MD Primary Care Provider Active Team Status: Inactive Member Role Status Dates Dr. Ailyn Hernandez MD Primary Care Prov ider, Attending Provider, Referring Provider Active Team Status: Inactive Member Role Status Dates Dr. Ailyn Hernandez MD Primary Care Provider, Referrin g Provider Active PAIGE Latham Attending Provider Active Team Status: Inactive Member Role Status Dates Dr. Ailyn Hernandez MD Primary Care Provider Active PAIGE Latham Attending Provider, Referring Provider Active Team Status: Active Member Role Status Dates Dr. Ailyn Hernandez MD Primary Care Provider Active Dr. Flaco Armando MD Attending Provider Active Team Status: Inactive Member Role Status Dates Dr. Ailyn Hernandez MD Primary Care Provider Active Charles Thomas MD Emergency Provider Active Team Status: Active Member Role Status Dates Dr. Davis Recio MD Family Provider Active Dr. Jose Alejandro Villalpando DO Primary Care Provider Active Team Status: Inactive Member Role Status Dates Dr. Lloyd Carson MD Attending Provider, Referring P scooter Active Dr. Jose Alejandro Villalpando DO Primary Care Provider Active Team Status: Inactive Member Role Status Dates Dr. Jose Alejandro Villalpando DO Primary Care Provider Active Start: July 09, 2024 End: July 09, 2024 Dr. Jose Alejandro Villalpando DO Attending Provider Active Start: July 09, 2024 End: July 09, 2024 Dr. Jose Alejandro Villalpando DO Referring Provider Active Start: July 09, 2024 End: July 09, 2024 Team Status: Active Member Role/Relationship Status Dates Dr. Jose Alejandro Villalpando DO Primary Care Provider Active Team Status: Inactive Member Role/Relationship Status Dates Dr. Jose Alejandro Villalpando DO Primary Care Provider Active Start: July 09, 2024 End: July 09, 2024 Dr. Jose Alejandro Villalpando DO Attending Provider Active Start: July 09, 2024 End: July 09, 2024 Dr. Jose Alejandro Villalpando DO Referring Provider Active Start: July 09, 2024 End: July 09, 2024 Team Status: Inactive Member Role/Relationship Status Dates Dr. Jose Alejandro Villalpando DO Primary Care Provider Active Start: September 25, 2024 End: September 25, 2024 Dr. Emile Paz DO Referring Provider Active Start: September 25, 2024 End: September 25, 2024 Dr. Emile Paz DO Emergency Provider Active Start: September 25, 2024 End: September 25, 2024 (unrecognized sect ion and content) No Status Records Found INFORMATION SOURCE (unrecogn ized section and content) DATE CREATED AUTHOR 09/29/2024 [facility] FOR RECORDS PERTAINING TO PATIENTS WHO ARE OR HAVE BEEN ENROLLED IN A CHEMICAL DEPENDENCY/SUBSTANCEABUSE PROGRAM, SOME INFORMATION MAY BE OMITTED. This clinical summary was aggregated from multiple sources. Caution should be exercised in using it in the provision of clinical care. This summary normalizes information from multiple sources, and as a consequence, information in this document may materially change the coding, format and clinical context of patient data. In addition, data may be omitted in some cases. CLINICAL DECISIONS SHOULD BE BASED ON THE PRIMARY CLINICAL RECORDS. [employer] provides no warranty or guarantee of the accuracy or completeness of information in this document.
[2025-01-22 16:29] VITALS: BP 122/78; PULSE 82; RESP 16; TEMP 36.7; O2SAT 99
== END 2025-01-22 16:31 | disposition home or self-care (01) ==
PROVIDERS: Emergency Provider Emergency Medicine; PCP Family Medicine; Visit Provider Emergency Medicine
DX: S01.111A Laceration without foreign body of right eyelid and periocular area, initial encounter (principal); I13.0 Hypertensive heart and chronic kidney disease with heart failure and stage 1 through stage 4 chronic kidney disease, or unspecified chronic kidney disease; I50.9 Heart failure, unspecified; J44.9 Chronic obstructive pulmonary disease, unspecified; N18.31 Chronic kidney disease, stage 3a; Z87.891 Personal history of nicotine dependence; S61.411A Laceration without foreign body of right hand, initial encounter; S80.211A Abrasion, right knee, initial encounter; S09.90XA Unspecified injury of head, initial encounter; W10.1XXA Fall (on)(from) sidewalk curb, initial encounter; K21.9 Gastro-esophageal reflux disease without esophagitis; Z79.899 Other long term (current) drug therapy; E03.9 Hypothyroidism, unspecified; Z79.890 Hormone replacement therapy; Z96.652 Presence of left artificial knee joint; Z98.41 Cataract extraction status, right eye; Z98.42 Cataract extraction status, left eye
CPT/HCPCS: 12002; 99284

== ENCOUNTER → 2025-02-23 | Outpatient (CLI) | payer MEDICARE, OTHER, SELFPAY ==
--- NOTE | 2025-02-23 13:49 | RAD_ITS ---
PROCEDURE: WRIST MIN 3 VIEWS 02/23/2025 REASON FOR EXAM: Fall in December with continued right wrist pain. TECHNIQUE: Procedure Code: RADWR Modality: DX Procedure: WRIST MIN 3 VIEWS COMPARISON: None. FINDINGS: BONES: No acute fracture or focal osseous lesion. JOINTS: No dislocation. The joint spaces are preserved. SOFT TISSUES: The soft tissues are unremarkable. RAD/Wrist min 3 Views IMPRESSION: NO ACUTE FRACTURE OR DISLOCATION. If acute hand or wrist trauma is suspected an d initial radiographs are negative or equivocal repeat radiographs in 10-14 days MRI without IV contrast or CT without IV contr ast is usually appropriate as the next imaging study. (ACR Appropriateness Criteria: Acute Hand and Wrist Trauma 2018) Reading Location: [id number]
--- NOTE | 2025-02-23 13:49 | RAD_ITS ---
PROCEDURE: KNEE 4 OR MORE VIEWS 02/23/2025 REASON FOR EXAM: Fall in December. Continued posterior right knee pain. TECHNIQUE: Procedure Code: RADKN Modality: DX Procedure: KNEE 4 OR MORE VIEWS COMPARISON: None. FINDINGS: BONES: No acute fracture or focal osseous lesion. JOINTS: No dislocation. Moderate narrowing of the medial compartment. Small tricompartmental marginal osteophytes. SOFT TISSUES: The soft tissues are unremarkable. RAD/Knee 4 or More Views IMPRESSION: 1. No acute fracture or dislocation. 2. 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 Reading Location: [id number]
== END | disposition home or self-care (01) ==
LOC: MTRAD 13:49
PROVIDERS: PCP Family Medicine; Referring Provider Physician Assistant; Visit Provider Physician Assistant
DX: S69.91XA Unspecified injury of right wrist, hand and finger(s), initial encounter (principal)
CPT/HCPCS: 73110; 73564